=== PATIENT | female | born 1955 | race African-American/Black ===

== ENCOUNTER 2017-09-16 17:48 | Inpatient (IN) | payer MEDICARE ==
[2017-09-16 18:48] LABS: #Lymphocytes 1.8 thou/uL (1.20-3.40); #Neutrophils 12.9 thou/uL (1.40-6.50); %Basophils 0.1 % (0.0-1.0); %Eosinophils 0.1 % (0.0-10.0); %Lymphocytes 11.4 % (21.0-51.0); %Monocytes 6.3 % (0.0-10.0); Hematocrit 36.5 % (36.0-47.0); Mean Platelet Volume 6.5 fL (7.4-10.4); Red Blood Cell (RBC) Count 4.46 mill/uL (4.20-5.40); White Blood Cell (WBC) Count 15.7 thou/uL (4.8-10.8)
[2017-09-16] MEDS ORDERED: Morphine 2 mg/2ml in 0.9% NaCl PF SYRINGE ONE ×2 (18:55→21:25)
[2017-09-16] MEDS ORDERED: Ketorolac Tromethamine 30 MG/ML VIAL ONE (18:55)
[2017-09-16 19:04] LABS: Lactic Acid - Sepsis 2.3 mmol/L (0.5-2.2)
[2017-09-16 19:08] LABS: ALT (SGPT) 7 U/L (8-55); AST (SGOT) 11 U/L (5-34); Alkaline Phosphatase 80 U/L (40-150); Anion Gap 15 mmol/L (10-20); BUN (Urea Nitrogen) 35 mg/dL (9.8-20.1); Bilirubin, Total 0.4 mg/dL (0.2-1.2); Calc. Creatinine Clearance 0 mL/min (70-130); Carbon Dioxide 25 mmol/L (23-31); Chloride 98 mmol/L (98-107); Estimated GFR-MDRD 23; Globulin 5.2 g/dL (2.4-3.5); Protein, Total 8.4 g/dL (6.0-8.3)
[2017-09-16 20:05] LABS: Bilirubin Small (Negative); Blood, Urine Negative (Negative); Glucose, Urine (Dipstick) Negative (Negative); Ketone, Urine Negative (Negative); Nitrite Negative (Negative); Protein, Urine (Dipstick) 300 mg/dL (Neg-Trace); Urobilinogen 0.2 mg/dL (0.2-1.0)
[2017-09-16 20:08] LABS: Bacteria/HPF None Seen HPF (None Seen)
[2017-09-16 20:18] LABS: RBC/HPF 0-3 HPF (0-3); Transitional Epithelial 0-3 HPF (0-3)
--- NOTE | 2017-09-16 20:45 | RAD ---
AP CHEST: Indication: History of chest infection. IMPRESSION: No acute cardiopulmonary abnormality. Stable cardiomegaly when compared to prior 08-18-17 exam. POS: CAITIE
--- NOTE | 2017-09-16 20:56 | CT ---
CT OF ABDOMEN AND PELVIS WITHOUT IV CONTRAST: Indication: Lower abdominal pain with report of an infection. Patient has a history of diabetes. Comparison: CT of abdomen and pelvis without contrast, 02-14-09. FINDINGS: There is prominent circumferential wall thickening and pericolonic stranding involving the sigmoid co mary. There are scattered diverticula present. There is moderate dilatation of the colon which transit ions at the level of concentric wall thickening of the lower sigmoid colon. There is a band of soft t issue density extending from a loop of small bowel within the anterior lower mid abdomen on image 65 of series 2, extending anterior to the sigmoid colon and communicating with the superior aspect of th e bladder dome, best seen on image 87 or the coronal series. There is calcification within the bladde r dome as well as gas and surrounding perivesicular fat stranding suspicious for uterovesicular fistu la. No drainable fluid collection is evident. Small bowel is of normal caliber. There is a stable left renal cyst measuring 1.5 cm extending exophy tic along the midabdomen. There are some calcifications involving the cortex of the left kidney super ior pole. There is a fat containing right [place] hernia. Unopacified liver, spleen, pancreas and ad renal glands appear within normal limits. No acute osseous abnormality is evident. IMPRESSION: 1. Circumferential wall thickening and narrowing involving the sigmoid colon with perivesicular fat s tanding inducing moderate partial colonic obstruction may be related to an area of colonic diverticul itis; however, malignancy in this location cannot be excluded. Adjacent to this region is a band of soft tissue density and gas extending from a loop of ileum to th e superior aspect of the bladder dome most suspicious for an enterovesicular fistula. A small stone i s seen within the dome of the bladder with perivesicular fat standing and gas. This may also reflect an enterocolonicvesicular fistula. Surgical consultation is recommended. 2. Left renal cyst. 3. Other chronic findings as above. POS: SANTA
[2017-09-16] MEDS ORDERED: Meropenem 1 GM in Sodium Chloride 0.9% 100 ML IVPB SCH (21:15)
[2017-09-16] MEDS ORDERED: Potassium Chloride 40 MEQ in Sodium Chloride 0.9% 500 ML IVPB SCH (21:30)
[2017-09-16] MEDS ORDERED: Ondansetron ODT 4 MG TAB SL PRN (22:24)
[2017-09-16] MEDS ORDERED: Ondansetron HCl/PF 4 MG/2 ML Vial IVP PRN (22:24)
[2017-09-16] MEDS ORDERED: Sodium Chloride 0.9% 1,000 ML IV SCH (22:24)
[2017-09-16] MEDS: MORPHINE 10 MG/ML SYRINGE IV PRN (23:33)
[2017-09-17] MEDS: Fentanyl 100 MCG/2 ML VIAL SLOW IVP PRN ×4 (02:29→17:09)
[2017-09-17] MEDS: MORPHINE 10 MG/ML SYRINGE IV PRN (05:53)
[2017-09-17] MEDS ORDERED: Dextrose 5% in Water 1,000 ML IV PRN (07:58)
[2017-09-17] MEDS ORDERED: Dextrose 50% Abboject 50 ML SYRINGE IVP PRN (07:58)
[2017-09-17] MEDS ORDERED: Piperacillin/Tazobactam 2.25 GM, Admixture Fee 1 EACH in Sodium Chloride 0.9% 100 ML IVPB SCH (08:00)
[2017-09-17] MEDS ORDERED: Potassium Chloride 40 MEQ in Premix Bag 1 BAG IVPB SCH (08:00)
[2017-09-17] MEDS ORDERED: Ondansetron HCl/PF 4 MG/2 ML Vial IVP PRN (08:01)
--- NOTE | 2017-09-17 08:58 | HP ---
DATE OF ADMISSION: 09/16/2017 CHIEF COMPLAINT: Abdominal pain. HISTORY OF PRESENT ILLNESS: The patient is a 62-year-old female who has actually been having abdomin al pain for the last 2 weeks. She has been struggling with diet changes, trying to control and allev iate her pain. She has come to the emergency room on previous occasions, trying to have it evaluated . She went into Dr. Calhoun's office the week prior, at which time he felt by history and physical massimo t she had IBS and began her on Linzess. The pain, however, increased instead of improved. She began to run fever, chills, diarrhea, vomiting and because the pain intensified, she came to the emergency room for this admission. She rates it 8/10. There are no urinary tract symptoms. No polyuria, dys uria or frequency. She feels like she needs to urinate, she cannot and has a sensation that she rodriguez ot empty. There has been no blood in urine or stool. The patient had a CT in the emergency room, wh ich revealed complex situation with perisigmoid swelling and possible mass involving swelling and pre ssure on dome of the bladder with possible air track/fistula. The patient is being admitted for furt her evaluation and pain management. The patient when seen in the office was examined for H. pylori a nd the tests came back positive and she was undergoing treatment for that involving two antibiotics, proton pump inhibitor and Pepto-Bismol and other antibiotics including amoxicillin 500 mg two p.o. b. i.d., Tylenol #4 p.r.n. q.4 hours p.r.n. pain, Dexilant 60 mg day. PAST MEDICAL HISTORY: Significant for hypertension, dyslipidemia, gout, non-insulin dependent diabet es, anemia, GERD, recent diagnosis of H. pylori. PAST SURGICAL HISTORY: Includes tubal ligation. PAST PSYCHIATRIC HISTORY: She has had no psychiatric issues. 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 She does not smoke or drink alcoholic beverages. She is . ALLERGIES: She has no known drug allergies. MEDICATIONS ON ADMISISON: Include Glyburide 5 mg daily, Uloric 40 mg daily, amlodipine 5 mg daily, c arvedilol 6.25 mg b.i.d., clarithromycin 500 mg b.i.d. She has recently been diagnosed and treated f or H. pylori. REVIEW OF SYSTEMS: General: Significant for fever, malaise, exhaustion and hunger. HEENT: Denies blurred vision, headaches, sore throat, lesions in the nose, ears, and throat. Neck: Supple with normal range of motion. No sensation of mass or pain. Chest: Denies cough, shor tness of breath, dyspnea. Heart: Denies palpitations, chest pain. Abdomen: Diffusely tender, tahir cially across the lower quadrants with the sensation of fullness and gas and pain. Genitourinary: Denies urinary tract symptoms, no blood in urine or stool. Extremities: Has painful arthritis in the major joints, otherwise no swelling or edema. Skin: Without acute rashes or lesio ns. Neurologic: Denies headaches, blurred vision, or trouble with mentation. PHYSICAL EXAMINATION: VITAL SIGNS: At the time of admission, blood pressure 141/54 overnight, pulse 88, respirations 18, t emperature 100.6. Pain scale 8/10 with an O2 sat of 94% on room air. GENERAL: Obese female in moderate distress due to pain. HEENT: Normocephalic and atraumatic. Pupils equal, round, and reactive to light. Extraocular muscl es are intact. TMs, nares, pharynx are clear. NECK: Supple, trachea midline, no mass. CHEST: Clear to auscultation. Breast exam deferred. HEART: Regular rate and rhythm, tachycardic. ABDOMEN: Diffusely tender across the lower quadrants. There is mild guarding. Diminished bowel jd nds. Tenderness from left to mid suprapubic and left quadrant. EXTREMITIES: Without clubbing, cyanosis, or edema. Normal range of motion present. SKIN: Without acute rashes or lesions. NEUROLOGIC: Cranial nerves are intact. Mental status clear. Gait and cerebellar function untested at this time. LABORATORY DATA AND X-RAY FINDINGS: Lab work on admission showed WBC 15.7, hemoglobin 11.3, hematocr it 36.5 with platelets at 476. Sodium 135, potassium 2.6, chloride 98, CO2 25, BUN 35, creatinine 2. 55. Lactic acid elevated at 2.3, glucose 237, alkaline phosphatase low at 7, albumin low at 3.2. Ur inalysis shows 300 protein, small bilirubin, 4-6 WBCs. The chest x-ray shows no acute cardiopulmonar y issues. The CT of the abdomen, however, shows circumferential wall thickening and narrowing involv ing the sigmoid colon with perivascular fat stranding including moderate partial colonic obstruction, may be related to an area of colonic diverticulitis; however, malignancy cannot be excluded. She al so has soft tissue density and gas extending from a loop of ileum to the superior aspect of the dome of the bladder suspicious for intravascular fistula, small stones seen in dome of the bladder. ASSESSMENT: 1. Acute abdominal pain, etiology possibly acute colitis and/or fistula tract. 2. Hypokalemia. 3. Nkk-gzojzco-kplrdrara diabetes. 4. Renal insufficiency, acute. PLAN: N.p.o., IV fluids, continue IV antibiotics and surgical consultation, serial reevaluation and pain management.
[2017-09-17] MEDS ORDERED: Acetaminophen 1,000 MG in Premix Bag 1 BAG IVPB PRN (08:59)
[2017-09-17] MEDS ORDERED: Morphine 4 MG/ML Carpuject IVP PRN (08:59)
[2017-09-17] MEDS ORDERED: cloNIDine 0.1mg/24 Hour PATCH TD SCH (09:00)
[2017-09-17] MEDS ORDERED: FLU VACC QS2017-18 36 mo. & older 0.5 ML SYRINGE IM ONE (09:00)
[2017-09-17] MEDS ORDERED: MORPHINE 10 MG/ML SYRINGE IV PRN ×3 (09:11→10:29)
[2017-09-17] MEDS ORDERED: Morphine PF 1 MG/ML SYR IV PRN (09:12)
[2017-09-17] MEDS: Piperacillin/Tazobactam 2.25 GM, Admixture Fee 1 EACH in Sodium Chloride 0.9% 100 ML IVPB SCH ×3 (09:41→22:01)
[2017-09-17] MEDS: NS 0.9% w/ 20 MEQ KCL 1,000 ML IV SCH ×2 (09:41→16:32)
--- NOTE | 2017-09-17 09:42 | CON ---
DATE OF CONSULTATION: 09/17/2017 This consult is from Dr. Sabas Calhoun, [facility]. REASON FOR CONSULTATION: Abdominal pain. HISTORY OF PRESENT ILLNESS: This is a 62-year-old -German female, who presents with a histo ry of lower abdominal cramping and pain. She has had similar episodes in the past and she thinks she has been treated as an outpatient with diverticulitis in the past, now had been diagnosed with diver ticulitis, question of fistula to the bladder. The patient denies dysuria. She denies cloudy urine or foul smell, but she does occasionally pass air when she urinates. She denies chronic constipation or diarrhea. Last colonoscopy was 5 years ago in [place]. Pain is described as 8/10, dull ache, bi lateral lower abdomen, not associated with nausea or vomiting. No family history of GI malignancy. PAST MEDICAL HISTORY: Dyslipidemia, hypertension, diabetes mellitus, GERD. PAST SURGICAL HISTORY: Tubal ligation. MEDICINES TAKEN DAILY: See list. ALLERGIES: No known drug allergies. SOCIAL HISTORY: No smoking, alcohol, or other drugs. REVIEW OF SYSTEMS: Ten-system review of systems is otherwise negative unless described above. PHYSICAL EXAMINATION: VITAL SIGNS: Blood pressure is 150/88, pulse 89, respirations 20, temperature 99.5. HEENT: Sclerae are anicteric. Oropharynx clear. NECK: No lymphadenopathy. CHEST: Clear. HEART: Regular rate and rhythm. ABDOMEN: Soft, tender bilateral lower abdomen with guarding, but no rebound. No abdominal or inguin al hernias. EXTREMITIES: No ischemia or edema to extremities. LABORATORY AND X-RAY FINDINGS: White count was 15 last night, platelet count 476, hemoglobin 11, sod ium 135, potassium 2.6, creatinine was 2.[address] scan reveals inflammatory change to the s igmoid colon. There is a loop of small bowel that looks like it is in this area as well and involved , question fistula tract to the bladder. ASSESSMENT: 1. Likely diverticulitis, potentially complicated by a colovesical fistula. 2. Hypertension. 3. Diabetes mellitus, type 2. 4. Morbid obesity. PLAN: I recommend treating her like she has diverticulitis for now. She does not need meropenem and Zosyn. Zosyn was ordered and is renal dosed. If her kidney function is better tomorrow, we will in crease the dose to the standard. Recheck her chemistry today to be sure that her creatinine is not r ising, otherwise routine labs tomorrow morning. Keep her n.p.o. until her symptoms improve, we will allow ice chips. Ultimately may need resection plus or minus bladder repair. My plan would be IV an tibiotics, convert to oral antibiotics and home where she can undergo elective repeat colonoscopy as well as cystoscopy prior to any elective surgical procedure. She does need to undergo more of an urg ent procedure during this hospitalization. She would need a sigmoid colectomy and end colostomy.
[2017-09-17 10:21] LABS: Anion Gap 9 mmol/L (10-20); BUN (Urea Nitrogen) 41 mg/dL (9.8-20.1); Calc. Creatinine Clearance 45 mL/min (70-130); Calcium 8.3 mg/dL (7.8-10.44); Carbon Dioxide 27 mmol/L (23-31); Chloride 106 mmol/L (98-107); Estimated GFR-MDRD 25
[2017-09-17] MEDS ORDERED: Piperacillin/Tazobactam 2.25 GM in Sodium Chloride 0.9% 100 ML IVPB SCH (14:00)
[2017-09-17] MEDS ORDERED: Meropenem 1 GM, Admixture Fee 1 EACH in Sodium Chloride 0.9% 100 ML IVPB SCH (14:00)
--- NOTE | 2017-09-17 15:30 | PQF ---
CLINICAL DOCUMENTATION IMPROVEMENT CLARIFICATION FORM: ICD-10 Updated PLEASE DO AN ADDENDUM TO THE PROGRESS NOTE WITH ANY DOCUMENTATION UPDATES OR ADDITIONS AND CARRY THROUGH TO DC SUMMARY. THANK YOU. DATE: 09/25/17 ATTN: DR. MEEHAN / URIEL KERNS NP Please exercise your independent, professional judgment in responding to the clarification form. Clinical indicators are provided on the bottom of this form for your review Please check appropriate box(s): [ x ] Sepsis due to: (Pna, UTI, gangrenous gall bladder, etc.) ___colitis Due to: [ ] Device (please specify) [ ] Implant [ ] Graft [ ] Infusion [ ] SIRS due to non-infectious process (please specify etiology) [ ] with organ dysfunction [ ] without organ dysfunction [ ] Severe sepsis with acute organ dysfunction of: (Examples: respiratory failure, encephalopathy, acute kidney failure, other) [ ] Localized infection without sepsis [ ] Other diagnosis [ ] Unable to determine In addition, please specify: Present on Admission (POA): [ x ] Yes [ ] No [ ] Unable to determine For continuity of documentation, please document condition throughout progress notes and discharge summary. Thank You. 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 All Rights Reserved CASE [email or web address] Office: [phone] POLI
[2017-09-17] MEDS: Morphine PF 1 MG/ML SYR IV PRN ×2 (19:23→23:44)
[2017-09-18] MEDS: Morphine 10 MG/ML CARPUJECT IV PRN ×2 (03:16→17:14)
[2017-09-18] MEDS: Piperacillin/Tazobactam 2.25 GM, Admixture Fee 1 EACH in Sodium Chloride 0.9% 100 ML IVPB SCH ×4 (03:37→21:18)
[2017-09-18] MEDS: NS 0.9% w/ 20 MEQ KCL 1,000 ML IV SCH ×3 (03:37→14:50)
[2017-09-18 05:49] LABS: Band 34 % (5-11); Hematocrit 32.9 % (36.0-47.0); Mean Platelet Volume 6.9 fL (7.4-10.4); Neutrophil 54 % (42-75); Red Blood Cell (RBC) Count 4.04 mill/uL (4.20-5.40); White Blood Cell (WBC) Count 19.5 thou/uL (4.8-10.8)
[2017-09-18] MEDS: Fentanyl 100 MCG/2 ML VIAL SLOW IVP PRN ×5 (05:50→21:17)
[2017-09-18 06:08] LABS: Anion Gap 14 mmol/L (10-20); BUN (Urea Nitrogen) 53 mg/dL (9.8-20.1); Calc. Creatinine Clearance 39 mL/min (70-130); Calcium 8.8 mg/dL (7.8-10.44); Carbon Dioxide 22 mmol/L (23-31); Chloride 111 mmol/L (98-107); Estimated GFR-MDRD 22
[2017-09-18] MEDS ORDERED: Potassium Chloride 40 MEQ, Admixture Fee 1 EACH in Sodium Chloride 0.9% 250 ML 250 ML IVPB SCH (07:15)
[2017-09-18] MEDS ORDERED: Potassium Chloride 20 MEQ TAB PO SCH (08:15)
--- NOTE | 2017-09-18 08:20 | PRG ---
DATE OF SERVICE: 09/18/2017 SUBJECTIVE: The patient is in the shower. According to the nurse who just assessed her, she is vivekn g really well. Her abdomen is not hurting, it is soft. The patient does feel like she did have some liquids today. Upon evaluation, this is an exam I could not examine her as she is in the shower lori ing the shower, according to the nurse. PHYSICAL EXAMINATION: VITAL SIGNS: Blood pressure 128/95, pulse 90, respiration 16, she is afebrile. CARDIOVASCULAR: Regular rate and rhythm. CHEST: Symmetrical. Clear to auscultation and percussion. ABDOMEN: Soft, nontender. LABORATORY DATA: Showed a white blood cell to be 19.5, her H&H is 10.3 and 32.9, her platelet count is 426. Her potassium is 2.8. Her BUN is 53, creatinine is 2.71. ASSESSMENT: 1. Diverticulitis complicated by colovesical fistula. 2. Hypertension 3. Obesity. 4. Diabetes. 5. Hypokalemia. 6. Renal insufficiency. PLAN: 1. We will continue IV fluids. We will replace potassium. 2. We will check a lab in the morning. 3. We will start on clear liquid diet and follow up with lab in the morning. This is HOSSEIN Castanon dictating for Dr. Sabas Calhoun.
[2017-09-18] MEDS: Morphine PF 1 MG/ML SYR IV PRN (12:23)
[2017-09-18] MEDS: Insulin Regular 300 UNITS/3 ML VIAL SC PRN ×2 (12:28→17:16)
--- NOTE | 2017-09-18 17:05 | PRG ---
DATE OF SERVICE: 09/18/2017 SUBJECTIVE: Ms. Watters feels better today. She states that her pain is improved. She has not been am bulatory, on a clear liquid diet without significant nausea. PHYSICAL EXAMINATION: VITAL SIGNS: She is afebrile, pulse 77, blood pressure 140/86, multiple voids. ABDOMEN: Soft, pump and still operator in the left lower quadrant and the right lower quadrant, left greater th an right, with localized guarding, but no rebound tenderness. LABORATORY DATA: Her white blood cell count today is 19, hemoglobin 10, platelet count is 426. She does have 34 bands today. Sodium 144, potassium 2.8, creatinine is up to 2.71, glucose 145. ASSESSMENT: Improved diverticulitis, questionable colovesical fistula. Of note on her UA on admissi on, she did not have any bacteria and only 4-6 wbcs in her urine, increased leukocytosis with left sh ift. PLAN: Her initial CT scan was fairly limited by lack of contrast. I cannot give her IV contrast sec ondary to her acute on chronic renal insufficiency; however, we will have her drink oral contrast, re peat the scan.
[2017-09-18] MEDS ORDERED: Fentanyl 100 MCG/2 ML VIAL SLOW IVP PRN (17:25)
--- NOTE | 2017-09-18 20:43 | CT ---
CT ABDOMEN NONCONTRAST CT PELVIS NONCONTRAST: 09/18/17 HISTORY: 62-year-old female with diverticulitis, abdominal pain for three weeks, and colitis. Dr. Alston discussed the findings by telephone with Dr. Ceron at 4:38 p.m. on 09/18/17. TECHNIQUE: Oral contrast: 900 mL Readi-Cat. IV contrast: Not administered. COMPARISON: CT of 09/16/17. FINDINGS: Again demonstrated is the diffuse thickening of an approximately 6 cm length of sigmoid colon, obstru cting the lumen. In addition to numerous diverticula at this level, there is surrounding mild spicula tion and fat stranding. This is causing an obstruction, demonstrated by the fact that the distal sigm oid colon distal to this, is small in caliber. There is fluid in the lumen of the rectum. Proximal to this, the entire rest of the colon is distended with a large volume of fluid and gas. This colonic d istention is slightly greater than it was two days ago. There may be tiny foci of extraluminal gas al rosendo the superior edge of the thickened portion of the colon, new or greater than on the previous CT. Alternatively, these foci of gas may be intraluminal, within diverticula. Again demonstrated is the t hin short tubular density arising from a loop of ileum leading to what appears to be a diverticulum a t the anterior dome of the urinary bladder. The urinary bladder volume is small overall. This apparen t diverticulum measures approximately 3.5 x 3.5 x 3 cm, has thick sheppard, and contains gas. At its pos terior dependent portion, this apparent diverticulum appears to contains a 1 x 0.8 x 0.6 cm calculus that may be occluding it. The small bowel loops are collapsed. No small bowel dilation. There is a small amount of free fluid i n the right lower paracolic gutter, new since the previous CT. Again demonstrated is a small layer of hyperdense material in the dependent portion of the lumen of the cecum, and a small amount in the tr ansverse colon. This was present on the previous CT, and presumably represents ingested hyperdense ma terial such as Pepto Bismol, fragmented calcium tablet, or Milk of Magnesia. There is no evidence of pneumatosis or pneumoperitoneum. There is also a small amount of free fluid and fat stranding in the contralateral left paracolic gutter. No hydronephrosis. Ectasia and tortuosity of abdominal aorta wit hout aneurysm. No splenomegaly. No gross pathology of pancreas, adrenals, or liver identified, within the limitations of a noncontrast scan. The lung bases are grossly clear. IMPRESSION: 1. Colonic obstruction at the sigmoid colon. This may be due to a combination of acute diverticu litis and an obstructing colon cancer. The colon proximal to this obstruction has become more distend ed since 09/16/17. 2. A slightly greater degree of inflammatory changes involving what appears to be an anterior bl adder diverticulum, containing gas, containing a calculus that is questionably obstructing its neck. 3. What appears to be an enterovesical fistula leading from an adjacent loop of ileum to this ap parent bladder diverticulum. Unfortunately, the oral contrast material has not reached this level (mo st of the oral contrast material is still within the distended stomach). 4. A greater volume of small amount of free fluid in the right pericolic gutter since two days a go. POS: SANTA
[2017-09-18] MEDS ORDERED: Fleet Enema 133 ML BOT PR SCH (21:00)
[2017-09-19] MEDS: NS 0.9% w/ 20 MEQ KCL 1,000 ML IV SCH ×3 (02:47→17:44)
[2017-09-19] MEDS: Piperacillin/Tazobactam 2.25 GM, Admixture Fee 1 EACH in Sodium Chloride 0.9% 100 ML IVPB SCH ×4 (02:47→21:53)
[2017-09-19 06:30] LABS: Anion Gap 15 mmol/L (10-20); BUN (Urea Nitrogen) 65 mg/dL (9.8-20.1); Calc. Creatinine Clearance 30 mL/min (70-130); Calcium 9.3 mg/dL (7.8-10.44); Carbon Dioxide 19 mmol/L (23-31); Chloride 110 mmol/L (98-107); Estimated GFR-MDRD 16
[2017-09-19 06:45] LABS: Anisocytosis SLIGHT = 6-15 cells (100X) (0-5/hpf); Band 16 % (5-11); Hypochromia SLIGHT = 6-15 cells (100X) (0-5/hpf); Mean Platelet Volume 6.6 fL (7.4-10.4); Neutrophil 71 % (42-75); Polychromasia SLIGHT = 2-3 cells (100X) (0-2/hpf); Red Blood Cell (RBC) Count 4.01 mill/uL (4.20-5.40); White Blood Cell (WBC) Count 21.9 thou/uL (4.8-10.8)
--- NOTE | 2017-09-19 07:27 | CON ---
DATE OF CONSULTATION: 09/18/2017 REASON FOR CONSULTATION: Possible colon obstruction, diverticular versus malignant. HISTORY OF PRESENT ILLNESS: Ms. Watters is a 62-year-old female who has been having on and off pain for a few weeks and she was admitted to the hospital on the . In the distant past, she states she [place] s some sort of symptoms in her previous diverticulitis, but now over the past couple weeks, she ended up going to the emergency room and having imaging studies, placed on antibiotics. She had a CAT sca n, which showed outpatient with diverticulosis with possible fistula to the bladder. Patient, zaki frank, denies any dysuria or hematuria. She has had no cloudy urine or foul-smelling urine. wonde rs if she has gas from her vaginal area. She reports she did have a normal colonoscopy at [facility], 5 years ago in [place]. Here, the patient was started empirically on antibiotics. Repeat C AT scan with oral contrast, which showed dilated proximal colonic loops and possible narrowing in the sigmoid colon. Following that, the patient states she is passing gas. She noted scant small bowel movements, although she states when she tries to drink, she does not feel she can get much down. Ini tial CAT scan which showed circumferential wall thickening and narrowing involving the sigmoid colon with perivascular fat stranding. Also, the radiologist noted with possible enterovesicular fis jeff; this was without any IV or any oral contrast at that time. The patient denies any history of inflammatory bowel disease or Crohn's disease, she has had no abdom inal surgeries besides tubal ligation in the past. PAST MEDICAL HISTORY: Hypertension, dyslipidemia, gout, noninsulin-dependent diabetes, mild anemia, reflux, and recent diagnosis of H. pylori on serology test. 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 She does not smoke or drin k. She is with two grown sons. ALLERGIES: None known. HOME MEDICATIONS: Include glyburide, Uloric, amlodipine, carvedilol, clarithromycin. REVIEW OF SYSTEMS: Negative for dysphagia or odynophagia, notable for mild shortness of breath, no d yspnea on exertion or chest pain on exertion. She denies any recent hematochezia, melena, or hematem esis. She did not note hematuria. PRESENT MEDICATIONS: Clonidine, , fentanyl, Zosyn, normal saline 100. PHYSICAL EXAMINATION: VITAL SIGNS: The patient has been afebrile since admission, 97.6. She has got a pulse of 89, blood pressure 137/86. She is a little bit overweight. She is short. LUNGS: Clear. CARDIOVASCULAR: Regular rate and rhythm, without clicks or murmurs. ABDOMEN: Firm, especially in the left lower and mildly tender. LABORATORY AND X-RAY FINDINGS: White count is 19, hemoglobin is 10, platelet count is 426. Sodium i s 144, potassium 2.8, BUN 53, creatinine 2.71. CEA was 25. Urinalysis showed slight white cells. ASSESSMENT: This is a 62-year-old female with high-grade obstruction in the colon and sigmoid area. She states she is passing gas, but she has prominent dilatation proximal to this. Dr. Ceron today and did see those films and asked me if we can perform a flexible sigmoidoscopy and he is worr ied about malignancy. Her CEA has come back elevated at 25, this is not the diagnostic malignancy, b pr has raised that concern as well; however, she reports she had a normal colonoscopy 5 years ago at [facility] in [place]. She does not remember the exact date, however. RECOMMENDATIONS: Included broad-spectrum antibiotics. I do not think, she can tolerate full colonos copy or bowel prep. We will plan to keep her n.p.o. for now and proceed with flexible sigmoidoscopy after enemas. I have explained to family, this could increase risk of perforation with the distentio n and concern for possible perforation or fistula tract to the bladder can make that worse, but this would require surgery anyway, and in talking with Dr. Ceron, he states it will change his surgical approach if he knows there is a malignancy present. She could decompensate and become fully obstruct ed overnight and become emergent that she would have the surgery, but we will see if we can accommoda te this tomorrow, if she remains stable.
[2017-09-19] MEDS ORDERED: TAP WATER ENEMA PR SCH (09:00)
[2017-09-19] MEDS: Fentanyl 100 MCG/2 ML VIAL SLOW IVP PRN (09:56)
--- NOTE | 2017-09-19 13:48 | CON ---
DATE OF CONSULTATION: 09/19/2017 HISTORY OF PRESENT ILLNESS: Ms. Watters is a 62-year-old black female who has chronic renal failure secondary to a presumed diabetic nephropathy. Her last creatinine in the clinic back on 08/2017 was 1.73. She is now being admitted for abdominal pain. Working diagnosis of possible colitis is made. She is currently undergoing a flexible sigmoidoscopy. GI is following. Initial CT scan done on 09/18/2017 showed diffuse thickening of the sigmoid colon which was obstructing the lumen. In addition to numerous diverticula, there is finding of and fat stranding. There is any issue whether there may be a fistula involved here. We are now being consulted for her acute kidney injury. Please note the patient is currently undergoing said procedure not in her bedroom. REVIEW OF SYSTEMS: Based on the history, positive for abdominal pain. Positive for nausea, but no overt vomiting, no fever or chills, decreased appetite, decreased energy level. No headache, no diplopia, no syncopal episode , no productive cough. Denies any fever or chills. HOME MEDICATIONS: Included Lasix 40 mg tab p.r.n., KCl 10 mEq p.r.n., hydralazine 50 mg tab b.i.d., allopurinol 300 mg once a day, glyburide 5 mg once daily, amlodipine 5 mg once a day, carvedilol 6.25 mg b.i.d., tramadol 50 mg p.r.n., iron p.o. t.i.d., Flexeril 10 mg tab at bedtime. CURRENT MEDICATIONS: Includes Humulin R sliding scale, p.r.n. Vasotec, Zosyn 2.25 grams IV q.6 hours, normal saline with 20 mEq, potassium 125 mL per hour. PAST MEDICAL HISTORY: 1. Recent diagnosis of colitis. 2. Chronic renal failure from presumed diabetic nephropathy. 3. Gout. 4. Obstructive sleep apnea, status post CHF. 5. Chronic anemia. 6. Type 2 diabetes mellitus. PAST SURGICAL HISTORY: Status post upper and lower GI endoscopy. SOCIAL HISTORY: The patient is and lives in [place]. Four children, lives with her . 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 Education high school. No history of smoking. She does have history of chronic intake of NSAIDs. No IV drug abuse. Status post blood transfusion. FAMILY HISTORY: No family history of ESRD. ALLERGIES: None. TRAUMA: None. IMMUNIZATIONS: Up to date. HOSPITALIZATIONS: Please see past medical history. PHYSICAL EXAMINATION: This is based on the medical records by surgeon and customer service representative teller. VITAL SIGNS: Blood pressure 131/82, heart rate 89, respiratory rate 20, temperature 98. GENERAL: Noted to be awake, alert, comfortable, not in distress. SKIN: Adequate turgor. HEENT: She has pinkish conjunctivae, anicteric sclerae. NECK: No neck mass, no carotid bruits, no JVD. CHEST: No deformities. LUNGS: Decreased breath sounds. HEART: Normal sinus rhythm. No murmur, no gallops or rubs. ABDOMEN: Globular, soft. Positive for tenderness. EXTREMITIES: No edema, no deformities. LABORATORY DATA: Laboratories of 09/19/2017; white count 21.9, hemoglobin 10.1 , sodium 140, potassium 3.5, chloride 110, carbon dioxide 19, BUN 65, creatinine 3.5, glucose 141, calcium 9.3. On 09/18/2017, creatinine 2.71. On 09/17/2017, creatinine 2.37. On 09/16/2017, creatinine 2.55. Urinalysis shows pigmented granular casts. ASSESSMENT AND PLAN: 1. Acute kidney injury on top of her chronic renal failure - with progressive ischemia and findings of pigmented granular cast in the urine sediment, I suspect a superimposed acute tubular necrosis. Management is supportive. Continue to optimize hemodynamics. If the renal function will further worsen in the next several days, we need to consider the possibility of dialytic intervention with this patient. 2. Colitis - General Surgery is following. A possible colon resection remains with this patient as well as exploratory laparotomy. Continue current IV antibiotics. At the present time, there is no indication for any dialytic intervention. Overall, I agree with current management. The patient was physically examined on the following day - 09/20/17 S: No new complaints; s/p endoscopy; currently receiving IV hydration Vital signs - Reviewed Gen: Awake, alert, comfortable, not in distress Skin: Adequate turgor HEENT: Pinkish conjunctiva, anicteric sclerae, noJVD Lungs: Clear breath sounds, no wheezing, no crackles Heart: NSR,no murmur, no gallops, no rubs Abdomen: Globular, mildly tender Ext: Trace edema Neuro: Awake, alert, oriented. MTDD
[2017-09-19] MEDS ORDERED: Fentanyl 100 MCG/2 ML VIAL ONE ×2 (14:17→15:35)
[2017-09-19] MEDS ORDERED: Labetalol HCl 100 MG/20 ML VIAL ONE (14:28)
[2017-09-19] MEDS ORDERED: Midazolam HCl 2 mg/2 ml Vial ONE (15:38)
[2017-09-19] MEDS ORDERED: Promethazine HCl 25 MG/ML VIAL IM PRN (16:33)
[2017-09-19] MEDS ORDERED: Ondansetron HCl/PF 4 MG/2 ML Vial IVP PRN (16:33)
[2017-09-19] MEDS ORDERED: Promethazine HCl 25 MG/ML VIAL SLOW IVP PRN (16:33)
[2017-09-19] MEDS ORDERED: Vancomycin HCl 25 MG/ML Oral PO SCH (18:00)
[2017-09-19] MEDS: metroNIDAZOLE 500 MG in Premix Bag 1 BAG IVPB SCH (18:09)
--- NOTE | 2017-09-19 18:11 | EKG ---
Test Reason : PREOP Blood Pressure : / mmHG Vent. Rate : 095 BPM Atrial Rate : 095 BPM P-R Int : 194 ms QRS Dur : 108 ms QT Int : 368 ms P-R-T Axes : 001 -10 044 degrees QTc Int : 462 ms Normal sinus rhythm , borderline 1st degree AV block. Moderate voltage criteria for LVH, may be normal variant Cannot rule out Inferior infarct , age undetermined Abnormal ECG When compared with ECG of 16-AUG-2013 17:47, [place] interval has decreased Vent. rate has increased BY 34 BPM Minimal criteria for Inferior infarct are now Present T wave amplitude has decreased in Inferior leads Nonspecific T wave abnormality, worse in Lateral leads Confirmed by EHSAN NOLAN ([id number]) on 09/19/2017 6:10:52 PM Referred By: KANDI Confirmed By:EHSAN NOLAN
--- NOTE | 2017-09-19 21:43 | OP ---
PREOPERATIVE DIAGNOSES: 1. Suspected colonic obstruction at the rectosigmoid colon, diverticular versus malignancy. 2. Distended colon proximal to this concerning for high-grade partial obstruction. 3. Leukocytosis attributed diverticulitis. 4. Respiratory embarrassment secondary to distended abdomen. PROCEDURES: 1. Colonoscopy with decompression, about 3 liters of liquid were suctioned from the colon. A decomp ression tube was left in the rectum above the area of narrowing the sigmoid colon. 2. Severe colitis above the area of obstruction with pseudomembranes and exudates. Biopsies were ta niranjan from the left colon, descending colon, and sigmoid colon. This may be Clostridium diff colitis w ith an ileus. 3. Narrowing extrinsic compression at the sigmoid colon, this is likely from chronic diverticular di sease, no overt malignancy was seen. The prep, however, was very suboptimal. Distal to the narrowed area in the sigmoid colon, mucosa appeared fairly normal. ANESTHESIA: TIVA. PROCEDURE IN DETAIL: After the patient was informed of the risks, benefits, possible complications o f endoscopy including perforation, bleeding, reaction to medication, and aspiration, informed consent was obtained. The patient was brought to endoscopy suite where she was sedated in gradual fashion. Once she was comfortable, the endoscope was advanced through anal canal, through the colon. It was very difficult to supervise the area of narrowing as the colon was redundant, erythematous, inflamed and edematous with the area of stricture about 25-30 cm from the anorectal verge. This could be pass ed and above this, the colon was massively dilated with dark green liquid stool and mucosa with exuda te and some pseudomembranes. Multiple biopsies were taken from the transverse, ascending and descend ing colon and submitted to Pathology. The colon was desufflated with about 3 L of stool removed from the colon. A narrowed area was noted at about 25-30 cm from the anorectal verge, but no overt malig huseyin was seen mostly extrinsic compression, but again the prep was so poor it was hard to see, but n o obvious tumor or mass were seen in the colon. A wire was placed through the scope and above the ar ea of obstruction and then a decompression tube was placed. The esophagoscope was slowly removed fro m this. Colon was kept desufflated during this procedure. The patient's abdomen was much less tense . After the procedure, she felt better. Her heart rate was down. Her pulse was down. Her breathin g was nonlabored. Stool samples obtained and sent to lab for Clostridium difficile. RECOMMENDATIONS: 1. Decompression tube in the rectum. 2. IV fluids. 3. Add Flagyl intravenous and by mouth vancomycin. If stools for Clostridium difficile is positive, we would stop the Zosyn. We will continue to follow.
[2017-09-19] MEDS: Vancomycin HCl 25 MG/ML Oral PO SCH (21:52)
[2017-09-20] MEDS: metroNIDAZOLE 500 MG in Premix Bag 1 BAG IVPB SCH ×3 (00:55→17:33)
[2017-09-20] MEDS: NS 0.9% w/ 20 MEQ KCL 1,000 ML IV SCH ×3 (00:58→16:27)
[2017-09-20] MEDS: Piperacillin/Tazobactam 2.25 GM, Admixture Fee 1 EACH in Sodium Chloride 0.9% 100 ML IVPB SCH ×4 (02:49→21:49)
[2017-09-20 06:48] LABS: ALT (SGPT) 7 U/L (8-55); AST (SGOT) 10 U/L (5-34); Alkaline Phosphatase 77 U/L (40-150); Anion Gap 12 mmol/L (10-20); BUN (Urea Nitrogen) 65 mg/dL (9.8-20.1); Bilirubin, Total 0.3 mg/dL (0.2-1.2); Calc. Creatinine Clearance 32 mL/min (70-130); Calcium 8.4 mg/dL (7.8-10.44); Carbon Dioxide 20 mmol/L (23-31); Chloride 113 mmol/L (98-107); Estimated GFR-MDRD 17; Protein, Total 6.2 g/dL (6.0-8.3)
[2017-09-20 07:41] LABS: Band 6 % (5-11); Hematocrit 26.2 % (36.0-47.0); Mean Platelet Volume 6.9 fL (7.4-10.4); Metamyelocyte 1 % (0-0); Neutrophil 76 % (42-75); Polychromasia SLIGHT = 2-3 cells (100X) (0-2/hpf); Red Blood Cell (RBC) Count 3.19 mill/uL (4.20-5.40); White Blood Cell (WBC) Count 19.4 thou/uL (4.8-10.8)
--- NOTE | 2017-09-20 08:13 | PRG ---
DATE OF SERVICE: 09/20/2017 This is MUNDO Castanon-Katherin dictating a progress note for Sabas Calhoun M.D. SUBJECTIVE: The patient had a good night. Her abdomen has less pain. PHYSICAL EXAMINATION: VITAL SIGNS: Upon evaluation, her blood pressure is 140/80, pulse 80, respiration afebrile. NECK: Supple with no increased JVP or carotid bruit. Carotid had good upstroke with no thyromegaly. COR: Regular rate and rhythm. CHEST: Symmetrical. Clear to auscultation and percussion. ABDOMEN: Soft, slightly tender in all quadrants. She had normoactive bowel sounds. No bruit or org anomegaly. EXTREMITIES: No edema or cyanosis. She had palpable pedal pulses. SKIN: There is no evidence of ulcer lesion, or rash. NEUROLOGIC: She is awake, alert, and oriented to person, place, and time. LABORATORY DATA: Showed white blood cell 19.4, which is slightly better. Her hemoglobin and hematoc rit is 8.4 and 26.2. Her platelet count is 397. Her potassium is 3.3. Her creatinine is 3.34. ASSESSMENT: 1. Colonic obstruction. 2. Leukocytosis attributed to diverticulitis. 3. Renal insufficiency. 4. Hypertension. 5. Hypokalemia. 6. Anemia. 7. Multiple medical problems. PLAN: The patient will be continued with same treatment plan: We will go ahead and replace her pota ssium. We will follow up also with CBC and CMP in the morning. The patient verbalized understanding and all questions answered to her satisfaction.
[2017-09-20] MEDS ORDERED: Potassium Chloride 20 MEQ in Premix Bag 1 BAG IVPB SCH (08:45)
[2017-09-20] MEDS: Vancomycin HCl 25 MG/ML Oral PO SCH ×4 (08:50→21:50)
--- NOTE | 2017-09-20 08:52 | PRG ---
DATE OF SERVICE: 09/20/2017 SUBJECTIVE: Ms. Watters is a 62-year-old black female with chronic renal failure and was seen by the [facility] service for an acute kidney injury. The possibility of a superimposed acute tubular necrosis rem ains with this patient. Currently, hemodynamics is being optimized. She underwent a colonoscopy wit h decompression yesterday. As per report by GI, 3 liters of liquid were suctioned from the colon and decompression tube was left in the rectum above the area of narrowing of the sigmoid colon. Severe colitis was noted. There was narrowing and extrinsic compression of the sigmoid colon and this was f elt that this is likely from chronic diverticular disease - no overt carcinoma malignancy was noted. This morning, she is feeling a little better and she has some mild abdominal tenderness. She is cur rently receiving IV hydration. No complaints of chest pain or shortness of breath. PHYSICAL EXAMINATION: VITAL SIGNS: Blood pressure 146/81, heart rate 70, respiratory rate 20, temperature 98, pulse ox 93% . GENERAL: Noted to be awake, supine, comfortable, not in overt distress. SKIN: Adequate turgor. HEENT: Slightly pale conjunctivae, anicteric sclerae. NECK: No neck mass, no carotid bruits. No JVD. CHEST: No deformities. LUNGS: Clear breath sounds. No wheezing, no crackles. HEART: Normal sinus rhythm. No murmur, no gallops, no rubs. ABDOMEN: Globular, soft, nontender, no masses. Positive for bowel sounds, mildly tender. EXTREMITIES: Trace edema. NEUROLOGIC: Awake and oriented in 3 spheres. Moving all extremities. No tremors or asterixis. MEDICATIONS: Medications of 09/20/2017 was reviewed. LABORATORY DATA: Laboratories of 09/20/2017; white count 19.4, hemoglobin 8.4, sodium 142, potassium 4.4, chloride 103, carbon dioxide 20, BUN 65, creatinine 3.34. AST 10, ALT 7. On 09/19/2017, creat inine 3.5; 09/18/2017 creatinine 2.71. ASSESSMENT AND PLAN: 1. Acute kidney injury - possible superimposed acute tubular necrosis. I cannot rule out a prerenal component. For this reason, continue IV hydration. Please note the patient has had markedly decrea sed p.o. intake. Continue normal saline. No indication for any dialytic intervention. There is alr césar some stabilization with the renal dysfunction. 2. Colitis - on IV antibiotics. GI is following. Status post colonoscopy with decompression. Overall, agree with current management. Recheck base met and CBC in a.m.
--- NOTE | 2017-09-20 16:30 | SPC ---
ULTRASOUND FLUOROSCOPIC GUIDED LEFT UPPER EXTREMITY PICC LINE PLACEMENT. INDICATION: Need for long-term IV antibiotics for colitis and sepsis. TECHNIQUE: Informed consent was obtained. Preprocedure ultrasound demonstrated patent left basilic vein. The l eft upper extremity was prepped and draped in the usual sterile fashion. Buffered 1% Lidocaine was a dministered to the overlying subcutaneous tissues. Under ultrasound guidance, a micropuncture access kit was utilized to gain access to the left basilic vein. The guidewire was advanced to the level o f the IVC. A 5 Greek catheter sheath was then placed within the left basilic vein. A single lumen PICC line trimmed to 50 cm was guided over the line through the sheath. The sheath and wire were rem karis. Total fluoroscopic time was 0.6 minutes. Total exposure was 8655 mGy*^cm2. IMPRESSION: Successful ultrasound and fluoroscopic-guided left upper extremity PICC line placement. POS: SANTA
--- NOTE | 2017-09-20 18:04 | PRG ---
DATE OF SERVICE: 09/20/2017 SUBJECTIVE: Ms. Watters has had a PICC line placed this afternoon. She states that she feels better. Dr. Rojas was able to decompress her dilated proximal colon yesterday on her sigmoidoscopy. She sta rolando that her pain is improved. OBJECTIVE: VITAL SIGNS: She is afebrile. Vital signs are stable. She has had multiple stools today, multiple voids. ABDOMEN: Less distended. It is fourdrinier machine tender in the left lower quadrant. LABORATORY DATA: White blood cell count is 19 today, hemoglobin 8.4 and platelet count is 397. She has 6 bands. Sodium 142, potassium 3.3 and creatinine 3.34. ASSESSMENT: 1. Colitis severe, non-Clostridium difficile with obstruction, partial, improved after decompression . 2. Acute tubular necrosis superimposed on chronic renal failure. PLAN: I think her creatinine needs to peek and improve before she undergoes any sort of surgical pro cedure if possible. Obviously, if she needed something emergent done, it could be done, but it would likely lead to dialysis. I recommend keeping her on a clear liquid as tolerated. We will start TPN per dietitian recommendations and I recommend she stay through the weekend. If her creatinine were to approach normal early in the week, I could do something surgically.
[2017-09-20] MEDS ORDERED: [UNRECOGNIZED DRUG - OTHER] IV SCH ×22 (22:00)
[2017-09-20] MEDS ORDERED: SODIUM ACETATE IV SCH ×22 (22:00)
[2017-09-20] MEDS ORDERED: SODIUM CHLORIDE IV SCH ×22 (22:00)
[2017-09-20] MEDS ORDERED: POTASSIUM ACETATE IV SCH ×22 (22:00)
[2017-09-21] MEDS: NS 0.9% w/ 20 MEQ KCL 1,000 ML IV SCH ×2 (01:59→10:04)
[2017-09-21] MEDS: metroNIDAZOLE 500 MG in Premix Bag 1 BAG IVPB SCH ×3 (02:59→17:27)
[2017-09-21] MEDS: Piperacillin/Tazobactam 2.25 GM, Admixture Fee 1 EACH in Sodium Chloride 0.9% 100 ML IVPB SCH ×4 (05:05→21:25)
[2017-09-21 05:48] LABS: #Eosinphils 0.3 thou/uL (0.0-0.7); #Lymphocytes 1.8 thou/uL (1.20-3.40); #Monocytes 0.7 thou/uL (0.11-0.59); #Neutrophils 12.2 thou/uL (1.40-6.50); %Basophils 0.2 % (0.0-1.0); %Eosinophils 2.1 % (0.0-10.0); %Lymphocytes 11.7 % (21.0-51.0); %Monocytes 4.7 % (0.0-10.0); Hematocrit 29.2 % (36.0-47.0); Mean Platelet Volume 6.8 fL (7.4-10.4); Red Blood Cell (RBC) Count 3.54 mill/uL (4.20-5.40)
[2017-09-21 06:04] LABS: ALT (SGPT) 7 U/L (8-55); AST (SGOT) 11 U/L (5-34); Alkaline Phosphatase 97 U/L (40-150); Anion Gap 7 mmol/L (10-20); BUN (Urea Nitrogen) 42 mg/dL (9.8-20.1); Bilirubin, Total 0.2 mg/dL (0.2-1.2); Calc. Creatinine Clearance 48 mL/min (70-130); Calcium 8.6 mg/dL (7.8-10.44); Carbon Dioxide 25 mmol/L (23-31); Chloride 115 mmol/L (98-107); Estimated GFR-MDRD 27; Globulin 4.3 g/dL (2.4-3.5); Protein, Total 6.8 g/dL (6.0-8.3)
--- NOTE | 2017-09-21 06:16 | PRG ---
DATE OF SERVICE: 09/20/2017 SUBJECTIVE: Ms. Watters feels much better. She is breathing better. Her abdomen is less tense. Nurse notes she is having some stool after rectal tube and had a lot of stool around it. OBJECTIVE: VITAL SIGNS: Temperature is 98, pulse 66 and blood pressure 179/101. LUNGS: Clear. HEART: Regular rate and rhythm. ABDOMEN: Soft and nontender, slightly protuberant, much softer than it was yesterday. There are pos itive bowel sounds. LABORATORY STUDIES: White count 19,000, hemoglobin 8.4 and platelet count 397. Chemistry: Sodium 1 42, potassium 3.3, BUN and creatinine are 65 and 3.34 down from 3.5. Liver function tests normal. S tool negative for C. diff. Routine cultures had growth in normal [place]. ASSESSMENT: 1. Stricture in the sigmoid colon, likely diverticular. No malignancy was seen at the time of endos copy, although with high CEA, poor visualization cannot rule out completely. 2. Colitis in the colon proximal, Clostridium difficile toxin was negative, but there were some pseu domembranes and some purulent mucous. We will wait for the biopsies and continue the Flagyl and vanc omycin p.o. for now. If biopsies show other etiologies, we will go ahead and discontinue that. It m ay be that colitis is still from over distention of the colon. Inflammatory of her bowel disease is less likely and again antibiotic associated diarrhea other than Clostridium difficile will be possibl e too. 3. With her positive bowel sounds and passing stool, we will start her on a full liquid diet. This will help with nutrition. We will ask her to take some Ensure. 4. She asks, if she can get up and walk and definitely we would like her to do that. I told the anmol se to start having her mobilize and just try to watch the rectal tube as possible and she can wear a diaper when she walks. The rectal tube may eventually come out; the decompression tube does not have a balloon or a catheter to keep it in place. If that happens, we will just have to watch what her a bdomen does. 5. I agree with Dr. Ceron to see if we can stabilize her renal function improved before proceeding the surgery. Also, I think it would be a good idea to wait for the pathology to come back on the co mary biopsies as well. We will continue to follow.
--- NOTE | 2017-09-21 08:01 | PRG ---
DATE OF SERVICE: 09/21/2017 SUBJECTIVE: The patient had a good night. She is ready to start eating. She is having unfortunatel y a lot of "loose stools". PHYSICAL EXAMINATION: GENERAL: She is awake, alert, and oriented to person, place and time. VITAL SIGNS: Her blood pressure is high at 170/90, pulse 68, respiration rate 18. She is afebrile. NECK: Supple with no increased JVP or carotid bruit. Carotid had good upstroke with no thyromegaly. COR: Regular rate and rhythm. CHEST: Symmetrical. Clear to auscultation and percussion. ABDOMEN: Soft, tender. She had hyperactive bowel sounds. EXTREMITIES: No edema or cyanosis. She had palpable pedal pulses. SKIN: There is no evidence of ulcers lesion, or rash. NEUROLOGIC: She is awake, alert, and oriented to person, place, and time. LABORATORY DATA: Her white blood cells is better at 15,000. Her H&H is 9.0 and 29.2, her platelet c ount is 397. Her potassium is 3.2. Her BUN is 42, creatinine is 2.24. ASSESSMENT: 1. Stricture in the sigmoid colon. 2. Colitis. 3. Hypokalemia. 4. Renal insufficiency. 5. Multiple medical problems. PLAN: The plan is according to the notes to stabilize her kidney function before proceeding with martin butts. We will also replace her potassium and adjust her Catapres patch. We will follow up also with lab in the morning.
--- NOTE | 2017-09-21 08:08 | PRG ---
DATE OF SERVICE: 09/21/2017 SUBJECTIVE: Ms. Watters feels better today. She states she is having more loose stools, no nausea. Sh krystyna has started a liquid diet again. PHYSICAL EXAMINATION: VITAL SIGNS: Blood pressure 170/96, pulse 68, respirations 18. She is afebrile. ABDOMEN: Soft, minimally distended, still mildly tender in the lower abdomen, but improved. LABORATORY DATA: White blood cell count is 15, hemoglobin 9. Sodium 144, potassium 3.2, creatinine 2.24, glucoses are 155 and 161. ASSESSMENT: 1. Colitis of uncertain etiology. Pathology pending, but Clostridium difficile negative with eviden ce of stricture in the sigmoid colon at least partially obstructing. 2. Acute tubular necrosis on top of chronic renal insufficiency. 3. Hypertension seems to be worsening during hospitalization. PLAN: Labs are improving. She feels better, we will allow full liquids. Start her on TPN and I rec ommend she stay on antibiotics on TPN through the weekend. If makes considerable improvement clinica lly, Sunday or earlier in the week likely be discharged; however, if still presents with obstructive symptoms, would plan for some sort of surgical intervention early next week. I will reevaluate on Mo nd. We will leave hypertension controlled to the primary team.
[2017-09-21] MEDS: Saccharomyces boulardii 250 MG CAP PO SCH (08:39)
[2017-09-21] MEDS: Vancomycin HCl 25 MG/ML Oral PO SCH ×4 (08:39→21:25)
[2017-09-21] MEDS ORDERED: cloNIDine 0.2mg/24 Hour PATCH TD SCH (09:00)
--- NOTE | 2017-09-21 10:23 | PRG ---
DATE OF SERVICE: 09/21/2017 SUBJECTIVE: The patient was seen by the Renal Service for acute kidney injury. At that time, I felt she may have a superimposed acute tubular necrosis. However, in the last 24-48 hours, there is a sl ight improvement in the renal function. We are trying to optimize hemodynamics with this patient. S he also came with abdominal obstruction - most likely functional. She has undergone colonoscopy with Dr. Rojas. This was done on 09/19/2017. Decompression suctioning of about 3 liters of liquid was taken from the colon. Right colon tissue and left colon tissue has been sent for pathological examination. They are still pending. This morning, she voices no new complaints. Her abdominal fullness is better. She denies any chest pain, no shortness of breath. PHYSICAL EXAMINATION: VITAL SIGNS: Blood pressure 184/97, heart rate 61, respiratory rate 20, temperature 98.4, pulse ox 9 3%. GENERAL: Noted to be awake, alert, comfortable, not in distress. SKIN: Adequate turgor. HEENT: She has pinkish conjunctivae, anicteric sclerae. LUNGS: Clear breath sounds. No wheezing, no crackles. HEART: Normal sinus rhythm. No murmur, no gallops, no rubs. ABDOMEN: Globular, soft, nontender, no masses. EXTREMITIES: No edema, no deformities. MEDICATIONS: Medications of 09/21/2017 was reviewed. LABORATORY DATA: Laboratories of 09/21/2017; white count 15, hemoglobin 9. Sodium 144, potassium 3 .2, chloride 115, carbon dioxide 25, BUN 42, creatinine 2.24, glucose 155, calcium 8.6, and albumin 2 .5. ASSESSMENT AND PLAN: 1. Acute kidney injury - acute tubular necrosis - slowly improving renal function. Most recent crea tinine was 2.24 and yesterday this was 3.34. Please note that the patient's creatinine peaked at 3.5 . I do anticipate still some improvement with her renal function. Continue adequate hydration. Con tinue to hold off any nephrotoxic drugs. 2. Abdominal distention/colitis - on IV antibiotics. Surgery is following. The plan per recommenda tion by surgery is possible surgical intervention next week. Overall, agree with current management.
[2017-09-21] MEDS: NS 0.9% w/ 40 MEQ KCL 1,000 ML IV SCH ×2 (11:20→18:27)
[2017-09-21 14:01] VITALS: BMI 47.0
[2017-09-21] MEDS: Enalaprilat Dihydrate 1.25 MG/ML VIAL SLOW IVP PRN ×2 (15:26→21:44)
[2017-09-21] MEDS ORDERED: Heparin 1,000 UNITS/ML VIAL ONE (18:26)
--- NOTE | 2017-09-21 18:45 | PRG ---
DATE OF SERVICE: 09/21/2017 SUBJECTIVE: Ms. Watters feels better. She is tolerating full liquids. She is passing gas. Her rectal tube fell out. OBJECTIVE: VITAL SIGNS: Temperature is 98, pulse is 64 and blood pressure 187/102. LUNGS: Clear. ABDOMEN: Soft. Bowel sounds are positive. No tenderness, no rebound or guarding, protuberant. EXTREMITIES: Reveal no edema. LABORATORY DATA: Sodium 144, potassium 3.2, BUN and creatinine are 42 and 2.24, albumin is 2.5. Whi te count 15,000, hemoglobin 9 and platelet count 397, which is down as well. C. diff is negative. P athology is pending. ASSESSMENT: 1. High-grade obstruction of the colon resolved after decompression, likely this is related to high- grade structural obstruction and also there may have been some component of ischemia or megacolon res ulting in some mild ischemia from the increased tension from the distended colon, which is decompress ed. The stool was negative for Clostridium difficile. Biopsies are pending. She has been in rapid improvement since her colon was decompressed. 2. Her decompression tube; however, has fallen out. We will see if she is able to maintain decompre ssion status with that; if not, she is going to need surgery sooner or rather than later. 3. Acute renal failure, improving. 4. Leukocytosis and systemic inflammatory response syndrome, improving. PLAN: Ambulate full liquids, TPN and oral supplements. Surgery elective hopefully next week if she has reversed her previous state if increased distention and colonic obstruction, over the weekend, sh krystyna will need surgery more emergently.
[2017-09-21] MEDS ORDERED: Carvedilol 3.125 MG TAB PO SCH (21:00)
[2017-09-21] MEDS ORDERED: [UNRECOGNIZED DRUG - OTHER] IV SCH ×11 (22:00)
[2017-09-21] MEDS ORDERED: POTASSIUM ACETATE IV SCH ×11 (22:00)
[2017-09-21] MEDS ORDERED: SODIUM CHLORIDE IV SCH ×11 (22:00)
[2017-09-21] MEDS ORDERED: SODIUM ACETATE IV SCH ×11 (22:00)
[2017-09-22] MEDS: NS 0.9% w/ 40 MEQ KCL 1,000 ML IV SCH ×3 (01:39→17:25)
[2017-09-22] MEDS: Enalaprilat Dihydrate 1.25 MG/ML VIAL SLOW IVP PRN ×2 (02:01→09:00)
[2017-09-22] MEDS: metroNIDAZOLE 500 MG in Premix Bag 1 BAG IVPB SCH ×3 (02:05→17:26)
[2017-09-22] MEDS: Piperacillin/Tazobactam 2.25 GM, Admixture Fee 1 EACH in Sodium Chloride 0.9% 100 ML IVPB SCH ×4 (04:01→22:02)
[2017-09-22 05:54] LABS: #Eosinphils 0.3 thou/uL (0.0-0.7); #Monocytes 1.2 thou/uL (0.11-0.59); #Neutrophils 8.8 thou/uL (1.40-6.50); %Basophils 0.1 % (0.0-1.0); %Eosinophils 2.4 % (0.0-10.0); %Lymphocytes 16.3 % (21.0-51.0); %Monocytes 9.6 % (0.0-10.0); Hematocrit 26.8 % (36.0-47.0); Mean Platelet Volume 6.5 fL (7.4-10.4); Red Blood Cell (RBC) Count 3.27 mill/uL (4.20-5.40); White Blood Cell (WBC) Count 12.3 thou/uL (4.8-10.8)
[2017-09-22 06:50] LABS: ALT (SGPT) Less than 7 U/L (8-55); AST (SGOT) 9 U/L (5-34); Alkaline Phosphatase 71 U/L (40-150); Anion Gap 10 mmol/L (10-20); BUN (Urea Nitrogen) 25 mg/dL (9.8-20.1); Bilirubin, Total 0.2 mg/dL (0.2-1.2); Calc. Creatinine Clearance 65 mL/min (70-130); Calcium 8.4 mg/dL (7.8-10.44); Carbon Dioxide 25 mmol/L (23-31); Chloride 111 mmol/L (98-107); Estimated GFR-MDRD 38; Protein, Total 6.4 g/dL (6.0-8.3)
--- NOTE | 2017-09-22 07:44 | PRG ---
DATE OF SERVICE: 09/22/2017 This is HOSSEIN Castanon dictating a progress note for Sabas Calhoun M.D. SUBJECTIVE: The patient had a good night. She is able to tolerate liquids. She has no abdominal pa in. PHYSICAL EXAMINATION: GENERAL: Upon evaluation, she is awake. VITAL SIGNS: Her blood pressure is elevated at 174/90, pulse 60, respirations 20. She is afebrile. NECK: Supple with no increased JVP or carotid bruit. Carotid had good upstroke with no thyromegaly. COR: Regular rate and rhythm. CHEST: Symmetrical. Clear to auscultation and percussion. ABDOMEN: Soft, little bit of generalized tenderness. She had normoactive bowel sounds. EXTREMITIES: No edema or cyanosis. Palpable pedal pulses. SKIN: There is no evidence of ulcers, lesion, or rash. NEUROLOGIC: She is awake, alert, oriented to person, place, and time. LABORATORY DATA: Her white blood cell is slightly better today at 12.3. Her hemoglobin and hematocr it has dropped to 8.3 and 26.8. Her platelet count is 354. Her potassium is 3. Her BUN is 25, her creatinine is better at 1.64. ASSESSMENT: 1. Obstruction of the colon resolved after decompression. 2. Acute renal failure, improving. 3. Leukocytosis and systematic inflammatory response syndrome, improving. 4. Obesity. 5. Hypertension. 6. Multiple medical problems. PLAN: We will adjust the patient's blood pressure medication as already did yesterday. We will also follow up with lab in the morning. The patient verbalized understanding and all questions answered to satisfaction.
[2017-09-22] MEDS: Vancomycin HCl 25 MG/ML Oral PO SCH ×4 (08:02→22:02)
[2017-09-22] MEDS: Carvedilol 3.125 MG TAB PO SCH ×2 (08:03→22:03)
[2017-09-22] MEDS: Saccharomyces boulardii 250 MG CAP PO SCH (08:03)
[2017-09-22] MEDS ORDERED: Potassium Chloride 20 MEQ TAB PO SCH (08:30)
--- NOTE | 2017-09-22 09:59 | PRG ---
DATE OF SERVICE: 09/22/2017 SERVICE: Renal Medicine. SUBJECTIVE: Ms. Watters is a 62-year-old black female being seen for acute kidney injury on top of her chronic renal failure. She has a presumptive acute tubular necrosis. Doing better with the renal fu nction with conservative management. No new complaints today. Her abdominal distention is also impr oving. Please note, she has high grade obstruction and was subsequently decompressed by Dr. Rojas. Possible surgical exploration next week. No new complaints. Denies any chest pain or shortness of breath. Tolerating her full liquids. OBJECTIVE: VITAL SIGNS: Blood pressure is 185/106, heart rate 61, respiratory rate 18, temperature 98.2, pulse oximetry 93%. GENERAL: Awake, alert, sitting comfortable, not in distress. SKIN: Adequate turgor. HEENT: Slightly pale conjunctivae, anicteric sclerae. NECK: No neck mass, no carotid bruits. No JVD. CHEST: No deformities. LUNGS: Clear breath sounds. No wheezing, no crackles. HEART: Normal sinus rhythm. No murmur, no gallops or rubs. ABDOMEN: Globular, soft, nontender. Positive for bowel sounds. EXTREMITIES: Trace edema. MEDICATIONS: Of 09/22/2017 was reviewed. LABORATORY DATA: Of 09/22/2017, white count 12.3, hemoglobin 8.3, sodium 143, potassium 3, chloride 111, carbon dioxide 25, BUN 25, creatinine 1.64, albumin is 2.4. ASSESSMENT AND PLAN: 1. Acute kidney injury on top of her chronic renal failure, superimposed acute tubular necrosis, slo wly resolving renal dysfunction. Continue current supportive treatment. There is no indication for any dialytic intervention with this patient. 2. Anemia. Continue to observe, p.r.n. blood transfusion. 3. Abdominal distention/high grade obstruction - GI surgery following for a possible plan explorator y laparotomy next week. Overall, agree with current management. We will be rechecking a basic met a nd CBC. ADDENDUM: Hypertension. I will be adjusting. Patient is on p.r.n. Vasotec q.4 hours. She seems to be tolerating this from the renal point of view.
[2017-09-22] MEDS: Insulin Regular 300 UNITS/3 ML VIAL SC PRN ×2 (13:21→17:26)
[2017-09-22] MEDS ORDERED: Amlodipine 5 MG TAB PO SCH (13:30)
--- NOTE | 2017-09-22 13:37 | PRG ---
DATE OF SERVICE: 09/22/2017 HISTORY OF PRESENT ILLNESS: Ms. Alissa Watters is a 62-year-old female who is morbidly obese. The patient has been seen by Dr. Barry Rojas, because of what appears to a sigmoid re section. She underwent colonoscopy and was found to have sigmoid diverticular disease, colitis above the area of narrowing. Biopsies showed acute colitis. The patient is actually doing better. The p atient now is n.p.o. She is on TPN. She has no abdominal pain, no nausea, no vomiting. She is pass ing flatus and having multiple loose stools. The biopsies from the colon showed active colitis pseud omembranes. She is on empiric antibiotic therapy. She offers no complaints except she wants to eat. PHYSICAL EXAMINATION: GENERAL: Obese, appears comfortable. VITAL SIGNS: Afebrile, pulse is 61, blood pressure 185/106. CARDIOVASCULAR: Lungs within normal limits. ABDOMEN: Distended, but soft to palpate. Abdomen is nontender. RECOMMENDATIONS: 1. Continue TPN. 2. Continue n.p.o. 3. Follow up labs. Labs from today showed WBC 12,300, hemoglobin 8.3, hematocrit 26.8, platelet cou nt 354,000. Chemistries: Sodium is 143, potassium 3, chloride 111, bicarbonate 25, BUN is 25, creat inine 1.64, glucose 160.
[2017-09-22] MEDS: [UNRECOGNIZED DRUG - OTHER] IV SCH ×11 (22:23)
[2017-09-22] MEDS: SODIUM CHLORIDE IV SCH ×11 (22:23)
[2017-09-22] MEDS: POTASSIUM ACETATE IV SCH ×11 (22:23)
[2017-09-22] MEDS: SODIUM ACETATE IV SCH ×11 (22:23)
[2017-09-23] MEDS: Enalaprilat Dihydrate 1.25 MG/ML VIAL SLOW IVP PRN ×2 (00:41→15:22)
[2017-09-23] MEDS: NS 0.9% w/ 40 MEQ KCL 1,000 ML IV SCH ×3 (01:23→17:39)
[2017-09-23] MEDS: metroNIDAZOLE 500 MG in Premix Bag 1 BAG IVPB SCH ×3 (02:29→17:46)
[2017-09-23] MEDS: Piperacillin/Tazobactam 2.25 GM, Admixture Fee 1 EACH in Sodium Chloride 0.9% 100 ML IVPB SCH ×4 (04:02→22:21)
[2017-09-23 05:45] LABS: #Eosinphils 0.3 thou/uL (0.0-0.7); #Lymphocytes 2.1 thou/uL (1.20-3.40); #Monocytes 1.2 thou/uL (0.11-0.59); #Neutrophils 7.2 thou/uL (1.40-6.50); %Basophils 0.1 % (0.0-1.0); %Eosinophils 2.9 % (0.0-10.0); %Lymphocytes 19.4 % (21.0-51.0); Hematocrit 25.8 % (36.0-47.0); Mean Platelet Volume 7.6 fL (7.4-10.4); Red Blood Cell (RBC) Count 3.15 mill/uL (4.20-5.40); White Blood Cell (WBC) Count 10.8 thou/uL (4.8-10.8)
[2017-09-23 06:09] LABS: ALT (SGPT) 11 U/L (8-55); AST (SGOT) 16 U/L (5-34); Alkaline Phosphatase 66 U/L (40-150); Anion Gap 10 mmol/L (10-20); BUN (Urea Nitrogen) 19 mg/dL (9.8-20.1); Bilirubin, Total Less than 0.2 mg/dL (0.2-1.2); Calc. Creatinine Clearance 69 mL/min (70-130); Calcium 8.3 mg/dL (7.8-10.44); Carbon Dioxide 26 mmol/L (23-31); Chloride 108 mmol/L (98-107); Estimated GFR-MDRD 41; Globulin 3.8 g/dL (2.4-3.5); Protein, Total 6.1 g/dL (6.0-8.3)
[2017-09-23] MEDS: Insulin Regular 300 UNITS/3 ML VIAL SC PRN ×4 (06:19→22:24)
--- NOTE | 2017-09-23 08:18 | PRG ---
DATE OF SERVICE: 09/23/2017 This is HOSSEIN Castanon dictating a progress note for Sabas Calhoun M.D. SUBJECTIVE: The patient had a good night. She still only tolerating liquids. She has no abdominal pain this morning. PHYSICAL EXAMINATION: GENERAL: Upon evaluation, she is awake, alert, and oriented. VITAL SIGNS: Her blood pressure is still high at 174/90, pulse 50, respiration 16, she is afebrile. NECK: Supple with no increased JVP or carotid bruit. Carotid had good upstroke with no thyromegaly. COR: Regular rate and rhythm. CHEST: Symmetrical. Clear to auscultation and percussion. ABDOMEN: Soft and nontender with normoactive bowel sounds. No bruit or organomegaly. EXTREMITIES: No edema or cyanosis. She had palpable pedal pulses. SKIN: There is no evidence of ulcer, lesion, or rash. NEUROLOGIC: She is awake, alert, and oriented to person, place, and time. LABORATORY DATA: Her hemoglobin and hematocrit is 8.0 and 25.8, her platelet count is 352. Her pota ssium is 3.2. Her BUN is 19, creatinine 1.55. ASSESSMENT: 1. Status post compression of her abdomen. 2. Ischemic colitis. 3. Hypertension. 4. Obesity. 5. Hypokalemia. PLAN: We will adjust her potassium and adjust her blood pressure medications. Will follow up with Katherin HALL in the morning.
[2017-09-23] MEDS ORDERED: Potassium Chloride 20 MEQ TAB PO SCH (09:00)
[2017-09-23] MEDS ORDERED: Amlodipine 5 MG TAB PO SCH ×2 (09:00→10:30)
[2017-09-23] MEDS: Saccharomyces boulardii 250 MG CAP PO SCH (09:52)
[2017-09-23] MEDS: Carvedilol 25 MG TAB PO SCH ×2 (10:05→22:22)
--- NOTE | 2017-09-23 10:35 | PRG ---
DATE OF SERVICE: 09/23/2017 SUBJECTIVE: Ms. Watters is a 62-year-old black female who was seen for an acute kidney injury secondary to presumed ATN. Renal function has been slowly improving with supportive care. IV volume repletio n has also been done with this patient. Currently, the patient is in supportive TPN. She was diagnosed to have colitis and Surgery has been evaluating the patient. She has had negative colonoscopy with decompression. Possibility of explora tory laparotomy is being considered next week. No new complaints. No chest pain. No shortness of breath. OBJECTIVE: VITAL SIGNS: Blood pressure is 174/92, heart rate 56, respiratory rate 16, temperature 97.3, pulse o x 99%. GENERAL: Noted to be awake, alert, comfortable, not in overt distress. SKIN: Adequate turgor. HEENT: She has slightly pale conjunctivae, anicteric sclerae. NECK: No neck mass, no carotid bruits, no JVD. CHEST: No deformities. LUNGS: Decreased breath sounds. HEART: Normal sinus rhythm. No murmur, no gallops, no rubs. ABDOMEN: Globular, soft, nontender, no masses. EXTREMITIES: No edema, no deformities. MEDICATIONS: Medication of 09/23/2017 reviewed. LABORATORY DATA: Laboratories of 09/23/2017, white count 10.8, hemoglobin 8. Sodium 141, potassium 3.2, chloride 108, carbon dioxide 26, BUN 19, creatinine 1.55, glucose 206, albumin 2.3. ASSESSMENT AND PLAN: 1. Acute kidney injury -- secondary to presumed acute tubular necrosis, slowly improving with suppor tive care. Continue to optimize hemodynamics. No indication for any acute dialytic intervention. 2. Colitis -- on IV antibiotics. Surgery is following. This patient is much improved after colonic decompression. Surgery is considering possible exploratory laparotomy this coming week. Overall, I agree with the current management. Recheck basic metabolic panel and CBC in a.m.
[2017-09-23] MEDS: Vancomycin HCl 25 MG/ML Oral PO SCH ×4 (11:11→22:21)
--- NOTE | 2017-09-23 12:14 | PRG ---
DATE OF SERVICE: 09/23/2017 This is a cross coverage for Dr. Barry Rojas. SUBJECTIVE: This is a 62-year-old -[place] with abdominal pain, diverticulitis, and also a h igh grade colonic obstruction. A colonoscopy done by Dr. Rojas did showed pseudomembranes and also diverticular disease. The patient has been placed on vancomycin, because of the pseudomembranes on c olon biopsy. However, C. difficile toxin is negative. The patient has improved dramatically. She i s actually feeling a whole lot better. She has no abdominal pain, no nausea or vomiting. She is pas sing flatus and having liquid stools. She also complains of some mild nausea. PHYSICAL EXAMINATION: GENERAL: Afebrile. She is obese. VITAL SIGNS: Her pulse is 56, blood pressure 186/96. CARDIOVASCULAR: Lungs are within normal limits. ABDOMEN: Soft to palpate. Abdomen is nontender. No organomegaly or masses. CLINICAL IMPRESSION: 1. Diverticulitis, high grade obstruction. It seems resolved. Recommend continue present treatment . 2. General surgery will decide when to take her to surgery.
[2017-09-23] MEDS: Potassium Chloride 20 MEQ TAB PO SCH (17:46)
[2017-09-23] MEDS: SODIUM CHLORIDE IV SCH ×11 (22:25)
[2017-09-23] MEDS: SODIUM ACETATE IV SCH ×11 (22:25)
[2017-09-23] MEDS: POTASSIUM ACETATE IV SCH ×11 (22:25)
[2017-09-23] MEDS: [UNRECOGNIZED DRUG - OTHER] IV SCH ×11 (22:25)
[2017-09-24] MEDS: NS 0.9% w/ 40 MEQ KCL 1,000 ML IV SCH ×4 (02:00→23:48)
[2017-09-24] MEDS: Piperacillin/Tazobactam 2.25 GM, Admixture Fee 1 EACH in Sodium Chloride 0.9% 100 ML IVPB SCH ×4 (02:00→21:13)
[2017-09-24] MEDS: metroNIDAZOLE 500 MG in Premix Bag 1 BAG IVPB SCH ×3 (02:00→18:46)
[2017-09-24 06:03] LABS: ALT (SGPT) 14 U/L (8-55); AST (SGOT) 17 U/L (5-34); Alkaline Phosphatase 71 U/L (40-150); Anion Gap 9 mmol/L (10-20); BUN (Urea Nitrogen) 17 mg/dL (9.8-20.1); Bilirubin, Total Less than 0.2 mg/dL (0.2-1.2); Calc. Creatinine Clearance 71 mL/min (70-130); Calcium 8.3 mg/dL (7.8-10.44); Carbon Dioxide 28 mmol/L (23-31); Chloride 108 mmol/L (98-107); Estimated GFR-MDRD 42; Globulin 3.8 g/dL (2.4-3.5); Protein, Total 6.2 g/dL (6.0-8.3)
[2017-09-24 06:37] LABS: #Eosinphils 0.4 thou/uL (0.0-0.7); #Lymphocytes 1.6 thou/uL (1.20-3.40); #Monocytes 0.8 thou/uL (0.11-0.59); #Neutrophils 7.9 thou/uL (1.40-6.50); %Basophils 0.2 % (0.0-1.0); %Eosinophils 3.5 % (0.0-10.0); %Lymphocytes 15.1 % (21.0-51.0); Hematocrit 26.7 % (36.0-47.0); Mean Platelet Volume 6.9 fL (7.4-10.4); Red Blood Cell (RBC) Count 3.25 mill/uL (4.20-5.40); White Blood Cell (WBC) Count 10.6 thou/uL (4.8-10.8)
[2017-09-24] MEDS: Insulin Regular 300 UNITS/3 ML VIAL SC PRN ×3 (06:40→21:47)
[2017-09-24] MEDS ORDERED: cloNIDine 0.3mg/24 Hour PATCH TD SCH (09:00)
[2017-09-24] MEDS: Saccharomyces boulardii 250 MG CAP PO SCH (09:14)
[2017-09-24] MEDS: Potassium Chloride 20 MEQ TAB PO SCH ×2 (09:14→17:35)
[2017-09-24] MEDS: Amlodipine 10 MG TAB PO SCH (09:14)
[2017-09-24] MEDS: Vancomycin HCl 25 MG/ML Oral PO SCH ×4 (09:17→21:10)
[2017-09-24] MEDS: Carvedilol 25 MG TAB PO SCH ×2 (09:18→21:08)
--- NOTE | 2017-09-24 09:23 | PRG ---
DATE OF SERVICE: 09/24/2017 SERVICE: Renal Medicine. SUBJECTIVE: Ms. Watters is a 62-year-old black female who was seen by the renal service for acute kidne y injury secondary to presumed acute tubular necrosis. Renal function has slowly been improving with optimization of her hemodynamics. She came in with a distended abdomen secondary to high grade obst ruction with diverticulitis. She underwent a decompression by a colonoscopy. Surgery is following t his patient. There is a possibility of an exploratory laparotomy with this patient. This morning, s he is feeling better, no complaints of chest pain or shortness of breath. PHYSICAL EXAMINATION: VITAL SIGNS: Blood pressure is 168/94, heart rate 55, respiratory rate 16, temperature 98.4, pulse o x 96%. GENERAL: Awake, supine, comfortable, not in distress. SKIN: Adequate turgor. HEENT: Slightly pale conjunctivae, anicteric sclerae. NECK: No neck mass, no carotid bruits. No JVD. LUNGS: Clear breath sounds, no wheezing, no crackles. HEART: Normal sinus rhythm. No murmur, no gallops or rubs. ABDOMEN: Globular, soft, nontender. Positive for bowel sounds. EXTREMITIES: No edema, no deformities. MEDICATIONS: Of 09/24/2017 was reviewed. LABORATORY DATA: Of 09/24/2017, white count 10.6, hemoglobin 8.4, sodium 142, potassium 3.2, chlorid e 108, carbon dioxide 28, BUN 17, creatinine 1.52, glucose 238. ASSESSMENT AND PLAN: 1. Acute kidney injury secondary to presumed acute tubular necrosis. Much improved renal function. Creatinine has stabilized at 1.5. Continue current management. No indication for any dialytic inte rvention. 2. Diverticulitis - on IV antibiotics. 3. High grade obstruction - status post colonic decompression. Surgery is following. Possible expl oratory laparotomy. 4. Anemia, continue to observe. Recheck basic met and CBC in a.m.
--- NOTE | 2017-09-24 09:53 | ULT ---
RENAL ULTRASOUND WITH DOPPLER STUDY: HISTORY: Hypertension. FINDINGS: The right kidney measures approximately 12 cm in length. There is increased cortical echogenicity. No hydronephrosis. The right renal artery/aortic ratio is recorded at 0.32. The right renal arcuate artery resistive index is recorded at 0.72. The left kidney measures 11.5 cm in length. There is increased cortical echogenicity in the left kid dianne. No hydronephrosis. The left renal artery-aortic ratio was recorded at 0.53. The left renal arcuate artery resistive index is recommended at 0.79. IMPRESSION: Increased cortical echogenicity noted in both kidneys. Resistive indices are as noted above. POS: H
[2017-09-24] MEDS ORDERED: Pioglitazone HCl 15 MG TAB PO SCH (11:45)
[2017-09-24] MEDS: Enalaprilat Dihydrate 1.25 MG/ML VIAL SLOW IVP PRN (21:13)
[2017-09-25] MEDS: metroNIDAZOLE 500 MG in Premix Bag 1 BAG IVPB SCH ×3 (02:30→18:56)
[2017-09-25] MEDS: Piperacillin/Tazobactam 2.25 GM, Admixture Fee 1 EACH in Sodium Chloride 0.9% 100 ML IVPB SCH ×4 (02:30→20:30)
[2017-09-25] MEDS: Enalaprilat Dihydrate 1.25 MG/ML VIAL SLOW IVP PRN ×3 (02:33→11:35)
[2017-09-25 06:14] LABS: Anion Gap 9 mmol/L (10-20); BUN (Urea Nitrogen) 13 mg/dL (9.8-20.1); Calc. Creatinine Clearance 73 mL/min (70-130); Calcium 8.1 mg/dL (7.8-10.44); Carbon Dioxide 25 mmol/L (23-31); Chloride 111 mmol/L (98-107); Estimated GFR-MDRD 44
[2017-09-25] MEDS: NS 0.9% w/ 40 MEQ KCL 1,000 ML IV SCH ×3 (06:21→20:32)
[2017-09-25 06:28] LABS: #Eosinphils 0.3 thou/uL (0.0-0.7); #Lymphocytes 2.1 thou/uL (1.20-3.40); #Monocytes 0.8 thou/uL (0.11-0.59); #Neutrophils 8.3 thou/uL (1.40-6.50); %Basophils 0.2 % (0.0-1.0); %Eosinophils 2.4 % (0.0-10.0); %Lymphocytes 18.4 % (21.0-51.0); %Monocytes 6.7 % (0.0-10.0); Hematocrit 25.6 % (36.0-47.0); Mean Platelet Volume 6.7 fL (7.4-10.4); Red Blood Cell (RBC) Count 3.09 mill/uL (4.20-5.40); White Blood Cell (WBC) Count 11.5 thou/uL (4.8-10.8)
--- NOTE | 2017-09-25 08:31 | PRG ---
DATE OF SERVICE: 09/25/2017 The patient had a good night. She has decreased pain in her abdomen. The patient has been getting o ut of bed, sitting in the chair and going to the bathroom. PHYSICAL EXAMINATION: VITAL SIGNS: Her blood pressure is a little bit better at 158/88, pulse 50, respirations 20. She is afebrile. NECK: Supple with no increased JVP or carotid bruit. Carotid had good upstroke with no thyromegaly. COR: Regular rate and rhythm. CHEST: Symmetrical. Clear to auscultation and percussion. ABDOMEN: Soft, nontender with normoactive bowel sounds. There is no bruit or organomegaly. EXTREMITIES: No edema or cyanosis. Palpable pedal pulses. SKIN: There is no evidence of ulcer lesion, or rash. NEUROLOGIC: She is awake, alert, and oriented to person, place, and time. LABORATORY DATA: White blood cells 11.5, H&H is 7.9 and 25.6. Her platelet count is 284. Her potas sium is 3.3. Her BUN is normal, creatinine is 1.47. ASSESSMENT: 1. Colitis with obstruction, status post decompression. 2. Non-insulin dependent diabetes mellitus. 3. Hypertension. 4. Obesity. 5. Anemia. 6. Hypokalemia. PLAN: 1. We will change her potassium to 20 mEq t.i.d. 2. Actos just initiated, if her blood sugars remained high, we will look at going up tomorrow.
[2017-09-25] MEDS ORDERED: TRADJENTA PO SCH (09:00)
--- NOTE | 2017-09-25 09:23 | PRG ---
DATE OF SERVICE: 09/25/2017 RENAL MEDICINE SUBJECTIVE: Ms. Watters is a 62-year-old black female with known history of chronic renal failure, was seen at the Renal Service due to a superimposed acute kidney injury. The feeling is that she may hav e had an acute tubular necrosis. However, the renal function with supportive care has been improving and is currently stable at creatinine 1.47 today. She was also seen by Surgery and GI due to abdomi nal distension with high-grade obstruction. Colonic decompression has been done. Surgery is still f ollowing the patient for a possible surgical intervention. Please note she underwent a renal ultraso und yesterday, which showed increased cortical echogenicity in both kidneys. The patient voices no n ew complaints. She denies any chest pain or shortness of breath. OBJECTIVE: VITAL SIGNS: Blood pressure 168/88, heart rate 61, respiratory rate 20, temperature 98.2, pulse oxim etry 93%. GENERAL: Noted to be awake, alert, supine, comfortable, not in distress. SKIN: Adequate turgor. HEENT: Slightly pale conjunctivae, anicteric sclerae. NECK: No neck mass, no carotid bruits, no JVD. CHEST: No deformities. LUNGS: Clear breath sounds. HEART: Normal sinus rhythm. No murmur, no gallops, no rubs. ABDOMEN: Globular, soft, nontender. Positive for decreased bowel sounds. EXTREMITIES: No edema, no deformities. LABORATORY DATA: Of 09/25/2017, white count 11.5, hemoglobin 7.9, hematocrit 25.6. Sodium 142, pota ssium 3.3, chloride 111, carbon dioxide 25, BUN 13, creatinine 1.47, glucose 112, calcium 8.1. ASSESSMENT AND PLAN: 1. Acute kidney injury on top of her chronic renal failure - much improved renal function. She is a lmost at baseline with regards to the chronic renal failure. Continue supportive care. There is no indication for any dialytic intervention. 2. Acute abdominal distention/high grade obstruction - status post colonic decompression by Dr. Manisha danielle. Surgery is evaluating the patient for possible exploratory laparotomy. Continue supportive care . 3. Anemia. Continue to observe. We will check another CBC in a.m. - P.r.n. blood transfusion. Overall, agree with current management.
[2017-09-25] MEDS: Amlodipine 10 MG TAB PO SCH (09:58)
[2017-09-25] MEDS: Carvedilol 25 MG TAB PO SCH ×2 (09:58→20:30)
[2017-09-25] MEDS: Saccharomyces boulardii 250 MG CAP PO SCH (09:59)
[2017-09-25] MEDS: Pioglitazone HCl 15 MG TAB PO SCH (09:59)
--- NOTE | 2017-09-25 11:08 | PRG ---
DATE OF SERVICE: 09/25/2017 SUBJECTIVE: Ms. Watters is doing well, tolerating the full liquids without difficulty. Her abdominal d istention and pain is resolved. Her creatinine is resolved. PHYSICAL EXAMINATION: VITAL SIGNS: She is afebrile. Vital signs are stable. ABDOMEN: Soft, nontender, nondistended. Her pathology reveals pseudomembranes. ASSESSMENT: Pseudomembranous colitis. C. diff was negative. However, Dr. Rojas recommend she goes home on oral vancomycin. PLAN: If tolerates the GI soft diet, she could probably go home Sunday on oral vancomycin for 14 da ys. She can follow up with me in my office as well as Dr. Rojas.
[2017-09-25] MEDS: Vancomycin HCl 25 MG/ML Oral PO SCH ×4 (11:22→20:31)
[2017-09-25] MEDS: Potassium Chloride 20 MEQ TAB PO SCH ×3 (12:28→17:56)
--- NOTE | 2017-09-25 20:22 | PRG ---
DATE OF SERVICE: 09/25/2017 SUBJECTIVE: Ms. Watters is doing much better. She has had a rectal tube out over the weekend, tolerati ng diet, on a low residue diet. Stool was negative for C. difficile. Biopsy showed pseudomembranes on her colon biopsies. OBJECTIVE: VITAL SIGNS: Temperature is 98, pulse 62, blood pressure 155/78. ABDOMEN: Soft, nontender. LABORATORY DATA: White count is down to 11.5, hemoglobin 7.9, platelet count 284. ASSESSMENT: 1. Sigmoid stricture, likely diverticular. Concern for possible fistula to the bladder. Dr. Jonny okeefe will be taking for surgery in the next week or two. 2. Colitis. She had some pseudomembrane on biopsy, negative for Clostridium difficile. It is uncle ar if this is related to obstipation, ileus, or possibly a non Clostridium difficile antibiotic assoc iated colitis. She has improved markedly since starting Flagyl IV and p.o. vancomycin and having her colon decompressed. RECOMMENDATIONS: From a standpoint of her colitis, I would let her go home with vancomycin for 14 da ys total. If surgery is preferred, she will be on antibiotics for the diverticulitis and if that is fine as well, then they can go ahead and arrange that as well. I agreed that if her electrolytes are fine, she will be able to go home in the next day or so.
[2017-09-25] MEDS: Insulin Regular 300 UNITS/3 ML VIAL SC PRN (20:32)
[2017-09-26] MEDS: Enalaprilat Dihydrate 1.25 MG/ML VIAL SLOW IVP PRN (01:28)
[2017-09-26] MEDS: Piperacillin/Tazobactam 2.25 GM, Admixture Fee 1 EACH in Sodium Chloride 0.9% 100 ML IVPB SCH ×2 (02:00→08:38)
[2017-09-26] MEDS: metroNIDAZOLE 500 MG in Premix Bag 1 BAG IVPB SCH ×2 (03:15→10:17)
[2017-09-26 04:36] LABS: #Eosinphils 0.3 thou/uL (0.0-0.7); #Lymphocytes 1.9 thou/uL (1.20-3.40); #Monocytes 0.7 thou/uL (0.11-0.59); #Neutrophils 8.4 thou/uL (1.40-6.50); %Basophils 0.3 % (0.0-1.0); %Lymphocytes 16.9 % (21.0-51.0); %Monocytes 5.8 % (0.0-10.0); Hematocrit 25.3 % (36.0-47.0); Mean Platelet Volume 6.8 fL (7.4-10.4); Red Blood Cell (RBC) Count 3.06 mill/uL (4.20-5.40); White Blood Cell (WBC) Count 11.3 thou/uL (4.8-10.8)
[2017-09-26 04:55] LABS: ALT (SGPT) 11 U/L (8-55); AST (SGOT) 15 U/L (5-34); Alkaline Phosphatase 70 U/L (40-150); Anion Gap 9 mmol/L (10-20); BUN (Urea Nitrogen) 11 mg/dL (9.8-20.1); Bilirubin, Total 0.2 mg/dL (0.2-1.2); Calc. Creatinine Clearance 74 mL/min (70-130); Calcium 7.9 mg/dL (7.8-10.44); Carbon Dioxide 26 mmol/L (23-31); Chloride 111 mmol/L (98-107); Estimated GFR-MDRD 44; Protein, Total 6.4 g/dL (6.0-8.3)
[2017-09-26] MEDS: NS 0.9% w/ 40 MEQ KCL 1,000 ML IV SCH (05:14)
[2017-09-26] MEDS: Carvedilol 25 MG TAB PO SCH (05:54)
[2017-09-26] MEDS: Amlodipine 10 MG TAB PO SCH (05:54)
[2017-09-26] MEDS: Saccharomyces boulardii 250 MG CAP PO SCH (08:36)
[2017-09-26] MEDS: Potassium Chloride 20 MEQ TAB PO SCH ×2 (08:37→11:57)
[2017-09-26] MEDS: Pioglitazone HCl 15 MG TAB PO SCH (08:39)
--- NOTE | 2017-09-26 09:17 | PRG ---
DATE OF SERVICE: 09/26/2017 SUBJECTIVE: Ms. Watters is a 62-year-old black female who was seen for an acute kidney injury on top of her chronic renal failure. She had a superimposed acute tubular necrosis which has resolved. Renal function is now at baseline. She was also admitted due to abdominal distension secondary to a high grade obstruction. She had colonic decompression by Dr. Rojas. She also has underlying colitis and currently receiving antibiotics. The plan is for her to be discharged today and surgery will reeval uate her for further procedure. No new complaints today, no chest pain or shortness of breath. PHYSICAL EXAMINATION: VITAL SIGNS: Blood pressure is 158/78, heart rate 63, respiratory rate 20, temperature 98.3, pulse o x 95%. GENERAL: Noted to be awake, supine, comfortable, not in distress. SKIN: Adequate turgor. HEENT: She has pinkish conjunctivae, anicteric sclerae. NECK: No neck mass, no carotid bruits, no JVD. CHEST: No deformities. LUNGS: Clear breath sounds. No wheezing, no crackles. HEART: Normal sinus rhythm. No murmur, no gallops, no rubs. ABDOMEN: Globular, soft, nontender, no masses. Positive for bowel sounds. EXTREMITIES: No edema. MEDICATIONS: 09/26/2017 - Reviewed. LABORATORY: 09/26/2017 - White count 11.3, hemoglobin 7.8. Sodium 143, potassium 3.3, chloride 111, carbon dioxide 26, BUN 11, creatinine 1.45, glucose 125, AST 15, ALT 11. ASSESSMENT AND PLAN: 1. Acute kidney injury - secondary to ischemic acute tubular necrosis, much improved. Renal functio n is now at baseline. No indication for dialytic intervention. 2. Chronic renal failure. The creatinine is noted at 1.45, which is near baseline. Continue suppor tive care. 3. Colonic obstruction - status post decompression. Surgery will be following. I agree with current management.
[2017-09-26] MEDS: Vancomycin HCl 25 MG/ML Oral PO SCH (10:16)
[2017-09-26 11:24] VITALS: BP 169/81; TEMP 97.9
== END 2017-09-26 12:25 | disposition home health service (06) | DRG 871 ==
LOC: ERS 17:48 → 3SE 21:15 → T4-B 09-19 09:44
PROVIDERS: ADMIT Specialist; ATTEND Specialist
PROC: 0DBM8ZX Excision of Descending Colon, Via Natural or Artificial Opening Endoscopic, Diagnostic (ICD-10-PCS; principal; 2017-09-19)
PROC: 0DBN8ZX Excision of Sigmoid Colon, Via Natural or Artificial Opening Endoscopic, Diagnostic (ICD-10-PCS; 2017-09-19)
PROC: 0DBG8ZX Excision of Left Large Intestine, Via Natural or Artificial Opening Endoscopic, Diagnostic (ICD-10-PCS; 2017-09-19)
PROC: 0D7N8ZZ Dilation of Sigmoid Colon, Via Natural or Artificial Opening Endoscopic (ICD-10-PCS; 2017-09-19)
PROC: 06H033Z Insertion of Infusion Device into Inferior Vena Cava, Percutaneous Approach (ICD-10-PCS; 2017-09-20)
PROC: 3E0436Z Introduction of Nutritional Substance into Central Vein, Percutaneous Approach (ICD-10-PCS; 2017-09-20)
DX: A41.9 Sepsis, unspecified organism (principal); N17.0 Acute kidney failure with tubular necrosis; K56.609 Unspecified intestinal obstruction, unspecified as to partial versus complete obstruction; A04.72 Enterocolitis due to Clostridium difficile, not specified as recurrent; Z68.42 Body mass index [BMI] 45.0-49.9, adult; K57.32 Diverticulitis of large intestine without perforation or abscess without bleeding; E66.01 Morbid (severe) obesity due to excess calories; E11.21 Type 2 diabetes mellitus with diabetic nephropathy; I10 Essential (primary) hypertension; E11.9 Type 2 diabetes mellitus without complications; D64.9 Anemia, unspecified; E87.6 Hypokalemia; E78.5 Hyperlipidemia, unspecified; M10.9 Gout, unspecified; K21.9 Gastro-esophageal reflux disease without esophagitis; G47.33 Obstructive sleep apnea (adult) (pediatric); I12.9 Hypertensive chronic kidney disease with stage 1 through stage 4 chronic kidney disease, or unspecified chronic kidney disease; N18.9 Chronic kidney disease, unspecified
CPT/HCPCS: 36415; 36416; 36569; 51701; 71010; 74176; 76700; 76770; 80048; 80053; 81003; 81015; 82378; 83605; 85025; 87015; 87040; 87045; 87046; 87086; 87324; 87449; 87899; 88305; 93005; 93010; 94760; 96361; 96365; 96368; 96375; 96376; A4216; A4217; C1751; G8978-GP-CJ; G8979-GP-CJ; G8980-GP-CJ; J0131; J1644; J1815; J1885; J2185; J2250; J2270; J2274; J2543; J3010; J3475; J3480; J7050

== ENCOUNTER 2017-12-05 08:17 | Inpatient (IN) | payer MEDICARE ==
[2017-12-05 10:49] LABS: Hemoglobin 9.9 g/dL (12.0-16.0); Mean Corpuscular HGB CONC 31.2 g/dL (32.0-36.0); Mean Corpuscular Hemoglobin 25.6 pg (27.0-31.0); Mean Corpuscular Volume 82.1 fl (81.0-99.0); Platelet Count 385 thou/uL (130-400); RBC Distribution Width 15.5 % (11.5-14.5); Red Blood Cell (RBC) Count 3.85 mill/uL (4.20-5.40)
[2017-12-05 11:05] LABS: Band 24 % (5-11); Lymphocytes 5 % (21-51); MDiff Complete? YES; Monocytes 7 % (0-10); Neutrophil 64 % (42-75)
[2017-12-05 11:07] LABS: Anion Gap 16 mmol/L (10-20); BUN (Urea Nitrogen) 33 mg/dL (9.8-20.1); Calc. Creatinine Clearance 44 mL/min (70-130); Calcium 9.4 mg/dL (7.8-10.44); Carbon Dioxide 30 mmol/L (23-31); Chloride 102 mmol/L (98-107); Estimated GFR-MDRD 26; Glucose 156 mg/dL (80-115); Sodium 145 mmol/L (136-145)
[2017-12-05 11:13] LABS: Potassium 2.6 mmol/L (3.5-5.1)
[2017-12-05] MEDS ORDERED: Dextrose 5% in Water 1,000 ML IV PRN (12:25)
[2017-12-05] MEDS ORDERED: Insulin Regular 300 UNITS/3 ML VIAL SC PRN (12:25)
[2017-12-05] MEDS ORDERED: Dextrose 50% Abboject 50 ML SYRINGE IVP PRN (12:25)
[2017-12-05] MEDS ORDERED: Ondansetron HCl/PF 4 MG/2 ML Vial IVP PRN (13:00)
[2017-12-05] MEDS ORDERED: Promethazine HCl 25 MG/ML VIAL IM PRN (13:00)
[2017-12-05] MEDS ORDERED: Promethazine HCl 25 MG/ML VIAL SLOW IVP PRN (13:00)
[2017-12-05] MEDS ORDERED: Pantoprazole 40 MG VIAL IVP SCH (14:00)
[2017-12-05] MEDS ORDERED: metroNIDAZOLE 500 MG TAB PO SCH (14:00)
[2017-12-05] MEDS: D5 0.9% NS w/ 20 mEq KCl 1,000 ML IV SCH ×2 (14:49→23:50)
[2017-12-05] MEDS ORDERED: Neomycin 500 mg Tablet PO SCH (15:00)
[2017-12-05] MEDS ORDERED: Acetaminophen 1,000 MG in Premix Bag 1 BAG IVPB PRN (15:01)
[2017-12-05] MEDS ORDERED: Morphine 4 MG/ML Carpuject IVP PRN (15:01)
[2017-12-05] MEDS ORDERED: Propofol 200 MG/20 ML VIAL ONE (16:08)
[2017-12-05] MEDS ORDERED: Lidocaine 1% PF 5 ML VIAL ONE (16:08)
[2017-12-05] MEDS ORDERED: ePHEDrine/0.9% NaCl/PF SYRINGE 50 mg/10 ml ONE (16:08)
[2017-12-05] MEDS ORDERED: GoLYTELY 4,000 ml Bottle PO SCH (17:00)
--- NOTE | 2017-12-05 17:03 | OP ---
PREPROCEDURE DIAGNOSES: 1. Colorectal cancer screening. 2. History of diverticular disease, complicated by abscess and colovesicular fistula. 3. Requested preoperative colonoscopy before surgery for screening purposes to rule out other lesion s. Patient is going to have colectomy and repair of her fistula tomorrow. POSTPROCEDURE DIAGNOSES: 1. Extremely poor prep, limiting this to being able to rule out mass lesions of the colon. Small po lyps could not have been assessed for. 2. Stricture from 20-30 cm consistent with complicated diverticular disease, no fistula or abscess s een. There is a lot of submucosal edema and firm stricturing. No signs of Crohn's or inflammatory b owel disease. 3. Cecum was not able to be evaluated secondary to poor prep and could not be reached as we had to u se a very flexible upper adult endoscope to traverse the stricture area in the sigmoid colon. RECOMMENDATIONS: 1. Admit to the hospital. 2. Restart antibiotics as patient has leukocytosis and bandemia. 3. This is diverticular disease refractory to medical therapy and she will need surgery and this is already scheduled for tomorrow. 4. Potassium replacement. ANESTHESIA: TIVA. PROCEDURE IN DETAIL: After the patient was informed of the risks, benefits, possible complications o f endoscopy including perforation, bleeding, reactions to medication and aspiration, informed consent was obtained. The patient was brought to endoscopy suite where she was sedated. A rectal exam was performed. The endoscope was advanced through anal canal. The scope could not be advanced through t he sigmoid strictured area secondary to severe tortuosity and brawny fibrosis. The scope was then ch anged for an adult upper endoscope; we were then able to traverse this area, about 10 cm in length. There were no signs of malignancy or inflammatory bowel disease. There is a quite a bit of submucosa l edema and hemorrhage and brawny edema and fibrosis. Above this, the prep was very poor. The scope was advanced to the right colon, which was identified by the ileocecal valve. The cecum could not b e intubated secondary to excessive looping and extremely poor prep. A decision was made to stop the procedure. We irrigated with probably a liter to a liter and a half of sterile water, but still the prep was inadequate to rule out small polyps, smaller than a cm in many locations. The scope was rem karis. The patient tolerated the procedure well without complications.s
[2017-12-05] MEDS: metroNIDAZOLE 500 MG TAB PO SCH ×2 (17:12→18:37)
[2017-12-05] MEDS: Neomycin 500 mg Tablet PO SCH ×2 (17:13→20:39)
--- NOTE | 2017-12-05 17:38 | SPC ---
ULTRASOUND FLUOROSCOPIC GUIDED LEFT UPPER EXTREMITY PICC LINE PLACEMENT. 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 TECHNIQUE: Informed consent was obtained. Preprocedural ultrasound demonstrates patent left basilic vein. Site o verlying the left basilic vein was prepped and draped in the usual sterile fashion. Buffered 1% lidoc antoine was administered overlying the subcutaneous tissues. Under ultrasound guidance, a micropuncture access kit was utilized to gain access to the basilic vein. Guide wire was advanced to the level of t he IVC. 5 [place] catheter sheath was then placed. A dual lumen PICC line trimmed to 53 cm was passed over the wire and into the sheath. Catheter flushed and aspirated appropriately. TOTAL FLUOROSCOPIC TIME: 2 minutes. TOTAL EXPOSURE: 18,251 mGy*cm2. IMPRESSION: Successful ultrasound and fluoroscopic guided left upper extremity PICC line placement. POS: [facility]
[2017-12-05] MEDS ORDERED: Potassium Chloride 40 MEQ in Premix Bag 1 BAG IVPB SCH (18:15)
[2017-12-05] MEDS ORDERED: Potassium Chloride 40 MEQ in Sodium Chloride 0.9% 250 ML 250 ML IVPB SCH (18:30)
[2017-12-05] MEDS: Carvedilol 25 MG TAB PO SCH (20:38)
[2017-12-05] MEDS ORDERED: Carvedilol 25 MG TAB PO SCH (21:00)
[2017-12-05] MEDS ORDERED: cloNIDine 0.3 MG TAB PO SCH ×2 (21:00)
[2017-12-06 05:36] LABS: Anion Gap 15 mmol/L (10-20); BUN (Urea Nitrogen) 42 mg/dL (9.8-20.1); Calc. Creatinine Clearance 34 mL/min (70-130); Calcium 8.8 mg/dL (7.8-10.44); Carbon Dioxide 29 mmol/L (23-31); Chloride 102 mmol/L (98-107); Estimated GFR-MDRD 19; Glucose 194 mg/dL (80-115); Sodium 143 mmol/L (136-145)
[2017-12-06 05:41] LABS: Potassium 2.7 mmol/L (3.5-5.1)
[2017-12-06 06:20] LABS: Band 24 % (5-11); Hemoglobin 9.6 g/dL (12.0-16.0); Hypochromia SLIGHT = 6-15 cells (100X) (0-5/hpf); Lymphocytes 10 % (21-51); MDiff Complete? YES; Mean Corpuscular HGB CONC 31.5 g/dL (32.0-36.0); Mean Corpuscular Hemoglobin 25.8 pg (27.0-31.0); Mean Platelet Volume 7.1 fL (7.4-10.4); Metamyelocyte 5 % (0-0); Monocytes 6 % (0-10); Neutrophil 55 % (42-75); Ovalocytes SLIGHT = 2-5 cells (100X) (0-1/hpf); PLT Morphology Comment Appears Adequate; Platelet Count 319 thou/uL (130-400); RBC Distribution Width 15.4 % (11.5-14.5); Red Blood Cell (RBC) Count 3.72 mill/uL (4.20-5.40); White Blood Cell (WBC) Count 25.2 thou/uL (4.8-10.8)
[2017-12-06] MEDS ORDERED: Potassium Chloride 40 MEQ in Sodium Chloride 0.9% 250 ML 250 ML IVPB SCH (06:30)
[2017-12-06] MEDS ORDERED: Bupivacaine 0.25% HCL 30 ML VIAL ONE (06:40)
[2017-12-06] MEDS ORDERED: Bacitracin Zinc Ointment 30 gm TUBE ONE (06:40)
[2017-12-06] MEDS ORDERED: diphenhydrAMINE 50 MG/ML VIAL ONE (06:40)
[2017-12-06] MEDS ORDERED: Lidocaine 1% w/Epinephrine 1:200K 30 ML VIAL ONE (06:40)
[2017-12-06] MEDS ORDERED: SUGAMMADEX SODIUM 200 MG/2 ML VIAL ONE (06:40)
[2017-12-06] MEDS ORDERED: Fentanyl 100 MCG/2 ML VIAL ONE ×3 (07:05→13:24)
[2017-12-06] MEDS ORDERED: Phenylephrine HCL 10 MG/ML VIAL ONE (07:25)
[2017-12-06] MEDS ORDERED: PHENYLEPHRINE-NS 100 MCG/ML 10 ML SYRINGE ONE ×2 (07:25→16:57)
[2017-12-06] MEDS ORDERED: cefOXitin 2 GM, Syringe 1 ML in Sterile Water 10 ML SLOW IVP SCH (07:30)
[2017-12-06] MEDS ORDERED: hydrALAZINE 25 MG TAB PO SCH (09:00)
[2017-12-06] MEDS ORDERED: Amlodipine 5 MG TAB PO SCH ×2 (09:00)
[2017-12-06] MEDS ORDERED: Albumin 5% 500 ML ONE (09:12)
[2017-12-06] MEDS ORDERED: SUGAMMADEX SODIUM 500 MG/5 ML VIAL ONE (10:28)
[2017-12-06] MEDS: D5 0.9% NS w/ 20 mEq KCl 1,000 ML IV SCH (10:33)
[2017-12-06] MEDS: Carvedilol 25 MG TAB PO SCH (10:33)
[2017-12-06] MEDS ORDERED: Meperidine HCl/PF 25 MG/ML VIAL SLOW IVP PRN (10:40)
[2017-12-06] MEDS ORDERED: Promethazine HCl 25 MG/ML VIAL SLOW IVP PRN (10:40)
[2017-12-06] MEDS ORDERED: Ondansetron HCl/PF 4 MG/2 ML Vial IVP PRN ×2 (10:40→11:02)
[2017-12-06] MEDS ORDERED: Promethazine HCl 25 MG/ML VIAL IM PRN ×2 (10:40→11:02)
[2017-12-06] MEDS ORDERED: HYDROmorphone 2 MG/ML VIAL SLOW IVP PRN (10:40)
[2017-12-06] MEDS ORDERED: Morphine Sulfate 2 MG/ML SYRINGE SLOW IVP PRN (10:40)
[2017-12-06] MEDS ORDERED: Post-Op Insulin Drip Protocol IVPB ONE (11:02)
[2017-12-06] MEDS ORDERED: hydrALAZINE 20 MG/ML VIAL SLOW IVP PRN (11:02)
[2017-12-06 11:26] LABS: Actual Bicarbonate (HCO3a) 24.9 mEq/L (22-26); Base Excess (BEa) -1.6 mEq/L (0 (+/-) 2.5); CO2 Tension 50.2 mmHg (35.0-45.0); Hematocrit-ABG 32.4 % (36.0-47.0); Hemoglobin (Hb) 10.1 g/dL (12.0-16.0); O2 Tension (PaO2) 242.7 mmHg (80.0-100.0); pH, Arterial 7.31 (7.35-7.45)
[2017-12-06 11:27] LABS: Calcium, Ionized 1.1 mmol/L (1.12-1.30); Puncture Site ALINE
[2017-12-06] MEDS ORDERED: Dextrose 50% Abboject 50 ML SYRINGE SLOW IVP PRN (11:49)
[2017-12-06] MEDS ORDERED: Dextrose 5% in Water 1,000 ML IV PRN ×2 (11:49→21:28)
[2017-12-06 12:30] LABS: Actual Bicarbonate (HCO3a) 25.2 mEq/L (22-26); CO2 Tension 47.6 mmHg (35.0-45.0); O2 Tension (PaO2) 67.4 mmHg (80.0-100.0); pH, Arterial 7.34 (7.35-7.45)
[2017-12-06 12:31] LABS: Analyzer IN Cardio OR; Base Excess (BEa) -0.8 mEq/L (0 (+/-) 2.5); Calcium, Ionized 1.1 mmol/L (1.12-1.30); Hematocrit-ABG 32.2 % (36.0-47.0); Hemoglobin (Hb) 10.3 g/dL (12.0-16.0); Puncture Site ALINE
[2017-12-06] MEDS ORDERED: Propofol 1,000 MG/100 ML VIAL IV ONE (12:34)
--- NOTE | 2017-12-06 12:37 | RAD ---
PORTABLE CHEST: Date: 12/06/17 HISTORY: Ventilator follow-up. Dyspnea. COMPARISON: Chest film of 09/16/17. FINDINGS: ET tube is in place with tip well above denny. A central line has tip overlying the SVC. There is po or inspiration. The heart is mildly enlarged. I cannot exclude left basilar consolidation or infiltra te. The right lung appears clear. IMPRESSION: Question left basilar consolidation or atelectasis. POS: [facility]
--- NOTE | 2017-12-06 13:36 | OP ---
DATE OF PROCEDURE: 12/06/2017 PREOPERATIVE DIAGNOSIS: Acute on chronic diverticulitis. POSTOPERATIVE DIAGNOSIS: Acute on chronic diverticulitis. PROCEDURES: 1. Exploratory laparotomy, left colectomy, end colostomy with stapled off rectum (Penny's procedu re). 2. Mobilization of splenic flexure. 3. Repair of bladder. SURGEON: Kem Ceron M.D. ANESTHESIA: General. ESTIMATED BLOOD LOSS: 200 mL. COMPLICATIONS: None. 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 A few sutures were placed in the serosa of the bladder to oversee the area where the colon was, this was then tested and found to be without obviou s leak. The catheter was left in place at the end of the procedure. TECHNIQUE: The patient was taken to the operating room and placed supine on the table. After genera l anesthetic was obtained, a central line was placed by Anesthesia, she was placed in lithotomy posit ion. Katz was placed. The abdomen is prepped and draped in a sterile fashion. Left subcostal 5-mm Optiview trocar was placed in the usual fashion and high-flow pneumoperitoneum was obtained. The tr ansverse colon was significantly dilated and appeared ischemic. Decision was made to open. Midline incision was made from above the umbilicus down to the pubis. Cautery was used to dissect down into the abdominal cavity. Bookwalter retractor was placed. Left colon was mobilized along the white kimberly e of Toldt. The left ureter was found and excluded from the dissection. Dissection was taken down i nto the pelvis where the sigmoid colon was fused to the posterior wall of the bladder. This was meti culously dissected off down to the upper rectum, distal sigmoid. A contour stapler was fired across the sigmoid colon. The mesentery was taken in the sigmoid colon using the impact LigaSure. The sple emperatriz flexure was mobilized in usual fashion. There was a lot of purulence in the abdomen. There was an area, there was a small bowel loop that was very stuck to the sigmoid colon as well. This was met iculously dissected off; however, in doing this, there was a small hole made in the small intestine. The small hole was oversewn using Vicryl suture followed by silk pop off sutures. Ellipse of skin t aken out in the left upper abdomen in the proximal colon brought up through this which will be the lo cation for the end colostomy. The abdomen was irrigated copiously using sterile solution until retur ns are clear. The area where the bladder was fused to the sigmoid was oversewn using Vicryl suture. The bladder was then filled with 350 mL of methylene blue dyed saline without obvious leakage. The bladder was decompressed. All instrument counts, needle counts, lap counts were correct. The midlin e fascia was closed using #1 PDS from the top and the bottom and tied in the middle. Subcutaneous ti ssues were irrigated. Wound VAC was used on the midline wound. The other small laparoscopic incisio ns were closed using Vicryl suture. Colostomy was then matured in the usual fashion by cutting acros s the colon in the distal splenic flexure area. The colon specimen was sent to path for final diagno sis. Colostomy mucosa was matured in the usual fashion using Vicryl suture and ostomy device was emperatriz daryn. The patient was en route to recovery in stable condition. All instrument counts, needle counts , and lap counts were correct.
[2017-12-06] MEDS ORDERED: cefOXitin 2 GM in Sodium Chloride 0.9% 100 ML IVPB SCH (14:00)
[2017-12-06] MEDS: Acetaminophen 1,000 MG in Premix Bag 1 BAG IVPB SCH ×3 (14:10→23:10)
[2017-12-06] MEDS: Sodium Chloride 0.9% 1,000 ML IV SCH ×5 (14:10→23:09)
[2017-12-06] MEDS ORDERED: Morphine 4 MG/ML Carpuject SLOW IVP PRN (16:02)
[2017-12-06] MEDS ORDERED: DISCONTINUE PREVIOUS NARCOTIC PAIN MEDICATIONS AND BENZODIAZEPINES FS SCH (16:02)
[2017-12-06] MEDS ORDERED: Fentanyl 20 MCG/ML 250 ML IVPB SCH (16:02)
[2017-12-06] MEDS ORDERED: Lorazepam 2 MG/ML VIAL SLOW IVP PRN (16:02)
[2017-12-06] MEDS ORDERED: Propofol 1,000 MG/100 ML VIAL IV PRN (16:02)
[2017-12-06] MEDS ORDERED: fentaNYL Citrate/PF 2,000 MCG in Sodium Chloride 0.9% 60 ML IV SCH (16:15)
[2017-12-06] MEDS ORDERED: Glycopyrrolate 0.2 MG/ML 5 ML SYRINGE ONE (16:57)
[2017-12-06] MEDS ORDERED: Propofol 200 MG/20 ML VIAL ONE (16:57)
[2017-12-06] MEDS ORDERED: Dexamethasone 20 MG/5 ML VIAL ONE (16:57)
[2017-12-06] MEDS ORDERED: Ondansetron HCl/PF 4 MG/2 ML Vial ONE (16:57)
[2017-12-06] MEDS ORDERED: Lidocaine 1% PF 5 ML VIAL ONE (16:57)
[2017-12-06] MEDS ORDERED: Sodium Chloride 0.9% 1,000 ML IV SCH (17:00)
[2017-12-06] MEDS ORDERED: Sodium Chloride 0.9% (PF) 10 ML VIAL FS SCH (17:00)
[2017-12-06] MEDS: cefOXitin 2 GM, Syringe 1 ML in Sterile Water 10 ML SLOW IVP SCH ×2 (17:14→23:15)
--- NOTE | 2017-12-06 20:07 | CON ---
DATE OF CONSULTATION: 12/06/2017 HISTORY OF PRESENT ILLNESS: Ms. Watters is a 62-year-old female. She has a history of diverticulosis a nd diverticulitis. She had a laparotomy, resection of colon. Today, had a colostomy because of her body habitus in long operative case, she was left intubated. I discussed the case with Dr. Ceron. She was still sedated from operative procedure when I examine d her. PAST MEDICAL HISTORY: 1. Remarkable for colitis. 2. Chronic kidney disease presumably secondary to diabetes. 3. History of gout. 4. History of sleep apnea. 5. History of congestive heart failure. FAMILY HISTORY: Negative for lung disease at an early age. SOCIAL HISTORY: She is nonsmoker, nondrinker. ALLERGIES: She has no reported drug allergies. She is not a drug user. REVIEW OF SYSTEMS: Not obtainable because she is intubated. PHYSICAL EXAMINATION: VITAL SIGNS: Blood pressure 117/66, heart rate 66, respiratory rate 17. HEENT: She blinks corneal stimuli. She has a gag. She will move her extremities to stimulation. LUNGS: Clear. HEART: Regular rhythm. S1 and S2 are normal. ABDOMEN: Abdomen is soft and distended and bandaged. She has a wound VAC in place. EXTREMITIES: Without clubbing, cyanosis, or edema. LABORATORY DATA: White count 25.2, hemoglobin 9.6, platelets 319,000. Sodium 143, potassium 3.7, ch loride 102, bicarb 29, BUN 42, creatinine 2.96, glucose 194. pH 7.34, CO2 of 47, pO2 of 67. Coags a re normal. IMPRESSION: Status post laparotomy with colostomy, resection of left colon. Hopefully, we can start weaning her in the morning. She may need to get BiPAP afterwards, but if she does not have any interval complications overnight. Hopefully, we can wean and extubate her in the morning. Critical care time was 30 minutes.
[2017-12-06] MEDS: Famotidine 20 MG TAB PO SCH (20:33)
[2017-12-06] MEDS ORDERED: Famotidine/PF 20 mg/2ml Vial SLOW IVP SCH ×2 (21:00)
[2017-12-06] MEDS ORDERED: Enoxaparin Sodium 40 MG/0.4 ML SYRINGE SC SCH (21:00)
--- NOTE | 2017-12-06 21:19 | PRG ---
DATE OF SERVICE: 12/06/2017 SUBJECTIVE: Ms. Watters underwent a left colectomy yesterday for complicated diverticular disease. She remains intubated and is not communicating. PHYSICAL EXAMINATION: VITAL SIGNS: Temperature is 98. She has been afebrile overnight, pulse 67, blood pressure 132/70. GENERAL: She is intubated. ABDOMEN: Bowel sounds are quiescent since dressing on anterior abdominal wall. LABORATORY STUDIES: White count 25, 000, hemoglobin 9.6, platelet count 113, 24% bands, pH 7.34 this morning. Chemistry: Sodium 142, potassium 2.7. BUN and creatinine 42 and 2.9. ASSESSMENT: 1. Complicated diverticular disease status post surgical resection. 2. Colonoscopy today prior to surgery to rule out any large lesions or just severe diverticular dise ase noted with stricturing at that time. The prep was really suboptimal, so this was not a good scre ening exam. RECOMMENDATIONS: Post-surgical management per surgical service. If I can be of any further assistan ce of care, please do not hesitate to contact me. With regards to her future colorectal cancer lin allen, I told her family and and will place her in our logs to consider repeat examination in 1-2 years.
[2017-12-06] MEDS ORDERED: Dextrose 50% Abboject 50 ML SYRINGE IVP PRN (21:28)
[2017-12-07] MEDS: Sodium Chloride 0.9% 1,000 ML IV SCH ×3 (03:57→19:37)
[2017-12-07 04:31] LABS: Band 26 % (5-11); Hemoglobin 8.5 g/dL (12.0-16.0); Lymphocytes 13 % (21-51); MDiff Complete? YES; Mean Corpuscular HGB CONC 31.5 g/dL (32.0-36.0); Mean Corpuscular Hemoglobin 26.5 pg (27.0-31.0); Mean Corpuscular Volume 84.1 fl (81.0-99.0); Mean Platelet Volume 7.4 fL (7.4-10.4); Monocytes 5 % (0-10); Neutrophil 56 % (42-75); PLT Morphology Comment Appears Adequate; Platelet Count 259 thou/uL (130-400); RBC Distribution Width 15.4 % (11.5-14.5); White Blood Cell (WBC) Count 13.7 thou/uL (4.8-10.8)
[2017-12-07 04:54] LABS: Anion Gap 15 mmol/L (10-20); BUN (Urea Nitrogen) 47 mg/dL (9.8-20.1); Calc. Creatinine Clearance 25 mL/min (70-130); Calcium 7.6 mg/dL (7.8-10.44); Carbon Dioxide 24 mmol/L (23-31); Chloride 110 mmol/L (98-107); Estimated GFR-MDRD 13; Glucose 131 mg/dL (80-115); Sodium 146 mmol/L (136-145)
[2017-12-07] MEDS: Acetaminophen 1,000 MG in Premix Bag 1 BAG IVPB SCH (06:09)
[2017-12-07 07:47] LABS: pH, Arterial 7.34 (7.35-7.45)
[2017-12-07 07:48] LABS: Base Excess (BEa) -3.5 mEq/L (0 (+/-) 2.5); CO2 Tension 41.8 mmHg (35.0-45.0); Hematocrit-ABG 24.6 % (36.0-47.0); Hemoglobin (Hb) 7.8 g/dL (12.0-16.0); O2 Tension (PaO2) 99.9 mmHg (80.0-100.0)
[2017-12-07 07:49] LABS: Analyzer IN Cardio OR; Puncture Site ALINE
[2017-12-07] MEDS ORDERED: Potassium Chloride 40 MEQ in Premix Bag 1 BAG IVPB SCH (11:45)
[2017-12-07] MEDS ORDERED: Sodium Chloride 0.9% 500 ML IV SCH (13:00)
--- NOTE | 2017-12-07 13:56 | PRG ---
DATE OF ADMISSION: 12/07/2017 SUBJECTIVE: Ms. Watters is awake and alert this morning. She is in no distress. PHYSICAL EXAMINATION: VITAL SIGNS: Heart rate is 71, respiratory rate 24, oximetry is 95 on 4 liter cannula, blood pressure 151/76. Intake and output was positive 5075 mL. LUNGS: Clear. HEART: Regular rhythm. ABDOMEN: Soft. LABORATORY DATA: White count 13.7, hemoglobin 8.5, platelets 259. Sodium 146, potassium 3, chloride 110, bicarb 24, BUN 47. Creatinine 4.28, creatinine was 2.28 on admission. Her urine output was limited overnight with recorded 114 mL. IMPRESSION: 1. Status post overnight mechanical ventilation after a long operative procedure for resection of her descending colon for stricture associated with diverticulitis. 2. Acute on chronic kidney disease. She may need Nephrology input. She may be third spacing, some volume in her abdomen, IV fluids may need to be adjusted. Discussed with Dr. Ceron. ADDENDUM: Blood gas showed pH 7.34, CO2 41, pO2 99. She met criteria for weaning after spontaneous breathing trial. She subsequently has been extubated and is doing well. Critical care time 30 min. MTDD
--- NOTE | 2017-12-07 14:15 | PDOC.GSPN ---
Surgery Progress Note: Subj - Subjective Narrative: Extubated, wants liquids Surgery Progress Note: Obj - Vital signs Vital signs: Vital Signs - Most Recent Temp Pulse Resp BP Pulse Ox 98.5 F 71 24 H 104/60 95 12/07/17 08:00 12/07/17 10:25 12/07/17 10:25 12/07/17 06:45 12/07/17 10:25 - Physical Exam General: no distress Cardiovascular: regular rate and rhythm Respiratory: coarse breath sounds Abdomen: soft, non tender, distended Wound: wound vac Surgery Progress Note: Results - Labs Result Diagrams: 12/07/17 04:06 12/07/17 04:06 Lab results: Laboratory Results - last 24 hr 12/07/17 12/07/17 12/07/17 04:06 04:06 06:17 WBC 13.7 H RBC 3.20 L Hgb 8.5 L Hct 26.9 L MCV 84.1 MCH 26.5 L MCHC 31.5 L RDW 15.4 H Plt Count 259 MPV 7.4 Neutrophils % (Manual) 56 Band Neuts % (Manual) 26 H Lymphocytes % (Manual) 13 L Monocytes % (Manual) 5 Plt Morphology Comment Appears Adequate Specimen Type Puncture Site Bicarbonate Actual ABG pH ABG pCO2 ABG pO2 ABG O2 Sat Calc/Sonny ABG O2 Content ABG Base Excess ABG Hematocrit ABG Hemoglobin ABG Carboxyhemoglobin ABG Methemoglobin Deny Test A-a O2 Gradient Ionized Calcium Mode of Support Mechanical Rate Inspired O2 Tidal Volume Pressure Support PEEP or CPAP Sodium 146 H Potassium 3.0 L Chloride 110 H Carbon Dioxide 24 Anion Gap 15 BUN 47 H Creatinine 4.28 H Estimated GFR (MDRD) 13 Glucose 131 H POC Glucose 128 H Calcium 7.6 L 12/07/17 06:50 WBC RBC Hgb Hct MCV MCH MCHC RDW Plt Count MPV Neutrophils % (Manual) Band Neuts % (Manual) Lymphocytes % (Manual) Monocytes % (Manual) Plt Morphology Comment Specimen Type ARTERIAL Puncture Site DRU Bicarbonate Actual 22.0 ABG pH 7.34 L ABG pCO2 41.8 ABG pO2 99.9 ABG O2 Sat Calc/Sonny 97.6 ABG O2 Content 10.7 L ABG Base Excess -3.5 L ABG Hematocrit 24.6 L ABG Hemoglobin 7.8 L ABG Carboxyhemoglobin 1.2 ABG Methemoglobin 0.6 Dney Test NOT DONE A-a O2 Gradient 240.000 H Ionized Calcium 1.0 L Mode of Support SIMV/PSV Mechanical Rate 12 Inspired O2 55 Tidal Volume 500 Pressure Support 10 PEEP or CPAP 5.0 Sodium 145 Potassium 2.9 L Chloride 108 H Carbon Dioxide Anion Gap BUN Creatinine Estimated GFR (MDRD) Glucose POC Glucose Calcium Surgery Progress Note: A/P - Problem (1) Diverticulitis Current Visit: Yes Code(s): K57.92 - DVTRCLI OF INTEST, PART UNSP, W/O PERF OR ABSCESS W/O BLEED Status: Acute Assessment and Plan: POD 1 left colectomy, colostomy Try clears, hopefully to floor tomorrow (2) Pseudomembranous colitis Current Visit: Yes Code(s): A04.72 - ENTEROCOLITIS D/T CLOSTRIDIUM DIFFICILE, NOT SPCF RECUR Status: Acute Assessment and Plan: Seen on pathology, will add IV flagyl for now. No stool to test
[2017-12-07 14:35] VITALS: BMI 47.3
[2017-12-07] MEDS ORDERED: metroNIDAZOLE 500 MG TAB PO SCH (15:00)
--- NOTE | 2017-12-07 16:59 | CON ---
DATE OF CONSULTATION: 12/07/2017 HISTORY OF PRESENT ILLNESS: Ms. Watters is a 62-year-old black female with known history of chronic juve al failure from diabetic nephropathy and recently admitted due to colonic problem. She was found to have colonic stricture and underwent an exploratory laparotomy with subsequent left colectomy and end colostomy. Also, mobilization of the splenic flexure was done during the said operation. We are be ing consulted for her acute kidney injury on top of her chronic renal failure. I did see the patient last September, creatinine was about 1.5-1.7. Most recent creatinine is now more than 4 mg percent. Her urine output has also decreased. The concern was whether this patient may now be third spacing. REVIEW OF SYSTEMS: No chest pain, no shortness of breath, no nausea, no vomiting. Decreased appetit e, decreased energy level. Positive for postop pain, no diarrhea, no constipation, no dysuria, occas ional joint pains, no fever or chills. No sore throat. No syncopal episode. MEDICATIONS: DuoNeb q.4 hours p.r.n., Norvasc 5 mg daily, Coreg 25 mg p.o. b.i.d., Lovenox 30 mg sub cu day, Pepcid 20 mg IV every day, normal saline at 125 mL per hour, human regular insulin sliding sc justin, and morphine sulfate p.r.n. PAST MEDICAL HISTORY: The patient has history of diverticulosis, status post diverticulitis, chronic renal failure from diabetic nephropathy, type 2 diabetes mellitus, gout, obstructive sleep apnea, st atus post CHF. PAST SURGICAL HISTORY: Status post upper and lower GI endoscopy - recently status post left colectom y and colostomy placement. SOCIAL HISTORY: The patient lives in [place]. , 4 children, lives with her . 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 IV drug abuse. Status post blood transfusion. No history of smoking, no alco hol intake, did have history of chronic NSAID intake. ALLERGIES: None. TRAUMA: None. IMMUNIZATIONS: Up to date. HOSPITALIZATIONS: Please see past medical history. FAMILY HISTORY: No family history of ESRD. PHYSICAL EXAMINATION: VITAL SIGNS: Blood pressure is 144/80, heart rate 70, respiratory rate 12, pulse ox 96%. GENERAL: Awake, supine, comfortable, not in distress. SKIN: Adequate turgor. HEENT: Slightly pale conjunctivae, anicteric sclerae. NECK: No neck mass, no carotid bruits, no JVD. CHEST: No deformities. LUNGS: Decreased breath sounds. No wheezing. HEART: Normal sinus rhythm. No murmur, no gallops or rubs. ABDOMEN: Globular, soft, nontender, no masses. Positive for left colostomy. EXTREMITIES: Positive for edema. NEUROLOGIC: Moving all extremities. No tremors, no asterixis. Oriented to 3 spheres. LABORATORY DATA: Of 12/07/2017, white count 13.7, hemoglobin 8.5, hematocrit 26.9. Sodium 146, pota ssium 3, chloride 110, carbon dioxide 24. BUN 47, creatinine 4.28, glucose 131, calcium is 7.6. On 12/06/2017, BUN 42, creatinine 2.96. On 12/05/2017, BUN 33, creatinine 2.28. On 09/26/2017, creatin ine 1.45. ASSESSMENT AND PLAN: 1. Acute kidney injury on top of her chronic renal failure - this is most likely hemodynamically med iated renal dysfunction. We will review the urinalysis to see if there is already an overt acute tub ular necrosis. My bias is simply to aggressively volume replete her. I agree with current normal sa line at 125 mL per hour. In addition, I have added salt poor albumin 25 grams IV q.6 h. Hopefully, this conservative management will help stabilize the renal dysfunction. There is no indication for a ny dialytic intervention at the present time. 2. Chronic diverticulitis/diverticulosis - recently status post colon resection with colostomy place ment. Overall, I agree with current management. Continue supportive care, recheck base met and CBC in a.m. , urinalysis and urine chemistries will be done today.
[2017-12-07] MEDS ORDERED: Vancomycin HCl 25 MG/ML Oral PO SCH (17:30)
[2017-12-07] MEDS: Albumin 25% 25 GM/100 ML BOT IVPB SCH (18:32)
[2017-12-07 18:37] LABS: Bilirubin Negative (Negative); Blood, Urine Moderate (Negative); Clarity CLOUDY (Clear); Glucose, Urine (Dipstick) Negative (Negative); Leukocyte Negative (Negative); Nitrite Negative (Negative); Protein, Urine (Dipstick) 100 mg/dL (Neg-Trace); Specific Gravity, Urine 1.023 (1.002-1.036); Urobilinogen 0.2 mg/dL (0.2-1.0); pH, Urine 5.5 (5.0-9.0)
[2017-12-07] MEDS: Vancomycin HCl 25 MG/ML Oral PO SCH (18:39)
[2017-12-07 18:44] LABS: Bacteria/HPF None Seen HPF (None Seen); RBC/HPF 0-3 HPF (0-3)
[2017-12-07 18:45] LABS: Pathc Cast-AUWi Flag 13.27 (0-2.49); Yeast-AUWi Flag 102.4 (0-25.0)
[2017-12-07 18:56] LABS: Creatinine, Urine 94.09 mg/dL (47-110)
[2017-12-07 18:58] LABS: Crystals/HPF 1+ AMORPH URATES HPF (Negative); Hyaline Casts/LPF 7-10 HYALINE CAST LPF (0-3 Hyaline)
[2017-12-07 19:00] LABS: Yeast-All Forms None Seen HPF (None Seen)
[2017-12-07 19:01] LABS: Renal Epithelial None Seen HPF (0-3); Transitional Epithelial NONE SEEN HPF (0-3)
--- NOTE | 2017-12-07 20:20 | PRG ---
DATE OF SERVICE: 12/07/2017 SUBJECTIVE: Ms. Watters is doing well. She is extubated. She is tolerating liquids. OBJECTIVE: VITAL SIGNS: She has been afebrile. T-max is 99, temperature current 98.1, pulse 73, blood pressure 169/75. Urine output today is 349 in and 5189. GENERAL: She is awake and oriented, no bowel sounds on exam. ABDOMEN: Distended. Wound dressing in place. Ostomy looks pink. LUNGS: Clear. HEART: Regular rate and rhythm. LABORATORY STUDIES: White count 13.7, hemoglobin 8.5, platelet count 259. Sodium 146, potassium 3, BUN and creatinine are 47 and 4.28. Pathology from her colon resection shows no malignancy. Ovary i n the left is atrophic. There were some pseudomembranous changes in resected colon. There is focal acute diverticulitis with abscess, previously pseudomembranes had been seen in the past when she had biopsies on 09/20 at that time, C. diff was negative. She was treated empirically, however. ASSESSMENT: 1. Diverticular abscess, complications of colovesicular fistula, status post operative treatment. 2. Pseudomembranes noted in the colon. C. diff in the past has been negative. We will go ahead and request this again and place her on some oral vancomycin. She has been on multiple antibiotics. We will also place her on probiotics. 3. Renal insufficiency with acute renal decompensation on chronic. She is on albumin reasonable..
[2017-12-07] MEDS: Famotidine 20 MG TAB PO SCH (20:36)
[2017-12-07] MEDS: Carvedilol 25 MG TAB PO SCH (20:36)
[2017-12-07] MEDS: Enoxaparin Sodium 30 MG/0.3 ML SYRINGE SC SCH (20:37)
[2017-12-08] MEDS: Albumin 25% 25 GM/100 ML BOT IVPB SCH ×4 (04:00→21:48)
[2017-12-08 04:57] LABS: Anion Gap 12 mmol/L (10-20); BUN (Urea Nitrogen) 48 mg/dL (9.8-20.1); Calc. Creatinine Clearance 33 mL/min (70-130); Calcium 8.6 mg/dL (7.8-10.44); Carbon Dioxide 22 mmol/L (23-31); Chloride 112 mmol/L (98-107); Estimated GFR-MDRD 17; Glucose 131 mg/dL (80-115); Sodium 143 mmol/L (136-145)
[2017-12-08 05:00] LABS: Potassium 2.9 mmol/L (3.5-5.1)
[2017-12-08 06:01] LABS: Band 5 % (5-11); Hemoglobin 8.4 g/dL (12.0-16.0); Hypochromia SLIGHT = 6-15 cells (100X) (0-5/hpf); Lymphocytes 11 % (21-51); MDiff Complete? YES; Mean Corpuscular HGB CONC 31.1 g/dL (32.0-36.0); Mean Corpuscular Hemoglobin 26.2 pg (27.0-31.0); Mean Corpuscular Volume 84.4 fl (81.0-99.0); Mean Platelet Volume 7.6 fL (7.4-10.4); Metamyelocyte 1 % (0-0); Monocytes 5 % (0-10); Neutrophil 77 % (42-75); PLT Morphology Comment Appears Adequate; Platelet Count 251 thou/uL (130-400); RBC Distribution Width 15.6 % (11.5-14.5); Reactive Lymphocytes 1 % (0-10); White Blood Cell (WBC) Count 19.1 thou/uL (4.8-10.8)
[2017-12-08] MEDS: Sodium Chloride 0.9% 1,000 ML IV SCH (06:05)
[2017-12-08] MEDS: Carvedilol 25 MG TAB PO SCH ×2 (08:00→20:13)
[2017-12-08] MEDS: Saccharomyces boulardii 250 MG CAP PO SCH (08:00)
[2017-12-08] MEDS: Amlodipine 5 MG TAB PO SCH (08:00)
[2017-12-08] MEDS: Vancomycin HCl 25 MG/ML Oral PO SCH ×4 (08:03→21:48)
--- NOTE | 2017-12-08 09:54 | PRG ---
DATE OF SERVICE: 12/08/2017 SUBJECTIVE: Ms. Watters is doing well, had no specific complaints this morning. OBJECTIVE: VITAL SIGNS: Temperature 98.8, pulse 74, blood pressure 182/114, O2 sat 93%. A 24-hour intake 2670, output 1865. HEENT: Unremarkable. NECK: No JVD. CHEST: Clear without wheezing. CARDIAC: S1 and S2 regular. ABDOMEN: Multiple surgical wounds noted, seemed to be healing well. EXTREMITIES: Trace edema throughout. LABORATORY DATA: White blood cell count 19, hematocrit 27, platelet count 251. Sodium 143, potassiu m 2.9, chloride 112, CO2 22, BUN 48, creatinine 3.2, glucose 131. ASSESSMENT: 1. Status post respiratory failure postoperatively from laparotomy. 2. Acute on chronic kidney disease. 3. Hypokalemia. PLAN: We will go ahead and replace her potassium. She will likely be transferred to the floor today .
[2017-12-08] MEDS ORDERED: Potassium Chloride 40 MEQ in Premix Bag 1 BAG IVPB SCH (10:00)
--- NOTE | 2017-12-08 11:41 | PRG ---
DATE OF SERVICE: 12/08/2017 RENAL MEDICINE SUBJECTIVE: Ms. Watters is a 62-year-old black female who had diverticulitis/diverticulosis and underwe nt a left colectomy with colostomy placement. We are being consulted for acute kidney injury. She w as initially seen by the Renal Service yesterday. The possibility of a hemodynamically-mediated dysf unction was considered. She was given volume repletion. At the same time, was started on salt-poor albumin. However, her urinalysis did show some pigmented granular casts suggesting that she may have a patchy acute tubular necrosis. This morning, she is feeling better. Denies any chest pain or abd ominal pain. No nausea, no vomiting. PHYSICAL EXAMINATION: VITAL SIGNS: Blood pressure is 161/103, heart rate 74, respiratory rate 16, pulse ox 95%. GENERAL: Awake, supine, obese, comfortable, not in distress. SKIN: Adequate turgor. HEENT: She has slightly pale conjunctivae, anicteric sclerae. NECK: No neck mass, no carotid bruits, no JVD. CHEST: No deformities. LUNGS: Clear breath sounds. No wheezing, no crackles. HEART: Normal sinus rhythm. No murmur, no gallops, no rubs. ABDOMEN: Globular, soft, nontender. No masses. Decreased bowel sounds, positive for left colostomy . EXTREMITIES: Positive for edema, no deformities. MEDICATIONS: Of 12/08/2017, reviewed. LABORATORY DATA: Of 12/08/2017, white count 19.1, hemoglobin 8.4, hematocrit 27, sodium 143, potassi um 2.9, chloride 112, carbon dioxide 22, BUN 48, creatinine 3.25, glucose 131, calcium 8.6. Urinalys is of 12/07/2017, positive for pigmented granular casts. Urine sodium 58, urine creatinine 94.09. ASSESSMENT AND PLAN: 1. Acute kidney injury on top of her chronic renal failure. She may have a patchy acute tubular nec rosis. However, we will continue current volume repletion. Continue salt-poor albumin with this pat ient. Renal function is stabilizing. There is no indication for any dialytic intervention with this patient at the present time. 2. Diverticulitis/diverticulosis - status post colectomy with colostomy placement, stable. Surgery is following. 3. Anemia. Continue to observe. P.r.n. blood transfusion. We will recheck base met and CBC in a.m .
[2017-12-08] MEDS ORDERED: cloNIDine 0.2mg/24 Hour PATCH TD SCH (13:00)
[2017-12-08] MEDS: hydrALAZINE 20 MG/ML VIAL SLOW IVP PRN ×2 (13:44→20:14)
[2017-12-08] MEDS ORDERED: traMADol HCl 50 MG TAB PO PRN (16:55)
[2017-12-08] MEDS ORDERED: Acetaminophen 500 MG TAB PO PRN (16:55)
[2017-12-08] MEDS ORDERED: Potassium Chloride 20 MEQ TAB PO SCH (17:00)
--- NOTE | 2017-12-08 17:24 | PRG ---
DATE OF PROGRESS: 12/08/2017 SUBJECTIVE: Ms. Watters is doing well. She is in ICU. She is hoping to [facility]. OBJECTIVE: VITAL SIGNS: Temperature 98.1 degrees, blood pressure 160/94, respiratory rate 18. LUNGS: Clear to auscultation. CARDIAC: Regular rate and rhythm without murmur, rub, or gallop. ABDOMEN: Soft and bowel sounds present. Liquid stool in her ostomy. Katz catheter in place. EXTREMITIES: Unremarkable. LABORATORY DATA: White count 19, hemoglobin 8.4. Accu-Chek 138 and potassium 2.9 today. ASSESSMENT AND PLAN: The patient is doing well. We will increase her diet and give her oral potassi um and increase activity. She has not been out of bed and ambulating yet. We will advance her diet and move her to the surgery floor.
[2017-12-08] MEDS: Famotidine 20 MG TAB PO SCH (20:13)
[2017-12-08] MEDS: Enoxaparin Sodium 30 MG/0.3 ML SYRINGE SC SCH (20:13)
[2017-12-09] MEDS: hydrALAZINE 20 MG/ML VIAL SLOW IVP PRN ×5 (04:09→20:35)
[2017-12-09] MEDS: Albumin 25% 25 GM/100 ML BOT IVPB SCH ×4 (04:09→22:39)
[2017-12-09 05:32] LABS: Anion Gap 13 mmol/L (10-20); BUN (Urea Nitrogen) 47 mg/dL (9.8-20.1); Calc. Creatinine Clearance 41 mL/min (70-130); Calcium 9.5 mg/dL (7.8-10.44); Carbon Dioxide 21 mmol/L (23-31); Chloride 112 mmol/L (98-107); Estimated GFR-MDRD 22; Glucose 159 mg/dL (80-115); Potassium 3.4 mmol/L (3.5-5.1); Sodium 143 mmol/L (136-145)
[2017-12-09 06:02] LABS: Band 9 % (5-11); Hemoglobin 9.1 g/dL (12.0-16.0); Hypochromia SLIGHT = 6-15 cells (100X) (0-5/hpf); Lymphocytes 8 % (21-51); MDiff Complete? YES; Mean Corpuscular HGB CONC 31.2 g/dL (32.0-36.0); Mean Corpuscular Hemoglobin 26.1 pg (27.0-31.0); Mean Corpuscular Volume 83.6 fl (81.0-99.0); Mean Platelet Volume 7.8 fL (7.4-10.4); Monocytes 13 % (0-10); Neutrophil 70 % (42-75); PLT Morphology Comment Appears Adequate; Platelet Count 291 thou/uL (130-400); White Blood Cell (WBC) Count 18.8 thou/uL (4.8-10.8)
[2017-12-09] MEDS: traMADol HCl 50 MG TAB PO PRN ×2 (07:33→15:53)
[2017-12-09] MEDS: Polyethylene Glycol 3350 17 GM Packet PO SCH (07:35)
[2017-12-09] MEDS: Amlodipine 5 MG TAB PO SCH (07:38)
[2017-12-09] MEDS: Multivit, Therapeutic 1 TAB PO SCH (07:38)
[2017-12-09] MEDS: Saccharomyces boulardii 250 MG CAP PO SCH (07:38)
[2017-12-09] MEDS: Ascorbic Acid 500 mg Chewable Tablet PO SCH (07:39)
[2017-12-09] MEDS: Carvedilol 25 MG TAB PO SCH ×2 (07:39→20:37)
[2017-12-09] MEDS: Zinc Sulfate 220 MG CAP PO SCH (07:39)
[2017-12-09] MEDS: Vancomycin HCl 25 MG/ML Oral PO SCH ×4 (09:18→22:39)
[2017-12-09] MEDS: Insulin Regular 300 UNITS/3 ML VIAL SC PRN ×3 (11:36→23:09)
--- NOTE | 2017-12-09 11:53 | PRG ---
DATE OF SERVICE: 12/09/2017 SUBJECTIVE: Ms. Watters is a 62-year-old black female who was seen for acute kidney injury. Her data s uggest she may have an acute tubular necrosis. Urinalysis showed pigmented granular casts. She has been given some gentle volume repletion. She has to receive salt-poor albumin. Renal function slowl y improving over time. Please note that the patient had an acute diverticulitis and underwent a colectomy with colostomy emperatriz cement. Doing well overall. No complaints of chest pain or shortness of breath. OBJECTIVE: VITAL SIGNS: Blood pressure is 166/95, heart rate 84, respiratory rate 18, temperature 98.4, pulse o x 98%. GENERAL: Noted to be awake, alert, lethargic, but comfortable, not in distress. SKIN: Adequate turgor. HEENT: She has slightly pale conjunctivae, anicteric sclerae. NECK: No neck mass, no carotid bruits, no JVD. CHEST: No deformities. LUNGS: Clear breath sounds. No wheezing, no crackles. HEART: Normal sinus rhythm. No murmur, no gallops, no rubs. ABDOMEN: Globular, soft, nontender, no masses. Positive for colostomy. EXTREMITIES: Positive for trace edema, no deformities. MEDICATIONS: Of 12/09/2017 was reviewed. LABORATORY: Of 12/09/2017, white count 18.8, hemoglobin 9.1, sodium 143, potassium 3.4, chloride 112 , carbon dioxide 21, BUN 47, creatinine 2.64, glucose 159, calcium 9.5. ASSESSMENT AND PLAN: 1. Acute kidney injury - consider superimposed acute tubular necrosis. Renal function is slowly im proving. Continue supportive care. Continue salt-poor albumin. I will extend albumin for 3 more da ys. There is no indication for any dialytic intervention. 2. Acute diverticulitis/diverticulosis - the patient status post colectomy with colostomy placement. Doing well. Surgery is following. Recheck basic met and CBC in a.m.
[2017-12-09] MEDS ORDERED: Potassium Chloride 20 MEQ TAB PO SCH (15:00)
--- NOTE | 2017-12-09 15:48 | PRG ---
DATE OF SERVICE: 12/09/2017 SUBJECTIVE: Ms. Watters was moved from the ICU yesterday to the surgical floor. She is doing well. She has not been out of bed this admission. Physical therapy has been ordered by the nurses. Rehab screen has been submitted. Case med worker consult made. I opened the patient's blinds personally with the aid of her family and nurses assisted her into a chair. She was able to stand on her own, but need assistance in walking. The patient overall did fairly well despite her morbid obesity 502, 258 pounds, BMI greater than 40. OBJECTIVE: VITAL SIGNS: 98.3 degrees, 82 heart rate, 190/113. LUNGS: Clear to auscultation. CARDIAC: Regular rate and rhythm without murmur or gallop. ABDOMEN: Soft, obese, bowel sounds present. Wound VAC in place. Colostomy present. EXTREMITIES: Unremarkable. LABORATORY DATA: This morning, white count is 18,000 down from 19,000 yesterday, hemoglobin 9.1 whic h is relatively stable. Sodium 143, potassium 3.4, chloride 112, carbon dioxide 21, BUN and creatini ne are improved 47 and 2.64. Accu-Cheks 176-180. Overall, the patient is doing well. She is decond itioning. She will need rehabilitation screen. manager chinese involvement for discharge planning late r this week. She is tolerating diet. She can be transferred to rehab mid week. Overall, she is doi ng well.
[2017-12-09] MEDS ORDERED: HYDROcodone/Acetaminophen 5/325 mg Tablet PO SCH (16:30)
--- NOTE | 2017-12-09 16:40 | PRG ---
DATE OF SERVICE: 12/09/2017 SUBJECTIVE: The patient is doing reasonably well, had no complaints. OBJECTIVE: VITAL SIGNS: Temperature 98.2, pulse 74, respirations 20, O2 saturation 97% on 2 liters, blood press ure 169/96. HEENT: Unremarkable. NECK: No JVD. CHEST: Clear. CARDIAC: S1 and S2 regular. ABDOMEN: Wound VAC noted. EXTREMITIES: No edema. LABORATORY DATA: White blood cell count 18, hematocrit 29.3, platelet count 291. Sodium 143, potass ium 3.4, BUN 47, creatinine 2.6, glucose 159. ASSESSMENT: 1. Post-respiratory failure after laparotomy 2. Acute on chronic kidney disease. 3. Abdominal wound. PLAN: Continue antibiotics and wound care. No further recommendations at this time.
[2017-12-09] MEDS ORDERED: Amlodipine 5 MG TAB PO SCH (16:45)
[2017-12-09] MEDS: Enoxaparin Sodium 30 MG/0.3 ML SYRINGE SC SCH (20:36)
[2017-12-09] MEDS: Famotidine 20 MG TAB PO SCH (20:37)
[2017-12-10] MEDS: hydrALAZINE 20 MG/ML VIAL SLOW IVP PRN ×2 (01:54→04:39)
[2017-12-10] MEDS: Albumin 25% 25 GM/100 ML BOT IVPB SCH ×4 (05:12→23:38)
[2017-12-10] MEDS: cloNIDine 0.1 MG TAB PO PRN ×2 (05:16→23:56)
[2017-12-10 06:46] LABS: Hemoglobin A1c 5.7 % (4.0-6.0)
[2017-12-10 06:47] LABS: Anion Gap 13 mmol/L (10-20); BUN (Urea Nitrogen) 45 mg/dL (9.8-20.1); Calc. Creatinine Clearance 54 mL/min (70-130); Calcium 9.5 mg/dL (7.8-10.44); Carbon Dioxide 22 mmol/L (23-31); Chloride 114 mmol/L (98-107); Estimated GFR-MDRD 30; Glucose 142 mg/dL (80-115); Potassium 3.3 mmol/L (3.5-5.1); Sodium 146 mmol/L (136-145)
[2017-12-10 07:53] LABS: Hemoglobin 8.7 g/dL (12.0-16.0); Mean Corpuscular HGB CONC 31.9 g/dL (32.0-36.0); Mean Corpuscular Hemoglobin 26.3 pg (27.0-31.0); Mean Corpuscular Volume 82.6 fl (81.0-99.0); Mean Platelet Volume 7.6 fL (7.4-10.4); Platelet Count 236 thou/uL (130-400); RBC Distribution Width 15.9 % (11.5-14.5); Red Blood Cell (RBC) Count 3.29 mill/uL (4.20-5.40); White Blood Cell (WBC) Count 15.7 thou/uL (4.8-10.8)
[2017-12-10 08:24] LABS: Band 13 % (5-11); Eosinophils 1 % (0-10); Lymphocytes 18 % (21-51); MDiff Complete? YES; Metamyelocyte 7 % (0-0); Monocytes 12 % (0-10); Myelocyte 3 % (0-0); Neutrophil 46 % (42-75); Polychromasia SLIGHT = 2-3 cells (100X) (0-2/hpf); Toxic Granulation SLIGHT
[2017-12-10] MEDS ORDERED: HYDROcodone/Acetaminophen 10/325 mg Tablet PO SCH (09:00)
[2017-12-10] MEDS: Ascorbic Acid 500 mg Chewable Tablet PO SCH (09:02)
[2017-12-10] MEDS: Amlodipine 10 MG TAB PO SCH (09:02)
[2017-12-10] MEDS: Vancomycin HCl 25 MG/ML Oral PO SCH ×4 (09:03→21:16)
[2017-12-10] MEDS: Carvedilol 25 MG TAB PO SCH ×2 (09:03→21:16)
[2017-12-10] MEDS: Zinc Sulfate 220 MG CAP PO SCH (09:03)
[2017-12-10] MEDS: Multivit, Therapeutic 1 TAB PO SCH (09:03)
[2017-12-10] MEDS: Saccharomyces boulardii 250 MG CAP PO SCH (09:03)
[2017-12-10] MEDS: Polyethylene Glycol 3350 17 GM Packet PO SCH (09:03)
--- NOTE | 2017-12-10 09:52 | PQF ---
CLINICAL DOCUMENTATION IMPROVEMENT CLARIFICATION FORM: ICD-10 Updated PLEASE DO AN ADDENDUM TO THE PROGRESS NOTE WITH ANY DOCUMENTATION UPDATES OR ADDITIONS AND CARRY THROUGH TO DC SUMMARY. THANK YOU. DATE: 12/10 ATTN: DR. JESI MOORE Please exercise your independent, professional judgment in responding to the clarification form. Clinical indicators are provided on the bottom of this form for your review. Please check appropriate box(s): [ ] Post-op Acute pulmonary insufficiency [ ] Post-op Acute respiratory failure [ ] Respiratory failure not related to surgical procedure [ ] Acute [ ] Chronic [ ] Acute on chronic [ ] Other diagnosis [ ] Unable to determine For continuity of documentation, please document condition throughout progress notes and discharge summary. Thank You. CLINICAL INDICATORS - SIGNS / SYMPTOMS / LABS PULMONOLOGY CONSULT DOCUMENTATION 12/06: HX OF PRESENT ILLNESS: SHE HAD A LAPAROTOMY, RESECTION OF COLON. TODAY, HAD A COLOSTOMY, BECAUSE OF HER BODY HABITUS IN LONG OPERATIVE CASE, SHE WAS LEFT INTUBATED. PULMONOLOGY PN 12/08: ASSESSMENT: 1. S/P RESPIRATORY FAILURE POST-OPERATIVELY FROM LAPAROTOMY PULMONOLOGY PN 12/09: ASSESSMENT: 1. POST-RESPIRATORY FAILURE AFTER LAPAROTOMY RISKS FACTORS: LAPAROTOMY W/L COLECTOMY, END COLOSTOMY; BLADDER REPAIR (12/06) MORBID OBESITY W/BEBA TREATMENT: REMAINED INTUBATED POST SURGERY FOR <24 HRS (EXTUBATED 12/07, 1025) SUPPLEMENTAL OXYGEN TO MAINTAIN SATS THANK YOU! Loraine (This form is maintained as a part of the permanent medical record) 2014 [employer]. All Rights Reserved Loraine Valero RN, BSN [email or web address] Office: [phone] [facility] CENTERMartina
[2017-12-10] MEDS ORDERED: Minoxidil 2.5 MG TAB PO SCH (10:00)
--- NOTE | 2017-12-10 10:22 | PRG ---
DATE OF SERVICE: 12/10/2017 SERVICE: Renal Medicine. SUBJECTIVE: Ms. Watters is a 62-year-old black female, who underwent an exploratory laparotomy and proc eeded with colectomy with colostomy. We are seeing her for her acute kidney injury secondary to acut e tubular necrosis on top of her chronic renal failure. In the last several days, she has been havin g labile hypertension. We have adjusted her BP meds. However, blood pressure is still noted to be e levated. OBJECTIVE: VITAL SIGNS: Blood pressure is 195/116, heart rate 72, respiratory rate 22, temperature 98.1, pulse ox 96%. GENERAL EXAM: Awake, comfortable, not in distress. SKIN: Adequate turgor. HEENT: Slightly pale conjunctivae, anicteric sclerae. NECK: No neck mass, no carotid bruits, no JVD. CHEST: No deformities. LUNGS: Clear breath sounds. No wheezing, no crackles. HEART: Normal sinus rhythm. No murmur, no gallops, no rubs. ABDOMEN: Globular, soft, nontender. Positive for colostomy. EXTREMITIES: Trace edema. Medications of 12/10/2017 were reviewed. LABORATORY DATA: Laboratories of 12/10/2017, white count 15.7, hemoglobin 8.7, sodium 146, potassium 3.3, chloride 114, carbon dioxide 22, BUN 45, creatinine 2.02, calcium 9.5. ASSESSMENT AND PLAN: 1. Acute kidney injury on top of her chronic renal failure - patient most likely has acute tubular n ecrosis. It is slowly improving. Continue empiric volume repletion, currently on salt poor albumin at 25 grams IV q.6 hours. This had been extended for another 3 days. 2. Labile hypertension. I have decided to add minoxidil 5 mg tablet q.a.m. Adjust blood pressure m edications as needed. 3. Anemia p.r.n. blood transfusion. We will be rechecking a basic metabolic panel and CBC in a.m.
[2017-12-10] MEDS: traMADol HCl 50 MG TAB PO PRN ×2 (11:29→18:29)
[2017-12-10] MEDS: Insulin Regular 300 UNITS/3 ML VIAL SC PRN ×3 (12:36→21:27)
--- NOTE | 2017-12-10 12:51 | PDOC.GSPN ---
Surgery Progress Note: Subj - Subjective Patient reports: no new complaints Narrative: Not out of bed yet Surgery Progress Note: Obj - Vital signs Vital signs: Vital Signs - Most Recent Temp Pulse Resp BP Pulse Ox 97.4 F L 76 18 176/99 H 99 12/10/17 12:00 12/10/17 12:00 12/10/17 12:00 12/10/17 12:00 12/10/17 12:00 - Physical Exam General: no distress Cardiovascular: regular rate and rhythm Respiratory: clear to auscultation Abdomen: soft, nondistended, other (colostomy with stool/air) Wound: wound vac Surgery Progress Note: Results - Labs Result Diagrams: 12/10/17 06:29 12/10/17 06:29 Lab results: Laboratory Results - last 24 hr 12/10/17 12/10/17 12/10/17 05:47 06:29 06:29 WBC 15.7 H RBC 3.29 L Hgb 8.7 L Hct 27.1 L MCV 82.6 MCH 26.3 L MCHC 31.9 L RDW 15.9 H Plt Count 236 MPV 7.6 Neutrophils % (Manual) 46 Band Neuts % (Manual) 13 H Lymphocytes % (Manual) 18 L Monocytes % (Manual) 12 H Eosinophils % (Manual) 1 Metamyelocytes % (Man) 7 H Myelocytes % 3 H Neutrophils # Not Reportable Lymphocytes # Not Reportable Toxic Granulation SLIGHT Polychromasia SLIGHT = 2-3 cells Sodium 146 H Potassium 3.3 L Chloride 114 H Carbon Dioxide 22 L Anion Gap 13 BUN 45 H Creatinine 2.02 H Estimated GFR (MDRD) 30 Glucose 142 H POC Glucose 125 H Hemoglobin A1c Calcium 9.5 12/10/17 12/10/17 06:29 11:56 WBC RBC Hgb Hct MCV MCH MCHC RDW Plt Count MPV Neutrophils % (Manual) Band Neuts % (Manual) Lymphocytes % (Manual) Monocytes % (Manual) Eosinophils % (Manual) Metamyelocytes % (Man) Myelocytes % Neutrophils # Lymphocytes # Toxic Granulation Polychromasia Sodium Potassium Chloride Carbon Dioxide Anion Gap BUN Creatinine Estimated GFR (MDRD) Glucose POC Glucose 204 H Hemoglobin A1c 5.7 Calcium Surgery Progress Note: A/P - Problem (1) Diverticulitis Current Visit: Yes Code(s): K57.92 - DVTRCLI OF INTEST, PART UNSP, W/O PERF OR ABSCESS W/O BLEED Status: Acute Assessment and Plan: advance diet, she needs to be up out of bed. I suspect she will need SNU or rehab (2) Pseudomembranous colitis Current Visit: Yes Code(s): A04.72 - ENTEROCOLITIS D/T CLOSTRIDIUM DIFFICILE, NOT SPCF RECUR Status: Acute
--- NOTE | 2017-12-10 15:25 | PDOC.EVN ---
Event Note - Event Note Event Note: Discussed with Dr. Matthews. Ultrasound shows thrombus in Left IJ, subclavian, and cephalic vein. Plan lovenox, DC central line. Keep PICC line in place for IV needs
--- NOTE | 2017-12-10 15:49 | PRG ---
DATE OF SERVICE: 12/10/2017 SUBJECTIVE: Appears to be stable. OBJECTIVE: VITAL SIGNS: She is afebrile, blood pressure has been elevated today up to 195/116, last blood press ure is 176/99; heart rate is 76; respiratory rate is 18; oximetry is 99. LUNGS: Clear. HEART: Regular rhythm. ABDOMEN: Soft. LABORATORY DATA: White count is 15.8, hemoglobin 8.7, platelets 236. Sodium 146; potassium 3.3; chloride 114; bicarb 22; BUN 45; creatinine 2.02, down from a peak of 4.28 on the . IMPRESSION: 1. Status post colostomy. 2. Her acute renal dysfunction appears to be improving. 3. Weakness and deconditioning will be a big issue with her. Her Norvasc was increased to 10 mg tod ay. Hopefully, this will lead to better control of her blood pressure.
[2017-12-10] MEDS: metroNIDAZOLE 500 MG in Premix Bag 1 BAG IVPB SCH ×2 (16:41→21:17)
--- NOTE | 2017-12-10 16:43 | ULT ---
LEFT UPPER EXTREMITY VENOUS DOPPLER WITH SPECTRAL ANALYSIS AND COLOR FLOW EVALUATION: DATE: 12/10/17. HISTORY: Patient with left upper extremity PICC line in place. FINDINGS: Mackey scale, color flow, Doppler evaluation, and spectral analysis of the left upper extremity venous structures is performed with 2D imaging. There is echogenic material and decreased lumen compressibility involving the left internal jugular v ein. There is absence of flow consistent with occlusive thrombus in the left internal jugular vein. There is a linear echogenic structure seen within the left subclavian and axillary veins consistent with patient's known left upper extremity PICC line. However, there is increased echogenicity and de creased lumen compressibility within the left axillary vein with decreased flow present in the left s ubclavian vein consistent with almost occlusive thrombus as there is only a trace amount of flow pres ent within the left subclavian and axillary veins. The left basilic vein is not visualized which may be related to occlusive thrombus within the left basilic vein. This patient has reported left basil ic vein PICC line placement. There is normal lumen compressibility and flow in the left brachial vein. There is a small amount of echogenic material within the left upper extremity cephalic vein at the level of the antecubital fos sa consistent with a small amount of nonocclusive thrombus. The remainder of the left upper extremit y cephalic vein demonstrates normal lumen compressibility and flow. Normal flow is seen in the left upper extremity radial and ulnar veins. Subcutaneous edema is seen within the left upper extremity. IMPRESSION: 1. Occlusive thrombus left internal jugular vein. 2. Almost completely occlusive thrombus in the left subclavian and axillary veins. 3. Nonvisualization of the basilic vein which may be related to occlusive thrombus surrounding the l eft upper extremity PICC line. The left upper extremity PICC line is visualized within the left axil hannah and subclavian veins. 4. Small amount of nonocclusive thrombus in the left upper extremity cephalic vein at the level of t he antecubital fossa. 5. Subcutaneous edema left upper extremity. 6. The above findings were discussed with Dr. Ceron on 12/10/17 at 1524 hours. CODE CR POS: [facility]
[2017-12-10] MEDS ORDERED: Enoxaparin Sodium 80 MG/0.8 ML SYRINGE SC SCH (21:00)
[2017-12-10] MEDS ORDERED: Enoxaparin Sodium 60 MG/0.6 ML SYRINGE SC SCH (21:00)
[2017-12-10] MEDS: Famotidine 20 MG TAB PO SCH (21:17)
[2017-12-11] MEDS: hydrALAZINE 20 MG/ML VIAL SLOW IVP PRN ×2 (01:55→05:48)
[2017-12-11] MEDS: metroNIDAZOLE 500 MG in Premix Bag 1 BAG IVPB SCH ×3 (05:41→21:43)
[2017-12-11] MEDS: traMADol HCl 50 MG TAB PO PRN (05:51)
[2017-12-11] MEDS: Albumin 25% 25 GM/100 ML BOT IVPB SCH ×4 (06:43→18:13)
[2017-12-11] MEDS: Insulin Regular 300 UNITS/3 ML VIAL SC PRN ×3 (06:51→21:44)
[2017-12-11 07:13] LABS: Hemoglobin 8.3 g/dL (12.0-16.0); Mean Corpuscular HGB CONC 30.8 g/dL (32.0-36.0); Mean Corpuscular Hemoglobin 25.2 pg (27.0-31.0); Mean Platelet Volume 7.4 fL (7.4-10.4); Platelet Count 237 thou/uL (130-400); White Blood Cell (WBC) Count 19.3 thou/uL (4.8-10.8)
[2017-12-11 07:37] LABS: Anion Gap 11 mmol/L (10-20); BUN (Urea Nitrogen) 40 mg/dL (9.8-20.1); Calc. Creatinine Clearance 62 mL/min (70-130); Calcium 9.3 mg/dL (7.8-10.44); Carbon Dioxide 23 mmol/L (23-31); Chloride 113 mmol/L (98-107); Estimated GFR-MDRD 36; Glucose 155 mg/dL (80-115); Sodium 144 mmol/L (136-145)
[2017-12-11 07:41] LABS: Potassium 2.9 mmol/L (3.5-5.1)
[2017-12-11 07:44] LABS: Band 10 % (5-11); Eosinophils 3 % (0-10); Hypochromia SLIGHT = 6-15 cells (100X) (0-5/hpf); Lymphocytes 16 % (21-51); MDiff Complete? YES; Metamyelocyte 6 % (0-0); Monocytes 6 % (0-10); Myelocyte 5 % (0-0); Neutrophil 53 % (42-75); PLT Morphology Comment Appears Adequate; Polychromasia SLIGHT = 2-3 cells (100X) (0-2/hpf); Reactive Lymphocytes 1 % (0-10); Toxic Granulation SLIGHT
[2017-12-11] MEDS ORDERED: HYDROcodone/Acetaminophen 10/325 mg Tablet PO PRN (08:08)
--- NOTE | 2017-12-11 08:29 | PDOC.GSPN ---
Surgery Progress Note: Subj - Subjective Narrative: No complaints. Not able to walk in [place] yet. Ultrasound shows extensive left arm DVT. Surgery Progress Note: Obj - Vital signs Vital signs: Vital Signs - Most Recent Temp Pulse Resp BP Pulse Ox 98.5 F 83 18 183/93 H 96 12/11/17 04:00 12/11/17 05:48 12/11/17 04:00 12/11/17 05:48 12/11/17 04:00 - Physical Exam General: no distress Cardiovascular: regular rate and rhythm Respiratory: clear to auscultation Abdomen: soft, non tender Wound: wound vac Surgery Progress Note: Results - Labs Result Diagrams: 12/11/17 06:45 12/11/17 06:45 Lab results: Laboratory Results - last 24 hr 12/10/17 12/11/17 12/11/17 20:09 06:22 06:45 WBC RBC Hgb Hct MCV MCH MCHC RDW Plt Count MPV Neutrophils % (Manual) Band Neuts % (Manual) Lymphocytes % (Manual) Reactive Lymphs % Monocytes % (Manual) Eosinophils % (Manual) Metamyelocytes % (Man) Myelocytes % Neutrophils # Lymphocytes # Hypochromia Toxic Granulation Plt Morphology Comment Polychromasia Sodium 144 Potassium 2.9 L* Chloride 113 H Carbon Dioxide 23 Anion Gap 11 BUN 40 H Creatinine 1.74 H Estimated GFR (MDRD) 36 Glucose 155 H POC Glucose 199 H 170 H Calcium 9.3 12/11/17 06:45 WBC 19.3 H RBC 3.30 L Hgb 8.3 L Hct 27.1 L MCV 82.0 MCH 25.2 L MCHC 30.8 L RDW 16.0 H Plt Count 237 MPV 7.4 Neutrophils % (Manual) 53 Band Neuts % (Manual) 10 Lymphocytes % (Manual) 16 L Reactive Lymphs % 1 Monocytes % (Manual) 6 Eosinophils % (Manual) 3 Metamyelocytes % (Man) 6 H Myelocytes % 5 H Neutrophils # Not Reportable Lymphocytes # Not Reportable Hypochromia SLIGHT = 6-15 cells Toxic Granulation SLIGHT Plt Morphology Comment Appears Adequate Polychromasia SLIGHT = 2-3 cells Sodium Potassium Chloride Carbon Dioxide Anion Gap BUN Creatinine Estimated GFR (MDRD) Glucose POC Glucose Calcium Surgery Progress Note: A/P - Problem (1) Diverticulitis Current Visit: Yes Code(s): K57.92 - DVTRCLI OF INTEST, PART UNSP, W/O PERF OR ABSCESS W/O BLEED Status: Acute (2) Pseudomembranous colitis Current Visit: Yes Code(s): A04.72 - ENTEROCOLITIS D/T CLOSTRIDIUM DIFFICILE, NOT SPCF RECUR Status: Acute (3) DVT of upper extremity (deep vein thrombosis) Current Visit: Yes Code(s): I82.629 - ACUTE EMBOLISM AND THROMBOSIS OF DEEP VN UNSP UP EXTREM Status: Acute Assessment and Plan: Increase lovenox dose. Her creatinine is improved. Central line removed - Plan Plan: She is going to need jail or rehab
[2017-12-11] MEDS ORDERED: Potassium Chloride 40 MEQ in Sodium Chloride 0.9% 250 ML 250 ML IVPB SCH (08:30)
[2017-12-11] MEDS: Vancomycin HCl 25 MG/ML Oral PO SCH ×4 (09:08→21:46)
[2017-12-11] MEDS: Carvedilol 25 MG TAB PO SCH ×2 (09:09→21:44)
[2017-12-11] MEDS: Ascorbic Acid 500 mg Chewable Tablet PO SCH (09:09)
[2017-12-11] MEDS: Amlodipine 10 MG TAB PO SCH (09:09)
[2017-12-11] MEDS: Saccharomyces boulardii 250 MG CAP PO SCH (09:09)
[2017-12-11] MEDS: Minoxidil 2.5 MG TAB PO SCH (09:10)
[2017-12-11] MEDS: Zinc Sulfate 220 MG CAP PO SCH (09:10)
[2017-12-11] MEDS: Multivit, Therapeutic 1 TAB PO SCH (09:10)
[2017-12-11] MEDS: HYDROcodone/Acetaminophen 10/325 mg Tablet PO PRN (10:28)
--- NOTE | 2017-12-11 11:50 | PRG ---
DATE OF SERVICE: 12/11/2017 SUBJECTIVE: Ms. Watters is a 62-year-old black female seen by the Renal Service for her acute kidney in [facility] that was secondary to presumed acute tubular necrosis. She has been receiving volume repletion and over time renal function is slowly improving. She has also been having labile hypertension and a djustments with her BP meds have been made. She was also found to have extensive left arm DVT and for that reason, her Lovenox has been increased . Please note central line has been removed. No new complaints today. PHYSICAL EXAMINATION: VITAL SIGNS: Blood pressure is 183/93, heart rate 83, temperature 98.5, respiratory rate 18, pulse o ximetry 96%. GENERAL: Awake, alert, comfortable. SKIN: Adequate turgor. HEENT: She has slightly pale conjunctivae, anicteric sclerae. NECK: No neck mass, no carotid bruits, no JVD. CHEST: No deformities. LUNGS: Clear breath sounds. No wheezing, no crackles. HEART: Normal sinus rhythm. No murmur, no gallops, no rubs. ABDOMEN: Globular, soft, nontender. EXTREMITIES: Trace edema. MEDICATIONS: Medications of 12/11/2017 was reviewed. LABORATORY DATA: Laboratories of 12/11/2017; white count 19.3, hemoglobin 8.3, sodium 144, potassium 2.9, chloride 113, carbon dioxide 23, BUN 40, creatinine 1.74, glucose 155, calcium 9.3. ASSESSMENT AND PLAN: 1. Hypokalemia, p.r.n. correction, currently on IV KCl 40 mEq. Recheck basic metabolic panel again tomorrow. 2. Acute kidney injury on top of her chronic renal failure - superimposed acute tubular necrosis. C linically improving with gentle volume repletion. Please note her albumin infusion has been extended for another 2 days. No indication for any dialytic intervention. 3. Anemia, continuing to monitor. P.r.n. blood transfusion. Will be rechecking a basic met and CBC in a.m.
[2017-12-11] MEDS ORDERED: ISOVUE-370 76%-LOCM 1 ML ONE (12:54)
--- NOTE | 2017-12-11 16:01 | RAD ---
EXAM: CYSTOGRAM 12/11/17 HISTORY: 62-year-old with history of bladder repair post colectomy. The patient had a previous Katz catheter. Through the Katz catheter, approximately 150 mL of cystog rafin was introduced using a low pressure gravity drip. The bladder distended. No evidence of leakage seen outside of the bladder lumen. The catheter was then used to drain the bladder using gravity. Po st drainage, no significant residual contrast remained within the bladder. RADIATION DOSIMETRY: 1.5 minutes of fluoroscopy and DAP of 60.5 Gy*cm2. IMPRESSION: No significant evidence of extravasation of contrast seen outside of the bladder lumen. POS: [facility]
[2017-12-11] MEDS: Enoxaparin Sodium 100 MG/ML SYRINGE SC SCH (21:44)
[2017-12-11] MEDS: Famotidine 20 MG TAB PO SCH (21:44)
--- NOTE | 2017-12-11 22:11 | PRG ---
DATE OF SERVICE: 12/11/2017 SUBJECTIVE: Ms. Alissa Watters has no new complaints. OBJECTIVE: VITAL SIGNS: She is afebrile, heart rates in the 60s, blood pressure 183/93, respiratory rate is 18, oximetry is 99%-100% on 2 liters, blood pressure this afternoon is 165/82. Intake and output is neg ative 2710. LUNGS: Clear. HEART: Regular rhythm. ABDOMEN: Soft. EXTREMITIES: Her left upper extremity is still little bit swollen. Without edema. IMPRESSION: 1. Status post colon resection with colostomy for chronic diverticulitis and a colonic stricture. 2. Subclavian vein thrombus. She is on adjusted dose of Lovenox for now. Her renal function has be en improving on a daily basis from a high of 4.28, creatinine to 1.74 today. Once a day Lovenox shou ld be adequate for this subclavian thrombus. We will continue to follow. Physical therapy is the only significant clinical issue at hand combined with placement.
[2017-12-12] MEDS: Albumin 25% 25 GM/100 ML BOT IVPB SCH ×4 (00:39→17:38)
[2017-12-12] MEDS: Insulin Regular 300 UNITS/3 ML VIAL SC PRN ×3 (06:14→20:36)
[2017-12-12] MEDS: metroNIDAZOLE 500 MG in Premix Bag 1 BAG IVPB SCH ×3 (06:14→20:39)
[2017-12-12 08:05] LABS: Hemoglobin 7.7 g/dL (12.0-16.0); Mean Corpuscular HGB CONC 30.8 g/dL (32.0-36.0); Mean Corpuscular Hemoglobin 25.7 pg (27.0-31.0); Mean Corpuscular Volume 83.6 fl (81.0-99.0); Mean Platelet Volume 7.6 fL (7.4-10.4); Platelet Count 261 thou/uL (130-400); RBC Distribution Width 16.5 % (11.5-14.5); Red Blood Cell (RBC) Count 2.97 mill/uL (4.20-5.40); White Blood Cell (WBC) Count 17.3 thou/uL (4.8-10.8)
--- NOTE | 2017-12-12 08:18 | PDOC.GSPN ---
Surgery Progress Note: Subj - Subjective Patient reports: no new complaints Surgery Progress Note: Obj - Vital signs Vital signs: Vital Signs - Most Recent Temp Pulse Resp BP Pulse Ox 98.0 F 65 20 160/75 H 100 12/12/17 03:40 12/12/17 03:40 12/12/17 03:40 12/12/17 03:40 12/12/17 03:40 - Physical Exam General: no distress Cardiovascular: regular rate and rhythm Respiratory: clear to auscultation Abdomen: soft, nondistended, other (stool and air in colostomy bag) Surgery Progress Note: Results - Labs Result Diagrams: 12/12/17 07:28 12/11/17 06:45 Lab results: Laboratory Results - last 24 hr 12/12/17 12/12/17 06:11 07:28 WBC 17.3 H RBC 2.97 L Hgb 7.7 L Hct 24.8 L MCV 83.6 MCH 25.7 L MCHC 30.8 L RDW 16.5 H Plt Count 261 MPV 7.6 POC Glucose 217 H Surgery Progress Note: A/P - Problem (1) Diverticulitis Current Visit: Yes Code(s): K57.92 - DVTRCLI OF INTEST, PART UNSP, W/O PERF OR ABSCESS W/O BLEED Status: Acute Assessment and Plan: On regular diet, limited in mobility needs SNU (2) Pseudomembranous colitis Current Visit: Yes Code(s): A04.72 - ENTEROCOLITIS D/T CLOSTRIDIUM DIFFICILE, NOT SPCF RECUR Status: Acute Assessment and Plan: On vanc (3) DVT of upper extremity (deep vein thrombosis) Current Visit: Yes Code(s): I82.629 - ACUTE EMBOLISM AND THROMBOSIS OF DEEP VN UNSP UP EXTREM Status: Acute Assessment and Plan: Up'd lovenox to 100mg/day renal dosed per pharmacy
[2017-12-12 08:26] LABS: Anion Gap 11 mmol/L (10-20); BUN (Urea Nitrogen) 41 mg/dL (9.8-20.1); Calc. Creatinine Clearance 61 mL/min (70-130); Carbon Dioxide 21 mmol/L (23-31); Chloride 112 mmol/L (98-107); Estimated GFR-MDRD 35; Glucose 175 mg/dL (80-115); Potassium 3.6 mmol/L (3.5-5.1); Sodium 140 mmol/L (136-145)
[2017-12-12 08:37] LABS: Band 10 % (5-11); Eosinophils 1 % (0-10); Hypochromia MODERATE=16-30 cells (100X) (0-5/hpf); Lymphocytes 13 % (21-51); MDiff Complete? YES; Metamyelocyte 3 % (0-0); Monocytes 6 % (0-10); Myelocyte 1 % (0-0); Neutrophil 66 % (42-75); Nucleated RBC 1 % (0); Ovalocytes SLIGHT = 2-5 cells (100X) (0-1/hpf); PLT Morphology Comment Appears Adequate; Polychromasia MODERATE = 3-4 cells (100X) (0-2/hpf)
[2017-12-12] MEDS: Minoxidil 2.5 MG TAB PO SCH (08:39)
[2017-12-12] MEDS: Carvedilol 25 MG TAB PO SCH ×2 (08:40→20:39)
[2017-12-12] MEDS: Ascorbic Acid 500 mg Chewable Tablet PO SCH (08:40)
[2017-12-12] MEDS: Amlodipine 10 MG TAB PO SCH (08:40)
[2017-12-12] MEDS: Saccharomyces boulardii 250 MG CAP PO SCH (08:40)
[2017-12-12] MEDS: Multivit, Therapeutic 1 TAB PO SCH (08:40)
[2017-12-12] MEDS: Vancomycin HCl 25 MG/ML Oral PO SCH ×4 (08:40→20:39)
[2017-12-12] MEDS: Zinc Sulfate 220 MG CAP PO SCH (08:40)
--- NOTE | 2017-12-12 09:35 | PRG ---
DATE OF SERVICE: 12/12/2017 RENAL MEDICINE SUBJECTIVE: Ms. Watters is a 62-year-old black female who underwent a colectomy with colostomy placemen t. We are following this patient for her acute kidney injury as well as labile hypertension. Blood pressure is much improved with addition of the minoxidil. She is now tolerating p.o. She denies any new complaints. No chest pain or shortness of breath. PHYSICAL EXAMINATION: VITAL SIGNS: Blood pressure is 168/92, heart rate 70, respiratory rate 18, temperature 97.9, pulse o x 96%. GENERAL: Awake, alert, comfortable, not in distress, obese. SKIN: Adequate turgor. HEENT: Slightly pale conjunctivae, anicteric sclerae. NECK: No neck mass, no carotid bruits, no JVD. CHEST: No deformities. LUNGS: Clear breath sounds. No wheezing, no crackles. HEART: Normal sinus rhythm. No murmurs, no gallops, no rubs. ABDOMEN: Globular, soft, nontender, no masses. EXTREMITIES: Trace edema. Please note she has a functioning colostomy. MEDICATIONS: Medications of 12/12/2017 reviewed. LABORATORY DATA: Laboratories of 12/12/2017; white count 17.2, hemoglobin 7.7. Sodium 140, potassiu m 3.6, chloride 112, carbon dioxide 21, BUN 41, creatinine 1.77, glucose 175, and calcium 9.0. ASSESSMENT AND PLAN: 1. Acute kidney injury - secondary to underlying acute tubular necrosis. Stabilizing renal function . No indication for any dialytic intervention. 2. Labile hypertension, much improved with addition of minoxidil. 3. Acute diverticulitis/diverticulosis - status post colon resection with colostomy placement. Surg katya is following. Doing well.
[2017-12-12] MEDS: HYDROcodone/Acetaminophen 10/325 mg Tablet PO PRN (11:45)
--- NOTE | 2017-12-12 15:24 | PRG ---
DATE OF SERVICE: 12/12/2017 SUBJECTIVE: Alissa Watters has no complaints. She says her arm feels back to normal. OBJECTIVE: VITAL SIGNS: She is afebrile, heart rate 75, blood pressure 160/90, respiratory rate is 18, and oxim etry is 99% on 2-1/2 liters. LUNGS: Clear. CARDIOVASCULAR: Regular rhythm. ABDOMEN: Soft. IMPRESSION: 1. Status post intubation for laparotomy with prolonged case. She was left intubated overnight dawit use of her size and delayed clearance of anesthesia. She was easily extubated the next day. 2. Subclavian clot, now anticoagulated with symptomatic improvement. 3. Extreme deconditioning. She probably is getting close to being able to be weaned off her oxygen. She appears to be medically stable at this point in time.
--- NOTE | 2017-12-12 16:53 | PRG ---
DATE OF SERVICE: 12/12/2017 SUBJECTIVE: Ms. Watters states her stomach is not hurting more. She is no longer having any diarrhea. PHYSICAL EXAMINATION: VITAL SIGNS: Temperature is 98, pulse 75, blood pressure 176/98. ABDOMEN: Soft, nontender. There is a wound VAC in the midline wound incision. Her ostomy looks fin e. LABORATORY STUDIES: White count 17,000, hemoglobin 7.7, platelet count 262. Sodium 140, potassium 3 .6, BUN and creatinine are 41 and 1.77. ASSESSMENT: 1. Status post resection for diverticular abscess, diverticulitis. 2. Clostridium difficile colitis on IV Flagyl and p.o. vancomycin. RECOMMENDATIONS: 1. Continue present medications. 2. Continue probiotic. 3. If leukocytosis persists, consider CAT scan of abdomen and pelvis to rule out abscess.
[2017-12-12] MEDS: Enoxaparin Sodium 100 MG/ML SYRINGE SC SCH (20:38)
[2017-12-12] MEDS: Famotidine 20 MG TAB PO SCH (20:38)
[2017-12-13] MEDS: Albumin 25% 25 GM/100 ML BOT IVPB SCH (00:36)
[2017-12-13] MEDS: HYDROcodone/Acetaminophen 10/325 mg Tablet PO PRN ×2 (04:03→11:30)
[2017-12-13 06:16] LABS: Anion Gap 11 mmol/L (10-20); BUN (Urea Nitrogen) 38 mg/dL (9.8-20.1); Calc. Creatinine Clearance 65 mL/min (70-130); Calcium 9.3 mg/dL (7.8-10.44); Carbon Dioxide 22 mmol/L (23-31); Chloride 113 mmol/L (98-107); Estimated GFR-MDRD 38; Glucose 144 mg/dL (80-115); Potassium 3.5 mmol/L (3.5-5.1); Sodium 142 mmol/L (136-145)
[2017-12-13] MEDS: metroNIDAZOLE 500 MG in Premix Bag 1 BAG IVPB SCH ×3 (06:18→21:41)
[2017-12-13] MEDS: Insulin Regular 300 UNITS/3 ML VIAL SC PRN ×3 (07:04→21:42)
--- NOTE | 2017-12-13 08:51 | PDOC.GSPN ---
Surgery Progress Note: Subj - Subjective Patient reports: no new complaints, tolerating a regular diet Narrative: complaining of lack of help in getting out of bed Surgery Progress Note: Obj - Vital signs Vital signs: Vital Signs - Most Recent Temp Pulse Resp BP Pulse Ox 98.3 F 69 15 170/75 H 97 12/13/17 07:52 12/13/17 07:52 12/13/17 07:52 12/13/17 07:52 12/13/17 07:52 - Physical Exam General: no distress Respiratory: clear to auscultation Abdomen: soft, non tender, nondistended Wound: wound vac Surgery Progress Note: Results - Labs Result Diagrams: 12/12/17 07:28 12/13/17 04:28 Lab results: Laboratory Results - last 24 hr 12/13/17 12/13/17 04:28 05:55 Sodium 142 Potassium 3.5 Chloride 113 H Carbon Dioxide 22 L Anion Gap 11 BUN 38 H Creatinine 1.66 H Estimated GFR (MDRD) 38 Glucose 144 H POC Glucose 195 H Calcium 9.3 Surgery Progress Note: A/P - Problem (1) Diverticulitis Current Visit: Yes Code(s): K57.92 - DVTRCLI OF INTEST, PART UNSP, W/O PERF OR ABSCESS W/O BLEED Status: Acute (2) Pseudomembranous colitis Current Visit: Yes Code(s): A04.72 - ENTEROCOLITIS D/T CLOSTRIDIUM DIFFICILE, NOT SPCF RECUR Status: Acute (3) DVT of upper extremity (deep vein thrombosis) Current Visit: Yes Code(s): I82.629 - ACUTE EMBOLISM AND THROMBOSIS OF DEEP VN UNSP UP EXTREM Status: Acute - Plan Plan: Will need correction. Will be ready for DC tomorrow. Continue oral vancomycin PT
[2017-12-13] MEDS: Carvedilol 25 MG TAB PO SCH ×2 (09:33→21:39)
[2017-12-13] MEDS: Multivit, Therapeutic 1 TAB PO SCH (09:33)
[2017-12-13] MEDS: Ascorbic Acid 500 mg Chewable Tablet PO SCH (09:33)
[2017-12-13] MEDS: Amlodipine 10 MG TAB PO SCH (09:34)
[2017-12-13] MEDS: Minoxidil 2.5 MG TAB PO SCH (09:34)
[2017-12-13] MEDS: Zinc Sulfate 220 MG CAP PO SCH (09:35)
[2017-12-13] MEDS: Saccharomyces boulardii 250 MG CAP PO SCH (09:35)
[2017-12-13] MEDS: Vancomycin HCl 25 MG/ML Oral PO SCH ×4 (09:35→21:40)
--- NOTE | 2017-12-13 10:56 | PRG ---
DATE OF SERVICE: 12/13/2017 Ms. Watters is in no distress. PHYSICAL EXAMINATION: VITAL SIGNS: She is afebrile, heart rate 69, blood pressure 155/89, respiratory rate 15. She is 97% on room air. LUNGS: Her lungs are clear. HEART: Regular rhythm. ABDOMEN: Abdomen is soft. Hemoglobin was 7.7 yesterday. There is no lab today. Creatinine is 1.66. IMPRESSION: 1. She is status post laparotomy with colostomy. 2. Subclavian vein thrombus on Lovenox. 3. Chronic kidney disease. 4. Blood loss anemia. 5. Diabetes. 6. Deconditioning. She tells me she has not been out of bed yet. PLAN: Physical therapy. Probably need to consider discontinuing the Lovenox within the next few day s, probably consider discontinuing this at discharge.
--- NOTE | 2017-12-13 12:15 | PRG ---
DATE OF SERVICE: 12/13/2017 Ms. Watters is getting up with physical therapy now. In talking with her nurse she has had scant blood tinge to some of her bowel movements in her ostomy bag. It seems to be more solid than it was. She denies any overt pain. She is eating. PHYSICAL EXAMINATION: VITAL SIGNS: Temperature is 98.2, pulse 72, blood pressure 155/89. GENERAL: She is morbidly obese. LUNGS: Clear, decreased breath sounds at the bases. ABDOMEN: She has got a wound VAC on. LABORATORY DATA: Glucose is 140 today. No other labs done today. ASSESSMENT: 1. Status post resection of colon for a complicated diverticulitis with abscess and colovesicular fi stula. 2. Clostridium difficile colitis with positive toxin and antigen. RECOMMENDATIONS: Fourteen days of p.o. vancomycin with 3 months of probiotic, Florastor would be jeanne greenwood. The patient is getting ready to go to either a skilled or a rehab facility which is reasonable. If her diarrhea returns after completing the vancomycin, we will retest for Clostridium difficile. Ly greenwood will follow from a distance. If I can be of any further assist in her care at this time please do not hesitate to contact me.
[2017-12-13] MEDS: Famotidine 20 MG TAB PO SCH (21:39)
[2017-12-13] MEDS: Enoxaparin Sodium 100 MG/ML SYRINGE SC SCH (21:40)
[2017-12-14 05:56] LABS: Hemoglobin 7.3 g/dL (12.0-16.0); Platelet Count 307 thou/uL (130-400)
[2017-12-14] MEDS: metroNIDAZOLE 500 MG in Premix Bag 1 BAG IVPB SCH ×2 (06:10→14:52)
[2017-12-14] MEDS: Vancomycin HCl 25 MG/ML Oral PO SCH ×2 (09:27→12:32)
[2017-12-14] MEDS: Saccharomyces boulardii 250 MG CAP PO SCH (09:28)
[2017-12-14] MEDS: Amlodipine 10 MG TAB PO SCH (09:28)
[2017-12-14] MEDS: Zinc Sulfate 220 MG CAP PO SCH (09:29)
[2017-12-14] MEDS: Minoxidil 2.5 MG TAB PO SCH (09:29)
[2017-12-14] MEDS: Multivit, Therapeutic 1 TAB PO SCH (09:29)
[2017-12-14] MEDS: Ascorbic Acid 500 mg Chewable Tablet PO SCH (09:29)
[2017-12-14] MEDS: Carvedilol 25 MG TAB PO SCH (09:30)
[2017-12-14 12:23] VITALS: BP 151/91; TEMP 98.1
[2017-12-14] MEDS: HYDROcodone/Acetaminophen 10/325 mg Tablet PO PRN (12:32)
[2017-12-14] MEDS ORDERED: Apixaban 5 MG TAB PO SCH (21:00)
== END 2017-12-14 15:30 | DRG 329 ==
LOC: SDC 08:17 → SURG A 12:22 → CCU 12-06 13:24 → SURG A 12-09 06:51
PROVIDERS: ADMIT Internal Medicine Gastroenterology; ATTEND Internal Medicine Gastroenterology
PROC: 02HV33Z Insertion of Infusion Device into Superior Vena Cava, Percutaneous Approach (ICD-10-PCS; 2017-12-05)
PROC: B548ZZA Ultrasonography of Superior Vena Cava, Guidance (ICD-10-PCS; 2017-12-05)
PROC: 0DJD8ZZ Inspection of Lower Intestinal Tract, Via Natural or Artificial Opening Endoscopic (ICD-10-PCS; 2017-12-05)
PROC: 0DTG0ZZ Resection of Left Large Intestine, Open Approach (ICD-10-PCS; principal; 2017-12-06)
PROC: 0D1L0Z4 Bypass Transverse Colon to Cutaneous, Open Approach (ICD-10-PCS; 2017-12-06)
PROC: 0DJD4ZZ Inspection of Lower Intestinal Tract, Percutaneous Endoscopic Approach (ICD-10-PCS; 2017-12-06)
PROC: 0TQB0ZZ Repair Bladder, Open Approach (ICD-10-PCS; 2017-12-06)
PROC: 30233N1 Transfusion of Nonautologous Red Blood Cells into Peripheral Vein, Percutaneous Approach (ICD-10-PCS; 2017-12-06)
PROC: BT1 Imaging, Urinary System, Fluoroscopy (ICD-10-PCS; 2017-12-11)
DX: K57.20 Diverticulitis of large intestine with perforation and abscess without bleeding (principal); N17.0 Acute kidney failure with tubular necrosis; A04.72 Enterocolitis due to Clostridium difficile, not specified as recurrent; I82.B12 Acute embolism and thrombosis of left subclavian vein; I82.C12 Acute embolism and thrombosis of left internal jugular vein; N32.1 Vesicointestinal fistula; T82.868A Thrombosis due to vascular prosthetic devices, implants and grafts, initial encounter; I82.612 Acute embolism and thrombosis of superficial veins of left upper extremity; Z68.42 Body mass index [BMI] 45.0-49.9, adult; E11.22 Type 2 diabetes mellitus with diabetic chronic kidney disease; E66.01 Morbid (severe) obesity due to excess calories; I11.0 Hypertensive heart disease with heart failure; Z12.11 Encounter for screening for malignant neoplasm of colon; N18.9 Chronic kidney disease, unspecified; E87.6 Hypokalemia; N83.312 Acquired atrophy of left ovary; G47.30 Sleep apnea, unspecified; D50.0 Iron deficiency anemia secondary to blood loss (chronic)
CPT/HCPCS: 36415; 36416; 36430; 36569; 51600; 71045; 74430; 80048; 81001; 82565; 82570; 82805; 83036; 84300; 85014; 85018; 85025; 85049; 86850; 86900; 86901; 87324; 87449; 87493; 88305; 88307; 94002; 94003; A4216; C1751; C9113; G8978-GP-CM; G8979-GP-CK; G8987-GO-CK; G8988-GO-CI; J0131; J0360; J0694; J1100; J1200; J1642; J1644; J1650; J1815; J1956; J2001; J2270; J2370; J2405; J2704; J3010; J3480; J7050; P9016; P9045; P9047; Q9968; S0020; S0028

== ENCOUNTER 2017-12-30 13:31 | Emergency (ER) | payer MEDICARE | END 2017-12-30 16:57 | disposition home or self-care (01) | LOC: ERS 13:31 | DX: Z48.815 Encounter for surgical aftercare following surgery on the digestive system (principal); E11.9 Type 2 diabetes mellitus without complications; I10 Essential (primary) hypertension | CPT/HCPCS: 99282 ==

== ENCOUNTER 2018-03-27 13:18 | Outpatient (CLI) | payer MEDICARE | END 2018-03-27 13:19 | disposition home or self-care (01) | LOC: WCC 13:18 | PROVIDERS: ATTEND Family Medicine | DX: K94.00 Colostomy complication, unspecified (principal) | CPT/HCPCS: 99211; G0463 ==

== ENCOUNTER 2019-02-11 12:22 | Inpatient (IN) | payer MEDICARE ==
[2019-02-11 12:56] LABS: #Eosinphils 0.2 thou/uL (0.0-0.7); #Lymphocytes 1.5 thou/uL (1.20-3.40); #Monocytes 0.6 thou/uL (0.11-0.59); #Neutrophils 5.1 thou/uL (1.40-6.50); %Basophils 0.1 % (0.0-1.0); %Lymphocytes 20.4 % (21.0-51.0); %Monocytes 7.6 % (0.0-10.0); %Neutrophils 68.8 % (42.0-75.0); Hemoglobin 8.2 g/dL (12.0-16.0); Mean Corpuscular HGB CONC 31.6 g/dL (32.0-36.0); Mean Corpuscular Hemoglobin 26.3 pg (27.0-31.0); Mean Corpuscular Volume 83.3 fL (78.0-98.0); Mean Platelet Volume 6.5 fL (7.4-10.4); Platelet Count 229 thou/uL (130-400); RBC Distribution Width 15.4 % (11.5-14.5); White Blood Cell (WBC) Count 7.4 thou/uL (4.8-10.8)
[2019-02-11 13:20] LABS: MDiff Complete? YES; Platelet Morphology Comment Appears Adequate; Polychromasia SLIGHT = 2-3 cells (100X) (0-2/hpf)
[2019-02-11 13:24] LABS: ALT (SGPT) 16 U/L (8-55); AST (SGOT) 17 U/L (5-34); Albumin 3.3 g/dL (3.4-4.8); Alkaline Phosphatase 134 U/L (40-150); Anion Gap 12 mmol/L (10-20); BUN (Urea Nitrogen) 35 mg/dL (9.8-20.1); Bilirubin, Total 0.2 mg/dL (0.2-1.2); CK (CPK) 129 U/L (29-168); Calc. Creatinine Clearance 0 mL/min (70-130); Calcium 8.3 mg/dL (7.8-10.44); Carbon Dioxide 26 mmol/L (23-31); Chloride 109 mmol/L (98-107); Estimated GFR-MDRD 14; Globulin 4.1 g/dL (2.4-3.5); Glucose 131 mg/dL (80-115); Lipase 30 U/L (8-78); Potassium 3.1 mmol/L (3.5-5.1); Protein, Total 7.4 g/dL (6.0-8.3); Sodium 144 mmol/L (136-145)
[2019-02-11 13:36] LABS: CKMB 1.5 ng/mL (0-6.6)
--- NOTE | 2019-02-11 13:53 | RAD ---
XR Chest 1 View Portable History: [Chest pain] Comparison: Radiograph December 06, 2017 Findings: The thoracic aorta is ectatic and possibly aneurysmal. Heart size is enlarged. No pneumotho rax. No effusion. Impression: 1. Ectatic and possibly aneurysmal thoracic aorta, relatively similar to comparison examinations. Ext ent 2. Moderate cardiomegaly.
[2019-02-11 17:16] LABS: CKMB 1.5 ng/mL (0-6.6)
[2019-02-11] MEDS ORDERED: Nitroglycerin 2% Ointment 1 INCH/1 GM Packet ONE (19:29)
[2019-02-11] MEDS ORDERED: Nitroglycerin 0.4 MG TAB 1 EACH SL PRN (22:32)
[2019-02-11] MEDS ORDERED: Acetaminophen 325 MG TAB PO PRN (22:35)
[2019-02-11] MEDS ORDERED: Potassium Chloride 20 MEQ TAB PO SCH (22:45)
[2019-02-11] MEDS ORDERED: Atorvastatin Calcium 40 MG TAB PO SCH (23:00)
[2019-02-11] MEDS ORDERED: Carvedilol 6.25 MG TAB PO SCH (23:00)
[2019-02-11] MEDS ORDERED: hydrALAZINE 25 MG TAB PO SCH (23:00)
[2019-02-11 23:24] VITALS: BMI 48.2
[2019-02-12] MEDS: Temazepam 15 MG CAP PO PRN ×2 (01:32→21:57)
--- NOTE | 2019-02-12 02:18 | HP ---
CHIEF COMPLAINT ON ADMISSION: Evaluation of chest pain. HISTORY OF PRESENT ILLNESS: The patient is a 63-year-old female who has not felt herself for quite several days. On the day of admission, she had tightness developed in the bottom of her throat and pressure in her chest that began around noon. She threw up 3 times while getting transported to the emergency department. She has multiple risk factors for cardiac issues including very hard to control blood pressure, diabetes, high cholesterol, dyslipidemia, and morbid obesity. She does not smoke. The patient responded well to topical nitroglycerin with relief of pressure in her throat as well as lowering of her blood pressure. She has been hospital for further evaluation. PAST MEDICAL HISTORY: Significant for diabetes, diverticulitis, hypertension, dyslipidemia, hyperuricemia, congestive heart failure, obstructive sleep apnea with poor compliance, anemia, Helicobacter pylori, pseudomembranous colitis, as well as well as deep venous thrombosis of the upper extremities. She has also had acute cholecystitis. End-stage renal disease secondary to hypertensive nephropathy. PAST SURGICAL HISTORY: Includes upper and lower endoscopies, left colectomy and colostomy placement, tubal ligation, and PICC line placement SOCIAL HISTORY: She is . Does not smoke or drink alcoholic beverages. ALLERGIES: SHE HAS NO KNOWN DRUG ALLERGIES. CURRENT MEDICATIONS: On admission include: 1. Glyburide 5 mg 1-1/2 tabs daily. 2. Amlodipine 5 mg daily. 3. Carvedilol 6.25 mg b.i.d. 4. Hydralazine 50 mg t.i.d. 5. Feosol one capsule daily. 6. Aspirin 81 mg daily. 7. Atorvastatin 40 mg at bedtime. 8. Clonidine 0.3 mg daily. 9. Lasix 40 mg daily. 10. Uloric 40 mg daily. REVIEW OF SYSTEMS: On admission, CONSTITUTIONALLY: Denies fever, chills, or fatigue. HEENT: Denies discharge from eyes, ears, nose, or throat or open sores. CHEST: Denies cough, but has some mild shortness of breath. CARDIOVASCULAR: Denies formal chest pain and palpitations. GI: She has had nausea and vomiting x3. No diarrhea. : Denies dysuria or blood in urine or stool. 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 SKIN: Without rashes or lesions. NEUROLOGIC: Denies headaches, blurred vision, or trouble with mentation. PHYSICAL EXAMINATION: VITAL SIGNS: At the time of admission, blood pressure 175/99, pulse 64, respirations 16, temperature 97.9, pain scale is zero with O2 saturation 99% on room air. GENERALLY: This is a morbidly obese, female, alert, oriented, and cooperative. HEENT: Normocephalic, atraumatic. Pupils are equal, round, and reactive to light. Extraocular muscles are intact. TMs, nares, and pharynx are clear. NECK: Supple. Trachea midline. No mass, no bruit. CHEST: Clear to auscultation. BREASTS: Deferred. HEART: Regular rate and rhythm without murmur. ABDOMEN: Soft, obese, unable to appreciate organomegaly. Generally nontender with colostomy site on the left side. : Deferred. EXTREMITIES: Without clubbing or cyanosis. There is 2+ lower extremity edema. SKIN: Without acute rashes or lesions. NEUROLOGIC: Cranial nerves are intact. Mental status clear. Unable to test gait and cerebellar function at this time. Sensory exam is grossly intact. LABORATORY DATA: Lab work thus far shows WBCs 7.4, hemoglobin 8.2, hematocrit 25.8 with platelets at 229. Sodium is 144, potassium 3.1, chloride 109, CO2 of 26, BUN 35, creatinine 3.94 with a glucose of 131. CT of the head unremarkable. Chest x-ray shows ectatic aneurysmal thoracic aorta relatively similar to previous examinations and moderate cardiomegaly. ASSESSMENT: 1. Jaw pain, possibly anginal equivalent with the patient having multiple risk factors. 2. Hypokalemia. 3. Anemia. 4. Diabetes. PLAN: Will be echocardiogram, Cardiolite stress test, and serial re-evaluation. We will trend the troponins. Dr. Loco has been consulted to see the patient, and we would replace her potassium and hemoccult her stools. Job ID: [id number]
[2019-02-12 07:05] LABS: #Eosinphils 0.2 thou/uL (0.0-0.7); #Lymphocytes 1.6 thou/uL (1.20-3.40); #Monocytes 0.5 thou/uL (0.11-0.59); #Neutrophils 6.3 thou/uL (1.40-6.50); %Eosinophils 2.2 % (0.0-10.0); %Lymphocytes 18.2 % (21.0-51.0); %Monocytes 6.2 % (0.0-10.0); %Neutrophils 73.4 % (42.0-75.0); Hemoglobin 7.3 g/dL (12.0-16.0); Mean Corpuscular HGB CONC 31.7 g/dL (32.0-36.0); Mean Corpuscular Hemoglobin 26.7 pg (27.0-31.0); Mean Corpuscular Volume 84.1 fL (78.0-98.0); Mean Platelet Volume 6.7 fL (7.4-10.4); Platelet Count 218 thou/uL (130-400); RBC Distribution Width 15.4 % (11.5-14.5); Red Blood Cell (RBC) Count 2.73 mill/uL (4.20-5.40); White Blood Cell (WBC) Count 8.6 thou/uL (4.8-10.8)
[2019-02-12 07:13] LABS: Hemoglobin A1c 5.4 % (4.0-6.0)
[2019-02-12 07:29] LABS: Anion Gap 12 mmol/L (10-20); BUN (Urea Nitrogen) 35 mg/dL (9.8-20.1); Calc. Creatinine Clearance 28 mL/min (70-130); Calcium 8.6 mg/dL (7.8-10.44); Carbon Dioxide 25 mmol/L (23-31); Cardiac Risk 2.8 (Less than 4.5); Chloride 110 mmol/L (98-107); Cholesterol 118 mg/dl (< 200 Desired); Estimated GFR-MDRD 14; Glucose 74 mg/dL (80-115); HDL Cholesterol 42 mg/dL (>60 Neg Risk); LDL Cholesterol, Calculated 59 mg/dL; Potassium 3.1 mmol/L (3.5-5.1); Sodium 144 mmol/L (136-145); Triglycerides 85 mg/dL (Less than 150)
--- NOTE | 2019-02-12 07:33 | ULT ---
BILATERAL RENAL ULTRASOUND: Date: 02/12/19 COMPARISON: 09/24/17. INDICATION: End-stage renal disease. FINDINGS: Slight asymmetry in demonstrated renal sizes with the left kidney at 9.7 cm in length and right kidne y 11.2 cm in length. Mild, nonspecific increased echogenicity of the renal parenchymal demonstrated b ilaterally. Hypoechoic focus of the left kidney is demonstrated, approximately 2.0 cm in diameter, wi th a slight degree of internal mixed echogenicity, some of which may be related to artifact. Utilizin g Doppler, there is flow overlying this region, although a component of this may be artifactual. Shi dax, the possibility of a hypoechoic mass cannot be excluded as a result. There is no overt hydroneph rosis of either kidney. Urinary bladder is incompletely distended, limiting assessment. IMPRESSION: Hypoechoic focus of the left kidney, which may relate to a cyst, although the possibility of a hypoec hoic mass given Doppler flow overlying this region cannot be entirely excluded. Follow-up imaging wou ld prove useful in this regard. POS: MELISSA
--- NOTE | 2019-02-12 07:55 | CT ---
Exam: Chest CT scan without IV contrast: HISTORY: Follow up chest pain, concern for aneurysm COMPARISON: Chest x-ray, 02/11/2019 FINDINGS: Cardiomegaly. Some dilatation of the ascending aorta up to 4.3 cm. Descending thoracic aorta proximal ly 3.8 cm. No mediastinal mass or overt adenopathy. No pleural effusion or pericardial effusion. Minimal pleural thickening and pleural-based parenchymal changes in the posterior lung zones. Old gra nulomatous disease. IMPRESSION: No significant acute process. Cardiomegaly. Diffuse atherosclerotic ectasia of the aorta including th e ascending and descending aorta without focal aneurysm.
[2019-02-12] MEDS: Carvedilol 6.25 MG TAB PO SCH ×2 (09:20→21:53)
[2019-02-12] MEDS: glyBURIDE 5 MG TAB PO SCH (09:20)
[2019-02-12] MEDS: Febuxostat 40 MG TAB PO SCH (09:21)
[2019-02-12] MEDS: hydrALAZINE 25 MG TAB PO SCH ×3 (09:21→21:52)
--- NOTE | 2019-02-12 10:53 | CON ---
DATE OF CONSULTATION: HISTORY OF PRESENT ILLNESS: Ms. Watters is a 63-year-old black female, who was admitted for chest pain. We are now being consulted for her acute kidney injury over her chronic renal failure. The renal function has been worsening over the last several months. Please note, she is on diuretics at home. I feel that she may simply have a superimposed prerenal azotemia. The patient tells me also that there is a plan for her to have her colostomy taken down. We are being consulted for further management of this acute kidney injury on top of her chronic renal failure. REVIEW OF SYSTEMS: Positive for generalized malaise. Positive for chest pain. Currently asymptomatic. No shortness of breath. No nausea. No vomiting. No headache. No diplopia. No sore throat. No hematochezia. No melena. No hematemesis. Appetite and energy level are decreased. No dysuria. HOME MEDICATIONS: Included the following, 1. Glyburide 5 mg 1-1/2 tablet daily. 2. Amlodipine 5 mg daily. 3. Carvedilol 6.25 mg p.o. b.i.d. 4. Hydralazine 50 mg p.o. t.i.d. 5. Ferrous sulfate 1 capsule daily. 6. Aspirin 81 mg tablet once a day. 7. Atorvastatin 40 mg at bedtime. 8. Clonidine 0.3 mg daily. 9. Lasix 40 mg tablet once a day. 10. Uloric 40 mg tablet once a day. PAST MEDICAL HISTORY: Chronic renal failure from a presumed hypertensive nephropathy, longstanding hypertension, chronic anemia, hyperlipidemia, gout, type 2 diabetes mellitus, status post diverticulitis and complicated with abscess and colovesicular fistula, status post C. diff colitis. PAST SURGICAL HISTORY: Status post colonoscopy, status post colon resection with colostomy placement, status post upper and lower GI endoscopy. SOCIAL HISTORY: The patient lives in [place]. She is and lives with her . She has 4 children. 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 No IV drug abuse. Status post blood transfusion. Did have a history of NSAID intake. No alcohol. No smoking. ALLERGIES: NONE. TRAUMA: None. IMMUNIZATION: Up-to-date. HOSPITALIZATION: Please see past medical history. FAMILY HISTORY: No family history of ESRD. PHYSICAL EXAMINATION: VITAL SIGNS: Blood pressure 161/89, heart rate 59, respiratory rate 18, temperature 98.3, and pulse ox 97%. GENERAL: The patient is awake, alert, comfortable, not in overt distress. SKIN: Adequate turgor. She is morbidly obese. HEENT: Slightly pale conjunctivae. Anicteric sclerae. NECK: No neck mass. No carotid bruits. No JVD. LUNGS: Clear breath sounds. No wheezing. No crackles. HEART: Normal sinus rhythm. No murmur. No gallops. No rubs. ABDOMEN: Globular, soft, nontender. No masses. Positive for colostomy. EXTREMITIES: No edema. No deformities. NEUROLOGICAL: Awake, oriented to 3 spheres. Moving all extremities. No tremors. No asterixis. No ataxia. LABORATORY DATA: Laboratories of February 12, 2019; white count 8.6, hemoglobin . Sodium 144, potassium 3.1, chloride 110, carbon dioxide 25, BUN 35, creatinine 3.85, GFR 14 mL/minute, glucose 74, calcium 8.6. Further review of her serum creatinine shows the following, February 11, 2019, creatinine 3.94. May 27, 2018, creatinine 2.43. IMAGING STUDIES: Chest x-ray, February 11, 2019, shows ectatic ? of aneurysmal thoracic aorta. Moderate cardiomegaly. No CHF. CT scan of the chest, February 12, 2019, no significant acute process, cardiomegaly, diffuse atherosclerotic ectasia of the aorta without focal aneurysm. No evidence of CHF or pleural effusion. Renal ultrasound, February 12, 2019, no evidence of obstruction, ? of hypoechoic mass. RECOMMENDATION: Follow up in the next several months. ASSESSMENT AND PLAN: 1. Acute kidney injury on top of her chronic renal failure. A possibility of a hemodynamically-mediated renal dysfunction. Agree to hold off the Lasix. We will start normal saline at 100 mL/h. Hold surgical consult for dialysis catheter placement. I do anticipate that if this is hemodynamically-mediated renal dysfunction, she should improve with IV hydration. There is no indication for any emergent hemodialysis with this patient. 2. Anemia. Continue to observe. Recheck again CBC tomorrow. P.r.n. blood transfusion. My bias due to the dropping H and H and acute kidney injury, to transfuse 1 unit of packed RBC with this patient. Recheck basic metabolic profile and CBC in a.m. Job ID: [id number]
[2019-02-12] MEDS: Aspirin Chewable 81 MG TAB PO SCH (13:54)
[2019-02-12] MEDS: Amlodipine 5 MG TAB PO SCH (13:54)
[2019-02-12] MEDS: Potassium Chloride 20 MEQ TAB PO SCH ×2 (13:55→21:53)
[2019-02-12] MEDS: Sodium Chloride 0.9% 1,000 ML IV SCH (18:16)
[2019-02-12] MEDS: Atorvastatin Calcium 40 MG TAB PO SCH (21:53)
--- NOTE | 2019-02-13 02:23 | CON ---
DATE OF CONSULTATION: HISTORY OF PRESENT ILLNESS: Alissa Watters is a 63-year-old black female, who has been followed by Dr. Camargo. Prior to colectomy performed for diverticulitis, she underwent Lexiscan Cardiolite test in the office in November of 2017, It is felt that her scan was abnormal, probably due to diaphragmatic attenuation. She underwent exploratory laparotomy, left colectomy and colostomy. She was recently seen in the office on February 03 for preoperative evaluation prior to takedown of her colostomy and it was felt that she was an acceptable risk. She now is admitted with throat tightness that lasted approximately 5 to 10 minutes and was relieved when she vomited several times. She denies any recurrence of her chest discomfort. Troponin I was borderline. She has undergone first part of adenosine Cardiolite testing with the stress portion today and rest portion tomorrow. PAST MEDICAL HISTORY: 1. Diabetes. 2. Diverticulitis. 3. Hyperlipidemia. 4. Hypertension. 5. Chronic kidney disease. 6. Obstructive sleep apnea. 7. Anemia. OPERATIONS: 1. Left colectomy with colostomy in place. 2. Tubal ligation. SOCIAL HISTORY: She does not smoke or drink. MEDICATIONS: 1. Amlodipine 5 mg daily. 2. Aspirin 81 daily. 3. Lipitor 5 mg at bedtime. 4. Carvedilol 25 b.i.d. 5. Catapres 0.3 daily. 6. Uloric 40 daily. 7. Ferrous sulfate 325 b.i.d. 8. Furosemide 40 daily. 9. Glyburide 5 mg daily. 10. Hydralazine 50 mg t.i.d. ALLERGIES: NONE. REVIEW OF SYSTEMS: A 10-point review of systems is otherwise unremarkable. PHYSICAL EXAMINATION: VITAL SIGNS: Blood pressure 152/75, pulse of 68. HEENT: MICHELLE. NECK: Supple. CHEST: Clear. CARDIAC: S1 and S2 normal without any S3, S4, or murmurs. ABDOMEN: Obese. Normal bowel sounds. EXTREMITIES: Reveal trace pretibial edema. NEUROLOGIC: Grossly intact. SKIN: Warm and dry. LABORATORY DATA: EKG reveals normal sinus rhythm with first-degree AV block, PACs, nonspecific ST and T-wave changes. Hemoglobin 7.3, hematocrit 22.9, white count 8600, platelets 216,000. Sodium 144, potassium 3.1, chloride 110, carbon dioxide 25, BUN 35, creatinine 3.85. Troponin I 0.051. Cholesterol 18, triglycerides 85, HDL 42, LDL 59. IMPRESSION: 1. Atypical throat tightness. 2. Borderline troponin I probably secondary to her renal insufficiency. 3. Chronic renal disease. 4. Hypertension. 5. Hyperlipidemia. 6. Diabetes. 7. Obesity. 8. Takedown of colostomy in the near future. PLAN: The patient has undergone the stress portion of adenosine Cardiolite test and resting portion will be performed tomorrow. In November of 2017, a scan in the office was felt to be abnormal due to diaphragmatic attenuation. Job ID: [id number] [facility]
[2019-02-13 05:07] LABS: #Eosinphils 0.4 thou/uL (0.0-0.7); #Lymphocytes 1.9 thou/uL (1.20-3.40); #Monocytes 0.6 thou/uL (0.11-0.59); #Neutrophils 6.6 thou/uL (1.40-6.50); %Basophils 0.3 % (0.0-1.0); %Eosinophils 4.2 % (0.0-10.0); %Lymphocytes 20.1 % (21.0-51.0); %Monocytes 5.8 % (0.0-10.0); %Neutrophils 69.7 % (42.0-75.0); Hemoglobin 9.6 g/dL (12.0-16.0); Mean Corpuscular HGB CONC 30.5 g/dL (32.0-36.0); Mean Corpuscular Volume 85.2 fL (78.0-98.0); Mean Platelet Volume 6.9 fL (7.4-10.4); Platelet Count 267 thou/uL (130-400); RBC Distribution Width 15.4 % (11.5-14.5); White Blood Cell (WBC) Count 9.5 thou/uL (4.8-10.8)
[2019-02-13 05:21] LABS: Anion Gap 14 mmol/L (10-20); BUN (Urea Nitrogen) 35 mg/dL (9.8-20.1); Calc. Creatinine Clearance 28 mL/min (70-130); Calcium 8.9 mg/dL (7.8-10.44); Carbon Dioxide 20 mmol/L (23-31); Chloride 110 mmol/L (98-107); Estimated GFR-MDRD 14; Glucose 100 mg/dL (80-115); Potassium 3.4 mmol/L (3.5-5.1); Sodium 141 mmol/L (136-145)
[2019-02-13] MEDS: Sodium Chloride 0.9% 1,000 ML IV SCH ×3 (06:32→21:51)
[2019-02-13] MEDS: Febuxostat 40 MG TAB PO SCH (10:11)
[2019-02-13] MEDS: hydrALAZINE 25 MG TAB PO SCH ×3 (10:11→21:49)
[2019-02-13] MEDS: Potassium Chloride 20 MEQ TAB PO SCH ×2 (10:11→21:50)
[2019-02-13] MEDS: Carvedilol 6.25 MG TAB PO SCH ×2 (10:12→21:50)
[2019-02-13] MEDS: Amlodipine 5 MG TAB PO SCH (10:12)
[2019-02-13] MEDS: glyBURIDE 5 MG TAB PO SCH (10:12)
[2019-02-13] MEDS: Aspirin Chewable 81 MG TAB PO SCH (10:12)
--- NOTE | 2019-02-13 10:36 | NM ---
EXAM: CARDIAC SPECT HISTORY: Chest pain, CHF, end-stage renal disease, hypertension, diabetes, dyslipidemia TECHNIQUE: A myocardial perfusion scan was performed using the single isotope 2 day protocol with kashif hnetium 99m sestamibi. [31 mCi] was injected intravenously for the rest exam followed by 32 mCifor the stress study. Pharmacologic stress with adenosine was monitored and interpreted by Dr. Enamorado FINDINGS: Homogeneous tracer distribution is seen in the myocardial segments on stress and rest image s without fixed or reversible defects. Gated SPECT LVEF: 57% Wall motion exam: Normal IMPRESSION: Normal myocardial perfusion scan
--- NOTE | 2019-02-13 11:12 | PDOC.CTH ---
Cardiology Progress Note - Subjective Pt. seen and eval. no events overnight. No chest pain. - Objective Vital Signs Temp Pulse Resp BP BP Pulse Ox 02/13/19 10:12 63 02/13/19 10:11 63 02/13/19 07:25 98.3 F 63 18 154/85 H 96 02/13/19 01:45 65 18 170/81 H 95 Admit Weight 263 lb 12.8 oz Weight 263 lb 12.8 oz 02/12/19 02/13/19 02/14/19 06:59 06:59 06:59 Intake Total 480 2000 Output Total 425 Balance 55 1999 - Physical Examination General/Neuro: alert & oriented x3 Neck: no JVD present Lungs: CTA Heart: RRR Abdomen: NT/ND, soft - Telemetry Telemetry Rhythm: NSR - Labs Result Diagrams: 02/13/19 04:32 02/13/19 04:32 Troponin/CKMB CK-MB (CK-2) 1.5 ng/mL (0-6.6) 02/11/19 16:15 Troponin I 0.050 ng/mL (< 0.028) H 02/11/19 19:57 - Assessment/Plan 1. Atypical throat pain. Stress test: no ischemia. Cardiac status is stable. I will sign off. 2. Acute on chronic renal failure. dr. Loco seeing. 3. Anemia: likely due to chronic issues and renal dz. 4. Diverticulosis. S/P partial colon resection with colostomy. Pt. wanting to have the colostomy reversed. From a cardiac standpoint she is cleared for surgery.
--- NOTE | 2019-02-13 18:26 | PRG ---
DATE OF SERVICE: 02/13/2019 SUBJECTIVE: Ms. Watters is a 63-year-old black female with chronic renal failure and was admitted for chest pain. She underwent a cardiac stress test with no evidence of active ischemia. We are following her up for her acute kidney injury on top of her chronic renal failure. She is getting volume repletion. Creatinine in the last 24 hours remains unchanged. I will continue normal saline at 100 mL per hour. No complaints of chest pain or shortness of breath. Of interest, the cardiac stress test showed an EF that is within normal. OBJECTIVE: VITAL SIGNS: Blood pressure 166/92, heart rate 65, respiratory rate 18, temperature 98.3, and pulse ox 94%. GENERAL: The patient is awake, alert, comfortable, not in distress. SKIN: Adequate turgor. HEENT: She has slightly pale conjunctivae. Anicteric sclerae. No neck mass. No carotid bruits. No JVD. CHEST: No deformities. LUNGS: Clear breath sounds. HEART: Normal sinus rhythm. No murmur. No gallops. No rubs. ABDOMEN: Globular, soft, nontender. No masses. EXTREMITIES: No edema. No deformities. MEDICATIONS: Medications of February 13, 2019, were reviewed. LABORATORY DATA: Laboratories of February 13, 2019; white count 9.5, hemoglobin 9.6. Sodium 141, potassium 3.4, chloride 110, carbon dioxide 20, BUN 35, creatinine 3.85, GFR 14 mL/minute, calcium 8.9. ASSESSMENT AND PLAN: 1. Acute kidney injury on top of her chronic renal failure, superimposed prerenal azotemia. Continue current IV hydration. She is tolerating the IV fluid. No changes to be made. There is no indication for any emergent dialytic intervention with this patient. 2. Status post colon resection with colostomy placement - the patient is scheduled for a colostomy takedown next week. We will attempt to optimize renal function. Should the renal function further worsen, we will consider initiating dialysis. We will recheck basic metabolic panel and CBC in a.m. Job ID: [id number]
[2019-02-13] MEDS: Temazepam 15 MG CAP PO PRN (21:49)
[2019-02-13] MEDS: Atorvastatin Calcium 40 MG TAB PO SCH (21:50)
[2019-02-14 05:09] LABS: #Eosinphils 0.5 thou/uL (0.0-0.7); #Lymphocytes 1.9 thou/uL (1.20-3.40); #Monocytes 0.6 thou/uL (0.11-0.59); #Neutrophils 6.2 thou/uL (1.40-6.50); %Basophils 0.1 % (0.0-1.0); %Lymphocytes 20.6 % (21.0-51.0); %Monocytes 6.3 % (0.0-10.0); Hemoglobin 9.6 g/dL (12.0-16.0); Mean Corpuscular HGB CONC 31.8 g/dL (32.0-36.0); Mean Corpuscular Hemoglobin 27.1 pg (27.0-31.0); Mean Corpuscular Volume 85.3 fL (78.0-98.0); Mean Platelet Volume 7.1 fL (7.4-10.4); Platelet Count 235 thou/uL (130-400); RBC Distribution Width 15.6 % (11.5-14.5); Red Blood Cell (RBC) Count 3.56 mill/uL (4.20-5.40); White Blood Cell (WBC) Count 9.2 thou/uL (4.8-10.8)
[2019-02-14 05:26] LABS: Anion Gap 13 mmol/L (10-20); BUN (Urea Nitrogen) 31 mg/dL (9.8-20.1); Calc. Creatinine Clearance 29 mL/min (70-130); Calcium 8.8 mg/dL (7.8-10.44); Carbon Dioxide 21 mmol/L (23-31); Chloride 112 mmol/L (98-107); Estimated GFR-MDRD 15; Glucose 68 mg/dL (80-115); Potassium 3.5 mmol/L (3.5-5.1); Sodium 142 mmol/L (136-145)
[2019-02-14] MEDS: Sodium Chloride 0.9% 1,000 ML IV SCH ×2 (08:09→17:35)
[2019-02-14] MEDS: cloNIDine 0.3 MG TAB PO SCH ×2 (09:10→21:24)
[2019-02-14] MEDS: glyBURIDE 5 MG TAB PO SCH (09:10)
[2019-02-14] MEDS: hydrALAZINE 25 MG TAB PO SCH ×3 (09:11→21:25)
[2019-02-14] MEDS: Carvedilol 25 MG TAB PO SCH ×2 (09:11→21:25)
[2019-02-14] MEDS: Aspirin Chewable 81 MG TAB PO SCH (09:11)
[2019-02-14] MEDS: Amlodipine 10 MG TAB PO SCH ×2 (09:12→21:26)
[2019-02-14] MEDS: Potassium Chloride 20 MEQ TAB PO SCH ×2 (09:12→21:24)
[2019-02-14] MEDS: Febuxostat 40 MG TAB PO SCH (09:17)
--- NOTE | 2019-02-14 12:49 | PQF ---
CLINICAL DOCUMENTATION IMPROVEMENT CLARIFICATION FORM: ICD-10 Updated PLEASE DO AN ADDENDUM TO THE PROGRESS NOTE WITH ANY DOCUMENTATION UPDATES OR ADDITIONS AND CARRY THROUGH TO DC SUMMARY. THANK YOU. DATE: 02/14/19 ATTN: DR. MEEHAN Please exercise your independent, professional judgment in responding to the clarification form. Clinical indicators are provided on the bottom of this form for your review Please check appropriate box(s): [ ] Acute blood loss anemia [ ] Post-op anemia related to acute blood loss [ ] Anemia: [ ] Aplastic [ ] Nutritional [ ] Drug induced (specify) ___ [ ] Hemolytic [ ] Hereditary [ ] Acquired [ ] Autoimmune [ ] Non-autoimmune [ ] Enzyme disorder [ x ] Chronic Anemia: [ ] Blood loss [ ] Hemolytic [ ] Simple [ ] Due to Vitamin B12 Deficiency [ ] Other [ x ] Anemia of Chronic Disease (please specify) ___CKD [ ] Anemia due to (please choose): [ ] Due to Chemotherapy [ ] Due to Radiotherapy [ ] Due to Immunotherapy [ ] Other diagnosis [ ] Unable to determine In addition, please specify: Present on Admission (POA): [ x ] Yes [ ] No [ ] Unable to determine For continuity of documentation, please document condition throughout progress notes and discharge summary. Thank You. CLINICAL INDICATORS - SIGNS / SYMPTOMS / LABS H&P: "ANEMIA" HGN 02/11: 8.2 HGN 02/12: 7.3 RISKS: H/O DIVERTICULITIS RENAL DISEASE TREATMENT: SERIAL LABS BLOOD TRANSFUSION FOBT [employer] Winform Viewer (This form is maintained as a part of the permanent medical record) 2014 [employer]. All Rights Reserved CASE [email or web address] Office: [phone] POLI
--- NOTE | 2019-02-14 13:12 | PDOC.GSPN ---
Surgery Progress Note: Subj - Subjective Narrative: Events noted Surgery Progress Note: Obj - Vital signs Vital signs: Vital Signs - Most Recent Temp Pulse Resp BP Pulse Ox 98.3 F 60 18 145/81 H 94 L 02/14/19 11:19 02/14/19 11:19 02/14/19 11:19 02/14/19 11:19 02/14/19 11:19 - Physical Exam General: no distress Abdomen: soft, non tender Surgery Progress Note: Results - Labs Result Diagrams: 02/14/19 04:30 02/14/19 04:30 Lab results: Laboratory Results - last 24 hr 02/14/19 02/14/19 04:30 04:30 WBC 9.2 RBC 3.56 L Hgb 9.6 L Hct 30.3 L MCV 85.3 MCH 27.1 MCHC 31.8 L RDW 15.6 H Plt Count 235 MPV 7.1 L Neutrophils % 68.0 Lymphocytes % 20.6 L Monocytes % 6.3 Eosinophils % 5.0 Basophils % 0.1 Neutrophils # 6.2 Lymphocytes # 1.9 Monocytes # 0.6 H Eosinophils # 0.5 Basophils # 0.0 Sodium 142 Potassium 3.5 Chloride 112 H Carbon Dioxide 21 L Anion Gap 13 BUN 31 H Creatinine 3.70 H Estimated GFR (MDRD) 15 Glucose 68 L Calcium 8.8 Surgery Progress Note: A/P - Problem (1) Chronic renal failure Current Visit: Yes Status: Acute - Plan Plan: was schedule for colostomy takedown next week. Will cancel surgery given recent events.
--- NOTE | 2019-02-14 16:49 | PRG ---
DATE OF SERVICE: 02/14/2019 SUBJECTIVE: Ms. Watters is a 63-year-old black female with chronic renal failure, was initially admitted for chest pain. Cardiac stress test was negative. She was cleared by Cardiology. She was also evaluated by Dr. Ceron. The plan was for her to undergo surgery next week, but this will be placed on hold due to her current medical condition. She has an acute kidney injury on top of her chronic renal failure. I have hydrated this patient to see if I could improve the renal function. It remains to be relatively unimproved with a creatinine of 3.7 today. Currently, on IV hydration. Blood transfusion was also given to optimize her hemodynamics. I did offer dialysis with this patient, she declined. No complaints of chest pain or shortness of breath. OBJECTIVE: VITAL SIGNS: Blood pressure 161/94, heart rate 68, respiratory rate 20, temperature 98.3, and pulse ox 97%. GENERAL: Noted to be awake, alert, comfortable, not in distress. SKIN: Adequate turgor. HEENT: She has pinkish conjunctivae. Anicteric sclerae. No neck mass. No carotid bruits. No JVD. CHEST: No deformities. LUNGS: Clear breath sounds. No wheezing. No crackles. HEART: Normal sinus rhythm. No murmur. No gallops or rubs. ABDOMEN: Globular, soft, nontender. No masses. EXTREMITIES: No edema, no deformities. MEDICATIONS: Medications of February 14, 2019 were reviewed. LABORATORY DATA: Laboratories of February 14, 2019; white count 9.2, hemoglobin 9.6 sodium 142, potassium 3.5, chloride 112, carbon dioxide 21, BUN 31, creatinine 3.7, GFR 15 mL/minute, calcium 8.8. ASSESSMENT AND PLAN: 1. Acute kidney injury on top of chronic renal failure, unimproved renal function. Consider initiating dialysis. I had a long discussion with this patient, but she declined dialysis. Continue IV hydration. If renal function is relatively unchanged, consider discharging in a.m. and we will follow up this patient at the outpatient clinic. 2. Status post colostomy-Dr. Ceron has evaluated the patient and has postponed her surgery in the next 2 to 3 months. He feels that the surgery is a high risk procedure and would like the patient better optimized with her medical problems. 3. Recheck basic metabolic panel and CBC in a.m. Job ID: [id number]
[2019-02-14] MEDS: Atorvastatin Calcium 40 MG TAB PO SCH (21:25)
[2019-02-15] MEDS: Sodium Chloride 0.9% 1,000 ML IV SCH ×2 (04:35→14:22)
[2019-02-15 05:07] LABS: #Eosinphils 0.5 thou/uL (0.0-0.7); #Lymphocytes 1.7 thou/uL (1.20-3.40); #Monocytes 0.5 thou/uL (0.11-0.59); #Neutrophils 5.8 thou/uL (1.40-6.50); %Basophils 0.2 % (0.0-1.0); %Eosinophils 5.5 % (0.0-10.0); %Lymphocytes 19.5 % (21.0-51.0); %Monocytes 6.2 % (0.0-10.0); %Neutrophils 68.5 % (42.0-75.0); Hemoglobin 7.8 g/dL (12.0-16.0); Mean Corpuscular HGB CONC 31.7 g/dL (32.0-36.0); Mean Corpuscular Hemoglobin 27.2 pg (27.0-31.0); Mean Corpuscular Volume 85.6 fL (78.0-98.0); Platelet Count 224 thou/uL (130-400); RBC Distribution Width 15.8 % (11.5-14.5); Red Blood Cell (RBC) Count 2.88 mill/uL (4.20-5.40); White Blood Cell (WBC) Count 8.4 thou/uL (4.8-10.8)
[2019-02-15 05:30] LABS: Anion Gap 14 mmol/L (10-20); BUN (Urea Nitrogen) 34 mg/dL (9.8-20.1); Calc. Creatinine Clearance 29 mL/min (70-130); Calcium 8.4 mg/dL (7.8-10.44); Carbon Dioxide 20 mmol/L (23-31); Chloride 113 mmol/L (98-107); Estimated GFR-MDRD 14; Glucose 77 mg/dL (80-115); Potassium 3.8 mmol/L (3.5-5.1); Sodium 143 mmol/L (136-145)
[2019-02-15] MEDS: Febuxostat 40 MG TAB PO SCH (08:56)
[2019-02-15] MEDS: glyBURIDE 5 MG TAB PO SCH (08:56)
[2019-02-15] MEDS: cloNIDine 0.3 MG TAB PO SCH (08:56)
[2019-02-15] MEDS: Potassium Chloride 20 MEQ TAB PO SCH (08:57)
[2019-02-15] MEDS: hydrALAZINE 25 MG TAB PO SCH ×2 (08:57→15:21)
[2019-02-15] MEDS: Amlodipine 10 MG TAB PO SCH (08:57)
[2019-02-15] MEDS: Aspirin Chewable 81 MG TAB PO SCH (08:57)
[2019-02-15] MEDS: Carvedilol 25 MG TAB PO SCH (09:04)
[2019-02-15] MEDS ORDERED: Epoetin (ESRD) 20,000 UNITS/ML SC SCH (11:00)
--- NOTE | 2019-02-15 11:21 | PRG ---
DATE OF SERVICE: 02/15/2019 SERVICE: Renal Medicine. SUBJECTIVE: Ms. Watters is a 63-year-old black female, who was admitted for chest pain. Cardiac stress test was negative. She was also followed up by the Renal Service due to her chronic renal failure, which was worsening. We had a long discussion about dialysis. The patient is declining at the present time. She would like to think about it. Renal function remains unimproved in spite of volume repletion. She is also noted to be anemic. For that reason, we started her on iron and Epogen. No other complaints today. No chest pain or shortness of breath. OBJECTIVE: VITAL SIGNS: Blood pressure 173/92, heart rate 56, respiratory rate 20, temperature 98.3, and pulse ox 96% on room air. GENERAL: Awake, alert, comfortable, not in distress. SKIN: Adequate turgor. HEENT: Slightly pale conjunctivae. Anicteric sclerae. No neck mass. No carotid bruits. No JVD. CHEST: No deformities. LUNGS: Clear breath sounds. No wheezing. No crackles. HEART: Normal sinus rhythm. No murmur. No gallops. No rubs. ABDOMEN: Globular, soft, nontender. No masses. EXTREMITIES: Trace edema. Please note, she has a colostomy. MEDICATIONS: Medications of February 15, 2019, reviewed. LABORATORY DATA: Laboratories of February 15, 2019; sodium 143, potassium 3.8, chloride 113, carbon dioxide 20, BUN 34, creatinine 3.8, GFR 14 mL/minute, calcium 8.4. ASSESSMENT AND PLAN: 1. Chronic renal failure, relatively unimproved in spite of volume repletion. She may need dialytic intervention soon. I have discussed preparing her for dialysis and she is not ready for it. She would like to think about it. From a renal point of view, the patient can be discharged any time. 2. Anemia. Epogen was given. Maintain ferrous sulfate 325 mg tablet b.i.d. 3. Chest pain, resolved. 4. Colostomy - Dr. Ceron has evaluated this patient. He plans to do a colostomy takedown in the next few months. He wants the patient further optimized from a medical point of view. Job ID: [id number]
[2019-02-15] MEDS ORDERED: EPOETIN ALFA-EPBX (ESRD) 10,000 UNIT/ML VIAL SC SCH (12:00)
[2019-02-15 12:17] VITALS: BP 160/86; TEMP 97.5
[2019-02-15] MEDS ORDERED: EPOETIN ALFA-EPBX (ESRD) 4,000 UNIT/ML VIAL SC SCH (14:45)
[2019-02-15] MEDS ORDERED: Ferrous Sulfate 325 MG TAB PO SCH (17:00)
== END 2019-02-15 15:43 | disposition home or self-care (01) | DRG 684 ==
LOC: ERS 12:22 → ERHOLD 17:51 → 2SW 19:44 → OBSVTOIN 02-13 15:40
PROVIDERS: ADMIT Specialist; ATTEND Specialist
DX: N17.9 Acute kidney failure, unspecified (principal); E11.22 Type 2 diabetes mellitus with diabetic chronic kidney disease; E78.5 Hyperlipidemia, unspecified; G47.33 Obstructive sleep apnea (adult) (pediatric); E87.6 Hypokalemia; R07.0 Pain in throat; D63.1 Anemia in chronic kidney disease; I12.9 Hypertensive chronic kidney disease with stage 1 through stage 4 chronic kidney disease, or unspecified chronic kidney disease; N18.9 Chronic kidney disease, unspecified; Z86.718 Personal history of other venous thrombosis and embolism; Z98.51 Tubal ligation status; Z90.49 Acquired absence of other specified parts of digestive tract; Z79.82 Long term (current) use of aspirin
CPT/HCPCS: 36415; 36430; 71045; 71250; 76770; 78452; 80048; 80053; 80061; 82274; 82550; 82553; 83036; 83690; 83880; 84484; 85025; 86850; 86900; 86901; 93005; 93017; 93306; A9500; J0153; P9016; Q5105

== ENCOUNTER 2019-06-08 19:21 | Inpatient (IN) | payer MEDICARE ==
[2019-06-08] MEDS ORDERED: Diltiazem 125 MG/25 ML ONE (19:47)
[2019-06-08 19:54] LABS: #Eosinphils 0.2 thou/uL (0.0-0.7); #Lymphocytes 1.6 thou/uL (1.20-3.40); #Monocytes 0.6 thou/uL (0.11-0.59); #Neutrophils 9.5 thou/uL (1.40-6.50); %Basophils 0.3 % (0.0-1.0); %Eosinophils 1.3 % (0.0-10.0); %Lymphocytes 13.4 % (21.0-51.0); %Monocytes 5.2 % (0.0-10.0); %Neutrophils 79.9 % (42.0-75.0); Hemoglobin 7.7 g/dL (12.0-16.0); Mean Corpuscular HGB CONC 32.6 g/dL (32.0-36.0); Mean Corpuscular Hemoglobin 27.5 pg (27.0-31.0); Mean Corpuscular Volume 84.2 fL (78.0-98.0); Mean Platelet Volume 7.7 fL (7.4-10.4); Platelet Count 252 thou/uL (130-400); RBC Distribution Width 14.7 % (11.5-14.5); Red Blood Cell (RBC) Count 2.81 mill/uL (4.20-5.40); White Blood Cell (WBC) Count 11.9 thou/uL (4.8-10.8)
[2019-06-08 20:08] LABS: ALT (SGPT) 19 U/L (8-55); AST (SGOT) 19 U/L (5-34); Albumin 3.5 g/dL (3.4-4.8); Alkaline Phosphatase 141 U/L (40-150); Anion Gap 18 mmol/L (10-20); BUN (Urea Nitrogen) 52 mg/dL (9.8-20.1); Bilirubin, Total 0.3 mg/dL (0.2-1.2); Calc. Creatinine Clearance 0 mL/min (70-130); Calcium 8.5 mg/dL (7.8-10.44); Carbon Dioxide 18 mmol/L (23-31); Chloride 110 mmol/L (98-107); Estimated GFR-MDRD 8; Globulin 4.4 g/dL (2.4-3.5); Glucose 134 mg/dL (80-115); Magnesium 1.8 mg/dL (1.6-2.6); Potassium 3.1 mmol/L (3.5-5.1); Protein, Total 7.9 g/dL (6.0-8.3); Sodium 143 mmol/L (136-145)
--- NOTE | 2019-06-08 20:15 | RAD ---
EXAM: CHEST ONE VIEW HISTORY: Shortness of breath for one week. Dyspnea. COMPARISON: 02/11/2019. FINDINGS: Cardiac silhouette is magnified by projection but does appear to be markedly enlarged. There is promi nence of the right paramediastinal soft tissues, but this is a stable finding. This finding was also seen on the CT thorax on 02/12/2019 and was shown to represent vascular structures including ectat ic thoracic aorta. Pulmonary vasculature is within normal limits. The lungs are clear. Chest is stable when compared to the prior exam. IMPRESSION: 1. Stable cardiomegaly. 2. Ectasia of the thoracic aorta. 3. No acute cardiopulmonary process.
[2019-06-08] MEDS ORDERED: Aspirin Chewable 81 MG TAB ONE ×2 (20:22→21:51)
[2019-06-08] MEDS ORDERED: Nitroglycerin 2% Ointment 1 INCH/1 GM Packet ONE (20:22)
[2019-06-08 20:31] LABS: CKMB 1.8 ng/mL (0-6.6)
[2019-06-08] MEDS ORDERED: Potassium Chloride 20 MEQ TAB ONE (20:55)
[2019-06-08] MEDS ORDERED: Furosemide 20 MG/2 ML VIAL ONE (20:55)
[2019-06-08] MEDS ORDERED: Furosemide 40 MG/4 ML VIAL ONE (20:55)
[2019-06-08] MEDS ORDERED: Ondansetron PF 4 MG/2 ML Vial ONE (21:07)
[2019-06-08] MEDS ORDERED: hydrALAZINE 20 MG/ML VIAL ONE (21:08)
[2019-06-08 21:35] LABS: Bilirubin Negative (Negative); Blood, Urine 1+ (Negative); Clarity Clear (Clear); Glucose, Urine (Dipstick) 50 mg/dL (Negative); Leukocyte Negative Leu/uL (Negative); Nitrite Negative (Negative); Protein, Urine (Dipstick) 300 mg/dL (Neg-Trace); Squamous Epithelial 0-3 HPF (0-3); Urobilinogen Normal mg/dL (Less than 2)
[2019-06-08 21:41] LABS: Bacteria/HPF Rare-Few HPF (None Seen)
[2019-06-08] MEDS ORDERED: niCARdipine 20MG In NaCl 20 MG/200 ML BAG ONE (21:44)
[2019-06-08] MEDS ORDERED: Acetaminophen 325 MG TAB PO PRN (22:55)
[2019-06-08] MEDS ORDERED: Diltiazem 125 MG in Sodium Chloride 0.9% 100 ML IVPB SCH (23:00)
[2019-06-08 23:13] LABS: Troponin I 0.162 ng/mL (< 0.028)
[2019-06-08] MEDS ORDERED: niCARdipine 25 MG in Sodium Chloride 0.9% 250 ML 240 ML IVPB PRN (23:36)
[2019-06-08 23:48] VITALS: BMI 46.0
[2019-06-09] MEDS ORDERED: cloNIDine 0.3 MG TAB PO SCH (00:30)
[2019-06-09] MEDS ORDERED: Carvedilol 25 MG TAB PO SCH (00:30)
--- NOTE | 2019-06-09 01:07 | HP ---
CHIEF COMPLAINT: Congestive heart failure, end-stage renal disease, dyspnea. HISTORY OF PRESENT ILLNESS: The patient is a 63-year-old female, who for the last week has had increasing dyspnea on exertion and finally got to the point where she could not walk across the room to the bathroom without becoming extremely exhausted and short of breath. Her birthday is coming up, so she wanted to get this taken care of, so she finally came in [facility], where it was noted that her BNP was over 2200, her BUN was 52 and her creatinine 6.24 with a GFR of 8. Initially, she had a heart rate in the 140s. This has been brought down gradually with one dose of Cardizem. However, her blood pressure then began to spike to the 240 range with diastolic in the 130s. This has required a Cardizem drip to come under control. She failed dosing with hydralazine IV and at least her pulse rate has come down and at the time of admission, her systolic is 178/133. She is going into the ICU because of the need for Cardizem drip. She has also had some chest pain during this time. It has not made her nauseated, diaphoretic, or radiates into her neck. It was substernal in nature and felt like a pressure. PAST MEDICAL HISTORY: Significant for general medical noncompliance as well as hypertension, borderline diabetes, diverticulitis. She has a history of CHF with cardiomegaly. Last echocardiogram was on 02/14/2019. She has dyslipidemia, hyperuricemia, obstructive sleep apnea with very poor compliance, anemia-chronic , H pylori, pseudomembranous colitis, deep venous thrombosis of the upper extremities and now end-stage renal disease secondary to hypertensive nephropathy. She has also had colon cancer. PAST SURGICAL HISTORY: Includes upper and lower endoscopies, left colectomy and colostomy, tubal ligation, and PICC line placement. SOCIAL HISTORY: She is . Does not smoke or drink alcoholic beverages. 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 ALLERGIES: SHE HAS NO KNOWN DRUG ALLERGIES. MEDICATIONS: On admission include; 1. Amlodipine 5 mg daily. 2. Carvedilol 12.5 mg b.i.d. 3. Hydralazine 50 mg t.i.d. 4. Feosol daily. 5. Aspirin 81 mg daily. 6. Atorvastatin 40 mg at bedtime. 7. Clonidine 0.3 mg daily. 8. Uloric 40 mg daily. She has just recently seen Dr. Loco who may have adjusted her medicine. REVIEW OF SYSTEMS: At this time; CONSTITUTIONAL: Denies fever or chills, but has had general malaise and weakness. HEENT: Denies drainage or pain from ears, nose, or throat. CHEST: Has chest pressure and palpitations noted. Denies cough, but has had dyspnea with minimal exertion. CARDIOVASCULAR: She has had palpitations and chest pressure. GI: She denies nausea, vomiting, or diarrhea. : Denies dysuria or blood in urine or stool . EXTREMITIES: Has general arthritis in the major joints. Lymphedema. She has had much increased swelling in the lower extremities also associated with her dyspnea. SKIN: No new rashes or lesions. PHYSICAL EXAMINATION: At the time of admission; VITAL SIGNS: Blood pressure 178/133, pulse 92, respirations 16, temperature 98.4. Pain scale is zero. GENERAL: This is a morbidly obese female, alert, oriented, cooperative. HEENT: Normocephalic, atraumatic. Pupils are equal, round, and reactive to light. Extraocular muscles are intact. TMs, nares, and pharynx are clear. NECK: Supple. Trachea, midline. CHEST: Clear to auscultation. HEART: Regular rate and rhythm with distant heart sounds. BREASTS: Deferred. ABDOMEN: Obese. Unable to appreciate organomegaly. Nontender. : Deferred. EXTREMITIES: Without clubbing, cyanosis, but there is 3+ edema bilaterally. NEUROLOGIC: Cranial nerves are intact. Mental status is clear. Gait and cerebellar function untested. Sensory exam is grossly intact. Babinski is down. SKIN: Has no new rashes or lesions. LABORATORY DATA: Lab work on admission shows WBCs at 11.9, hemoglobin 7.7, hematocrit 23.6 with platelets at 252. Sodium 143, potassium 3.1, chloride 110 , BUN 52, creatinine 6.24 with a GFR of 8, glucose at 134, calcium 8.5, magnesium 1.8. Liver functions normal. Troponin is elevated at 1.51, probably due to the stretching of heart muscle. BNP elevated at 2637.9. Urinalysis shows 300 protein, 1+ blood. Chest x-ray shows cardiomegaly, no acute findings. ASSESSMENT: 1. Hypertensive urgency. 2. Congestive heart failure. 3. Hypokalemia. 4. End-stage renal disease. 5. Obstructive sleep apnea with general noncompliance. 6. Diet-controlled diabetes. PLAN: The patient will go into ICU to control her blood pressure using a Cardene drip. Dr. Loco and Dr. Woodson both be consulted concerning her heart and kidneys. She will be serially re-evaluated. We will get a renal ultrasound of the arteries to make sure she did not have any renal artery stenosis. Job ID: [id number] [facility]
[2019-06-09 05:50] LABS: Hemoglobin A1c 5.2 % (4.0-6.0)
[2019-06-09 06:02] LABS: Anion Gap 13 mmol/L (10-20); BUN (Urea Nitrogen) 50 mg/dL (9.8-20.1); Calc. Creatinine Clearance 17 mL/min (70-130); Calcium 8.5 mg/dL (7.8-10.44); Carbon Dioxide 23 mmol/L (23-31); Chloride 111 mmol/L (98-107); Estimated GFR-MDRD 8; Glucose 113 mg/dL (80-115); Sodium 144 mmol/L (136-145)
[2019-06-09] MEDS: hydrALAZINE 25 MG TAB PO SCH ×3 (08:14→20:21)
[2019-06-09] MEDS: Potassium Chloride 10 MEQ TAB PO SCH ×2 (08:15→16:01)
[2019-06-09] MEDS: cloNIDine 0.3 MG TAB PO SCH ×2 (08:15→20:21)
[2019-06-09] MEDS: Aspirin 81 mg Enteric Coated Tablet PO SCH (08:15)
[2019-06-09] MEDS: Carvedilol 25 MG TAB PO SCH ×2 (09:02→21:04)
--- NOTE | 2019-06-09 09:56 | ULT ---
BILATERAL RENAL ULTRASOUND WITH DOPPLER: HISTORY: Acute renal insufficiency. FINDINGS: He right kidney measures 11.9 cm in length and the left kidney measures 11.2 cm in length. The kidne ys are hyperechoic consistent with medical renal disease. There is a 2.2 cm cyst in the left kidney. The urinary bladder is well distended and unremarkable with a volume of 194 cc. The peak systolic velocity in the right renal artery measures 92 cm/s and in the left renal artery me asures 24 cm/s with renal artery to aortic ratio of 1.60 on the right and 0.41 on the left. The resi stive indices measure 0.86 on the right and 0.65 on the left. IMPRESSION: 1. Medical renal disease. No evidence of high-grade obstruction. 2. Left renal cyst. 3. Elevated resistive index on the right. The possibility of right side renal artery stenosis canno t be excluded. Further evaluation with MRA or CTA would be helpful. POS: TPC
[2019-06-09] MEDS ORDERED: Isosorbide Dinitrate 5 MG TAB PO SCH ×2 (16:15→21:00)
[2019-06-09] MEDS ORDERED: cloNIDine 0.1 MG TAB PO PRN (16:47)
[2019-06-09] MEDS ORDERED: Potassium Chloride 20 MEQ TAB PO SCH (17:45)
[2019-06-09] MEDS ORDERED: NIFEdipine XL 60 MG TAB PO SCH (17:45)
[2019-06-09] MEDS ORDERED: Furosemide 100 MG/10 ML VIAL SLOW IVP SCH (18:00)
--- NOTE | 2019-06-09 19:02 | CON ---
DATE OF CONSULTATION: 06/09/2019 REASON FOR CONSULTATION: Acute on chronic renal failure. REQUESTING PHYSICIAN: Sabas Calhoun MD HISTORY OF PRESENT ILLNESS: A 64-year-old female with known history of CKD stage 3/4 with recent progression to stage 4/5, hypertension, diabetes, obstructive sleep apnea as well as coronary artery disease, amongst others, who was admitted due to acute respiratory distress and accelerated hypertension. The patient reported worsening shortness of breath and leg swelling since about 1 week. The patient acutely got worse yesterday while in anabaptism when she walked for some time. She admitted to orthopnea and exertional dyspnea as well as increasing bilateral leg swelling. She continued to make some urine, but denied hematuria. She also denied palpitation, chest pain, headache, nausea, vomiting, abdominal pain, or focal weakness. On presentation to the emergency room on June 08, 2019, blood pressure was noted to be markedly elevated at 224/161 with pulse of 139 and respiratory rate of 26. Temperature was noted at 98.4. She was treated with Lasix, Cardene infusion as well as Cardizem with improvement. Of note, the patient had eGFR of 38 in December 2017, which decreased to 24 in May 2018. The patient had an eGFR of 14 in January 2019 when she was hospitalized for chest pain and renal function plateaued around 14 or 15. It however continued to decrease and was 12 on March 21, 2019. Currently, eGFR is 8. 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 She, however, admitted to not being very compliant with fluid and salt intake. Of note, again, the patient was seen for chest pain and had stress test which was unremarkable in February 2019. She reports feeling better currently. PAST MEDICAL HISTORY: 1. Diabetes mellitus. 2. Hyperlipidemia. 3. Hypertension. 4. CKD stage 4/5. 5. Obstructive sleep apnea. 6. Morbid obesity. 7. Chronic anemia. 8. Ulcerative colitis. 9. Diverticulosis. 10. Chronic congestive heart failure of diastolic type. 11. Prior DVT of upper extremities. 12. Colon cancer. PAST SURGICAL HISTORY: 1. Upper and lower endoscopies. 2. Left colectomy with colostomy. 3. Tubal ligation. 4. PICC line placement. FAMILY HISTORY: Reviewed, but noncontributory. SOCIAL HISTORY: The patient is and lives with spouse. Does not smoke or drink alcohol or use recreational drugs. ALLERGIES: NO KNOWN DRUG ALLERGIES REPORTED. HOME MEDICATIONS: 1. Amlodipine 7.5 mg p.o. daily. 2. Aspirin 81 mg p.o. daily. 3. Lipitor 5 mg p.o. daily at bedtime. 4. Calcitriol 0.25 mcg p.o. daily. 5. Clonidine 0.3 mg p.o. b.i.d. 6. Uloric 40 mg p.o. daily. 7. Ferrous sulfate 325 mg p.o. b.i.d. 8. Hydralazine 100 mg p.o. t.i.d. 9. Carvedilol 25 mg p.o. b.i.d. CURRENT HOSPITAL MEDICATIONS: 1. Aspirin 81 mg p.o. daily. 2. Lipitor 40 mg p.o. daily at bedtime. 3. Carvedilol 25 mg p.o. b.i.d. 4. Clonidine 0.3 mg p.o. b.i.d. 5. Hydralazine 100 mg p.o. t.i.d. 6. Isosorbide dinitrate 10 mg p.o. b.i.d. 7. Potassium chloride 10 mEq p.o. b.i.d. 8. Acetaminophen 650 mg q.4 p.r.n. 9. Clonidine 0.1 mg p.o. q.2 p.r.n. 10. Nicardipine infusion titration to get blood pressure control. REVIEW OF SYSTEMS: 12-point review of systems performed was negative other than pertinent positives and negatives included in the history of present illness. PHYSICAL EXAMINATION: VITAL SIGNS: Initial vitals on presentation to the ER showed blood pressure 224/161, pulse 139, respiratory rate 26, temperature 98.4. Current vitals during my visitation shows at 1600 hours on June 09, 2019, showed temperature 97.7, pulse 65, respiratory rate 14, and blood pressure 171/107. GENERAL: Obese female, in no obvious distress. Afebrile. Anicteric. HEENT: Normocephalic, atraumatic. Oral mucosa is moist. NECK: Supple. Nontender with good range of motion. No obvious masses or lymphadenopathy appreciated. CARDIOVASCULAR: Regular rhythm and rate with normal heart sounds 1 and 2. Systolic murmur noted. RESPIRATORY: Fair air entry bilaterally with few bibasilar crackles posteriorly. GI: Obese and nontender. Scars of prior abdominal surgery as well as left lower quadrant colostomy noted. Bowel sound is normoactive. EXTREMITIES: [id number] bilateral leg edema noted. 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 Cranial nerves 2 through 12 are grossly intact. The patient moves all extremities. DIAGNOSTIC DATA: CBC on presentation June 08, 2019, showed WBC count of 11.9, hemoglobin of 7.7, MCV of 84.2, and platelets of 252. BMP today June 09, 2019, showed sodium 144, potassium 3.0, chloride 111, CO2 of 23, BUN 50, creatinine 6.14, glucose 113, and calcium 8.5. Cardiac markers showed elevated troponin, ranging from 0.140 to 0.162. BNP on presentation was 2637. Hemoglobin A1c is 5.2. Urinalysis on June 08 showed clear urine with pH of 7.5, specific gravity of 1.01, urine protein of 300 mg/dL. Negative ketone, nitrite, bilirubin, and leukocyte esterase. Microscopy showed 4 to 6 rbc's and 4 to 6 wbc's. Chest x-ray performed on presentation showed stable cardiomegaly with ectasia of the thoracic aorta. No acute cardiopulmonary process was noted however. Renal ultrasound performed, showed right kidney measuring 11.9 while left was 11.2. Both kidneys are hyperechoic, consistent with medical renal disease with a 2.2 cm cyst in the left kidney. Resistive index on the right is increased, rasing concern for the possibility of right-sided renal artery stenosis. Echocardiogram performed earlier today showed preserved ejection fraction of 55% to 60% with diastolic dysfunction as well as mild LVH. Mild mitral regurgitation is noted as well as mild tricuspid and pulmonic regurgitation. IMPRESSION: 1. Acute respiratory failure: Due to acute cardiac decompensation. 2. Acute on chronic diastolic heart failure. 3. Presumed flash pulmonary edema. 4. Uncontrolled hypertension. Contribution from clonidine due to possible noncompliance is a concern. 5. Chronic kidney disease 4/5 with acute reversible component. The patient is fast approaching end-stage renal disease. She is not yet on dialysis. 6. Fluid overload. 7. Hypokalemia: The association of hypokalemia and flash pulmonary edema with concerning for hyper-aldosterone state, which could be seen in renal artery stenosis and presence of hypertension may also add to this. Renal ultrasound with Doppler showed increased resistive index on the right. PLAN: 1. We will diurese the patient with Lasix 80 mg p.o. b.i.d. 2. We will monitor I's and O's as well as renal function. 3. We will start the patient on nifedipine 60 mg daily and titrate higher and wean off Cardene infusion. 4. Evaluation by Cardiology is needed given this episode of flash pulmonary edema and elevated troponin. 5. The patient had made a remarkable recovery at this time and she is diuresing well with diuretics. There is no immediate indication for dialysis at this time, however, she is fast approaching end-stage renal disease and may not get away from it. If cardiac catheterization is indicated, this should be pursued; however, this might push the patient over to end-stage renal disease and need for dialysis. We will monitor renal function and follow along with you during this hospitalization. Job ID: [id number]
[2019-06-09] MEDS: Atorvastatin Calcium 40 MG TAB PO SCH (21:04)
[2019-06-09] MEDS: Isosorbide Dinitrate 5 MG TAB PO SCH (21:04)
[2019-06-09] MEDS: Potassium Chloride 20 MEQ TAB PO SCH (21:04)
--- NOTE | 2019-06-09 22:07 | CON ---
DATE OF CONSULTATION: PRIMARY CARE PHYSICIAN: Sabas Calhoun MD PRIMARY REGISTERED NURSES: Sharron Camargo MD CAMPUS DIRECTOR: Dr. Loco. GI DOCTOR: Barry Rojas MD REASON FOR CARDIOLOGY CONSULT: History of SVT. HISTORY OF PRESENT ILLNESS: Ms. Watters is a 64-year-old female with a significant history of borderline diabetes, hypertension, hyperlipidemia, chronic kidney disease, obstructive sleep apnea, and history of CVA. The patient was noted to be doing well until 1 month ago, she started having shortness of breath; however, she has not seen her primary care doctor for the symptom, and she started having worsening of fatigue for 1 week. Yesterday at the hinduism, she was feeling very weak and worsening of shortness of breath. She decided to present to the emergency department for further evaluation and treatment. Her BNP was found to be more than 2600 and her blood pressure was in hypertensive urgency and also the patient's EKG shows SVT. She was converted back to the sinus rhythm with occasional PAC now. Her blood pressure is stable at this moment with Cardene drip. At home, she could not lie in the supine position due to worsening of shortness of breath, but she denied chest pain, heaviness, tightness in her chest, palpitation, fluttering, dizziness, lightheadedness or any other cardiac complaints. She had a stress test done in February 2019, which showed no reversible ischemia with EF of 57%. She had echocardiogram, which was done today, with EF of 55% to 60%, grade 1 diastolic dysfunction, mild LVH, mild mitral valve regurgitation, mildly dilated left atrium, mild aortic regurgitation, mild tricuspid regurgitation, and mild pulmonary regurgitation. Her renal ultrasound showed elevated resistive index on the right, possible right-sided renal artery stenosis cannot be excluded. PAST MEDICAL HISTORY: 1. Borderline diabetes. 2. Hypertension. 3. Hyperlipidemia. 4. Diverticulitis. 5. Chronic kidney disease. 6. Obstructive sleep apnea. She uses CPAP at night. 7. Anemia. 8. She has a history of CVA. PAST SURGICAL HISTORY: She had colostomy placement in 2017 due to worsening of diverticulitis and tubal ligation. FAMILY HISTORY: There is no significant cardiovascular disease in her family. Her sister has a history of diabetes. SOCIAL HISTORY: She is . She is living with her and her son. The patient denies ETOH, tobacco or illicit drug abuse. She drinks 2 cups of coffee a day. She does not exercise. HOME MEDICATIONS: 1. Aspirin 81 mg once a day. 2. Hydralazine 100 mg 3 times a day. 3. Uloric 40 mg once a day. 4. Carvedilol 25 mg twice a day. 5. Iron supplement 325 mg twice a day. 6. Atorvastatin 5 mg once a day. 7. Clonidine 0.3 mg twice a day. 8. Amlodipine 7.5 mg once a day. 9. Calcitriol 0.25 mcg once a day. ALLERGIES: SHE HAS NO KNOWN DRUG ALLERGIES. REVIEW OF SYSTEMS: 12-point review of systems is negative unless otherwise mentioned in the HPI. Prior to she started having shortness of breath, she was doing well. PHYSICAL EXAMINATION: VITAL SIGNS: Blood pressure is 146/81, pulse is in 70s with sinus rhythm with occasional PAC, O2 sat is 95%, and temperature is 97.6. GENERAL: The patient is alert and oriented x4, not in acute distress. HEENT: Head, normocephalic and atraumatic. Eyes, extraocular muscle movement intact. ENT and mouth, oral and nasal mucosa moist without lesion. NECK: Supple. Normal range of motion. Mild JVD is noted. RESPIRATORY: Clear to auscultate bilaterally, but diminished at the bases. No wheezing, rales or rhonchi noted. CARDIOVASCULAR: Regular rate and rhythm. Normal S1 and S2. No significant murmur, hives or thrill noted. 2+ pulses in the bilateral upper and lower extremities. No edema in the lower extremities. ABDOMEN: Soft and nontender. No mass to palpitate. Bowel sounds are present. SKIN: Warm and dry. No lesion, rash or erythema noticed. MUSCULOSKELETAL: The patient is able to move all extremities by herself. The patient denied claudication. PSYCHIATRIC: The patient's mood is appropriate. NEUROLOGIC: The patient is alert and oriented x4. Nonfocal. DIAGNOSTIC DATA: 12-lead EKG at the ER showed SVT, but at this moment on the telemetry, record at CCU, is showing a sinus rhythm with PAC. LABORATORY DATA: WBC 11.9, hemoglobin 7.7, hematocrit 23.6, and platelet 252. Sodium 144, potassium 3.0, BUN 50, and creatinine 6.14. Troponin is 0.151, 0.162, and 0.14. BNP 2637.9. Lactic acid 1.1 and calcium 8.5. Hemoglobin A1c is 5.2. Magnesium 1.8. ASSESSMENT/PLAN: 1. Acute on chronic diastolic heart failure. The patient's condition is stable at this moment with Lasix of 60 mg IV push at the ER. She is not on diuretic at this moment due to worsening history of chronic kidney disease. She had a Nephrology consult order. 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 She is on carvedilol 25 mg twice a day at this moment. She is not on CASE inhibitor or ARB due to worsening of the chronic kidney disease. 2. Hypertension urgency. The patient is still on the Cardene drip IV at this moment. She has been on carvedilol 25 mg twice a day, hydralazine 100 mg 3 times a day, and clonidine 0.3 mg twice a day. Isosorbide dinitrate 10 mg twice a day was going to be started from today. Hopefully, we can wean off the Cardene drip today. 3. Diabetes. The patient's hemoglobin A1c is 5.2, which is stable. 4. Hyperlipidemia. She is on atorvastatin 40 mg once a day at night. 5. Anemia. Her hemoglobin is 7.7, which is managed by primary care doctor. 6. Status post colostomy placement in 2017 due to worsening diverticulitis, which is managed by primary care doctor. Thank you very much for Cardiology Service to participate in the care of this patient. We will follow along the patient's care team and make further recommendations as appropriate. Job ID: [id number]
--- NOTE | 2019-06-09 23:47 | CON ---
DATE OF CONSULTATION: 06/09/2019 INDICATION FOR CONSULTATION: A 64-year-old female, who presented with a new onset supraventricular tachycardia, has a history of hypertension. We were asked to see her for her new onset arrhythmias. HISTORY OF PRESENT ILLNESS: This is a very pleasant 64-year-old female, who has been somewhat noncompliant with medical management, who for the last several days has been complaining of increasing shortness of breath and dyspnea. She presented to the emergency room where she said she could not breathe and was found to have a new onset supraventricular tachycardia and also had significant elevation of blood pressure. She continues to have blood pressures in the 140 to 170 range with diastolics over 100. She was placed on Cardene, the blood pressure improved, but now off that medication, she has increased again. She has also been placed on various other medications to try to control the blood pressure, including nitrates and clonidine and also hydralazine. At this time, she is comfortable. She has had some diuresis and is feeling better. Her Is and Os shows that still she is positive, but she says she has put out quite a bit of urine. Apparently, she has been going out in a diaper also as well as using the banana suction device for the urine output. Her other problems include hypertension, anemia, chronic kidney disease, borderline diabetes. She has dyslipidemia, also was noted she had elevation of the cardiac enzymes, which may be due to the tachycardia as well as high blood pressure and chronic kidney disease. It appears that her renal function has deteriorated since she was here back in February about 3 months ago, at which time, the creatinine was not elevated. Now, the creatinine has worsened and creatinine is now 6.14. She has been followed by Nephrology Service in the past, Dr. Loco and then Nephrology has been consulted to see her again, but they have not yet seen this patient, but will be most likely later today when they see her. At this time, she is more comfortable. She had an echocardiogram performed, which showed ejection fraction of 55% to 60% with diastolic dysfunction, mild left ventricular hypertrophy as well as mild aortic mitral tricuspid and pulmonary valve regurgitation, mild left atrial dilatation. This was an echocardiogram performed today. She also had a renal ultrasound, which showed a questionable of some right renal artery stenosis. This is unclear and further evaluation was suggested. Chest x-ray shows no acute pulmonary findings. She had a recent stress test back in February of this year, which showed no evidence of underlying ischemia. PAST MEDICAL HISTORY: Please refer the notes dictated by my nurse practitioner, Mick Vaughn. SOCIAL HISTORY: Please refer the notes dictated by my nurse practitioner, Mick Vaughn. FAMILY HISTORY: Please refer the notes dictated by my nurse practitioner, Mick Vaughn. REVIEW OF SYSTEMS: Please refer the notes dictated by my nurse practitioner, Mick Vaughn. MEDICATIONS: Please refer the notes dictated by my nurse practitioner, Mick Vaughn. ALLERGIES: PLEASE REFER THE NOTES DICTATED BY MY NURSE PRACTITIONER, MICK VAUGHN. PHYSICAL EXAMINATION: GENERAL: Reveals a middle-aged female, who is in no acute distress at this time. VITAL SIGNS: Blood pressure is at this time 171/107, heart rate is 56 and regular, O2 saturations are 98%, respiratory rate is 13. HEENT: Shows head to be normocephalic and atraumatic. Carotid pulses are present without any bruits at this time. CHEST: Clear to auscultation. CARDIOVASCULAR: Reveals a regular rate and rhythm. She has an S1 and S2. I cannot hear an S3 nor an S4. There were no gross murmurs noted. ABDOMEN: Shows obesity. I cannot palpate any masses. I could also not hear any bruits. Femoral pulses are present. EXTREMITIES: Show no clubbing or cyanosis. She has minimal ankle edema. Pedal pulses are present. NEUROLOGIC: She appears to be intact. LABORATORY DATA: BNP was 2636. Troponin I was 0.15, increased up to 0.16, has now decreased back down to 0.14, creatinine is 6.14. BUN of 50, potassium of 3.0, WBC of 11.9 with a hemoglobin of 7.7, hematocrit 23.6. IMPRESSION: 1. Middle-aged female with significant poorly-controlled hypertension. We will need input from a Zipper Machine Operator since she has chronic kidney disease. At this time, the goal will be to control the blood pressure with nitrate, clonidine, hydralazine as well as Cardene as needed. This seemed to control the blood pressure very well earlier. 2. History of chronic kidney disease. Again, this will be dealt with by the primary care service, it appears to have worsened since her last hospital admission, at which time, her creatinine back in February was 3.7 to 3.8. In March, it was 4.4, it is now up to 6.14. If the patient not able to control the blood pressure and the renal function does not improve, then most likely she will be headed toward dialysis sooner than later. 3. Supraventricular tachycardia. This is a short-lived supraventricular tachycardia, which is converted back to sinus rhythm after being placed on I believe some Cardizem. This medicine has since been discontinued and she is on Coreg, for which she is tolerating quite well. She will continue on this medication. Should she have any further episodes of supraventricular tachycardia when she is stable, she may need to undergo electrophysiological evaluation for probably ablation of the supraventricular tachycardia. It is unclear whether or not she has been taking her medications at home as directed, hopefully she will take her beta blockers at home and the supraventricular tachycardia may not be an ongoing process. We will continue to watch her in the hospital. She may need to monitor when she leaves the hospital to determine whether or not she is having further episodes of the supraventricular tachycardia, and if so, I would advise her to have an ablation of the supraventricular tachycardia by the lean manufacturing leader. 4. Borderline diabetes. Her blood sugar is 113 and does not appear to be a significant problem at this time. She is not on any specific medications for diabetes and suggest that she will continue as she is. 5. Obstructive sleep apnea. She may need to have a CPAP mask at night. This will also maybe decrease some of her cardiac problems. 6. Dyslipidemia. She was taking atorvastatin at home, Lipitor. If she was still taking this medication, we would resume this medication in the next couple of days when she becomes more stable. It is not imperative that she has this medication at this time. 7. Elevated cardiac enzymes. Again, this most likely is due to her tachycardia as well as end-stage renal disease and hypertension. We will continue to monitor this, but does not appear to be myocardial infarction. It is just elevation of the cardiac enzymes due to the stress involved with the heart. 8. Elevated BNP of over 2000 with acute congestive heart failure symptoms associated with her poorly controlled hypertension and acute exacerbation. We would be more than happy to continue to follow the patient with you. At this time, the overall cardiac status shows ejection fraction to be normal with some diastolic dysfunction most likely due to her longstanding hypertension and further care will need to be directed mainly by the Zipper Machine Operator when they review the patient at this time. Job ID: [id number]
--- NOTE | 2019-06-10 00:09 | CON ---
DATE OF CONSULTATION: HISTORY OF PRESENT ILLNESS: Ms. Watters is a pleasant 64-year-old female. She was admitted last night with complaints of shortness of breath. She says she feels 100% better today. She was on a Cardene drip, but this was weaned off this morning. PAST MEDICAL HISTORY: Remarkable for; 1. Hypertension. 2. Diabetes. 3. Diverticulitis. 4. History of cardiomyopathy. 5. History of lipid disorder. 6. History of sleep apnea, apparently not wearing CPAP. 7. History of chronic anemia. 8. History of C. diff colitis. 9. History of DVT involving upper extremities. 10. History of hypertension with nephropathy leading to end-stage renal disease. 11. History of colon cancer with a left colectomy and colostomy. 12. History of PICC line placement in the past. 13. History of tubal ligation. SOCIAL HISTORY: Nonsmoker, nondrinker, nondrug user. ALLERGIES: SHE REPORTS NO DRUG ALLERGIES. MEDICATIONS: Prior to admission, she was on; 1. Amlodipine. 2. Coreg. 3. Hydralazine. 4. Iron. 5. Aspirin. 6. Atorvastatin. 7. Catapres. 8. Uloric. 9. She says she takes a diuretic, which she held before going to [place] on Sunday. REVIEW OF SYSTEMS: 10-point review of systems otherwise negative. PHYSICAL EXAMINATION: GENERAL: She is in no distress. VITAL SIGNS: Blood pressure 171/107, heart rate is 55, respiratory rate is 14, oximetry is 97%. HEENT: Pupils are equal. Sclerae are anicteric. LUNGS: Clear. HEART: Regular rhythm. S1 and S2 are normal. There is grade 2/6 systolic murmur. ABDOMEN: Soft and nontender. EXTREMITIES: Without clubbing, cyanosis, or edema. NEUROLOGIC: Grossly nonfocal. IMPRESSION: 1. Poorly controlled hypertension. 2. History of medical noncompliance according to records. 3. Dyspnea, likely related to her hypertension and diastolic dysfunction. I will be happy to follow with the other physicians caring for. This is a 70-minute consult, 50% of the time was spent on the unit coordinating care. Job ID: [id number]
[2019-06-10 04:50] LABS: Anion Gap 13 mmol/L (10-20); BUN (Urea Nitrogen) 56 mg/dL (9.8-20.1); Calc. Creatinine Clearance 16 mL/min (70-130); Calcium 8.3 mg/dL (7.8-10.44); Carbon Dioxide 23 mmol/L (23-31); Chloride 111 mmol/L (98-107); Estimated GFR-MDRD 8; Glucose 116 mg/dL (80-115); Potassium 4.1 mmol/L (3.5-5.1); Sodium 143 mmol/L (136-145)
[2019-06-10] MEDS: Isosorbide Dinitrate 5 MG TAB PO SCH ×3 (08:03→20:34)
[2019-06-10] MEDS: Aspirin 81 mg Enteric Coated Tablet PO SCH (08:04)
[2019-06-10] MEDS: cloNIDine 0.3 MG TAB PO SCH ×2 (08:04→20:33)
[2019-06-10] MEDS: hydrALAZINE 25 MG TAB PO SCH ×3 (08:04→20:33)
[2019-06-10] MEDS: NIFEdipine XL 60 MG TAB PO SCH (08:05)
[2019-06-10] MEDS: Potassium Chloride 20 MEQ TAB PO SCH ×2 (08:05→20:31)
--- NOTE | 2019-06-10 09:00 | PDOC.CTH ---
Cardiology Progress Note - Subjective The pt seen and examined. No overnight events. No cardiac complaints. - Objective Vital Signs Temp 06/10/19 07:00 97.6 F 06/10/19 04:00 98.1 F 06/10/19 00:00 97.7 F Weight 257 lb 11.526 oz 06/09/19 06/10/19 06/11/19 06:59 06:59 06:59 Intake Total 450 1382 Output Total 50 650 Balance 400 732 - Physical Examination General/Neuro: alert & oriented x3 Neck: no JVD present Lungs: other: (diminished at bases) Heart: RRR Abdomen: soft Extremities: other: (No edema) - Telemetry Telemetry Rhythm: SR - Labs Result Diagrams: 06/08/19 19:40 06/10/19 04:20 Troponin/CKMB CK-MB (CK-2) 1.8 ng/mL (0-6.6) 06/08/19 19:40 Troponin I 0.140 ng/mL (< 0.028) H 06/09/19 01:29 - Assessment/Plan 1. Acute on Chronic Diastolic HF - stable with Lasix IV (which managed by Field Artillery Targeting Technician), Coreg 25mg BID; not on CASE/ARB due to hx of CKD 2. HTN urgency - well controlled with Coreg 25mg BID, Nifidipine 60mg qd, Isosobide dinitrate 10mg TID, Hydralazine 100mg TID, and Clonidine 0.3mg BID; 3. CKD stage 4/5 - managed by polysomnograph tech 4. DM type 2 - managed by PCP 5. HLD - on Lipitor 6. Chronic Anemia - unchanged 7. Diverticulitis/Ulcerative colitis with colostmy - 8. BEBA with Cpap at HS - 9. Hx of CVA - CVA prevention education (ex. HTN management, medication adherence, regualr exercise and weight management) given to the pt. 10. Obese - weight management education with diet and regular exercise given to the pt. MAR reviewed * Echo on 06/09/2019 with EF 55-60%, mild LVH, grade I dd, mild MR, AR, TR, and UT Pt. seen and eval. by me. I agree with the A/P by the CERTIFIED NEURODIAGNOSTIC TECHNOLOGIST. No further SVT noted. Continue Coreg. If the HR < 50 the decrease to 12.5 mg bid. The BP is much better. Nephrology has discussed peritoneal dialysis. She is stable to transfer to [facility]. Chest clear. RRR. No edema. [email or web address] Review of Systems - Review of Systems Constitutional: reports: no symptoms reported EENTM: reports: no symptoms reported Respiratory: reports: no symptoms reported Cardiac (ROS): reports: no symptoms reported ABD/GI: reports: no symptoms reported : reports: no symptoms reported Musculoskeletal: reports: no symptoms reported
--- NOTE | 2019-06-10 09:39 | PRG ---
DATE OF SERVICE: 06/10/2019 SUBJECTIVE: Ms. Watters is a 64-year-old black female with known history of chronic renal failure from a presumed hypertensive nephropathy and was admitted due to shortness of breath and new onset arrhythmia. I have been following her up closely [facility]. I have adjusted her diuretics downwards. However, her renal function in the last several minutes has been progressively worsening. The patient feels comfortable today. We are following her up for her worsening renal dysfunction. I had long discussion with the patient about initiating dialysis and she is amenable to start dialysis. I will do an options visit to decide whether she wants to do hemo or peritoneal dialysis. The patient voices no new complaints today. OBJECTIVE: VITAL SIGNS: Blood pressure is 144/86, heart rate 50, respiratory rate 12, and pulse ox 99%. GENERAL: Noted to be awake, alert, comfortable, not in overt distress. SKIN: Adequate turgor. HEENT: Slightly pale conjunctivae. Anicteric sclerae. NECK: No neck mass. No carotid bruits. No JVD. CHEST: No deformities. LUNGS: Clear breath sounds. HEART: Normal sinus rhythm. No murmur. No gallops. No rubs. ABDOMEN: Globular, soft, and nontender. No masses. EXTREMITIES: She had trace edema. MEDICATIONS: Medications of June 10, 2019, was reviewed. LABORATORY DATA: Laboratories of June 10, 2019; sodium 143, potassium 4.1, chloride 111, carbon dioxide 23, BUN 56, creatinine 6.43, glucose 116, and calcium 8.3. Hemoglobin 7.7. ASSESSMENT AND PLAN: 1. Shortness of breath - clinically much improved. Currently, on a diuretic regimen. 2. Chronic renal failure - worsening renal function. I had a long discussion of initiating dialysis. The patient has agreed with it. An options visit will be done, so she decide whether to pursue hemodialysis or peritoneal dialysis. Her sister will be calling me for further discussion. 3. Anemia. Start Epogen and iron supplementation. 4. Cardiac arrhythmia. Cardiology is following - the patient was said to have developed supraventricular tachycardia. Overall agree with current management. Job ID: [id number]
--- NOTE | 2019-06-10 09:59 | PRG ---
DATE OF SERVICE: 06/10/2019 SUBJECTIVE: Ms. Watters has no complaints. She is eating her breakfast. She is afebrile. OBJECTIVE: VITAL SIGNS: Blood pressure 144/86, heart rate 50, respiratory rates in the teens. HEAD AND NECK: Unremarkable. LUNGS: Clear. HEART: Regular rhythm. ABDOMEN: Soft and nontender. EXTREMITIES: Without asymmetry. LABORATORY DATA: Sodium 143, potassium 4.1, chloride 111, bicarb 27, BUN 56, and creatinine 6.43. Hemoglobin was 7.7 yesterday. No CBC was done today, this will be ordered. IMPRESSION: 1. Hypertension, pulmonary edema, clinically stable. She is a candidate to move out of the Critical Care Unit in my opinion. 2. Anemia. Check a CBC today. Job ID: [id number]
[2019-06-10 10:06] LABS: Hemoglobin 6.6 g/dL (12.0-16.0); Mean Corpuscular HGB CONC 31.9 g/dL (32.0-36.0); Mean Corpuscular Hemoglobin 27.4 pg (27.0-31.0); Mean Corpuscular Volume 85.8 fL (78.0-98.0); Mean Platelet Volume 7.8 fL (7.4-10.4); Platelet Count 212 thou/uL (130-400); RBC Distribution Width 14.6 % (11.5-14.5); Red Blood Cell (RBC) Count 2.41 mill/uL (4.20-5.40); White Blood Cell (WBC) Count 8.5 thou/uL (4.8-10.8)
[2019-06-10] MEDS: Carvedilol 25 MG TAB PO SCH ×2 (10:13→20:33)
[2019-06-10 11:44] LABS: Band 14 % (5-11); Eosinophils 2 % (0-10); Hypochromia SLIGHT = 6-15 cells (100X) (0-5/hpf); Lymphocytes 11 % (21-51); MDiff Complete? YES; Monocytes 6 % (0-10); Neutrophil 67 % (42-75); Platelet Morphology Comment Appears Adequate; Polychromasia SLIGHT = 2-3 cells (100X) (0-2/hpf)
[2019-06-10] MEDS ORDERED: Ferrous Sulfate 325 MG TAB PO SCH (11:45)
[2019-06-10] MEDS: EPOETIN ALFA-EPBX (ESRD) 4,000 UNIT/ML VIAL SC SCH (13:32)
--- NOTE | 2019-06-10 15:14 | ULT ---
BILATERAL UPPER EXTREMITY VENOUS DOPPLER ULTRASOUND FOR DIALYSIS ACCESS: 06/10/19 HISTORY: Chronic renal failure. FINDINGS: RIGHT UPPER EXTREMITY BRACHIAL ARTERY: 6.3 mm RADIAL ARTERY: 4.2 mm ULNAR ARTERY: 2.6 mm CEPHALIC VEIN Proximal Arm: 1.5 mm Mid Arm: 1.6 mm Distal Arm: 1.5 mm Antecubital Fossa: 1.6 mm Proximal Forearm: 2.2 mm Mid Forearm: 2.3 mm Distal Forearm: 1.5 mm BASILIC VEIN Proximal Arm: 2.5 mm Mid Arm: 3.1 mm Distal Arm: 2.5 mm Antecubital Fossa: 3.5 mm Proximal Forearm: 1.5 mm Mid Forearm: 1.1 mm Distal Forearm: 1.1 mm LEFT UPPER EXTREMITY BRACHIAL ARTERY: 6.2 mm RADIAL ARTERY: 3.9 mm ULNAR ARTERY: 2.3 mm CEPHALIC VEIN Not evaluated due to presence of partially occlusive thrombus in the antecubital fossa. BASILIC VEIN Proximal Arm: 2.3 mm Mid Arm: 2.2 mm Distal Arm: 2.4 mm Antecubital Fossa: 2.9 mm Proximal Forearm: 1.8 mm Mid Forearm: 2.2 mm Distal Forearm: 1.9 mm POS: OFF
--- NOTE | 2019-06-10 16:32 | CON ---
DATE OF CONSULTATION: HISTORY OF PRESENT ILLNESS: Alissa Watters is a 64-year-old morbidly obese female, 5 feet 2 inches, 257 pounds, 44 BMI, presents to the hospital, admitted by Dr. Sabas Calhoun, seen by Dr. De León and seen by Dr. Diaz, Nephrology. The patient is admitted with end-stage renal disease, dyspnea, congestive heart failure. She is admitted to the ICU. Her blood pressure was out of control, and she is placed on the Cardizem drip. She has a left antecubital IV. I have been asked to see her regarding dialysis access. Dr. Loco has asked me to see her regarding peritoneal dialysis. The patient has left lower quadrant colostomy placed for diverticulitis. She has a large parastomal hernia. Upon communication with the nurse, her left antecubital IV was removed. Her cephalic vein right 1.5, 1.6, 1.5, 1.6 mm antecubital fossa; 2.2, 2.3, 1.5 mm forearm; basilic vein 2.5, 3.1, 2.5, 3.5 mm antecubital fossa; 1.5, 1.1, 1.1 mm forearm. On the left, she had a partially occlusive thrombus in the antecubital fossa. Basilic vein was 2.3, 2.2, 2.4, 2.9 mm. Antecubital fossa 1.8, 2.2, and 1.9 mm distally. She is right-handed. She has palpable radial and ulnar pulses. Renal ultrasound shows medical renal disease. No obstructive uropathy. SOCIAL HISTORY: Tobacco, none. Alcohol, none. MEDICATIONS: At home, 1. Aspirin. 2. Calcitriol. 3. Amlodipine. 4. Clonidine. 5. Ferrous sulfate. 6. Uloric. 7. Atorvastatin. 8. Hydralazine. 9. Carvedilol. In the hospital, she has been started on, 1. Epogen. 2. Isosorbide t.i.d. 3. Nicardipine 25 mg drip. 4. Nifedipine 60 daily. PAST SURGICAL HISTORY: Upper and lower endoscopies, left colectomy, colostomy, tubal ligation, PICC line in the past. PAST MEDICAL HISTORY: Hypertension, borderline diabetes, diverticulitis. Echocardiogram, 02/14/2019. Note, Dr. Ceron performed, November 2017, colostomy, left colectomy, Penny's procedure with repair of bladder from colovesical fistula. Echocardiogram, 06/09/2019, 55% to 60% EF, diastolic dysfunction suggestive of mild aortic, tricuspid, and pulmonic regurgitation. PHYSICAL EXAMINATION: VITAL SIGNS: Heart rate 54, blood pressure 133/77. HEAD, EYES, EARS, NOSE, AND THROAT: Unremarkable. Morbidly obese. LUNGS: Clear to auscultation. CARDIAC: Regular rate and rhythm. No murmur or gallop. ABDOMEN: Soft, obese, but large parastomal hernia, lower midline incisions. Large pannus. EXTREMITIES: Palpable radial and ulnar pulses bilaterally. Antecubital IV removed. Hand IV established. LABORATORY DATA: Hemoglobin 6.6, white count 8. ASSESSMENT/PLAN: 1. End-stage renal disease, in need of dialysis access. We will place a hemodialysis catheter. We will plan placement of the left arm fistula. If possible, if her veins are not suitable, we will not place a graft at this time, but we will stat do that later. 2. Nonocclusive thrombus due to iatrogenic access in a chronic kidney disease patient. 3. Nuclear cardiac stress test, 02/12/2019. Normal wall motion. Normal perfusion scan. No ischemia. 12/05/2017, PICC line placed in a patient with chronic kidney disease. 4. Morbid obesity. 5. Metabolic syndrome. 6. Hypertension. 7. Borderline diabetes. Hemoglobin A1c 5.2. Glucose is 80 to 130. No significant diabetes. Job ID: [id number]
[2019-06-10] MEDS: Atorvastatin Calcium 40 MG TAB PO SCH (20:31)
[2019-06-10] MEDS: Ferrous Sulfate 325 MG TAB PO SCH (20:32)
[2019-06-11 06:02] LABS: #Eosinphils 0.2 thou/uL (0.0-0.7); #Monocytes 0.5 thou/uL (0.11-0.59); #Neutrophils 6.7 thou/uL (1.40-6.50); %Basophils 0.2 % (0.0-1.0); %Eosinophils 2.9 % (0.0-10.0); %Lymphocytes 11.6 % (21.0-51.0); %Monocytes 5.6 % (0.0-10.0); %Neutrophils 79.8 % (42.0-75.0); Hemoglobin 6.8 g/dL (12.0-16.0); Mean Corpuscular HGB CONC 32.2 g/dL (32.0-36.0); Mean Corpuscular Hemoglobin 27.4 pg (27.0-31.0); Mean Corpuscular Volume 85.2 fL (78.0-98.0); Mean Platelet Volume 7.7 fL (7.4-10.4); Platelet Count 229 thou/uL (130-400); RBC Distribution Width 14.9 % (11.5-14.5); Red Blood Cell (RBC) Count 2.48 mill/uL (4.20-5.40); White Blood Cell (WBC) Count 8.4 thou/uL (4.8-10.8)
[2019-06-11 06:22] LABS: Anion Gap 14 mmol/L (10-20); BUN (Urea Nitrogen) 61 mg/dL (9.8-20.1); Calc. Creatinine Clearance 16 mL/min (70-130); Calcium 8.4 mg/dL (7.8-10.44); Carbon Dioxide 21 mmol/L (23-31); Chloride 109 mmol/L (98-107); Estimated GFR-MDRD 8; Glucose 121 mg/dL (80-115); Phosphorus 5.5 mg/dL (2.3-4.7); Potassium 4.1 mmol/L (3.5-5.1); Sodium 140 mmol/L (136-145)
[2019-06-11] MEDS ORDERED: Fentanyl 100 MCG/2 ML VIAL SLOW IVP PRN (07:22)
--- NOTE | 2019-06-11 09:08 | PDOC.CPN ---
- Subjective Date: 06/11/19 Time: 09:09 Interval history: The pt seen and examined. No overnight events. No cardiac complaints. - Review of Systems Musculoskeletal: reports: arthritis/arthralgias - Objective Allergies/Adverse Reactions: Allergies Allergy/AdvReac Type Severity Reaction Status Date / Time No Known Allergies Allergy Verified 12/04/17 11:53 Visit Medications: Current Medications Acetaminophen/Codeine Phosphate (Tylenol #3) 1 tab PO Q4H PRN PRN Reason: Pain Aspirin (Ecotrin) 81 mg PO DAILY [facility] Last Admin: 06/10/19 08:04 Dose: 81 mg Atorvastatin Calcium (Lipitor) 40 mg PO HS [facility] Last Admin: 06/10/19 20:31 Dose: 40 mg Carvedilol (Coreg) 25 mg PO BID [facility] Last Admin: 06/10/19 20:33 Dose: 25 mg Clonidine (Catapres) 0.3 mg PO BID [facility] Last Admin: 06/10/19 20:33 Dose: 0.3 mg Clonidine (Catapres) 0.1 mg PO Q2H PRN PRN Reason: .SBP > 170 Epoetin Joe-epbx (Retacrit) 7,500 unit SC Q7D [facility] Last Admin: 06/10/19 13:32 Dose: 7,500 unit Fentanyl (Sublimaze) 50 mcg SLOW IVP Q4H PRN PRN Reason: PAIN IF NPO Ferrous Sulfate (Feosol) 325 mg PO BID [facility] Last Admin: 06/10/19 20:32 Dose: 325 mg Hydralazine HCl (Apresoline) 100 mg PO TID [facility] Last Admin: 06/10/19 20:33 Dose: 100 mg Nicardipine HCl 25 mg/ Sodium (Chloride) 250 mls @ 0 mls/hr IVPB INF PRN; Protocol PRN Reason: TO KEEP SBP < 180 Last Admin: 06/09/19 01:21 Dose: 250 mls Isosorbide Dinitrate (Isordil) 10 mg PO TID [facility] Last Admin: 06/10/19 20:34 Dose: 10 mg Nifedipine (Procardia Xl) 60 mg PO DAILY [facility] Last Admin: 06/10/19 08:05 Dose: 60 mg Potassium Chloride (K-Dur) 20 meq PO BID [facility] Last Admin: 06/10/19 20:31 Dose: 20 meq Sodium Chloride (Flush - Normal Saline) 10 ml IVF PRN PRN PRN Reason: Saline Flush Vital Signs & Weight: Vital Signs Temp Pulse Ox 06/11/19 08:00 97.7 F 06/11/19 04:00 97.8 F 06/11/19 00:00 97.7 F 06/10/19 23:54 100 Weight 252 lb 10.396 oz - Physical Exam General: alert & oriented x3 Cardiac: regular rate and rhythm, S1/S2 Lungs: clear to auscultation (diminished at bases) Musculoskeletal: pain in joint - Labs Result Diagrams: 06/11/19 05:41 06/11/19 05:41 Troponin/CKMB CK-MB (CK-2) 1.8 ng/mL (0-6.6) 06/08/19 19:40 Troponin I 0.140 ng/mL (< 0.028) H 06/09/19 01:29 - EKG Interpretation EKG Method: Telemetry EKG: sinus rhythm - Assessment/Plan Assessment/Plan: 1. Acute on Chronic Diastolic HF - stable without any diuretic; On Coreg 25mg BID; not on CASE/ARB due to hx of CKD 2. HTN urgency - well controlled with Coreg 25mg BID, Nifidipine 60mg qd, Isosobide dinitrate 10mg TID, Hydralazine 100mg TID, and Clonidine 0.3mg BID; 3. CKD stage 4/5 - Plan for HD access today; managed by cloth measurer 4. DM type 2 - managed by PCP 5. HLD - on Lipitor 6. Chronic Anemia - unchanged 7. Diverticulitis/Ulcerative colitis with colostmy - 8. BEBA with Cpap at HS - 9. Hx of CVA - CVA prevention education (ex. HTN management, medication adherence, regualr exercise and weight management) given to the pt. 10. Obese - weight management education with diet and regular exercise given to the pt. LUIS reviewed * Echo on 06/09/2019 with EF 55-60%, mild LVH, grade I dd, mild MR, AR, TR, and TN
[2019-06-11] MEDS: hydrALAZINE 25 MG TAB PO SCH ×3 (09:25→22:09)
[2019-06-11] MEDS: cloNIDine 0.3 MG TAB PO SCH ×2 (09:25→22:08)
[2019-06-11] MEDS: Ferrous Sulfate 325 MG TAB PO SCH ×2 (09:26→22:09)
[2019-06-11] MEDS: NIFEdipine XL 60 MG TAB PO SCH (09:26)
[2019-06-11] MEDS: Carvedilol 25 MG TAB PO SCH ×2 (09:26→22:09)
[2019-06-11] MEDS: Isosorbide Dinitrate 5 MG TAB PO SCH ×3 (09:33→22:08)
--- NOTE | 2019-06-11 09:51 | PRG ---
DATE OF SERVICE: 06/11/2019 SERVICE: Renal Service. SUBJECTIVE: Ms. Watters is a 64-year-old white black female with known history of chronic renal failure, which was progressive in nature. She was admitted for shortness of breath and has been diuresed. Due to the unimproved renal function and progressive azotemia, the patient will be initiated on dialysis. A long discussion was made with the patient. She is willing to consider peritoneal dialysis. We have consulted Dr. Benavides for placement of a cuffed hemodialysis catheter as well as left peritoneal dialysis. Dr. Benavides has evaluated the patient. The concern was that the patient has a left lower quadrant colostomy, which was placed for diverticulitis and has a large parastomal area. She probably will end up having hemodialysis. The patient voices no new complaints. No chest pain or shortness of breath. OBJECTIVE: VITAL SIGNS: Blood pressure is 132/78, heart rate 65, respiratory rate 21, and pulse ox 96%. GENERAL: The patient is awake, alert, supine, comfortable, not in distress. SKIN: Adequate turgor. HEENT: She has slightly pale conjunctivae. Anicteric sclerae. NECK: No neck mass. No carotid bruits. No JVD. CHEST: No deformities. LUNGS: Clear breath sounds. HEART: Normal sinus rhythm. No murmurs. No gallops. No rubs. ABDOMEN: Globular, soft, and nontender. No masses. EXTREMITIES: No edema. No deformities. MEDICATIONS: Medications of June 11, 2019, reviewed. LABORATORY DATA: Laboratories of June 11, 2019; white count 8.4, hemoglobin 6.8, and hematocrit is 21.1. Sodium 140, potassium 4.1, chloride 109, carbon dioxide 21, BUN 61, creatinine 6.47, glucose 121, and phosphorus 5.5. PTH is 490. ASSESSMENT AND PLAN: 1. Chronic renal failure - we will initiate hemodialysis. Surgical consult has been done. A cuffed hemodialysis catheter will be placed as well as plans for an arteriovenous fistula placement. We will initiate hemodialysis once the dialysis access is placed. 2. Anemia - continue Epogen. P.r.n. blood transfusion. We will transfuse 1 unit of packed RBC today with this patient. 3. Congestive heart failure, clinically improved. The patient has been placed previously on a diuretic regimen. Overall, agree with current management. Recheck basic metabolic panel and CBC in a.m. Job ID: [id number]
[2019-06-11 10:19] LABS: HBSAg Index 0.19 S/CO (0-0.99); Hep B Surf Ag Non-Reactive S/CO (NonReactive); Hep C IgG Ab Non-Reactive (NonReactive)
[2019-06-11 11:11] LABS: Hep B Core Total Ab Reactive (NonReactive); Hep B Surf AB Reactive (NonReactive)
[2019-06-11 11:12] LABS: HBSAB Concentration 705.66 mIU/mL
[2019-06-11] MEDS: Aspirin 81 mg Enteric Coated Tablet PO SCH (11:46)
[2019-06-11] MEDS: Potassium Chloride 20 MEQ TAB PO SCH ×2 (11:46→22:09)
[2019-06-11] MEDS ORDERED: Heparin 10,000 UNITS/1 ML VIAL ONE ×2 (15:00→15:19)
[2019-06-11] MEDS ORDERED: Heparin 5,000 UNITS/ML VIAL ONE (15:19)
[2019-06-11] MEDS ORDERED: Ioversol 68 % 50 ML VIAL ONE (15:19)
[2019-06-11] MEDS ORDERED: Lidocaine 2% PF 5 ML VIAL ONE (15:19)
[2019-06-11] MEDS ORDERED: Bupivacaine HCl 0.5%/Epinephrine 1:200,000/PF 30 ml Vial ONE (15:19)
[2019-06-11] MEDS ORDERED: Protamine Sulfate 50 MG/5 ML VIAL ONE (15:19)
[2019-06-11] MEDS ORDERED: Sodium Chloride 0.9% 0 ML ONE (15:19)
[2019-06-11] MEDS ORDERED: Ketamine 50 MG/ML (10ML VIAL) ONE (15:27)
[2019-06-11] MEDS ORDERED: Fentanyl 100 MCG/2 ML VIAL ONE (15:27)
[2019-06-11] MEDS ORDERED: Midazolam HCl 2 mg/2 ml Vial ONE (15:27)
[2019-06-11] MEDS ORDERED: Propofol 500 MG/50 ML VIAL ONE (15:27)
[2019-06-11] MEDS ORDERED: Rocuronium Bromide 10 MG/ML (10ML VIAL) ONE (16:13)
[2019-06-11] MEDS ORDERED: PROPOFOL 200 MG/20 ML VIAL ONE (16:13)
[2019-06-11] MEDS ORDERED: Glycopyrrolate 0.2 MG/ML 5 ML SYRINGE ONE (16:13)
[2019-06-11] MEDS ORDERED: Ondansetron PF 4 MG/2 ML Vial ONE (16:13)
[2019-06-11] MEDS ORDERED: PHENYLEPHRINE-NS 100 MCG/ML 10 ML SYRINGE ONE (16:13)
[2019-06-11] MEDS ORDERED: Heparin 10,000 UNITS/ 10 ML VIAL ONE (16:13)
[2019-06-11] MEDS ORDERED: ePHEDrine 50 MG/ML VIAL ONE (16:13)
[2019-06-11] MEDS ORDERED: Lidocaine 1% PF 5 ML VIAL ONE (16:13)
[2019-06-11] MEDS ORDERED: Acetaminophen 500 MG TAB PO PRN (16:48)
[2019-06-11] MEDS ORDERED: HYDROmorphone 2 MG/ML VIAL SLOW IVP PRN (17:51)
[2019-06-11] MEDS ORDERED: Promethazine HCl 25 MG/ML VIAL SLOW IVP PRN (17:51)
[2019-06-11] MEDS ORDERED: Promethazine HCl 25 MG/ML VIAL IM PRN (17:51)
[2019-06-11] MEDS ORDERED: Ondansetron HCl/PF 4 MG/2 ML Vial IVP PRN (17:51)
[2019-06-11] MEDS ORDERED: PACU-Morphine 4MG/ML VIAL SLOW IVP PRN (17:51)
--- NOTE | 2019-06-11 18:04 | RAD ---
RADIOGRAPH CHEST 1 VIEW: DATE: 06/11/2019 Time: 5:40 PM HISTORY: 64-year-old female status post central line placement. COMPARISON: 06/08/2019 FINDINGS: There is cardiomegaly. The thoracic aorta is tortuous and ectatic. There is no evidence of airspace d ensity, pulmonary edema, or pneumothorax. The lateral costophrenic angles are not effaced. Mild pulmonary venous prominence. There has been interval placement of a double-lumen dialysis catheter de scending from the right medial neck, presumably in the internal jugular vein, with distal tip overlying the vicinity of the right brachiocephalic vein. There is also a new contralateral left-side d small caliber catheter descending from the medial neck with distal tip also overlying the region of the right brachiocephalic vein. IMPRESSION: 1) No acute pulmonary findings. 2) cardiomegaly. 3) ectasia of thoracic aorta. 4) double central lines placed, including dialysis catheter, without evidence of pneumothorax.
[2019-06-11] MEDS: Atorvastatin Calcium 40 MG TAB PO SCH (22:09)
--- NOTE | 2019-06-11 22:21 | PRG ---
DATE OF SERVICE: 06/11/2019 Alissa Watters remains stable. She has been seen by General Surgery for access evaluation. She is not complaining of shortness of breath. Vital signs remained stable. There has been no change overall in her clinical condition. Her sats are 99% on room air. She is stable to move out of the Critical Care Unit. We will follow from a distance most likely in the near future. At some point in time, she probably would benefit from a sleep study given significant obesity, but no obstructive sleep apnea. has been noticed while she has been in the Critical Care Unit. Job ID: [id number] MTDD
[2019-06-11] MEDS: traMADol HCl 50 MG TAB PO PRN (23:07)
--- NOTE | 2019-06-11 23:54 | OP ---
DATE OF PROCEDURE: 06/11/2019 PREOPERATIVE DIAGNOSES: Morbid obesity, end-stage renal disease, colostomy status. PROCEDURES PERFORMED: Right IJ cuffed tunneled hemodialysis catheter, left IJ central line, ultrasound and fluoroscopy used, left arm primary fistula, perforating branch antecubital vein to the proximal radial artery, outflow, basilic and cephalic veins. Uncertain outflow status. We will have to see how this mature. She may need a transposition fistula. She may need a fistulogram. ANESTHESIA: General, local 0.5% Marcaine with epinephrine 30 mL. DESCRIPTION OF PROCEDURE: The patient was taken to the operating room where under general anesthesia, neck and chest were prepared with ChloraPrep and draped in routine fashion. Local anesthetic was infiltrated into the skin and subcutaneous tissue about the operative site. Ultrasound guidance was used to cannulate the right and left internal jugular veins. J-wire threaded, trocar catheter removed. Skin site was enlarged sharply. Stab incision was made over the right chest. Seldinger technique was used to place a left internal jugular vein triple-lumen catheter, securing it with 3-0 nylon suture and sterile dressing and Biopatch applied. Each port was aspirated blood and flushed with saline solution. On the right side, tunneling device was used to tunnel the pre-curved [employer] cuffed-tunneled hemodialysis catheter between 2 incisions, placed the fabric cuff beneath the skin exit site and catheter was secured with 2 interrupted sutures of 3-0 nylon and sterile dressings were applied. The small and medium sized dilators were placed over the J-wire into the internal jugular vein and removed and dilator and Peel-Away sheath were placed over the J-wire into the internal jugular vein. J-wire and dilator were removed. Catheter was placed with Peel-Away sheath. Peel-Away sheath was removed. Platysma was approximated with 4-0 Monocryl, skin with subdermal 4-0 Monocryl. Fluoroscopic images revealed good central line and hemodialysis catheter placement. Sterile dressings were applied. The left arm was prepared with ChloraPrep and draped in routine fashion. Proximal volar forearm incision was made below the antecubital fossa longitudinally, carried down to the skin and subcutaneous tissue. The patient is morbidly obese. Her vein, however, was close to the surface. It was dissected free and adequate size. It was dissected free down the proximal radial artery which was clamped proximally and distally and a longitudinal arteriotomy was made sharply, elongated with Rios scissors for 2 cm anastomosis between the spatulated perforating branch, which had been dissected free and divided between clips and interrogated with coronary dilators, which was difficult due to anatomic configuration. End perforating branch to side proximal artery anastomosis was completed with continuous suture of 6-0 Prolene. There was a good Doppler signal in the cephalic vein, upper arm. There was good Doppler signal in basilic vein outflow. She may need a fistulogram or transposition, or even a graft in the future depending on outcome of this. Good hemostasis was noted. The patient was given 25 mg of protamine intravenously as she had been given 6000 units of heparin prior to the anastomosis. Subcutaneous tissue was approximated with 3-0 Monocryl, skin with subdermal 4-0 Monocryl and Mallory glue applied. Job ID: [id number]
[2019-06-12] MEDS: Acetaminophen/Codeine 30-300mg Tablet PO PRN (03:02)
[2019-06-12 05:24] LABS: #Eosinphils 0.1 thou/uL (0.0-0.7); #Lymphocytes 0.8 thou/uL (1.20-3.40); #Monocytes 0.4 thou/uL (0.11-0.59); #Neutrophils 6.3 thou/uL (1.40-6.50); %Eosinophils 0.7 % (0.0-10.0); %Lymphocytes 10.3 % (21.0-51.0); %Monocytes 5.5 % (0.0-10.0); %Neutrophils 83.4 % (42.0-75.0); Hemoglobin 6.1 g/dL (12.0-16.0); Mean Corpuscular HGB CONC 31.3 g/dL (32.0-36.0); Mean Corpuscular Volume 86.4 fL (78.0-98.0); Mean Platelet Volume 7.4 fL (7.4-10.4); Platelet Count 216 thou/uL (130-400); RBC Distribution Width 14.7 % (11.5-14.5); Red Blood Cell (RBC) Count 2.27 mill/uL (4.20-5.40); White Blood Cell (WBC) Count 7.6 thou/uL (4.8-10.8)
[2019-06-12 05:35] LABS: Anion Gap 16 mmol/L (10-20); BUN (Urea Nitrogen) 55 mg/dL (9.8-20.1); Calc. Creatinine Clearance 17 mL/min (70-130); Calcium 8.1 mg/dL (7.8-10.44); Carbon Dioxide 21 mmol/L (23-31); Chloride 109 mmol/L (98-107); Estimated GFR-MDRD 8; Glucose 122 mg/dL (80-115); Potassium 4.8 mmol/L (3.5-5.1); Sodium 141 mmol/L (136-145)
[2019-06-12] MEDS: traMADol HCl 50 MG TAB PO PRN ×3 (05:59→19:48)
[2019-06-12] MEDS ORDERED: Colchicine 0.6 MG TAB PO SCH (08:30)
[2019-06-12] MEDS ORDERED: Tuberculin PPD 0.1 ML VIAL I-DERMAL SCH (09:15)
[2019-06-12] MEDS: cloNIDine 0.3 MG TAB PO SCH ×2 (09:17→19:48)
[2019-06-12] MEDS: Carvedilol 25 MG TAB PO SCH ×2 (09:17→19:48)
[2019-06-12] MEDS: Aspirin 81 mg Enteric Coated Tablet PO SCH (09:17)
[2019-06-12] MEDS: hydrALAZINE 25 MG TAB PO SCH ×3 (09:18→19:47)
[2019-06-12] MEDS: Isosorbide Dinitrate 5 MG TAB PO SCH ×3 (09:18→19:48)
[2019-06-12] MEDS: Potassium Chloride 20 MEQ TAB PO SCH (09:18)
[2019-06-12] MEDS: NIFEdipine XL 60 MG TAB PO SCH (09:18)
[2019-06-12] MEDS: Ferrous Sulfate 325 MG TAB PO SCH ×2 (09:18→19:47)
--- NOTE | 2019-06-12 10:20 | PRG ---
DATE OF SERVICE: 06/12/2019 SUBJECTIVE: Ms. Watters is a 64-year-old black female, who was admitted for progressive azotemia and shortness of breath. She has been initiated on hemodialysis due to the worsening renal dysfunction. A cuffed dialysis catheter was placed by Dr. Benavides. She underwent 1-hour hemodialysis and tolerated said treatment. This morning she is feeling better. Denies any chest pain or shortness of breath. OBJECTIVE: VITAL SIGNS: Blood pressure is 136/85, heart rate 65, respiratory rate 18, temperature 98.7, and pulse ox 93%. GENERAL: Awake, alert, comfortable, not in distress. SKIN: Adequate turgor. HEENT: She has pale conjunctivae. Anicteric sclerae. NECK: No neck mass. No carotid bruits. No JVD. CHEST: No deformities. LUNGS: Clear breath sounds. HEART: Normal sinus rhythm. No murmurs, gallops, or rubs. ABDOMEN: Globular, soft, nontender. No masses. EXTREMITIES: No edema. No deformities. MEDICATIONS: Medications of June 12, 2019, was reviewed. LABORATORY DATA: Laboratories of June 12, 2019, showed a white count 7.6, hemoglobin 6.1. Sodium 141, potassium 4.8, chloride 109, carbon dioxide 21, BUN 55, creatinine 6.04, glucose 122, calcium 8.1. PTH is 490, phosphorus 5.5. ASSESSMENT AND PLAN: 1. Anemia. We will transfuse 2 units packed RBC with dialysis. 2. Chronic renal failure/end-stage renal disease hemodialysis - for 2 hours today, then we will resume at 3 hours tomorrow morning. We are awaiting outpatient hemodialysis placement. 3. Congestive heart failure, clinically much improved. 4. Hyperphosphatemia/elevated PTH - introduce calcitriol and Renvela. 5. Recheck CBC and basic metabolic in a.m. Job ID: [id number]
--- NOTE | 2019-06-12 13:58 | PDOC.CPN ---
- Subjective Date: 06/12/19 Time: 13:57 Interval history: The pt was seen and examined. No overnight events. No cardiac complaints. - Objective Allergies/Adverse Reactions: Allergies Allergy/AdvReac Type Severity Reaction Status Date / Time No Known Allergies Allergy Verified 12/04/17 11:53 Visit Medications: Current Medications Acetaminophen (Tylenol) 1,000 mg PO Q6H PRN PRN Reason: Moderate to Severe Pain (6-10) Acetaminophen/Codeine Phosphate (Tylenol #3) 1 tab PO Q4H PRN PRN Reason: Pain Last Admin: 06/12/19 03:02 Dose: 1 tab Aspirin (Ecotrin) 81 mg PO DAILY [facility] Last Admin: 06/12/19 09:17 Dose: Not Given Atorvastatin Calcium (Lipitor) 40 mg PO HS [facility] Last Admin: 06/11/19 22:09 Dose: 40 mg Carvedilol (Coreg) 25 mg PO BID [facility] Last Admin: 06/12/19 09:17 Dose: Not Given Clonidine (Catapres) 0.3 mg PO BID [facility] Last Admin: 06/12/19 09:17 Dose: Not Given Clonidine (Catapres) 0.1 mg PO Q2H PRN PRN Reason: .SBP > 170 Colchicine (Colchicine) 0.6 mg PO DAILY [facility] Epoetin Joe-epbx (Retacrit) 7,500 unit SC Q7D [facility] Last Admin: 06/10/19 13:32 Dose: 7,500 unit Fentanyl (Sublimaze) 50 mcg SLOW IVP Q4H PRN PRN Reason: PAIN IF NPO Last Admin: 06/11/19 09:28 Dose: 50 mcg Ferrous Sulfate (Feosol) 325 mg PO BID [facility] Last Admin: 06/12/19 09:18 Dose: Not Given Hydralazine HCl (Apresoline) 100 mg PO TID [facility] Last Admin: 06/12/19 09:18 Dose: Not Given Nicardipine HCl 25 mg/ Sodium (Chloride) 250 mls @ 0 mls/hr IVPB INF PRN; Protocol PRN Reason: TO KEEP SBP < 180 Last Admin: 06/09/19 01:21 Dose: 250 mls Isosorbide Dinitrate (Isordil) 10 mg PO TID [facility] Last Admin: 06/12/19 09:18 Dose: Not Given Nifedipine (Procardia Xl) 60 mg PO DAILY [facility] Last Admin: 06/12/19 09:18 Dose: Not Given Sodium Chloride (Flush - Normal Saline) 10 ml IVF PRN PRN PRN Reason: Saline Flush Tramadol HCl (Ultram) 50 mg PO Q4H PRN PRN Reason: Pain 1-5 Last Admin: 06/12/19 11:26 Dose: 50 mg Tuberculin PPD (Tuberculin Ppd) 0.1 ml I-DERMAL ONE [facility] Stop: 06/15/19 09:16 Last Admin: 06/12/19 13:29 Dose: 0.1 ml Vital Signs & Weight: Vital Signs Temp Pulse Resp BP BP BP Pulse Ox 06/12/19 13:13 98.5 F 65 16 139/86 96 06/12/19 09:18 65 06/12/19 09:17 178/98 H 06/12/19 08:00 98.7 F 65 18 136/85 93 L 06/12/19 03:38 97.7 F 62 16 119/72 99 Weight 252 lb 10.396 oz - Physical Exam General: alert & oriented x3 Cardiac: regular rate and rhythm, S1/S2 Lungs: decreased breath sounds - Labs Result Diagrams: 06/12/19 04:26 06/12/19 04:26 Troponin/CKMB CK-MB (CK-2) 1.8 ng/mL (0-6.6) 06/08/19 19:40 Troponin I 0.140 ng/mL (< 0.028) H 06/09/19 01:29 - Telemetry Sinus rhythms and dysrhythmias: sinus rhythm - Assessment/Plan Assessment/Plan: 1. Acute on Chronic Diastolic HF - Started HD from yesterday; she will have HD today and tomorrow prior to discharge; On Coreg 25mg BID; not on CASE/ARB due to hx of CKD 2. HTN urgency - well controlled with Coreg 25mg BID, Nifidipine 60mg qd, Isosobide dinitrate 10mg TID, Hydralazine 100mg TID, and Clonidine 0.3mg BID; 3. CKD stage 4/5 s/p HD access on 06/11/2019; managed by cotton weigher 4. DM type 2 - managed by PCP 5. HLD - on Lipitor 6. Chronic Anemia - unchanged 7. Diverticulitis/Ulcerative colitis with colostomy - 8. BEBA with Cpap at HS - 9. Hx of CVA - CVA prevention education (ex. HTN management, medication adherence, regualr exercise and weight management) given to the pt. 10. Obese - weight management education with diet and regular exercise given to the pt. LUIS reviewed * Echo on 06/09/2019 with EF 55-60%, mild LVH, grade I dd, mild MR, AR, TR, and NM Pt. seen and eval. by me. I agree with the A/P by the LYE TREATER. She is feeling better after starting dialysis. She denies cardiac complaints and the BP is much better. Chest clear. RR. No edema. [email or web address]
[2019-06-12] MEDS: Atorvastatin Calcium 40 MG TAB PO SCH (19:47)
[2019-06-13] MEDS: traMADol HCl 50 MG TAB PO PRN ×2 (00:11→20:35)
[2019-06-13 05:14] LABS: #Eosinphils 0.2 thou/uL (0.0-0.7); #Lymphocytes 1.5 thou/uL (1.20-3.40); #Monocytes 0.5 thou/uL (0.11-0.59); #Neutrophils 5.7 thou/uL (1.40-6.50); %Basophils 0.2 % (0.0-1.0); %Eosinophils 2.4 % (0.0-10.0); %Lymphocytes 18.7 % (21.0-51.0); %Monocytes 6.3 % (0.0-10.0); %Neutrophils 72.4 % (42.0-75.0); Hemoglobin 7.4 g/dL (12.0-16.0); Mean Corpuscular Hemoglobin 28.5 pg (27.0-31.0); Mean Corpuscular Volume 86.2 fL (78.0-98.0); Mean Platelet Volume 7.2 fL (7.4-10.4); Platelet Count 213 thou/uL (130-400); RBC Distribution Width 14.5 % (11.5-14.5); White Blood Cell (WBC) Count 7.9 thou/uL (4.8-10.8)
[2019-06-13 05:35] LABS: Anion Gap 14 mmol/L (10-20); BUN (Urea Nitrogen) 40 mg/dL (9.8-20.1); Calc. Creatinine Clearance 22 mL/min (70-130); Calcium 8.4 mg/dL (7.8-10.44); Carbon Dioxide 26 mmol/L (23-31); Chloride 104 mmol/L (98-107); Estimated GFR-MDRD 11; Glucose 123 mg/dL (80-115); Potassium 4.3 mmol/L (3.5-5.1); Sodium 140 mmol/L (136-145)
--- NOTE | 2019-06-13 08:37 | PRG ---
DATE OF SERVICE: 06/13/2019 SERVICE: Renal Medicine. SUBJECTIVE: Ms. Watters is a 64-year-old black female with chronic renal failure and admitted for shortness of breath. She was found to be in CHF. Due to the progressive azotemia and CHF, the patient was initially on dialysis. Since dialysis, with fluid removal, she is feeling better. No new complaints today. No chest pain or shortness of breath. The patient is scheduled for her 3-hour hemodialysis today with fluid removal as tolerated. OBJECTIVE: VITAL SIGNS: Blood pressure 157/98, heart rate 58, respiratory rate 16, and O2 saturation is 96%. GENERAL: The patient is awake, alert, comfortable, not in overt distress. SKIN: Adequate turgor. HEENT: She has slightly pale conjunctivae. Anicteric sclerae. NECK: No neck mass. No carotid bruits. No JVD. CHEST: No deformities. LUNGS: Decreased breath sounds. No wheezing. No crackles. HEART: Normal sinus rhythm. No murmur. No gallops. No rubs. ABDOMEN: Globular, soft, and nontender. No masses. EXTREMITIES: Positive for edema. No deformities. MEDICATIONS: Medications of June 13, 2019, was reviewed. LABORATORY DATA: Laboratories of June 13, 2019; white count 7.9, hemoglobin 7.4. Sodium 140, potassium 4.3, chloride 104, carbon dioxide 26, BUN 40, creatinine 4.81, glucose 123, and calcium 8.3. PTH is noted at 490. ASSESSMENT AND PLAN: 1. Chronic renal failure/end-stage renal disease - continue current hemodialysis regimen. The plan is to do a 3-hour hemodialysis. In a.m., we will schedule her for a 4-hour hemodialysis. 2. Anemia, status post blood transfusion. Continue Epogen 7500 units subcu weekly. 3. Congestive heart failure, clinically much improved. 4. Hypertension, currently on nifedipine 60 mg XL tablet once a day. Overall, agree with current management. Recheck CBC and basic metabolic panel in a.m. Job ID: [id number]
--- NOTE | 2019-06-13 11:06 | PDOC.CPN ---
- Subjective Date: 06/13/19 Time: 11:06 Interval history: The pt seen and examined. No overnight events. No cardiac complaints. - Objective Allergies/Adverse Reactions: Allergies Allergy/AdvReac Type Severity Reaction Status Date / Time No Known Allergies Allergy Verified 12/04/17 11:53 Visit Medications: Current Medications Acetaminophen (Tylenol) 1,000 mg PO Q6H PRN PRN Reason: Moderate to Severe Pain (6-10) Acetaminophen/Codeine Phosphate (Tylenol #3) 1 tab PO Q4H PRN PRN Reason: Pain Last Admin: 06/12/19 03:02 Dose: 1 tab Aspirin (Ecotrin) 81 mg PO DAILY [facility] Last Admin: 06/12/19 09:17 Dose: Not Given Atorvastatin Calcium (Lipitor) 40 mg PO HS [facility] Last Admin: 06/12/19 19:47 Dose: 40 mg Calcitriol (Rocaltrol) 0.25 mcg PO DAILY [facility] Carvedilol (Coreg) 25 mg PO BID [facility] Last Admin: 06/12/19 19:48 Dose: 25 mg Clonidine (Catapres) 0.3 mg PO BID [facility] Last Admin: 06/12/19 19:48 Dose: 0.3 mg Clonidine (Catapres) 0.1 mg PO Q2H PRN PRN Reason: .SBP > 170 Colchicine (Colchicine) 0.6 mg PO DAILY [facility] Epoetin Joe-epbx (Retacrit) 7,500 unit SC Q7D [facility] Last Admin: 06/10/19 13:32 Dose: 7,500 unit Fentanyl (Sublimaze) 50 mcg SLOW IVP Q4H PRN PRN Reason: PAIN IF NPO Last Admin: 06/11/19 09:28 Dose: 50 mcg Ferrous Sulfate (Feosol) 325 mg PO BID [facility] Last Admin: 06/12/19 19:47 Dose: 325 mg Hydralazine HCl (Apresoline) 100 mg PO TID [facility] Last Admin: 06/12/19 19:47 Dose: 100 mg Nicardipine HCl 25 mg/ Sodium (Chloride) 250 mls @ 0 mls/hr IVPB INF PRN; Protocol PRN Reason: TO KEEP SBP < 180 Last Admin: 06/09/19 01:21 Dose: 250 mls Isosorbide Dinitrate (Isordil) 10 mg PO TID [facility] Last Admin: 06/12/19 19:48 Dose: 10 mg Nifedipine (Procardia Xl) 60 mg PO DAILY [facility] Last Admin: 06/12/19 09:18 Dose: Not Given Sevelamer Carbonate (Renvela) 800 [facility] PO TID[facility] Sodium Chloride (Flush - Normal Saline) 10 ml IVF PRN PRN PRN Reason: Saline Flush Tramadol HCl (Ultram) 50 mg PO Q4H PRN PRN Reason: Pain 1-5 Last Admin: 06/13/19 00:11 Dose: 50 mg Tuberculin PPD (Tuberculin Ppd) 0.1 ml I-DERMAL ONE [facility] Stop: 06/15/19 09:16 Last Admin: 06/12/19 13:29 Dose: 0.1 ml Vital Signs & Weight: Vital Signs Temp Pulse Resp BP Pulse Ox 06/13/19 08:00 96.9 F L 58 L 18 173/95 H 95 06/13/19 04:00 58 L 16 157/98 H 96 06/13/19 00:00 62 18 125/61 Weight 256 lb 12.8 oz - Physical Exam Neck: supple neck Cardiac: regular rate and rhythm Lungs: clear to auscultation, decreased breath sounds Neuro: cranial nerve 2-12 intact Musculoskeletal: decreased range of motion - Labs Result Diagrams: 06/13/19 04:37 06/13/19 04:37 Troponin/CKMB CK-MB (CK-2) 1.8 ng/mL (0-6.6) 06/08/19 19:40 Troponin I 0.140 ng/mL (< 0.028) H 06/09/19 01:29 - Assessment/Plan Assessment/Plan: 1. Acute on Chronic Diastolic HF - Started HD from yesterday; she is having HD this AM; On Coreg 25mg BID; not on CASE/ARB due to hx of CKD 2. HTN urgency - well controlled with Coreg 25mg BID, Nifidipine 60mg qd, Isosobide dinitrate 10mg TID, Hydralazine 100mg TID, and Clonidine 0.3mg BID; 3. CKD stage 4/5 s/p HD access on 06/11/2019; managed by Dr Loco 4. DM type 2 - managed by PCP 5. HLD - on Lipitor 6. Chronic Anemia - unchanged 7. Diverticulitis/Ulcerative colitis with colostomy - 8. BEBA with Cpap at HS - 9. Hx of CVA - CVA prevention education (ex. HTN management, medication adherence, regular exercise and weight management) given to the pt. 10. Obese - weight management education with diet and regular exercise given to the pt. MAR reviewed * Echo on 06/09/2019 with EF 55-60%, mild LVH, grade I dd, mild MR, AR, TR, and NE * From Cardiac standpoint, the pt is overall stable except for the SVT.. When d /c'd the pt will f/u with Dr Camargo' office within 2-4 wks. Pt. seen and eval. by me. I agree with the A.P by the UNSTACKER but she has had several episodes of what appears to be SVT. She is asymptomatic.. The longest was 14 min. and the rate was up to 130's. She is already taking Coreg 25 mg bid. I will ask for an opinion from EP. It will be best if the HR is under good control prior to d/c. Chest clear. RRR at this time. Left lower leg and ankle pain, possible gout. nghia
[2019-06-13] MEDS: Acetaminophen/Codeine 30-300mg Tablet PO PRN ×2 (12:36→17:10)
[2019-06-13] MEDS: hydrALAZINE 25 MG TAB PO SCH ×3 (12:38→20:34)
[2019-06-13] MEDS: NIFEdipine XL 60 MG TAB PO SCH (12:39)
[2019-06-13] MEDS: Calcitriol 0.25 MCG CAP PO SCH (12:39)
[2019-06-13] MEDS: cloNIDine 0.3 MG TAB PO SCH ×2 (12:39→20:33)
[2019-06-13] MEDS: Isosorbide Dinitrate 5 MG TAB PO SCH ×3 (12:39→20:34)
[2019-06-13] MEDS: Ferrous Sulfate 325 MG TAB PO SCH ×2 (12:39→20:33)
[2019-06-13] MEDS: Aspirin 81 mg Enteric Coated Tablet PO SCH (12:39)
[2019-06-13] MEDS: Sevelamer Carbonate 800 MG TAB PO SCH ×3 (12:40→16:59)
[2019-06-13] MEDS: Carvedilol 25 MG TAB PO SCH ×2 (12:40→20:33)
[2019-06-13] MEDS: Colchicine 0.6 MG TAB PO SCH (12:40)
[2019-06-13] MEDS ORDERED: Heparin 10,000 UNITS/1 ML VIAL ONE (15:00)
--- NOTE | 2019-06-13 19:58 | PRG ---
DATE OF SERVICE: 06/13/2019 SUBJECTIVE: Alissa Watters is doing well today. Her left arm is edematous. She has good left hand function. She has good thrill and bruit in her left upper arm fistula. Her antecubital wound is well healed. ASSESSMENT AND PLAN: Left arm edema, status post arteriovenous fistula. We would advise her to keep her arm elevated above her heart. We will exercise her arm. I would recommend to follow up in my office in 3 weeks. At this point, I will see her as needed in this hospitalization. Please call if necessary. The edema should improve with time. In the future, she may need a fistulogram depending on clinical course. Job ID: [id number]
[2019-06-13] MEDS: Atorvastatin Calcium 40 MG TAB PO SCH (20:33)
[2019-06-14 06:55] LABS: #Eosinphils 0.2 thou/uL (0.0-0.7); #Lymphocytes 1.2 thou/uL (1.20-3.40); #Monocytes 0.7 thou/uL (0.11-0.59); #Neutrophils 6.2 thou/uL (1.40-6.50); %Basophils 0.1 % (0.0-1.0); %Eosinophils 2.7 % (0.0-10.0); %Lymphocytes 14.2 % (21.0-51.0); %Monocytes 7.8 % (0.0-10.0); %Neutrophils 75.2 % (42.0-75.0); Hemoglobin 7.4 g/dL (12.0-16.0); Mean Corpuscular HGB CONC 32.2 g/dL (32.0-36.0); Mean Corpuscular Hemoglobin 28.1 pg (27.0-31.0); Mean Corpuscular Volume 87.2 fL (78.0-98.0); Mean Platelet Volume 6.6 fL (7.4-10.4); Platelet Count 197 thou/uL (130-400); RBC Distribution Width 14.6 % (11.5-14.5); Red Blood Cell (RBC) Count 2.64 mill/uL (4.20-5.40); White Blood Cell (WBC) Count 8.3 thou/uL (4.8-10.8)
[2019-06-14 07:09] LABS: Anion Gap 13 mmol/L (10-20); BUN (Urea Nitrogen) 32 mg/dL (9.8-20.1); Calc. Creatinine Clearance 26 mL/min (70-130); Calcium 8.5 mg/dL (7.8-10.44); Carbon Dioxide 28 mmol/L (23-31); Chloride 101 mmol/L (98-107); Estimated GFR-MDRD 13; Glucose 129 mg/dL (80-115); Potassium 4.3 mmol/L (3.5-5.1); Sodium 138 mmol/L (136-145)
--- NOTE | 2019-06-14 09:43 | PRG ---
DATE OF SERVICE: 06/14/2019 SERVICE: Renal Medicine. SUBJECTIVE: Ms. Watters is a 64-year-old black female with known history of chronic renal failure, was admitted for shortness of breath. Due to the progressive azotemia and CHF, hemodialysis has been initiated. She is receiving daily dialysis. She is currently undergoing hemodialysis. Attempting 2.5 L fluid removal as tolerated by the patient. No other complaints. OBJECTIVE: VITAL SIGNS: Blood pressure 102/60, heart rate 52, respiratory rate 16, temperature 98.6, and pulse ox 92%. GENERAL: Noted to be awake, comfortable, not in overt distress. SKIN: Adequate turgor. HEENT: Slightly pale conjunctivae. Anicteric sclerae. NECK: No neck mass. No carotid bruits. No JVD. CHEST: No deformities. LUNGS: Decreased breath sounds. HEART: Normal sinus rhythm. No murmur. No gallops. No rubs. ABDOMEN: Globular, soft, nontender. No masses. EXTREMITIES: Positive for edema. No deformities. MEDICATIONS: Medications of June 14, 2019, reviewed. LABORATORY DATA: Laboratories of June 14, 2019; white count 8.2, hemoglobin 7.4. Sodium 133, potassium 4.3, chloride 101, carbon dioxide 28, BUN 32, creatinine 4.07, glucose 129, calcium 8.5. ASSESSMENT AND PLAN: 1. Chronic renal failure/end-stage renal disease, currently undergoing hemodialysis. Maxing out fluid removal. She has undergone a 4-hour hemodialysis. We will now place this patient on a Sunday, , and Sunday hemodialysis schedule. Again, fluid removal only as tolerated. 2. Anemia. P.r.n. blood transfusion. Continue weekly Epogen and iron supplementation. 3. Congestive heart failure, clinically much improved. Agree with current management. Job ID: [id number]
[2019-06-14] MEDS: Ferrous Sulfate 325 MG TAB PO SCH ×2 (12:14→20:22)
[2019-06-14] MEDS: Calcitriol 0.25 MCG CAP PO SCH (12:14)
[2019-06-14] MEDS: hydrALAZINE 25 MG TAB PO SCH ×3 (12:14→20:24)
[2019-06-14] MEDS: cloNIDine 0.3 MG TAB PO SCH ×2 (12:14→20:21)
[2019-06-14] MEDS: Aspirin 81 mg Enteric Coated Tablet PO SCH (12:14)
[2019-06-14] MEDS: Sevelamer Carbonate 800 MG TAB PO SCH ×3 (12:14→17:54)
[2019-06-14] MEDS: Carvedilol 25 MG TAB PO SCH ×2 (12:14→20:23)
[2019-06-14] MEDS: Isosorbide Dinitrate 5 MG TAB PO SCH ×3 (12:15→20:32)
[2019-06-14] MEDS: NIFEdipine XL 60 MG TAB PO SCH (12:36)
[2019-06-14] MEDS: Colchicine 0.6 MG TAB PO SCH (12:36)
[2019-06-14] MEDS: traMADol HCl 50 MG TAB PO PRN ×3 (13:51→23:58)
[2019-06-14] MEDS: Atorvastatin Calcium 40 MG TAB PO SCH (20:21)
[2019-06-15] MEDS: Colchicine 0.6 MG TAB PO SCH (09:06)
--- NOTE | 2019-06-15 09:27 | PRG ---
DATE OF SERVICE: 06/15/2019 SUBJECTIVE: Ms. Watters is a 64-year-old black female with known history of chronic renal failure from diabetic nephropathy and was admitted due to shortness of breath. She had progressive azotemia with CHF. For that reason, we have initiated hemodialysis with this patient. She has a cuffed hemodialysis catheter placed. In addition, she received dialysis yesterday without any difficulty. We were able to remove her fluid. She also has an AV fistula placed by her surgeon. No other complaints today. No chest pain or shortness of breath. OBJECTIVE: VITAL SIGNS: Blood pressure 142/76, heart rate 63, respiratory rate 18, temperature 97.9, and pulse ox 97%. GENERAL: Noted to be awake, alert, comfortable, not in distress. SKIN: Adequate turgor. HEENT: She has a slightly pale conjunctivae. Anicteric sclerae. NECK: No neck mass. No carotid bruits. No JVD. CHEST: No deformities. LUNGS: Clear breath sounds. HEART: Normal sinus rhythm. No murmur. No gallops. No rubs. ABDOMEN: Globular, soft, and nontender. No masses. EXTREMITIES: No edema. No deformities except for mild left upper extremity edema. MEDICATIONS: Medications of June 15, 2019, reviewed. LABORATORY DATA: Laboratories of June 14, 2019, white count 8.3 and hemoglobin 7.4. Sodium 138, potassium 4.3, chloride 101, carbon dioxide 28, BUN 32, creatinine 4.07, glucose 129, and calcium 8.5. ASSESSMENT AND PLAN: 1. Chronic renal failure/end-stage renal disease. We will schedule this patient now for three times a week hemodialysis. Fluid removal as tolerated. Currently awaiting outpatient dialysis placement. 2. Anemia. Continue weekly Epogen. Continue iron supplementation. 3. Congestive heart failure, clinically improved. 4. Hyperphosphatemia/secondary hyperparathyroidism - currently on calcitriol and Renvela. We will recheck CBC and basic metabolic in a.m. Job ID: [id number]
[2019-06-15] MEDS: Aspirin 81 mg Enteric Coated Tablet PO SCH (10:08)
[2019-06-15] MEDS: Sevelamer Carbonate 800 MG TAB PO SCH ×3 (10:08→16:34)
[2019-06-15] MEDS: Calcitriol 0.25 MCG CAP PO SCH (10:08)
[2019-06-15] MEDS: cloNIDine 0.3 MG TAB PO SCH ×2 (10:09→20:57)
[2019-06-15] MEDS: Carvedilol 25 MG TAB PO SCH ×2 (10:09→20:56)
[2019-06-15] MEDS: Ferrous Sulfate 325 MG TAB PO SCH ×2 (10:10→20:56)
[2019-06-15] MEDS: hydrALAZINE 25 MG TAB PO SCH ×3 (10:11→20:56)
[2019-06-15] MEDS: Isosorbide Dinitrate 5 MG TAB PO SCH ×3 (10:12→20:55)
[2019-06-15] MEDS: NIFEdipine XL 60 MG TAB PO SCH (10:13)
[2019-06-15] MEDS: Acetaminophen/Codeine 30-300mg Tablet PO PRN (10:31)
[2019-06-15] MEDS ORDERED: Milk Of Magnesia 30 ML UDCUP PO SCH (17:00)
[2019-06-15] MEDS: Docusate 100 MG CAP PO SCH (20:55)
[2019-06-15] MEDS: Atorvastatin Calcium 40 MG TAB PO SCH (20:56)
[2019-06-15] MEDS: traMADol HCl 50 MG TAB PO PRN (20:56)
[2019-06-16 04:22] LABS: #Eosinphils 0.1 thou/uL (0.0-0.7); #Lymphocytes 0.7 thou/uL (1.20-3.40); #Monocytes 0.9 thou/uL (0.11-0.59); #Neutrophils 12.6 thou/uL (1.40-6.50); %Basophils 0.1 % (0.0-1.0); %Eosinophils 0.6 % (0.0-10.0); %Lymphocytes 5.2 % (21.0-51.0); %Monocytes 6.2 % (0.0-10.0); %Neutrophils 87.9 % (42.0-75.0); Mean Corpuscular HGB CONC 32.5 g/dL (32.0-36.0); Mean Corpuscular Hemoglobin 28.4 pg (27.0-31.0); Mean Corpuscular Volume 87.2 fL (78.0-98.0); Mean Platelet Volume 6.7 fL (7.4-10.4); Platelet Count 266 thou/uL (130-400); RBC Distribution Width 14.6 % (11.5-14.5); Red Blood Cell (RBC) Count 3.16 mill/uL (4.20-5.40); White Blood Cell (WBC) Count 14.3 thou/uL (4.8-10.8)
[2019-06-16 04:42] LABS: Anion Gap 14 mmol/L (10-20); BUN (Urea Nitrogen) 41 mg/dL (9.8-20.1); Calc. Creatinine Clearance 18 mL/min (70-130); Calcium 9.2 mg/dL (7.8-10.44); Carbon Dioxide 30 mmol/L (23-31); Chloride 96 mmol/L (98-107); Estimated GFR-MDRD 10; Glucose 129 mg/dL (80-115); Potassium 3.8 mmol/L (3.5-5.1); Sodium 136 mmol/L (136-145)
[2019-06-16] MEDS: hydrALAZINE 25 MG TAB PO SCH ×3 (09:51→21:03)
[2019-06-16] MEDS: Isosorbide Dinitrate 5 MG TAB PO SCH ×3 (09:52→21:53)
[2019-06-16] MEDS: Docusate 100 MG CAP PO SCH ×2 (09:52→21:05)
[2019-06-16] MEDS: NIFEdipine XL 60 MG TAB PO SCH (09:52)
[2019-06-16] MEDS: Sevelamer Carbonate 800 MG TAB PO SCH ×3 (09:53→18:17)
[2019-06-16] MEDS: Carvedilol 25 MG TAB PO SCH (09:53)
[2019-06-16] MEDS: cloNIDine 0.3 MG TAB PO SCH ×2 (09:53→21:04)
[2019-06-16] MEDS: Ferrous Sulfate 325 MG TAB PO SCH ×2 (09:53→21:04)
[2019-06-16] MEDS: Aspirin 81 mg Enteric Coated Tablet PO SCH (09:53)
[2019-06-16] MEDS: Calcitriol 0.25 MCG CAP PO SCH (09:53)
--- NOTE | 2019-06-16 10:26 | PRG ---
DATE OF SERVICE: 06/16/2019 SERVICE: Renal Medicine. SUBJECTIVE: Ms. Watters is a 64-year-old black female with chronic renal failure, who was initially on dialysis due to progressive azotemia and volume overload. Since dialysis, she is feeling better. This morning, she voices no new complaints. She denies any chest pain or shortness of breath. OBJECTIVE: VITAL SIGNS: Blood pressure is noted at 117/77, heart rate 58, respiratory rate 16, temperature 98.2, pulse ox 96%. GENERAL: Awake, alert, and comfortable, not in distress. SKIN: Adequate turgor. HEENT: Pinkish, slightly pale conjunctivae. Anicteric sclerae. NECK: No neck mass. No carotid bruits. No JVD. CHEST: No deformities. LUNGS: Clear breath sounds. HEART: Normal sinus rhythm. No murmur. No gallops. No rubs. ABDOMEN: Globular, soft, nontender. No masses. EXTREMITIES: No edema. No deformities. MEDICATIONS: Medications of June 16, 2019, reviewed. LABORATORY DATA: Laboratories of June 16, 2019; white count 14.3, hemoglobin 9. Sodium 136, potassium 4.8, chloride 96, carbon dioxide 30, BUN 41, creatinine 5.42, glucose 129, calcium 9.2. BNP 182.1. ASSESSMENT AND PLAN: 1. Anemia. Continuing weekly Epogen. Stable. 2. End-stage renal disease/chronic renal failure, continuing 3 times a week hemodialysis. No indication for any emergent hemodialysis today. 3. Congestive heart failure, clinically much improved with dialysis. We are awaiting outpatient dialysis placement. Job ID: [id number]
--- NOTE | 2019-06-16 14:30 | CON ---
DATE OF CONSULTATION: 06/13/2019 HISTORY OF PRESENT ILLNESS: I am seeing Ms. Watters at our [facility] telemetry floor as an Electrophysiology universal branch consultant. Her problems are: 1. Paroxysmal supraventricular tachycardia, possible atrial tachycardia. a. Paroxysms of unprovoked atrial tachycardia at rates of 130 beats per minute seen with 1:1 AV conduction noted. 2. History of acute on chronic diastolic heart failure, fluid overload. a. 2D echo from 06/09/2019 shows LVEF 55% to 60%, mild MR, TR, and PI. 3. End-stage renal disease, recently starting hemodialysis. a. Triple-lumen catheter in place, left IJ hemodialysis catheter and right IJ is seen. 4. History of hypertension and borderline diabetes. 5. Obesity. 6. Diverticulitis. 7. Dyslipidemia. 8. Obstructive sleep apnea with poor compliance with CPAP. 9. History of DVT in upper extremities. 10. History of H. pylori and pseudomembranous colitis in the past. ALLERGIES: NONE NOTED. MEDICATIONS: At home include: 1. Amlodipine. 2. Carvedilol. 3. Hydralazine. 4. Feosol. 5. Aspirin. 6. Lipitor. 7. Clonidine. 8. Uloric acid. SUBJECTIVE: Ms. Watters is here due to progressive heart failure, hypertensive urgency, requiring IV Cardene. Dr. Loco initiated hemodialysis on her with this admission and she actually underwent a left upper extremity AV fistula placement. Clinically, she has improved, but she is noted to have atrial tachyarrhythmia runs, which usually self-terminated. The episodes though were not very symptomatic for her and they are unprovoked. No relieving or agreeing factors are clearly observed except, possibly IV diltiazem. Currently, she is feeling well. Denies PND, orthopnea, or lower extremity edema. She does have significant lower extremity pain due to gout, hyperuricemia, left lower extremity swelling at the AV fistula insertion site. PAST MEDICAL HISTORY: As above. SOCIAL HISTORY: The patient denies smoking, EtOH, or drug abuse. FAMILY HISTORY: Not contributory. OBJECTIVE DATA: VITAL SIGNS: Blood pressure is 176/93, heart rate 63, respirations 20, and temperature 97.8 degrees Fahrenheit. GENERAL: Alert and oriented woman, in no apparent distress. NECK: Supple. Jugular veins difficult to visualize. Catheter is in place from both IJs. NECK: Supple. CHEST: Coarse without crackles. HEART: Sounds are regular to rate and rhythm. No murmur or gallop. ABDOMEN: Benign. Bowel sounds positive. EXTREMITIES: Lower extremity without clubbing. 1+ edema. Left upper extremity also with 2+ edema at surgical AV fistula site. NEUROLOGIC: The patient is nonfocal. MUSCULOSKELETAL: Without joint swelling or deformity. SKIN: Without rash. PAST SURGICAL HISTORY: Significant for upper and lower endoscopies, left colectomy, colostomy, tubal ligation, PICC line placed in the past as well as the AV fistula placement. DIAGNOSTIC DATA: EKG is reviewed revealing sinus rhythm with episodic narrow complex tachycardia, which initiated significant KS prolongation converted to baseline. Short episodes of variable AV block are seen also with continued PV waves, suggestive of atrial tachycardia as a mechanism. LABORATORY DATA: White cell count 7.9, hemoglobin 7.4, platelet count is 213. Sodium 140, potassium 4.3, BUN is 40, and creatinine 4.81. Chest x-ray reviewed revealing adequately placed triple-lumen catheter as well as dialysis catheter in the superior vena cava. Mild cardiomegaly is seen. ASSESSMENT AND PLAN: 1. Ms. Watters is a 64-year-old woman with history of end-stage renal disease, hypertension, diastolic heart failure, preserved LV systolic function, though who has been noted to have SVT runs on monitor despite continued Coreg therapy. She developed these episodes unprovoked and not very symptomatic. Heart rates are, although, fast with an extreme at 130 beats per minute. a. The exact etiology is not clear, but my differential diagnosis would include primary atrial tachycardia, less likely AV sherita reentrant tachycardia with some variable VA conduction. b. The treatment options could be medical management with AV sherita blocking agents and she had some success with diltiazem that could be reasonable to add to her current regimen, monitor for bradycardia on calcium channel and beta -moises therapy. 2. Alternative to that would be Multaq, if that fails also could lower her heart rate, which needs to be monitored. 3. Ablation therapy options were also discussed. For now, she prefers medical management, but if the above fails, it could be clearly considered especially if symptoms worsen. 4. Diastolic heart failure, likely could be exacerbated with bouts of tachycardia. 5. End-stage renal disease, post left upper extremity AV fistula placement and right IJ dialysis catheter in place and monitor. 6. Morbid obesity. We will discuss with Dr. Camargo, initiate diltiazem therapy and consider Multaq if that fails. Job ID: [id number] MTDD
[2019-06-16] MEDS: traMADol HCl 50 MG TAB PO PRN (21:02)
[2019-06-16] MEDS: Atorvastatin Calcium 40 MG TAB PO SCH (21:04)
[2019-06-17 04:42] LABS: #Eosinphils 0.1 thou/uL (0.0-0.7); #Lymphocytes 1.2 thou/uL (1.20-3.40); #Monocytes 0.8 thou/uL (0.11-0.59); #Neutrophils 9.3 thou/uL (1.40-6.50); %Basophils 0.2 % (0.0-1.0); %Eosinophils 1.3 % (0.0-10.0); %Lymphocytes 10.6 % (21.0-51.0); Hemoglobin 7.9 g/dL (12.0-16.0); Mean Corpuscular HGB CONC 32.4 g/dL (32.0-36.0); Mean Corpuscular Hemoglobin 28.2 pg (27.0-31.0); Mean Platelet Volume 6.6 fL (7.4-10.4); Platelet Count 269 thou/uL (130-400); RBC Distribution Width 14.5 % (11.5-14.5); Red Blood Cell (RBC) Count 2.81 mill/uL (4.20-5.40); White Blood Cell (WBC) Count 11.4 thou/uL (4.8-10.8)
[2019-06-17 04:54] LABS: Anion Gap 14 mmol/L (10-20); BUN (Urea Nitrogen) 57 mg/dL (9.8-20.1); Calc. Creatinine Clearance 14 mL/min (70-130); Calcium 8.6 mg/dL (7.8-10.44); Carbon Dioxide 29 mmol/L (23-31); Chloride 96 mmol/L (98-107); Estimated GFR-MDRD 7; Glucose 126 mg/dL (80-115); Potassium 3.6 mmol/L (3.5-5.1); Sodium 135 mmol/L (136-145)
[2019-06-17] MEDS ORDERED: cloNIDine 0.3 MG TAB PO SCH (08:22)
--- NOTE | 2019-06-17 08:51 | PRG ---
DATE OF SERVICE: 06/17/2019 SUBJECTIVE: Ms. Watters is a 64-year-old black female with chronic renal failure, currently on maintenance hemodialysis. She had a bradycardic episode last night with a heart rate of 40. Her diltiazem and Coreg have been discontinued. Furthermore, I will decrease her clonidine from 0.3 b.i.d. to 0.1 mg b.i.d. I could not immediately stop clonidine since she might develop rebound hypertension. No new complaints today. No chest pain or shortness of breath. Heart rate is now within normal. She is currently undergoing hemodialysis. Fluid removal only as tolerated. OBJECTIVE: VITAL SIGNS: Blood pressure 131/65, heart rate 63, respiratory rate 18, temperature 97.7, pulse ox 95%. GENERAL: Awake, alert, comfortable, not in distress. SKIN: Adequate turgor. HEENT: Slightly pale conjunctivae. Anicteric sclerae. NECK: No neck mass. No carotid bruits. No JVD. CHEST: No deformities. LUNGS: Clear breath sounds. HEART: Normal sinus rhythm. No murmur. No gallops. No rubs. ABDOMEN: Globular, soft, nontender. No masses. EXTREMITIES: No edema. No deformities. MEDICATIONS: Medications of June 17, 2019, reviewed. LABORATORY DATA: Laboratories of June 17, 2019; white count 11.4, hemoglobin 7.9. Sodium 135, potassium 3.6, chloride 96, carbon dioxide 29, BUN 57, creatinine 7.11, glucose 126, and calcium 8.6. ASSESSMENT AND PLAN: 1. Bradycardia-Cardizem and carvedilol have been discontinued. We will further decrease clonidine from 0.3 twice a day to 0.1 twice a day. I feel that bradycardia maybe drug-induced. 2. Chronic renal failure/end-stage renal disease. Continuing 3 times a week hemodialysis. Fluid removal only as tolerated. 3. Anemia, stable. P.r.n. blood transfusion. We will increase Epogen from 7500 units subcu once a week to 10,000 units subcu once a week. Recheck CBC in a.m. Job ID: [id number]
[2019-06-17] MEDS: Sevelamer Carbonate 800 MG TAB PO SCH ×3 (09:27→16:42)
[2019-06-17] MEDS: Calcitriol 0.25 MCG CAP PO SCH (09:27)
[2019-06-17] MEDS: Aspirin 81 mg Enteric Coated Tablet PO SCH (09:27)
[2019-06-17] MEDS: cloNIDine 0.1 MG TAB PO SCH ×2 (09:28→21:03)
[2019-06-17] MEDS: NIFEdipine XL 60 MG TAB PO SCH (09:28)
[2019-06-17] MEDS: Isosorbide Dinitrate 5 MG TAB PO SCH ×3 (09:28→21:05)
[2019-06-17] MEDS: hydrALAZINE 25 MG TAB PO SCH ×3 (09:28→21:04)
[2019-06-17] MEDS: Docusate 100 MG CAP PO SCH ×2 (09:29→21:04)
[2019-06-17] MEDS: Ferrous Sulfate 325 MG TAB PO SCH ×2 (09:29→21:04)
--- NOTE | 2019-06-17 10:15 | PDOC.CPN ---
- Subjective Date: 06/17/19 Time: 10:15 Interval history: The pt seen and examined. No cardiac complaints. S/p bradycardia, HR 30s, for short period of time around 0130 on 06/17/2019. The pt was asymptomatic. - Objective Allergies/Adverse Reactions: Allergies Allergy/AdvReac Type Severity Reaction Status Date / Time No Known Allergies Allergy Verified 12/04/17 11:53 Visit Medications: Current Medications Acetaminophen (Tylenol) 1,000 mg PO Q6H PRN PRN Reason: Moderate to Severe Pain (6-10) Acetaminophen/Codeine Phosphate (Tylenol #3) 1 tab PO Q4H PRN PRN Reason: Pain Last Admin: 06/15/19 10:31 Dose: 1 tab Aspirin (Ecotrin) 81 mg PO DAILY [facility] Last Admin: 06/17/19 09:27 Dose: Not Given Atorvastatin Calcium (Lipitor) 40 mg PO HS [facility] Last Admin: 06/16/19 21:04 Dose: 40 mg Calcitriol (Rocaltrol) 0.25 mcg PO DAILY [facility] Last Admin: 06/17/19 09:27 Dose: Not Given Clonidine (Catapres) 0.1 mg PO Q2H PRN PRN Reason: .SBP > 170 Clonidine (Catapres) 0.1 mg PO BID [facility] Last Admin: 06/17/19 09:28 Dose: Not Given Docusate Sodium (Colace) 100 mg PO BID [facility] Last Admin: 06/17/19 09:29 Dose: Not Given Epoetin Joe-epbx (Retacrit) 7,500 unit SC Q7D [facility] Last Admin: 06/10/19 13:32 Dose: 7,500 unit Fentanyl (Sublimaze) 50 mcg SLOW IVP Q4H PRN PRN Reason: PAIN IF NPO Last Admin: 06/11/19 09:28 Dose: 50 mcg Ferrous Sulfate (Feosol) 325 mg PO BID [facility] Last Admin: 06/17/19 09:29 Dose: Not Given Hydralazine HCl (Apresoline) 100 mg PO TID [facility] Last Admin: 06/17/19 09:28 Dose: Not Given Nicardipine HCl 25 mg/ Sodium (Chloride) 250 mls @ 0 mls/hr IVPB INF PRN; Protocol PRN Reason: TO KEEP SBP < 180 Last Admin: 06/09/19 01:21 Dose: 250 mls Isosorbide Dinitrate (Isordil) 10 mg PO TID [facility] Last Admin: 06/17/19 09:28 Dose: Not Given Nifedipine (Procardia Xl) 60 mg PO DAILY [facility] Last Admin: 06/17/19 09:28 Dose: Not Given Pantoprazole Sodium (Protonix) 40 mg PO 1700 [facility] Stop: 06/20/19 17:01 Last Admin: 06/16/19 18:19 Dose: 40 mg Sevelamer Carbonate (Renvela) 800 mg PO TID-WM [facility] Last Admin: 06/17/19 09:27 Dose: Not Given Sodium Chloride (Flush - Normal Saline) 10 ml IVF PRN PRN PRN Reason: Saline Flush Last Admin: 06/15/19 10:15 Dose: 10 ml Tramadol HCl (Ultram) 50 mg PO Q4H PRN PRN Reason: Pain 1-5 Last Admin: 06/16/19 21:02 Dose: 50 mg Vital Signs & Weight: Vital Signs Temp Pulse Resp BP BP Pulse Ox 06/17/19 09:28 63 131/73 06/17/19 07:48 97.7 F 63 18 131/65 95 06/17/19 04:00 98.5 F 65 20 101/57 L 92 L 06/17/19 00:00 98.8 F 56 L 16 129/69 94 L Weight 250 lb 8 oz - Physical Exam Cardiac: regular rate and rhythm, S1/S2 Lungs: clear to auscultation, decreased breath sounds Musculoskeletal: normal range of motion - Labs Result Diagrams: 06/18/19 10:20 06/17/19 04:12 Troponin/CKMB CK-MB (CK-2) 1.8 ng/mL (0-6.6) 06/08/19 19:40 Troponin I 0.140 ng/mL (< 0.028) H 06/09/19 01:29 - Telemetry Sinus rhythms and dysrhythmias: sinus rhythm - Assessment/Plan Assessment/Plan: 1. Acute on Chronic Diastolic HF - Stable with HD; On Coreg 25mg BID; not on CASE /ARB due to hx of CKD 2. HTN urgency - well controlled with Coreg 25mg BID, Nifidipine 60mg qd, Isosobide dinitrate 10mg TID, Hydralazine 100mg TID, and Clonidine, which will be decreased from 0.3mg to 0.1mg BID for hx of hypotension and bradycardia; 3. CKD stage 4/5 s/p HD access on 06/11/2019; managed by Dr Loco 4. DM type 2 - managed by PCP 5. HLD - on Lipitor 6. Chronic Anemia - unchanged 7. Diverticulitis/Ulcerative colitis with colostomy - 8. BEBA with Cpap at HS - 9. Hx of CVA - CVA prevention education (ex. HTN management, medication adherence, regular exercise and weight management) given to the pt. 10. Obese - weight management education with diet and regular exercise given to the pt. 11. Hx of SVT - stable with Diltiazem 180mg qd; decrease Coreg from 25mg ot 12.5mg BID for hx of bradycardia at 0130 on 06/17/2019. MAR reviewed * Echo on 06/09/2019 with EF 55-60%, mild LVH, grade I dd, mild MR, AR, TR, and MA * From Cardiac standpoint, the pt is overall stable except for the SVT.. When d /c'd the pt will f/u with Dr Camargo' office within 2-4 wks. Pt. seen and eval. by me. I agree with the A/P by the OUTBOARD MOTORBOAT OPERATOR. Chest clear. RRR. gjmays
--- NOTE | 2019-06-17 10:36 | PRG ---
DATE OF SERVICE: 06/17/2019 SUBJECTIVE: Ms. Watters seems to be doing well over the weekend, continued to be dialyzed. OBJECTIVE DATA: VITAL SIGNS: Blood pressure is 131/73, heart rate 63, respirations 18, and temperature 97.7 degrees Fahrenheit. GENERAL: Alert and oriented woman, in no apparent distress, with elevated BMI. NECK: Supple. Tunneled catheter in place on the right IJ area. CHEST: Coarse. No crackles. HEART: Sounds are distant. No murmur or gallop. ABDOMEN: Benign. EXTREMITIES: Lower extremity without clubbing. 1+ bilateral edema. DATABASE: Telemetry strips revealed no recurrent atrial tachyarrhythmias since the initiation of the diltiazem. LABORATORY DATA: White cell count is 11.4, hemoglobin is 7.9, and platelet count is 269. Sodium 135, potassium 3.6, BUN is 57, and creatinine is 7.11. ASSESSMENT AND PLAN: Ms. Watters is a pleasant 64-year-old woman with history of end-stage renal disease, hypertension, and diastolic heart failure, who also presenting with atrial tachyarrhythmia runs. She seems to be responding well to calcium channel blockers. She had mild bradycardia overnight, , likely sleep apnea related. In response, the AV sherita blocking agents were cut back. Her Coreg was discontinued. At this point, I would continue monitoring for recurrent bradycardia versus supraventricular arrhythmias. If tachyarrhythmia return, we could consider increasing diltiazem versus instituting a lower dose of Coreg. For now, we will continue medical management, which she also prefers. I am happy to see her back as an outpatient. Thank you for allowing me to participate in the care of this patient. Job ID: [id number]
[2019-06-17] MEDS: EPOETIN ALFA-EPBX (ESRD) 4,000 UNIT/ML VIAL SC SCH (11:47)
[2019-06-17] MEDS: Carvedilol 6.25 MG TAB PO SCH (16:42)
[2019-06-17] MEDS: Acetaminophen/Codeine 30-300mg Tablet PO PRN (19:57)
[2019-06-17] MEDS: Atorvastatin Calcium 40 MG TAB PO SCH (21:03)
[2019-06-18 07:22] VITALS: BP 158/81; TEMP 99.1
[2019-06-18] MEDS: Aspirin 81 mg Enteric Coated Tablet PO SCH (08:48)
[2019-06-18] MEDS: Carvedilol 6.25 MG TAB PO SCH (08:48)
[2019-06-18] MEDS: Calcitriol 0.25 MCG CAP PO SCH (08:48)
[2019-06-18] MEDS: Sevelamer Carbonate 800 MG TAB PO SCH (08:48)
[2019-06-18] MEDS: Docusate 100 MG CAP PO SCH (08:49)
[2019-06-18] MEDS: Ferrous Sulfate 325 MG TAB PO SCH (08:49)
[2019-06-18] MEDS: NIFEdipine XL 60 MG TAB PO SCH (08:49)
[2019-06-18] MEDS: Isosorbide Dinitrate 5 MG TAB PO SCH (08:49)
[2019-06-18] MEDS: hydrALAZINE 25 MG TAB PO SCH (08:50)
[2019-06-18] MEDS: cloNIDine 0.1 MG TAB PO SCH (08:50)
[2019-06-18] MEDS ORDERED: EPOETIN ALFA-EPBX (ESRD) 4,000 UNIT/ML VIAL SC SCH (10:00)
--- NOTE | 2019-06-18 10:06 | PRG ---
DATE OF SERVICE: 06/18/2019 SUBJECTIVE: Ms. Watters is a 64-year-old black female with chronic renal failure/ESRD. She has been initiated on dialysis and doing well. No other complaints today. No chest pain or shortness of breath. OBJECTIVE: VITAL SIGNS: Blood pressure is 158/81, heart rate 78, respiratory rate 17, temperature 99.1, and pulse ox 97%. GENERAL EXAM: Noted to be awake, alert, comfortable, not in overt distress. SKIN: Adequate turgor. HEENT: She has slightly pale conjunctivae. Anicteric sclerae. NECK: No neck mass. No carotid bruits. No JVD. CHEST: No deformities. LUNGS: Clear breath sounds. No wheezing. No crackles. HEART: Normal sinus rhythm. No murmur. No gallops or rubs. ABDOMEN: Globular, soft, nontender. No masses. EXTREMITIES: No edema. No deformities. MEDICATIONS: Medications of June 18, 2019, reviewed. LABORATORY DATA: Laboratories of June 17, 2019; white count 11.4, hemoglobin 7.9. Sodium 135, potassium 3.6, chloride 96, carbon dioxide 29, BUN 57, creatinine 7.1, calcium 8.6. ASSESSMENT AND PLAN: 1. Congestive heart failure, clinically much improved with hemodialysis and fluid removal. 2. Chronic renal failure/end-stage renal disease stable, tolerating hemodialysis. Continue Sunday, , and Sunday dialysis. 3. Anemia. Continuing weekly Epogen for this patient. Adjust as needed. 4. Agree with planned discharge. We will follow up this patient in outpatient clinic. Job ID: [id number]
[2019-06-18 10:39] LABS: #Eosinphils 0.1 thou/uL (0.0-0.7); #Lymphocytes 1.3 thou/uL (1.20-3.40); #Monocytes 0.9 thou/uL (0.11-0.59); %Eosinophils 1.3 % (0.0-10.0); %Lymphocytes 11.4 % (21.0-51.0); %Monocytes 8.1 % (0.0-10.0); %Neutrophils 79.1 % (42.0-75.0); Hemoglobin 8.8 g/dL (12.0-16.0); Mean Corpuscular HGB CONC 32.6 g/dL (32.0-36.0); Mean Corpuscular Hemoglobin 27.9 pg (27.0-31.0); Mean Corpuscular Volume 85.7 fL (78.0-98.0); Mean Platelet Volume 6.4 fL (7.4-10.4); Platelet Count 298 thou/uL (130-400); RBC Distribution Width 14.2 % (11.5-14.5); Red Blood Cell (RBC) Count 3.16 mill/uL (4.20-5.40); White Blood Cell (WBC) Count 11.3 thou/uL (4.8-10.8)
--- NOTE | 2019-06-18 12:31 | PDOC.CPN ---
- Subjective Date: 06/18/19 Time: 08:00 Interval history: The pt seen and examined. No overnight events. No cardiac complaints. - Objective Allergies/Adverse Reactions: Allergies Allergy/AdvReac Type Severity Reaction Status Date / Time No Known Allergies Allergy Verified 12/04/17 11:53 Vital Signs & Weight: Vital Signs Temp Pulse Resp BP Pulse Ox 06/18/19 07:16 99.1 F 78 17 158/81 H 97 06/18/19 04:00 98.9 F 73 20 148/84 H 96 Weight 247 lb 3.2 oz - Physical Exam General: alert & oriented x3 Neck: supple neck Cardiac: regular rate and rhythm, S1/S2 Lungs: clear to auscultation, decreased breath sounds Neuro: cranial nerve 2-12 intact Skin: clear Musculoskeletal: decreased range of motion - Labs Result Diagrams: 06/18/19 10:20 06/17/19 04:12 Troponin/CKMB CK-MB (CK-2) 1.8 ng/mL (0-6.6) 06/08/19 19:40 Troponin I 0.140 ng/mL (< 0.028) H 06/09/19 01:29 - Telemetry Sinus rhythms and dysrhythmias: sinus rhythm - Assessment/Plan Assessment/Plan: 1. Acute on Chronic Diastolic HF - Stable with HD; On Coreg 12.5 mg BID; not on CASE/ARB due to hx of CKD 2. HTN urgency - well controlled with Coreg 25mg BID, Nifidipine 60mg qd, Isosobide dinitrate 10mg TID, Hydralazine 100mg TID, and Clonidine, which will be decreased from 0.3mg to 0.1mg BID for hx of hypotension and bradycardia; 3. CKD stage 4/5 s/p HD access on 06/11/2019; managed by Dr Loco 4. DM type 2 - managed by PCP 5. HLD - on Lipitor 6. Chronic Anemia - unchanged 7. Diverticulitis/Ulcerative colitis with colostomy - 8. BEBA with Cpap at HS - 9. Hx of CVA - CVA prevention education (ex. HTN management, medication adherence, regular exercise and weight management) given to the pt. 10. Obese - weight management education with diet and regular exercise given to the pt. 11. Hx of SVT - stable with Diltiazem 180mg qd and 12.5mg BID. MAR reviewed * Echo on 06/09/2019 with EF 55-60%, mild LVH, grade I dd, mild MR, AR, TR, and CO * From Cardiac standpoint, the pt is stable d/c home. The pt will f/u with Dr Camargo' office within 2-4 wks.
== END 2019-06-18 11:20 | disposition home or self-care (01) | DRG 264 ==
LOC: ERS 19:21 → CCU 22:48 → 2NO 06-11 10:24
PROVIDERS: ADMIT Specialist; ATTEND Specialist
PROC: 031C09F Bypass Left Radial Artery to Lower Arm Vein with Autologous Venous Tissue, Open Approach (ICD-10-PCS; principal; 2019-06-11)
PROC: 0JH63XZ Insertion of Tunneled Vascular Access Device into Chest Subcutaneous Tissue and Fascia, Percutaneous Approach (ICD-10-PCS; 2019-06-11)
PROC: 02HV33Z Insertion of Infusion Device into Superior Vena Cava, Percutaneous Approach (ICD-10-PCS; 2019-06-11)
PROC: B518YZA Fluoroscopy of Superior Vena Cava using Other Contrast, Guidance (ICD-10-PCS; 2019-06-11)
PROC: 5A1D70Z Performance of Urinary Filtration, Intermittent, Less than 6 Hours Per Day (ICD-10-PCS; 2019-06-11)
DX: I13.2 Hypertensive heart and chronic kidney disease with heart failure and with stage 5 chronic kidney disease, or end stage renal disease (principal); I50.33 Acute on chronic diastolic (congestive) heart failure; J96.00 Acute respiratory failure, unspecified whether with hypoxia or hypercapnia; N18.6 End stage renal disease; I47.1 Supraventricular tachycardia; Z68.42 Body mass index [BMI] 45.0-49.9, adult; E11.22 Type 2 diabetes mellitus with diabetic chronic kidney disease; E78.5 Hyperlipidemia, unspecified; G47.33 Obstructive sleep apnea (adult) (pediatric); I08.3 Combined rheumatic disorders of mitral, aortic and tricuspid valves; D63.1 Anemia in chronic kidney disease; E66.01 Morbid (severe) obesity due to excess calories; I16.0 Hypertensive urgency; E87.6 Hypokalemia; Z86.73 Personal history of transient ischemic attack (TIA), and cerebral infarction without residual deficits; Z79.899 Other long term (current) drug therapy; Z79.82 Long term (current) use of aspirin
CPT/HCPCS: 36415; 36416; 36430; 71045; 76700; 76770; 80048; 80053; 81003; 81015; 82553; 83036; 83605; 83735; 83880; 83970; 84100; 84484; 84550; 85007; 85025; 85027; 86580; 86704; 86706; 86803; 86850; 86900; 86901; 87340; 90935; 93005; 93306; 93798; 93970; 96361; 96365; 96375; C1752; C1769; G0257; G0365; J0360; J0670; J0690; J1644; J1940; J2001; J2250; J2405; J2704; J2720; J3010; J3490; J7050; P9016; Q5105; Q9967

== ENCOUNTER 2019-11-10 07:13 | Day surgery (SDC) | payer MEDICARE ==
[2019-11-07 12:44] VITALS: BMI 46.3
--- NOTE | 2019-11-10 09:47 | SPC ---
Left upper extremity dialysis fistulogram Sonographic guided vascular access HISTORY: Renal failure. Poorly maturing fistula. FINDINGS: After explaining the procedure and answering all questions, left upper extremity was preppe d and draped in usual sterile fashion. Sterile technique, buffered local anesthesia, sonographic guidance, and a 22-gauge needle were used to carefully access the left cephalic fistula at the level of the antecubital fossa. A 4 Greek dilator and sheath were placed for imaging. The cephalic vein along the left upper arm is widely patent with extremely brisk arterial flow and wa shout. The vein is extremely tortuous, even with a spiral apparent at the level of the distal humeral shaft. There are scattered small venous collaterals without significant compromise of flow. G ood Central venous flow to the superior vena cava. Reflux angiography shows the arterial anastomosis to be widely patent. There is an area of narrowing at the antecubital vein just below the level of the elbow. If there was any question of compromised arterial inflow, balloon intervention would have been undertaken. Given the extremely brisk flow thro ughout the fistula, however, decision was made not to disturb the [place] vein/valve at this location. Catheter was removed and hemostasis obtained using direct pressure. Patient tolerated the procedure w ell and was eventually dismissed in good condition. Fluoroscopy time 0.7 minutes. IMPRESSION: Left upper arm cephalic dialysis fistula is widely patent with brisk inflow and outflow. The cephalic vein, however, is extremely tortuous. Difficulty in access may be related to the tortuosity and the extensive surrounding subcutaneous tissue.
[2019-11-10] MEDS ORDERED: Heparin 1,000 UNITS/ML VIAL ONE (15:44)
--- NOTE | 2019-11-11 00:10 | HP ---
HISTORY OF PRESENT ILLNESS: Alissa Watters is a 64-year-old black female, morbidly obese, 220 pounds, 62 inches tall, colostomy status, status post June 11, 2019, left arm primary fistula, perforating branch antecubital vein to the proximal right radial artery outflow basilic and cephalic veins, is felt that she might need a transposition. The patient has not been successful in accessing her left arm fistula. Her left arm has become edematous. Dr. Meier did a fistulogram reporting some central problems and he dilated, the description was unclear. She then went to have another fistulogram with Dr. Alessio Early at [facility], her fistula was noted to be tortuous, corkscrew type configuration. Basilic vein was not visualized. The central circulation was normal. The patient reports to office today in a wheelchair. She is morbidly obese. Her left forearm is edematous. Upper arm less so. Plan at this time is transposition of fistula of the left upper arm using the cephalic vein most likely. She understands risks and benefits and consents. She was noted in her inflow to the cephalic vein just around the antecubital fossa to have a small narrowing. This could be contributing to some retrograde venous hypertension and forearm edema. We will assess this in the operating room. She understands risks and benefits and consents. Primary care, Dr. Calhoun, followed by Dr. Diaz. Of note is that her ultrasound vein mapping last year showed the veins in the right arm to be very small. She is not a candidate for another fistula. SOCIAL HISTORY: Tobacco, none. Alcohol, none. MEDICATIONS: 1. Aspirin. 2. Calcitriol. 3. Amlodipine. 4. Clonidine. 5. Ferrous sulfate. 6. Uloric acid. 7. Atorvastatin. 8. Hydralazine. 9. Carvedilol. PAST SURGICAL HISTORY: Upper and lower endoscopies, left colectomy, colostomy, tubal ligation, history of PICC line in the past. PAST MEDICAL HISTORY: Hypertension, diabetes mellitus, diverticulitis, previous colostomy from a colovesical fistula. Echocardiogram 55% to 60% ejection fraction noted. Diastolic dysfunction suggestive of mild aortic, tricuspid, pulmonic regurgitation, mild. PHYSICAL EXAMINATION: VITAL SIGNS: Weight 270 pounds, height 62 inches, blood pressure 143/87, pulse 102, temperature 97.5 degrees. LUNGS: Clear to auscultation. CARDIAC: Regular rate and rhythm without murmur or gallop. ABDOMEN: Soft, obese, nontender. Colostomy status. Obese. EXTREMITIES: Left upper extremity, good thrill and bruit. Very obese upper arm left, mild edema in left forearm. ASSESSMENT: Dysfunctional fistula, left arm and morbid obesity with poor access and a corkscrew type fistula. PLAN: Cephalic vein transposition fistula or other procedure as indicated based on operative findings. She understands risks, benefits, and consents. We will plan this as an outpatient under general or regional and TIVA. She dialyzes on Sunday, , Sunday at [address] Job ID: [id number]
== END 2019-11-10 09:00 | disposition home or self-care (01) ==
LOC: SPEC 07:13
PROVIDERS: ATTEND Specialist
PROC: B51W1ZZ Fluoroscopy of Dialysis Shunt/Fistula using Low Osmolar Contrast (ICD-10-PCS; principal; 2019-11-10)
DX: T82.590A Other mechanical complication of surgically created arteriovenous fistula, initial encounter (principal); I13.2 Hypertensive heart and chronic kidney disease with heart failure and with stage 5 chronic kidney disease, or end stage renal disease; E11.22 Type 2 diabetes mellitus with diabetic chronic kidney disease; N18.6 End stage renal disease; I50.9 Heart failure, unspecified; D63.1 Anemia in chronic kidney disease; E78.5 Hyperlipidemia, unspecified; G47.33 Obstructive sleep apnea (adult) (pediatric); E66.01 Morbid (severe) obesity due to excess calories; Z68.42 Body mass index [BMI] 45.0-49.9, adult; Z79.82 Long term (current) use of aspirin; Z79.899 Other long term (current) drug therapy; Z93.3 Colostomy status
CPT/HCPCS: 36901

== ENCOUNTER 2019-11-12 11:22 | Outpatient (CLI) | payer MEDICARE ==
--- NOTE | 2019-11-12 11:44 | RAD ---
EXAM: Chest 2 views: HISTORY: Central line placement COMPARISON: 06/03/2019 FINDINGS: There is an enlarged but stable cardiomediastinal silhouette. The dialysis catheter is unchanged in position. Atelectasis is seen in the right lung base. The bones are unremarkable. IMPRESSION: Right basilar atelectasis.
== END 2019-11-12 11:23 | disposition home or self-care (01) ==
LOC: BICRAD 11:22
PROVIDERS: ATTEND Nurse Practitioner Family
DX: R06.02 Shortness of breath (principal); J98.11 Atelectasis
CPT/HCPCS: 71046

== ENCOUNTER 2019-11-14 08:11 | Inpatient (IN) | payer MEDICARE ==
--- NOTE | 2019-11-14 08:50 | RAD ---
Exam: Chest one view: HISTORY: Shortness of breath dyspnea COMPARISON: 06/11/2019 FINDINGS: Prominent right hemidiaphragm elevation. Cardiomegaly. Right dual-lumen venous access catheter. Minim al parenchymal changes in the right lower lobe probably minimal subsegmental atelectasis or chronic change, minimally improved from 11/12/2019. No acute process in the left chest. IMPRESSION: Cardiomegaly. Prominent right hemidiaphragm elevation with some minimal pleural and parenchymal gregorio es in the right base. Atherosclerosis of the aorta with ectasia.
[2019-11-14 10:10] LABS: ALT (SGPT) 9 U/L (8-55); AST (SGOT) 16 U/L (5-34); Albumin 3.9 g/dL (3.4-4.8); Alkaline Phosphatase 91 U/L (40-110); Anion Gap 19 mmol/L (10-20); BUN (Urea Nitrogen) 31 mg/dL (9.8-20.1); Bilirubin, Total 0.4 mg/dL (0.2-1.2); Calc. Creatinine Clearance 0 mL/min (70-130); Calcium 9.6 mg/dL (7.8-10.44); Carbon Dioxide 18 mmol/L (23-31); Chloride 106 mmol/L (98-107); Estimated GFR-MDRD 7; Globulin 5.3 g/dL (2.4-3.5); Glucose 84 mg/dL (80-115); Potassium 4.3 mmol/L (3.5-5.1); Protein, Total 9.2 g/dL (6.0-8.3); Sodium 139 mmol/L (136-145)
[2019-11-14 11:51] LABS: #Eosinphils 0.2 thou/uL (0.0-0.7); #Lymphocytes 1.5 thou/uL (1.20-3.40); #Monocytes 0.6 thou/uL (0.11-0.59); #Neutrophils 5.4 thou/uL (1.40-6.50); %Basophils 0.2 % (0.0-1.0); %Eosinophils 2.1 % (0.0-10.0); %Lymphocytes 19.3 % (21.0-51.0); %Neutrophils 70.4 % (42.0-75.0); Hemoglobin 12.2 g/dL (12.0-16.0); Mean Corpuscular HGB CONC 30.1 g/dL (32.0-36.0); Mean Corpuscular Volume 92.8 fL (78.0-98.0); Mean Platelet Volume 7.2 fL (7.4-10.4); Platelet Count 210 thou/uL (130-400); Red Blood Cell (RBC) Count 4.38 mill/uL (4.20-5.40); White Blood Cell (WBC) Count 7.7 thou/uL (4.8-10.8)
[2019-11-14 12:22] LABS: CKMB 1.4 ng/mL (0-6.6)
[2019-11-14] MEDS ORDERED: Enoxaparin Sodium 100 MG/ML SYRINGE ONE (13:10)
[2019-11-14] MEDS ORDERED: Diltiazem 125 MG/25 ML ONE (13:10)
[2019-11-14] MEDS ORDERED: Aspirin Chewable 81 MG TAB ONE (13:10)
[2019-11-14 13:50] LABS: Troponin I 0.058 ng/mL (< 0.028)
[2019-11-14] MEDS ORDERED: cloNIDine 0.1 MG TAB ONE (14:37)
[2019-11-14] MEDS ORDERED: Dextrose 5% in Water 1,000 ML IV PRN (16:01)
[2019-11-14] MEDS ORDERED: Dextrose 50% Abboject 50 ML SYRINGE IVP PRN (16:01)
[2019-11-14] MEDS ORDERED: Insulin Regular 300 UNITS/3 ML VIAL SC PRN (16:01)
[2019-11-14 16:14] VITALS: BMI 40.1
--- NOTE | 2019-11-14 18:30 | HP ---
CHIEF COMPLAINT ON ADMISSION: New onset atrial fibrillation with RVR and dyspnea. HISTORY OF PRESENT ILLNESS: The patient is a 64-year-old female who states that for the last 2 weeks she has noted shortness of breath, it began to get progressively worse. She came today to the emergency room for further evaluation. There, her initial lab work seemed to be good despite her elevated BUN and creatinine, which is not considered abnormal for someone on dialysis 3 times a week. However, as she was observed in the emergency room, she began to have a tachy-veronica telemetry reading with heart rates going up to 140. Blood pressure elevated. She would respond to Cardizem IV, but then would go right back into atrial fibrillation with RVR. She denied chest pain. Her shortness of breath did not worsen and she did not become hypoxic. She is being placed into the hospital for further workup and treatment for her new onset atrial fibrillation and RVR. PAST MEDICAL HISTORY: The patient has end-stage renal disease and has just began dialysis in 2019. She has hypertension, diabetes mellitus, diverticulitis, previous colostomy from a colovesical fistula. She has had diastolic dysfunction. Her echocardiogram earlier this year showed an ejection fraction of 55% to 60%. She has also had a history of diverticulitis. Hyperuricemia, hyperlipidemia. Significant noncompliance with medical care. PAST SURGICAL HISTORY: Includes upper and lower endoscopies, left colectomy, colostomy, history of PICC line placement, tubal ligation, and most recently fistula placement for dialysis. SOCIAL HISTORY: She is . She does not smoke or drink alcoholic beverages. MEDICATIONS ON ADMISSION: 1. Aspirin. 2. Calcitriol. 3. Amlodipine 5 mg daily. 4. Clonidine 0.1 mg b.i.d. 5. Ferrous sulfate. 6. Uloric acid 40 mg daily. 7. Atorvastatin 20 mg daily. 8. Hydralazine 50 mg t.i.d. 9. Carvedilol 25 mg b.i.d. 10. She is not on current treatment for her hyperglycemia. REVIEW OF SYSTEMS: CONSTITUTIONAL: She is short-winded and feels weak with general malaise, but denies fever, chills, or cough. HEENT: Denies drainage or sores in her eyes, ears, nose, or throat. CHEST: Has shortness of breath, but no cough. CARDIOVASCULAR: Denies chest pain, but does have noted palpitations. GI: Denies nausea, vomiting, or diarrhea. : Denies dysuria or blood in urine or stool. MUSCULOSKELETAL: Has general pain in her left arm from the fistula site with resultant swollen arm. SKIN: Shows edematous changes in the left arm and heat from attempted fistula placement. NEUROLOGICAL: She denies headaches, blurred vision, or trouble with mentation. PHYSICAL EXAMINATION: VITAL SIGNS: At the time of admission, blood pressure is 168/109, pulse is 120, respirations 20, temperature 97.8, O2 saturation 95% on room air, and there is a zero on the pain scale. GENERAL: This is a morbidly obese female, alert, oriented, cooperative, in no acute distress. HEENT: Normocephalic, atraumatic. Pupils are equal, round, and reactive to light with arcus senilis bilaterally. TMs, nares, and pharynx are clear. NECK: Supple. Trachea midline. CHEST: Clear to auscultation. BREASTS: Deferred. HEART: Regular rate and rhythm without murmur. ABDOMEN: Soft, nontender without organomegaly. : Deferred. EXTREMITIES: Without clubbing or cyanosis. There is 1+ edema in the left upper arm. Lower extremities show no edema. Right arm shows no edema. SKIN: Shows [id number] changes to the left arm due to edema. NEUROLOGICAL: Cranial nerves are intact. Gait and cerebral function not tested. Sensory exam is grossly intact. Mental status is nonfocal. LABORATORY DATA: Lab work thus far shows WBC 7.7, hemoglobin 12.2, hematocrit 40.6 with platelets 210. Sodium 139, potassium 4.3, chloride 106, CO2 is 18, BUN 31, creatinine 7.14 with a GFR of 7, glucose 84. Liver functions unremarkable. Troponin I is minimally elevated at 0.062. BNP at 92. Chest x-ray shows an enlarged heart with general congestion. EKG shows atrial fibrillation with RVR with a ventricular response rate at about 140. ASSESSMENT: 1. New onset atrial fibrillation with rapid ventricular response. 2. End-stage renal disease on dialysis. 3. Hypertension. 4. Dyspnea. PLAN: Telemetry. Mago olvera. Dr. Camargo has been consulted from a cardiology standpoint. Dr. Loco has been asked to coordinate the dialysis and we will serially re-evaluate this patient and try to lower her rate with a Cardizem drip. Her diabetes has not required treatment in the last several months. Job ID: [id number]
[2019-11-14] MEDS: Atorvastatin Calcium 10 MG TAB PO SCH (19:56)
[2019-11-14] MEDS: Carvedilol 25 MG TAB PO SCH (19:56)
[2019-11-14] MEDS: cloNIDine 0.2 MG TAB PO SCH (19:57)
[2019-11-14] MEDS: hydrALAZINE 25 MG TAB PO SCH (19:57)
[2019-11-15] MEDS ORDERED: Diltiazem HCl SR 60 mg Capsule PO SCH (07:45)
[2019-11-15] MEDS ORDERED: LINZESS 145 MCG PO SCH (09:00)
[2019-11-15 10:54] LABS: Hemoglobin A1c 5.3 % (4.0-6.0)
[2019-11-15 11:05] LABS: #Basophils 0.1 thou/uL (0.0-0.2); #Eosinphils 0.1 thou/uL (0.0-0.7); #Lymphocytes 0.9 thou/uL (1.20-3.40); #Monocytes 0.2 thou/uL (0.11-0.59); #Neutrophils 2.8 thou/uL (1.40-6.50); %Basophils 2.2 % (0.0-1.0); %Eosinophils 3.6 % (0.0-10.0); %Lymphocytes 21.2 % (21.0-51.0); %Monocytes 3.7 % (0.0-10.0); %Neutrophils 69.4 % (42.0-75.0); Anisocytosis SLIGHT = 6-15 cells (100X) (0-5/hpf); Hemoglobin 11.4 g/dL (12.0-16.0); MDiff Complete? YES; Mean Corpuscular Hemoglobin 27.7 pg (27.0-31.0); Mean Corpuscular Volume 92.3 fL (78.0-98.0); Mean Platelet Volume 7.3 fL (7.4-10.4); Platelet Count 184 thou/uL (130-400); RBC Distribution Width 15.8 % (11.5-14.5); Red Blood Cell (RBC) Count 4.12 mill/uL (4.20-5.40)
[2019-11-15 11:09] LABS: Anion Gap 13 mmol/L (10-20); BUN (Urea Nitrogen) 32 mg/dL (9.8-20.1); Calc. Creatinine Clearance 13 mL/min (70-130); Calcium 8.8 mg/dL (7.8-10.44); Carbon Dioxide 26 mmol/L (23-31); Chloride 102 mmol/L (98-107); Estimated GFR-MDRD 7; Glucose 117 mg/dL (80-115); Potassium 4.2 mmol/L (3.5-5.1); Sodium 137 mmol/L (136-145)
[2019-11-15] MEDS ORDERED: Heparin 10,000 UNITS/ 10 ML VIAL ONE (12:10)
[2019-11-15] MEDS: Amlodipine 5 MG TAB PO SCH (14:19)
[2019-11-15] MEDS: Carvedilol 25 MG TAB PO SCH ×2 (14:19→21:19)
[2019-11-15] MEDS: cloNIDine 0.2 MG TAB PO SCH ×2 (14:20→21:19)
[2019-11-15] MEDS: Enoxaparin Sodium 100 MG/ML SYRINGE SC SCH (14:21)
[2019-11-15] MEDS: hydrALAZINE 25 MG TAB PO SCH ×3 (14:21→21:19)
[2019-11-15] MEDS: Diltiazem HCl SR 60 mg Capsule PO SCH ×2 (14:21→21:17)
--- NOTE | 2019-11-15 14:57 | CON ---
DATE OF CONSULTATION: HISTORY OF PRESENT ILLNESS: Ms. Watters is a 64-year-old black female with ESRD and was admitted for rapid atrial fibrillation and shortness of breath. This morning, she is feeling better. We are being consulted for her maintenance hemodialysis. I am currently dialyzing the patient with fluid removal about 3 L. She is tolerating said treatment. REVIEW OF SYSTEMS: Positive for mild shortness of breath. No chest pain. No nausea. No vomiting. No diarrhea. No constipation. No productive cough. No fever or chills. Appetite and energy level are fair. No gross hematuria. No dysuria. No urinary frequency. Occasional joint pains. Occasional chest pain. MEDICATIONS: 1. Amlodipine 10 mg daily. 2. Atorvastatin 10 mg tablet at bedtime. 3. Carvedilol 25 mg p.o. b.i.d. 4. Clonidine 0.2 mg p.o. b.i.d. 5. Diltiazem IV drip as directed, currently converted to diltiazem 120 mg b.i.d. 6. Lovenox 100 mg subcu daily. 7. Hydralazine 50 mg p.o. t.i.d. PAST MEDICAL HISTORY: 1. ESRD from hypertensive nephropathy. 2. Longstanding hypertension. 3. History of atrial fibrillation. 4. Hyperlipidemia. 5. Gout. 6. Type 2 diabetes mellitus. 7. Status post diverticulitis complicated with abscess and colovesicular fistula. 8. Status post C difficile colitis. PAST SURGICAL HISTORY: Status post colon resection with colostomy placement, status post upper and lower GI endoscopy, and status post colonoscopy. SOCIAL HISTORY: The patient lives in [place]. and she has 4 children. 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 No IV drug abuse. Status post blood transfusion. History of chronic NSAID intake. No alcohol. No smoking. ALLERGIES: NONE. TRAUMA: None. IMMUNIZATIONS: Up-to-date. HOSPITALIZATIONS: Please see past medical history. FAMILY HISTORY: No family history of ESRD. PHYSICAL EXAMINATION: VITAL SIGNS: Blood pressure is noted at 107/72, heart rate is now 83, respiratory rate 27, and O2 saturation 95%. GENERAL: The patient is awake, alert, comfortable, not in distress. SKIN: Adequate turgor. HEENT: She has a pinkish conjunctivae. Anicteric sclerae. NECK: No neck mass. No carotid bruits. No JVD. CHEST: No deformities. LUNGS: Clear breath sounds. No wheezing. No crackles. HEART: Normal sinus rhythm. No murmurs. No gallops. No rubs. ABDOMEN: Globular, soft, and nontender. No masses. EXTREMITIES: No edema. No deformities. LABORATORY DATA: Laboratories of November 15, 2019; white count 4, hemoglobin 11.4. Sodium 137, potassium 4.2, chloride 102, carbon dioxide 26, BUN 32, creatinine 6.77, glucose 117, and calcium 8.8. ASSESSMENT AND PLAN: 1. End-stage renal disease, stable. We will continue current hemodialysis regimen on Sunday, , and Sunday. Fluid removal only as tolerated by the patient. She is tolerating the said dialysis. Review of the last Kt/V suggests she is adequately dialyzed. 2. Chronic atrial fibrillation - heart rate is much improved with current antiarrhythmic drugs. 3. Hypertension, stable. Continue current antihypertensive regimen. Agree with current management. Job ID: [id number]
[2019-11-15] MEDS ORDERED: Acetaminophen 325 MG TAB PO PRN (15:28)
[2019-11-15] MEDS ORDERED: traMADol HCl 50 MG TAB PO PRN (19:23)
[2019-11-15] MEDS ORDERED: Digoxin 0.5 MG/2 ML AMP SLOW IVP SCH (19:30)
[2019-11-15] MEDS: Atorvastatin Calcium 10 MG TAB PO SCH (19:37)
--- NOTE | 2019-11-15 21:33 | CON ---
DATE OF CONSULTATION: 11/15/2019 SERVICE: Pulmonary Medicine. REASON FOR CONSULTATION: [facility] patient. HISTORY OF PRESENT ILLNESS: The patient is a 64-year-old female with past medical history significant for recent start on hemodialysis. This is roughly 4 months ago. She had a significant amount of fluid off when she started feeling like she was doing better. Then she started having progressive dyspnea with exertion, and palpitations. She had dialysis today. After this, she continued to have increasing difficulties with her dyspnea with exertion and presented to the emergency department, where she was discovered to have elements of tachycardia and intermittent bradycardia. She was given rate control medication. Her heart rate settled down a little bit. She was tucked in the ICU. Initially, she was put on a little bit of oxygen, but currently she is on room air. She has not had any fevers or chills, sputum production, nausea, vomiting, or diarrhea recently. Her appetite has been off for about a week. She did not have any dysuria, frequency, or hot red swollen joints, or rashes. PAST MEDICAL HISTORY: 1. End-stage renal disease. 2. Hypertension. 3. Dyslipidemia. 4. Type 2 diabetes mellitus. 5. Chronic diastolic heart failure. 6. History of diverticulitis. PAST SURGICAL HISTORY: 1. Diverting colostomy following colovesical fistula. 2. Left AV shunt. 3. Right sided tunneled IJ dialysis catheter placement. 4. History of PICC line. 5. Tubal ligation. SOCIAL HISTORY: Negative for alcohol, tobacco, or illicit drug use. She has no exposure to chemicals, dust, asbestos, or tuberculosis. FAMILY HISTORY: Noncontributory. ALLERGIES: NO KNOWN DRUG ALLERGIES. MEDICATIONS: List of her inpatient medications were reviewed. No specific updates were made at this time. REVIEW OF SYSTEMS: General, head, ears, eyes, nose, throat, cardiovascular, respiratory, GI, , musculoskeletal, neurologic, and skin is negative except as mentioned in the HPI. PHYSICAL EXAMINATION: VITAL SIGNS: Afebrile, pulse 123, blood pressure 114/67, respirations 22, saturation 98%, currently on room air. GENERAL: The patient is awake and alert, in no apparent distress. LUNGS: Wonderful air entry. No prolonged expiratory phase or wheezing present. HEART: Normal rate regular. ABDOMEN: Soft, nontender nondistended. Bowel sounds are positive. MUSCULOSKELETAL: No cyanosis or clubbing. No pitting in the bilateral lower extremities. NEUROLOGIC: Grossly nonfocal. LABORATORY DATA: WBC 4.0, hemoglobin 11.4, platelets 184,000. Creatinine 6.77. Basic metabolic profile is otherwise unremarkable. IMAGIN. Chest x-ray demonstrates no acute cardiopulmonary abnormality. 2. Elevated right-sided hemidiaphragm is present. 3. Cardiac silhouette is generous. ASSESSMENT: 1. Atrial fibrillation with rapid ventricular response. 2. End-stage renal disease, on dialysis Tuesdays, , Saturdays. 3. Elevated right hemidiaphragm. DISCUSSION AND PLAN: The patient is doing fine from a respiratory standpoint. We will work on rate control. She remains on room air and is not in any significant respiratory distress. We will mobilize the patient by getting her into a chair 3 times daily and increase as tolerated. At this point, she has no further requirements for inpatient Pulmonary Critical Care opinion. I will follow intermittently during this hospital stay, if she stays in this location. 70 minutes have been devoted to this patient in various activities. I personally reviewed all imaging studies and laboratory data noted within this document. For fifty percent of this time, I was interacting with the patient at the bedside or coordinating care with the care team. For the remainder of the time I was immediately available to the patient in the hospital unit. Job ID: [id number] [facility]
[2019-11-16] MEDS: traMADol HCl 50 MG TAB PO PRN ×2 (02:26→20:01)
[2019-11-16] MEDS: Diltiazem HCl SR 60 mg Capsule PO SCH ×2 (09:38→20:02)
[2019-11-16] MEDS: Carvedilol 25 MG TAB PO SCH ×2 (09:38→20:02)
[2019-11-16] MEDS: Amlodipine 5 MG TAB PO SCH (09:39)
[2019-11-16] MEDS: hydrALAZINE 25 MG TAB PO SCH ×3 (09:40→20:03)
[2019-11-16] MEDS: cloNIDine 0.2 MG TAB PO SCH ×2 (09:40→20:03)
[2019-11-16] MEDS: Enoxaparin Sodium 100 MG/ML SYRINGE SC SCH (09:40)
--- NOTE | 2019-11-16 11:41 | PRG ---
DATE OF SERVICE: 11/16/2019 SUBJECTIVE: Ms. Watters is a 64-year-old black female with ESRD, admitted for rapid atrial fibrillation as well as mild shortness of breath. She underwent hemodialysis yesterday and tolerated said treatment. Fluid removal was done. She is much improved today. Denies any chest pain or shortness of breath. OBJECTIVE: VITAL SIGNS: Blood pressure 117/86, heart rate 74, respiratory rate 22, and O2 saturation 92%. GENERAL: Awake, alert, and comfortable, not in distress. SKIN: Adequate turgor. HEENT: Pinkish conjunctivae. Anicteric sclerae. NECK: No neck mass. No carotid bruits. No JVD. CHEST: No deformities. LUNGS: Clear breath sounds. HEART: Normal sinus rhythm. No murmur. No gallops. No rubs. ABDOMEN: Globular, soft, and nontender. No masses. EXTREMITIES: Trace edema. MEDICATIONS: Medications of November 16, 2019 reviewed. LABORATORY DATA: Laboratories of November 15, 2019, white count 4 and hemoglobin 11.4. Sodium 137, potassium 4.2, chloride 102, carbon dioxide 26, BUN 32, creatinine 6.77, glucose 117, and calcium 8.8. CEA 3.81. November 16, 2019, glucose 106. ASSESSMENT AND PLAN: 1. End-stage renal disease, stable, tolerating current hemodialysis regimen. Continue Sunday, , and Sunday dialysis. No indication for an emergent hemodialysis today. 2. Rapid atrial fibrillation, well-controlled heart rate with the current antiarrhythmic medications. Continue current management. Overall, agree with current management. Job ID: [id number]
--- NOTE | 2019-11-16 14:14 | CON ---
DATE OF CONSULTATION: HISTORY OF PRESENT ILLNESS: Alissa Watters is a 64-year-old black female, who has been followed by Dr. Camargo. On last admission in May 2019, she was having intermittent episodes of supraventricular tachycardia. She was placed on carvedilol and Cardizem. However, at the time of discharge, she was only sent home on nifedipine 60. She started outpatient dialysis after that admission. She states that since she has stopped taking all of her medications. Over the last 2 weeks, she has noted increased exertional dyspnea. In the emergency room, she did have recurrence of the episodes of tachycardia with heart rates of 140-150 per minute. She was started on intravenous Cardizem. PAST MEDICAL HISTORY: Left colectomy with colostomy, history of PICC line placement, tubal ligation, fistula placement for dialysis. MEDICATIONS: At home: 1. Norvasc 10 mg daily. 2. Aspirin 81 q.a.m. 3. Tums one tablet daily. 4. Diltiazem 180 daily. 5. Glyburide 5 mg daily. 6. Hydralazine 100 mg b.i.d. 7. Isosorbide 10 daily. 8. Sertraline 50 daily. However, it is unclear from talking with her, she actually takes her medications. ALLERGIES: NONE. SOCIAL HISTORY: She does not smoke or drink. PHYSICAL EXAMINATION: VITAL SIGNS: Blood pressure 117/87, pulse 74. HEENT: PERRL. NECK: Supple. CHEST: Clear. CARDIAC: S1 and S2 normal without any S3, S4, or murmurs. ABDOMEN: Obese. Normal bowel sounds. No tenderness. EXTREMITIES: Revealed no clubbing, cyanosis, or edema. NEUROLOGIC: Grossly intact. SKIN: Warm and dry. LABORATORY DATA: EKG initially revealed normal sinus rhythm with possible left ventricular hypertrophy by voltage criteria. Repeat EKG when she was in her tachycardia revealed supraventricular tachycardia with rate of 140-150 per minute, probably atrial tachycardia, nonspecific ST and T-wave changes. Hemoglobin 9.4, hematocrit 38.1, white count 4000, sodium 137, potassium 4.2, chloride 102, carbon dioxide 26, BUN 32, creatinine 6.77. Troponin I 0.062. She has had chronically elevated troponin I's. IMPRESSION: 1. Paroxysmal atrial tachycardia. It is unclear what medications she is taking at home, but from her description, she states she does not take any medicines. 2. End-stage renal disease, on dialysis. 3. Hypertension. PLAN: The patient has been restarted on carvedilol. Her blood pressures continue to be watched. It seems like whenever she is taking her medications properly that she does not have the atrial tachycardia. Job ID: [id number]
[2019-11-16] MEDS: Atorvastatin Calcium 10 MG TAB PO SCH (20:02)
[2019-11-17 04:36] LABS: Anion Gap 17 mmol/L (10-20); BUN (Urea Nitrogen) 43 mg/dL (9.8-20.1); Calc. Creatinine Clearance 10 mL/min (70-130); Calcium 9.2 mg/dL (7.8-10.44); Carbon Dioxide 24 mmol/L (23-31); Chloride 99 mmol/L (98-107); Estimated GFR-MDRD 5; Glucose 82 mg/dL (80-115); Potassium 4.7 mmol/L (3.5-5.1); Sodium 135 mmol/L (136-145)
[2019-11-17] MEDS: Amlodipine 5 MG TAB PO SCH (08:44)
[2019-11-17] MEDS: hydrALAZINE 25 MG TAB PO SCH (08:45)
[2019-11-17] MEDS: cloNIDine 0.2 MG TAB PO SCH (08:45)
[2019-11-17] MEDS: Enoxaparin Sodium 100 MG/ML SYRINGE SC SCH (08:51)
--- NOTE | 2019-11-17 09:41 | PRG ---
DATE OF SERVICE: 11/17/2019 SUBJECTIVE: Ms. Watters is a 64-year-old black female, followed up by the [facility] for her hemodialysis. She underwent dialysis on Sunday. She voices no new complaints. She denies any chest pain or shortness of breath or palpitation. She was initially admitted for rapid atrial fibrillation and antiarrhythmic medication been initiated. She is feeling better. No other complaints today. OBJECTIVE: VITAL SIGNS: Blood pressure 116/75, heart rate 54, respiratory rate 24, and O2 saturation is 92%. GENERAL: The patient is awake, sitting, and comfortable, not in distress. SKIN: Adequate turgor. HEENT: Pinkish conjunctivae. Anicteric sclerae. NECK: No neck mass. No carotid bruits. No JVD. CHEST: No deformities. LUNGS: Clear breath sounds. No wheezing. No crackles. HEART: Bradycardic. No murmur. No gallops. No rubs. ABDOMEN: Globular, soft, and nontender. No masses. EXTREMITIES: No edema. No deformities. MEDICATIONS: Medications of November 17, 2019, was reviewed. LABORATORY DATA: Laboratories of November 15, 2019, white count 4 and hemoglobin 11.4. November 17, 2019; sodium 135, potassium 4.7, chloride 99, carbon dioxide 24, BUN 43, creatinine 9.01, glucose 82, and calcium 9.2. ASSESSMENT AND PLAN: 1. End-stage renal disease, stable, tolerating current hemodialysis regimen. Fluid removal was done and the patient tolerated these. Please note, her shortness of breath is much improved. 2. Rapid atrial fibrillation/supraventricular tachycardia - currently on antiarrhythmic medications. Cardiology is following. Please note, recommendation was to restart carvedilol. 3. Anemia - hemoglobin was noted 11.4 - no indication for any Epogen therapy. Agree with current management. Job ID: [id number]
[2019-11-17] MEDS: Carvedilol 25 MG TAB PO SCH (10:14)
[2019-11-17] MEDS: Carvedilol 6.25 MG TAB PO SCH ×2 (10:43→20:17)
--- NOTE | 2019-11-17 10:43 | PDOC.CPN ---
- Subjective Date: 11/17/19 Time: 08:00 Interval history: The pt seen and examined. No overnight events. No cardiac complaints. - Objective Allergies/Adverse Reactions: Allergies Allergy/AdvReac Type Severity Reaction Status Date / Time No Known Allergies Allergy Verified 12/04/17 11:53 Visit Medications: Current Medications Acetaminophen (Tylenol) 650 mg PO Q4H PRN PRN Reason: Headache/Fever or Pain Last Admin: 11/15/19 15:51 Dose: 650 mg Atorvastatin Calcium (Lipitor) 10 mg PO HS MICKIE Last Admin: 11/16/19 20:02 Dose: 10 mg Carvedilol (Coreg) 12.5 mg PO BID MICKIE Dextrose/Water (Dextrose 50%) 25 gm IVP PRN PRN PRN Reason: HYPOGLYCEMIA PROTOCOL Diltiazem HCl (Cardizem Sr) [address] [facility] Last Admin: 11/16/19 20:02 Dose: 120 mg Enoxaparin Sodium (Lovenox) [address] [facility] Last Admin: 11/17/19 08:51 Dose: 100 mg Glucagon (Glucagon) 1 mg IM PRN PRN PRN Reason: HYPOGLYCEMIA PROTOCOL Diltiazem HCl 125 mg/Miscellaneous Medication 1 each/ Sodium Chloride 125 mls @ 0 mls/hr IVPB INF MICKIE; Protocol Dextrose/Water (D5w) 1,000 mls @ 0 mls/hr IV INF PRN PRN Reason: HYPOGLYCEMIA PROTOCOL Insulin Human Regular (Humulin R) 0 units SC .MILD SLIDING PRN; Protocol PRN Reason: MILD SLIDING SCALE Linzess 145mcg Patient's Home Medication 1 each PO QAM MICKIE Sodium Chloride (Flush - Normal Saline) 10 ml IVF Q12HR MICKIE Last Admin: 11/17/19 08:52 Dose: 10 ml Sodium Chloride (Flush - Normal Saline) 10 ml IVF PRN PRN PRN Reason: Saline Flush Tramadol HCl (Ultram) 50 mg PO Q6H PRN PRN Reason: Pain Last Admin: 11/16/19 20:01 Dose: 50 mg Vital Signs & Weight: Vital Signs Temp 11/17/19 08:00 97.1 F L 11/17/19 03:28 98.0 F 11/16/19 23:35 97.8 F Weight 219 lb 12.814 oz - Physical Exam Neck: supple neck Cardiac: S1/S2 Lungs: decreased breath sounds Neuro: cranial nerve 2-12 intact - Labs Result Diagrams: 11/15/19 10:36 11/17/19 03:31 Troponin/CKMB CK-MB (CK-2) 1.4 ng/mL (0-6.6) 11/14/19 11:24 Troponin I 0.058 ng/mL (< 0.028) H 11/14/19 13:12 - Telemetry Sinus rhythms and dysrhythmias: sinus rhythm - Assessment/Plan Assessment/Plan: 1. Atrial tachycardia - remains in SB-SR; Coreg was decreased to 12.5mg BID; on Diltiazem 120mg BID; 2. Acute on Chronic Diastolic HF - stable with RA; on HD; On coreg; Not on CASE/ ARB due to hx of CKD 3. ESRD with HD - managed by Dr Loco 4. HTN - stable with current med 5. DM type 2 6. HLD - 7. Chronic anemia - stable 8. Diverticulitis/Ulcerative colitis with colostomy 9. BEBA with Cpap at HS 10. Hx of CVA 11. Obese 12. Non-compliance of med - medication adherence education given to the pt MAR reviewed * Echo in 05/2019 with EF 55-60%, grade I dd, mild LVH, mild MR, AR, TR, and NC Pt. seen and eval. by me. I agree with the A/P by the PUBLIC WORKS MANAGER. Chest clear. RRR. No significant edema. Continue present management.
[2019-11-17] MEDS: Diltiazem HCl SR 60 mg Capsule PO SCH ×2 (12:35→21:05)
[2019-11-17] MEDS: Atorvastatin Calcium 10 MG TAB PO SCH (20:17)
[2019-11-17] MEDS: traMADol HCl 50 MG TAB PO PRN (20:17)
[2019-11-18 06:27] LABS: Anion Gap 20 mmol/L (10-20); BUN (Urea Nitrogen) 53 mg/dL (9.8-20.1); Calc. Creatinine Clearance 8 mL/min (70-130); Calcium 9.2 mg/dL (7.8-10.44); Carbon Dioxide 21 mmol/L (23-31); Chloride 99 mmol/L (98-107); Estimated GFR-MDRD 4; Glucose 104 mg/dL (80-115); Potassium 5.5 mmol/L (3.5-5.1); Sodium 134 mmol/L (136-145)
[2019-11-18] MEDS ORDERED: traMADol HCl 50 MG TAB PO PRN (08:34)
[2019-11-18] MEDS ORDERED: Heparin 10,000 UNITS/ 10 ML VIAL ONE (11:55)
[2019-11-18] MEDS: Carvedilol 6.25 MG TAB PO SCH ×2 (13:59→19:40)
[2019-11-18] MEDS: Diltiazem HCl SR 60 mg Capsule PO SCH ×2 (13:59→19:41)
[2019-11-18] MEDS: Enoxaparin Sodium 100 MG/ML SYRINGE SC SCH (14:00)
--- NOTE | 2019-11-18 15:43 | PDOC.CPN ---
- Subjective Date: 11/18/19 Time: 08:00 Interval history: The pt seen and examined. No overnight events. No cardiac complaints. - Objective Allergies/Adverse Reactions: Allergies Allergy/AdvReac Type Severity Reaction Status Date / Time No Known Allergies Allergy Verified 12/04/17 11:53 Visit Medications: Current Medications Acetaminophen (Tylenol) 650 mg PO Q4H PRN PRN Reason: Headache/Fever or Pain Last Admin: 11/15/19 15:51 Dose: 650 mg Atorvastatin Calcium (Lipitor) 10 mg PO HS [facility] Last Admin: 11/17/19 20:17 Dose: 10 mg Carvedilol (Coreg) 12.5 mg PO BID [facility] Last Admin: 11/18/19 13:59 Dose: 12.5 mg Dextrose/Water (Dextrose 50%) 25 gm IVP PRN PRN PRN Reason: HYPOGLYCEMIA PROTOCOL Diltiazem HCl (Cardizem Sr) 120 mg PO BID [facility] Last Admin: 11/18/19 13:59 Dose: 120 mg Enoxaparin Sodium (Lovenox) 100 mg SC DAILY [facility] Last Admin: 11/18/19 14:00 Dose: 100 mg Glucagon (Glucagon) 1 mg IM PRN PRN PRN Reason: HYPOGLYCEMIA PROTOCOL Diltiazem HCl 125 mg/Miscellaneous Medication 1 each/ Sodium Chloride 125 mls @ 0 mls/hr IVPB INF MICKIE; Protocol Dextrose/Water (D5w) 1,000 mls @ 0 mls/hr IV INF PRN PRN Reason: HYPOGLYCEMIA PROTOCOL Insulin Human Regular (Humulin R) 0 units SC .MILD SLIDING PRN; Protocol PRN Reason: MILD SLIDING SCALE Linzess 145mcg Patient's Home Medication 1 each PO QAM MICKIE Sodium Chloride (Flush - Normal Saline) 10 ml IVF Q12HR [facility] Last Admin: 11/18/19 14:00 Dose: 10 ml Sodium Chloride (Flush - Normal Saline) 10 ml IVF PRN PRN PRN Reason: Saline Flush Tramadol HCl (Ultram) 50 mg PO Q12H PRN PRN Reason: Pain Vital Signs & Weight: Vital Signs Temp Pulse Resp BP Pulse Ox 11/18/19 13:55 98.3 F 77 16 133/88 96 11/18/19 08:06 97.7 F 51 L 20 133/85 94 L 11/18/19 06:15 51 L 94 L 11/18/19 03:48 97.4 F L 59 L 16 122/81 91 L Weight 219 lb 12.814 oz - Physical Exam General: alert & oriented x3 Cardiac: regular rhythm Lungs: decreased breath sounds Neuro: cranial nerve 2-12 intact Extremities: no edema - Labs Result Diagrams: 11/15/19 10:36 11/18/19 05:15 Troponin/CKMB CK-MB (CK-2) 1.4 ng/mL (0-6.6) 11/14/19 11:24 Troponin I 0.058 ng/mL (< 0.028) H 11/14/19 13:12 - Assessment/Plan Assessment/Plan: 1. Atrial tachycardia - well controlled HR with Coreg 12.5mg BID; on Diltiazem 120mg BID; 2. Acute on Chronic Diastolic HF - stable with RA; on HD; On coreg; Not on CASE/ ARB due to hx of CKD 3. ESRD with HD - managed by Dr Loco 4. HTN - stable with current med 5. DM type 2 6. HLD - 7. Chronic anemia - stable 8. Diverticulitis/Ulcerative colitis with colostomy 9. BEBA with Cpap at HS 10. Hx of CVA 11. Obese 12. Non-compliance of med - medication adherence education given to the pt MAR reviewed * Echo in 05/2019 with EF 55-60%, grade I dd, mild LVH, mild MR, AR, TR, and LA * From Cardiac standpoint, the pt is stable to discharge. pt. seen and eval. by me. I agree with the A/P by the PHARMACY MESSENGER. She is comfortable lying flat. Chest clear. RRR. gjm
--- NOTE | 2019-11-18 16:57 | PRG ---
DATE OF SERVICE: 11/18/2019 SUBJECTIVE: Ms. Watters is a 64-year-old black female with ESRD. She underwent hemodialysis today without any difficulty. Fluid removal was tolerated by the patient. No complaints of chest pain or shortness of breath. OBJECTIVE: VITAL SIGNS: Blood pressure 133/88, heart rate 77, respiratory rate 16, temperature 98.3, pulse ox 96%. GENERAL: Noted to be awake, alert, comfortable, not in overt distress. SKIN: Adequate turgor. HEENT: She has pinkish conjunctivae. Anicteric sclerae. NECK: No neck mass. No carotid bruits. No JVD. CHEST: No deformities. LUNGS: Clear breath sounds. HEART: Normal sinus rhythm. No murmur. No gallops. No rubs. ABDOMEN: Globular, soft, and nontender. No masses. EXTREMITIES: No edema. No deformities. MEDICATIONS: Medications of November 18, 2019, were reviewed. LABORATORY DATA: Laboratories of November 15, 2019; white count 4, hemoglobin 11.4. November 18, 2019; sodium 134, potassium 5.5, chloride 99, carbon dioxide 21, BUN 53, creatinine 10.7, glucose 104, calcium 9.2. ASSESSMENT AND PLAN: 1. End-stage renal disease, stable, tolerating current hemodialysis regimen. Fluid removal was done, and the patient tolerated this. Continue 3 times a week hemodialysis. 2. Mild hyperkalemia. Hemodialysis was done. 3. Borderline anemia. We will simply continue to observe. Agree with planned discharge with this patient. Job ID: [id number]
[2019-11-18] MEDS: Atorvastatin Calcium 10 MG TAB PO SCH (19:40)
[2019-11-18 19:46] VITALS: BP 128/91
[2019-11-19 03:33] VITALS: TEMP 97.7
== END 2019-11-18 20:25 | disposition home or self-care (01) | DRG 308 ==
LOC: ERS 08:11 → ERHOLD 13:06 → IMCU/EMU 15:48 → T4-A 11-17 22:17
PROVIDERS: ADMIT Specialist; ATTEND Specialist
DX: I47.1 Supraventricular tachycardia (principal); N18.6 End stage renal disease; I50.33 Acute on chronic diastolic (congestive) heart failure; I13.2 Hypertensive heart and chronic kidney disease with heart failure and with stage 5 chronic kidney disease, or end stage renal disease; Z68.41 Body mass index [BMI] 40.0-44.9, adult; K51.90 Ulcerative colitis, unspecified, without complications; I48.20 Chronic atrial fibrillation, unspecified; E78.5 Hyperlipidemia, unspecified; E11.22 Type 2 diabetes mellitus with diabetic chronic kidney disease; M10.9 Gout, unspecified; D64.9 Anemia, unspecified; G47.33 Obstructive sleep apnea (adult) (pediatric); E66.9 Obesity, unspecified; E87.5 Hyperkalemia; Z86.73 Personal history of transient ischemic attack (TIA), and cerebral infarction without residual deficits; Z90.49 Acquired absence of other specified parts of digestive tract; Z93.3 Colostomy status; Z99.2 Dependence on renal dialysis; Z98.51 Tubal ligation status; Z91.14 Patient's other noncompliance with medication regimen
CPT/HCPCS: 36415; 36416; 71045; 71046; 80048; 80053; 82378; 82553; 83036; 83880; 84484; 85025; 90935; 93005; 96365; 96366; 96372; 96376; G0257; J1160; J1644; J1650

== ENCOUNTER 2019-12-08 06:36 | Day surgery (SDC) | payer MEDICARE ==
--- NOTE | 2019-11-11 00:10 | HP ---
HISTORY OF PRESENT ILLNESS: Alissa Watters is a 64-year-old black female, morbidly obese, 220 pounds, 62 inches tall, colostomy status, status post June 11, 2019, left arm primary fistula, perforating branch antecubital vein to the proximal right radial artery outflow basilic and cephalic veins, is felt that she might need a transposition. The patient has not been successful in accessing her left arm fistula. Her left arm has become edematous. Dr. Meier did a fistulogram reporting some central problems and he dilated, the description was unclear. She then went to have another fistulogram with Dr. Alessio Early at [facility], her fistula was noted to be tortuous, corkscrew type configuration. Basilic vein was not visualized. The central circulation was normal. The patient reports to office today in a wheelchair. She is morbidly obese. Her left forearm is edematous. Upper arm less so. Plan at this time is transposition of fistula of the left upper arm using the cephalic vein most likely. She understands risks and benefits and consents. She was noted in her inflow to the cephalic vein just around the antecubital fossa to have a small narrowing. This could be contributing to some retrograde venous hypertension and forearm edema. We will assess this in the operating room. She understands risks and benefits and consents. Primary care, Dr. Calhoun, followed by Dr. Diaz. Of note is that her ultrasound vein mapping last year showed the veins in the right arm to be very small. She is not a candidate for another fistula. SOCIAL HISTORY: Tobacco, none. Alcohol, none. MEDICATIONS: 1. Aspirin. 2. Calcitriol. 3. Amlodipine. 4. Clonidine. 5. Ferrous sulfate. 6. Uloric acid. 7. Atorvastatin. 8. Hydralazine. 9. Carvedilol. PAST SURGICAL HISTORY: Upper and lower endoscopies, left colectomy, colostomy, tubal ligation, history of PICC line in the past. PAST MEDICAL HISTORY: Hypertension, diabetes mellitus, diverticulitis, previous colostomy from a colovesical fistula. Echocardiogram 55% to 60% ejection fraction noted. Diastolic dysfunction suggestive of mild aortic, tricuspid, pulmonic regurgitation, mild. PHYSICAL EXAMINATION: VITAL SIGNS: Weight 270 pounds, height 62 inches, blood pressure 143/87, pulse 102, temperature 97.5 degrees. LUNGS: Clear to auscultation. CARDIAC: Regular rate and rhythm without murmur or gallop. ABDOMEN: Soft, obese, nontender. Colostomy status. Obese. EXTREMITIES: Left upper extremity, good thrill and bruit. Very obese upper arm left, mild edema in left forearm. ASSESSMENT: Dysfunctional fistula, left arm and morbid obesity with poor access and a corkscrew type fistula. PLAN: Cephalic vein transposition fistula or other procedure as indicated based on operative findings. She understands risks, benefits, and consents. We will plan this as an outpatient under general or regional and TIVA. She dialyzes on Sunday, , Sunday at [address] Job ID: [id number]
[2019-12-05 12:41] VITALS: BMI 38.7
[2019-12-08 07:46] LABS: #Eosinphils 0.2 thou/uL (0.0-0.7); #Lymphocytes 1.3 thou/uL (1.20-3.40); #Monocytes 0.7 thou/uL (0.11-0.59); %Basophils 0.3 % (0.0-1.0); %Eosinophils 2.1 % (0.0-10.0); %Lymphocytes 12.3 % (21.0-51.0); %Monocytes 6.5 % (0.0-10.0); %Neutrophils 78.7 % (42.0-75.0); Hemoglobin 10.9 g/dL (12.0-16.0); Mean Corpuscular HGB CONC 31.6 g/dL (32.0-36.0); Mean Corpuscular Hemoglobin 28.7 pg (27.0-31.0); Mean Corpuscular Volume 90.5 fL (78.0-98.0); Mean Platelet Volume 6.5 fL (7.4-10.4); Platelet Count 199 thou/uL (130-400); RBC Distribution Width 15.2 % (11.5-14.5); Red Blood Cell (RBC) Count 3.81 mill/uL (4.20-5.40); White Blood Cell (WBC) Count 10.2 thou/uL (4.8-10.8)
[2019-12-08 08:06] LABS: Anion Gap 16 mmol/L (10-20); BUN (Urea Nitrogen) 40 mg/dL (9.8-20.1); Calc. Creatinine Clearance 11 mL/min (70-130); Calcium 9.4 mg/dL (7.8-10.44); Carbon Dioxide 26 mmol/L (23-31); Chloride 101 mmol/L (98-107); Estimated GFR-MDRD 6; Glucose 137 mg/dL (80-115); Potassium 4.1 mmol/L (3.5-5.1); Sodium 139 mmol/L (136-145)
--- NOTE | 2019-12-08 08:21 | RAD ---
Chest AP view INDICATION: Preprocedure evaluation COMPARISON: November 14, 2019 FINDINGS: Lungs: There is increased airspace opacity in the right lower lobe suspicious for an area of subsegm ental volume loss. The left lung is clear. Cardiac silhouette: Moderate cardiomegaly is stable. Right IJ dialysis catheter is unchanged. Pulmonary vasculature: Normal Pleural spaces: No pleural effusion or pneumothorax is demonstrated. Upper abdomen: No abnormality seen. Osseous structures: No acute osseous abnormality. Additional findings: None. IMPRESSION: Increased airspace opacity within the right lung base may reflect an area of subsegmental volume loss . A repeat evaluation with improved aeration may be helpful to document resolution. Stable moderate cardiomegaly and right IJ dialysis catheter.
[2019-12-08] MEDS ORDERED: PHENYLEPHRINE-NS 100 MCG/ML 10 ML SYRINGE ONE ×2 (08:29→09:42)
[2019-12-08] MEDS ORDERED: Fentanyl 100 MCG/2 ML VIAL ONE ×2 (08:29→13:30)
[2019-12-08] MEDS ORDERED: Ketamine 50 MG/ML (10ML VIAL) ONE (08:30)
[2019-12-08] MEDS ORDERED: Lidocaine 1% w/Epinephrine 1:100K 20 ML VIAL ONE (08:38)
[2019-12-08] MEDS ORDERED: Bupivacaine 0.25% HCL 30 ML VIAL ONE (08:38)
[2019-12-08] MEDS ORDERED: Heparin 5,000 UNITS/ML VIAL ONE (08:38)
[2019-12-08] MEDS ORDERED: EPHEDRINE 25 MG/5 ML SYRINGE ONE (09:42)
[2019-12-08] MEDS ORDERED: Lidocaine 1% PF 5 ML VIAL ONE (09:42)
[2019-12-08] MEDS ORDERED: Glycopyrrolate 0.2 MG/ML 5 ML SYRINGE ONE (09:42)
[2019-12-08] MEDS ORDERED: PROPOFOL 200 MG/20 ML VIAL ONE (09:42)
[2019-12-08] MEDS ORDERED: Succinylcholine Chloride 20 MG/ML 10 ml SYRINGE FS ONE (09:42)
[2019-12-08] MEDS ORDERED: Ondansetron PF 4 MG/2 ML Vial ONE (09:42)
[2019-12-08] MEDS ORDERED: Dexamethasone 20 MG/5 ML VIAL ONE (09:42)
[2019-12-08] MEDS ORDERED: Ondansetron HCl/PF 4 MG/2 ML Vial IVP PRN (10:09)
[2019-12-08] MEDS ORDERED: Protamine Sulfate 50 MG/5 ML VIAL ONE (10:34)
--- NOTE | 2019-12-08 14:43 | OP ---
DATE OF PROCEDURE: 12/08/2019 PREOPERATIVE DIAGNOSES: 1. End-stage renal disease. 2. Morbid obesity. 3. Unable to access her left cephalic vein fistula due to tortuosity and obesity. POSTOPERATIVE DIAGNOSES: 1. End-stage renal disease. 2. Morbid obesity. 3. Unable to access her left cephalic vein fistula due to tortuosity and obesity. PROCEDURE PERFORMED: Left arm upper cephalic vein transposition fistula. ANESTHESIA: General and local with 0.25% Marcaine 60 mL mixed with 1% Xylocaine with epinephrine 30 mL. Note, the patient is excessively morbidly obese and fistula has a corkscrew formation, I had to perform anastomosis because of detorsing the vein, relieving adherent tissue, and narrowed area had to undergo a venoplasty to relieve the narrowing. Of note, also I had to cut down on the tunnel site because of obstruction, relieving that and placing 6-0 Prolene sutures at the anastomosis site. DESCRIPTION OF PROCEDURE: The patient was taken to the operating room, where under general anesthesia in supine position, upper arm left was prepared with ChloraPrep and draped in routine fashion. Incision was made from the proximal volar forearm up to the deltopectoral groove through skin and subcutaneous tissue, dissecting the basilic vein. The branches were divided between clips and 4-0 silk ties. The vein mobilized. There was one area in the mid vein that was narrowed, and as I dissected it free and repaired it, had narrowing and also has some tortuosity and relieving this, I had to revise it. I initially repaired it and a tunneler was used to create a new tunnel laterally with a 12 mm Sonya-Wick tunneler. Once tunnel was made, the patient was given 6000 units of heparin intravenously. Vein was clamped proximally and distally and divided, and venoplasty performed, relieving the narrowing using continuous suture of 6-0 Prolene for end-to-end anastomosis in the mid vein. I then marked the vein in optimal position to avoid kinking, and flushed it with heparinized saline solution and it flowed well. I then connected it to the Sonya-Wick tunneler with 3-0 Monocryl and brought it through the tunnel and flushed it. This seemed to flush well. Once completed the end-to-end anastomosis to the vein just at the antecubital fossa, the vessel clamps released and there was good flow in the fistula, although there was inadequate flow in the axilla. I then evaluated the fistula in the tunnel and an area where the prominent pulsations seem to dissipate. I made an incision longitudinally in the tunnel laterally and exposed the vein and this happened to be at the site of the anastomosis. It seemed to have torsed. I relieved some constriction in the tunnel and then placed some interrupted sutures of 6-0 Prolene for hemostasis at the previously made mid-vein anastomosis. At this point, it had good flow in the axilla. The patient was then given 50 mg of protamine intravenously by Anesthesia. The harvest bed identified, inspected and good hemostasis noted and obtained with cautery, clips, and silk ties. Once hemostasis was noted, Avitene placed in the harvest bed. Subcutaneous tissue was approximated with 3-0 Monocryl, skin with rodney, and sterile dressings applied. Job ID: [id number]
[2019-12-08] MEDS ORDERED: Morphine 2 MG/ML SYRINGE ONE (15:02)
[2019-12-08] MEDS ORDERED: HYDROcodone/Acetaminophen 5/325 mg Tablet ONE (15:08)
[2019-12-08] MEDS ORDERED: Heparin 10,000 UNITS/ 10 ML VIAL ONE (15:55)
== END 2019-12-08 16:20 | disposition home or self-care (01) ==
LOC: SDC 06:36
PROVIDERS: ATTEND Specialist
PROC: 05SF0ZZ Reposition Left Cephalic Vein, Open Approach (ICD-10-PCS; principal; 2019-12-08)
DX: I12.0 Hypertensive chronic kidney disease with stage 5 chronic kidney disease or end stage renal disease (principal); E11.22 Type 2 diabetes mellitus with diabetic chronic kidney disease; N18.6 End stage renal disease; T82.898A Other specified complication of vascular prosthetic devices, implants and grafts, initial encounter; E66.01 Morbid (severe) obesity due to excess calories; Z68.38 Body mass index [BMI] 38.0-38.9, adult; Z79.82 Long term (current) use of aspirin; Z79.899 Other long term (current) drug therapy; Z90.49 Acquired absence of other specified parts of digestive tract; Z93.3 Colostomy status
CPT/HCPCS: 71045; 80048; 85025; J0690; J1100; J1644; J2001; J2270; J2405; J2704; J2720; J3010; S0020

== ENCOUNTER 2020-02-25 16:37 | Inpatient (IN) | payer MEDICARE, OTHER ==
[2020-02-25] MEDS ORDERED: Acetaminophen 500 MG TAB ONE (17:20)
[2020-02-25 17:34] LABS: Hemoglobin 12.2 g/dL (12.0-16.0); Mean Corpuscular HGB CONC 30.6 g/dL (32.0-36.0); Mean Corpuscular Hemoglobin 28.4 pg (27.0-31.0); Mean Corpuscular Volume 92.5 fL (78.0-98.0); Mean Platelet Volume 7.7 fL (7.4-10.4); Platelet Count 181 thou/uL (130-400); RBC Distribution Width 16.2 % (11.5-14.5); Red Blood Cell (RBC) Count 4.29 mill/uL (4.20-5.40); White Blood Cell (WBC) Count 16.6 thou/uL (4.8-10.8)
[2020-02-25] MEDS ORDERED: cefTRIAXone\\ROCEPHIN 1 GM VIAL ONE (17:52)
[2020-02-25 17:55] LABS: Band 45 % (5-11); Hypochromia SLIGHT = 6-15 cells (100X) (0-5/hpf); MDiff Complete? YES; Monocytes 4 % (0-10); Neutrophil 49 % (42-75); Platelet Morphology Comment Appears Adequate; Polychromasia SLIGHT = 2-3 cells (100X) (0-2/hpf); Reactive Lymphocytes 2 % (0-10); Reflex for Review?? YES; Target Cells SLIGHT = 2-5 cells (100X) (0-1/hpf); Tear Drops SLIGHT = 2-5 cells (100X) (0-1/hpf)
[2020-02-25 18:17] LABS: ALT (SGPT) 20 U/L (8-55); AST (SGOT) 28 U/L (5-34); Alkaline Phosphatase 154 U/L (40-110); Anion Gap 18 mmol/L (10-20); BUN (Urea Nitrogen) 27 mg/dL (9.8-20.1); Bilirubin, Total 0.7 mg/dL (0.2-1.2); Calc. Creatinine Clearance 0 mL/min (70-130); Carbon Dioxide 27 mmol/L (23-31); Chloride 97 mmol/L (98-107); Estimated GFR-MDRD 10; Globulin 5.7 g/dL (2.4-3.5); Glucose 116 mg/dL (80-115); Potassium 4.2 mmol/L (3.5-5.1); Protein, Total 9.7 g/dL (6.0-8.3); Sodium 138 mmol/L (136-145)
[2020-02-25] MEDS ORDERED: Azithromycin 500 MG VIAL ONE (18:28)
--- NOTE | 2020-02-25 18:56 | RAD ---
CHEST ONE VIEW: 02/25/20 INDICATION: History of dialysis and dyspnea. COMPARISON: Prior exam dated 12/08/19. FINDINGS: There is moderate cardiomegaly. There is a right IJ dialysis catheter. The lungs are clear. No pleura l effusions evident. No acute osseous abnormality is evident. IMPRESSION: 1. Stable cardiomegaly. 2. No definite air space consolidation, pleural effusion or pneumothorax is evident. POS: BH
[2020-02-25 19:16] LABS: CKMB 1.4 ng/mL (0-6.6)
[2020-02-25 21:23] VITALS: BMI 38.5
[2020-02-25] MEDS ORDERED: Acetaminophen 500 MG TAB PO PRN (21:43)
[2020-02-25 22:03] LABS: Troponin I 0.468 ng/mL (< 0.028)
[2020-02-25] MEDS ORDERED: Ondansetron PF 4 MG/2 ML Vial SLOW IVP PRN (22:27)
[2020-02-25 23:18] LABS: Bacteria/HPF Rare-Few HPF (None Seen); Bilirubin Negative (Negative); Blood, Urine Negative (Negative); Clarity Clear (Clear); Glucose, Urine (Dipstick) Normal (Negative); Leukocyte 25 Leu/uL (Negative); Nitrite Negative (Negative); Protein, Urine (Dipstick) 300 mg/dL (Neg-Trace); RBC/HPF 0-3 HPF (0-3); Squamous Epithelial 0-3 HPF (0-3); Urobilinogen Normal mg/dL (Less than 2)
[2020-02-26 01:11] LABS: Critical Call Chem Troponin I RESULT DECREASING; Troponin I 0.389 ng/mL (< 0.028)
[2020-02-26 04:34] LABS: Anion Gap 16 mmol/L (10-20); BUN (Urea Nitrogen) 30 mg/dL (9.8-20.1); Calc. Creatinine Clearance 14 mL/min (70-130); Calcium 8.6 mg/dL (7.8-10.44); Carbon Dioxide 25 mmol/L (23-31); Chloride 100 mmol/L (98-107); Estimated GFR-MDRD 8; Glucose 98 mg/dL (80-115); Potassium 3.9 mmol/L (3.5-5.1); Sodium 137 mmol/L (136-145)
[2020-02-26 04:39] LABS: Hemoglobin 9.8 g/dL (12.0-16.0); Mean Corpuscular HGB CONC 29.9 g/dL (32.0-36.0); Mean Corpuscular Hemoglobin 27.7 pg (27.0-31.0); Mean Corpuscular Volume 92.5 fL (78.0-98.0); Mean Platelet Volume 7.4 fL (7.4-10.4); Platelet Count 175 thou/uL (130-400); RBC Distribution Width 16.3 % (11.5-14.5); Red Blood Cell (RBC) Count 3.53 mill/uL (4.20-5.40); White Blood Cell (WBC) Count 17.7 thou/uL (4.8-10.8)
[2020-02-26 05:07] LABS: #Eosinphils 0.1 thou/uL (0.0-0.7); #Lymphocytes 1.5 thou/uL (1.20-3.40); #Monocytes 1.5 thou/uL (0.11-0.59); #Neutrophils 14.6 thou/uL (1.40-6.50); %Eosinophils 0.4 % (0.0-10.0); %Lymphocytes 8.7 % (21.0-51.0); %Monocytes 8.6 % (0.0-10.0); %Neutrophils 82.3 % (42.0-75.0); Anisocytosis SLIGHT = 6-15 cells (100X) (0-5/hpf); MDiff Complete? YES
--- NOTE | 2020-02-26 08:31 | CON ---
DATE OF CONSULTATION: 02/26/2020 CONSULTING PHYSICIAN: Dr. Sabas Calhoun. REASON FOR CONSULTATION: CCU admission. HISTORY OF THE PRESENT ILLNESS: Samaria Watters is a 64-year-old female, who presented to the emergency room last night from dialysis. I am told that at one point she had a temperature of 102. She was placed in a rule out COVID protocol, although she denies any exposure to the COVID. She is currently receiving dialysis 3 times a week. She has a fistula in her left upper arm, but also has a tunneled dialysis catheter in her right IJ region. She also recently had some type of left upper arm/breast drainage catheter put in by Dr. Benavides and she has a bulb drain, that is currently used at that site. She says she feels better now and she is anxious to go home. PAST MEDICAL HISTORY: 1. End-stage renal disease, requiring hemodialysis. 2. Diastolic heart failure. 3. Hyperuricemia. 4. Hyperlipidemia. 5. Diabetes mellitus. 6. Hypertension. 7. Diverticulitis. PAST SURGICAL HISTORY: As mentioned above, recent left upper arm surgery, left upper arm dialysis fistula, and right IJ tunneled dialysis catheter. She also has had multiple upper and lower endoscopies, left colectomy, colostomy, history of a PICC line placement, tubal ligation. SOCIAL HISTORY: She is a nonsmoker. Does not consume any alcoholic beverages. ALLERGIES: NONE. MEDICATIONS: Prior to admission; 1. Sevelamer carbonate 800 mg daily. 2. Isosorbide 10 mg daily. 3. Diltiazem 120 mg b.i.d. 4. Coreg 12.5 mg b.i.d. 5. Atorvastatin 10 mg daily. 6. Aspirin 81 mg daily. 7. Tylenol 1000 mg every 6 hours as needed. Current inpatient medications, basically the same. Of note, in the emergency room, she received azithromycin and ceftriaxone. I think she may be receiving some type of antibiotic at the dialysis center, although I am not sure what. REVIEW OF SYSTEMS: Denies nausea, vomiting, hematemesis, melena, hematochezia, hematuria, or dysuria. PHYSICAL EXAMINATION: VITAL SIGNS: Temperature 97.8, pulse 63, blood pressure 127/84, O2 saturation 99%. GENERAL: She is pleasant, awake, no distress. HEENT: Pupils are reactive. Sclerae are anicteric. Oropharynx is clear. NECK: No adenopathy or JVD. CHEST: She has the tunneled dialysis catheter present on the right side. She has a left upper arm drain in place. She has a palpable left upper arm fistula. Her lungs are clear to auscultation without wheezing or rhonchi. CARDIOVASCULAR: Regular without audible murmur. ABDOMEN: Soft and nontender to palpation. EXTREMITIES: No clubbing, cyanosis, or edema. LABORATORY DATA: White blood count 17.7, hematocrit 32.7, and platelet count 175. Sodium 137, potassium 3.9, chloride 100, CO2 of 25, BUN 30, creatinine 6.0, and glucose 98. Troponin 0.389. ASSESSMENT: 1. Presumed septicemia, given fever. I would favor this being secondary to either infection of her dialysis catheter or from this abscess, this has previously been seen by Dr. Benavides. I do not think she has the COVID-19 infection based on lack of hypoxemia, normal chest x-ray, etc. 2. End-stage renal disease, requiring dialysis. 3. Hypertension. 4. Diabetes. RECOMMENDATIONS: I would consult with the patient's senior qualitative researcher and surgeon about what antibiotic she may be getting at the dialysis center. Likely, she will need to continue on vancomycin or something that will cover Staph and Strep. She does not require ICU care. Hopefully, the COVID test will come back negative this afternoon. Job ID: [id number]
[2020-02-26] MEDS ORDERED: Acetaminophen 500 MG TAB PO PRN (08:40)
[2020-02-26] MEDS ORDERED: Sodium Chloride 0.9% 1,000 ML IV SCH (08:45)
[2020-02-26] MEDS: Isosorbide Dinitrate 5 MG TAB PO SCH (09:29)
[2020-02-26] MEDS: Sevelamer Carbonate 800 MG TAB PO SCH (09:29)
[2020-02-26] MEDS: Carvedilol 6.25 MG TAB PO SCH ×2 (09:29→21:36)
[2020-02-26] MEDS: Aspirin 81 mg Enteric Coated Tablet PO SCH (09:29)
--- NOTE | 2020-02-26 10:28 | HP ---
CHIEF COMPLAINT ON ADMISSION: Sepsis, rule out COVID. HISTORY OF PRESENT ILLNESS: The patient is a 64-year-old female, dialysis patient, who was in her usual state of health at dialysis when after 3-1/2 hours of dialysis, she developed shortness of breath, at which time the patient's dialysis was quickly turned off. They left her dialysis tubing in place and sent her immediately over to [place], where she arrived tachypneic in the mid 30s, O2 saturation was 100% on room air. She was tachycardic at 125, blood pressure 140/109 on arrival. Initial temperature was normal, but by the time the ER physician completed her evaluation, it had risen to 102. Sepsis activation was then performed. Cultures taken. COVID-19 screening prophylaxis performed. Chest x-ray showed no acute infiltrates. Historian had not had any history of recent exposure or cough. She had significant anxiety and dyspnea with minimal effort. Her condition was made worse by lying flat and she was unaware of having any fever at the time of arrival. PAST MEDICAL HISTORY: Significant for congestive heart failure in the past, end-stage renal disease and on dialysis days of Sunday, , Sunday. She has had diabetes in the past, but this has abated since she has had significant weight loss. She has a history of gastrointestinal disease, GERD, diverticulitis, hypertension with noncompliance. She had a colovesical fistula in the past requiring colostomy. She has had diastolic dysfunction CHF, diverticulitis, hyperuricemia, hyperlipidemia have been noted in the past. PAST SURGICAL HISTORY: Her past surgical exposure includes most recent I and D with drainage of a left upper chest wall abscess per Dr. Benavides, left colectomy with colostomy, history of PICC line placements, tubal ligation, fistula placement for dialysis, and drainage of left upper chest wall abscess with placement of drain. SOCIAL HISTORY: She is . Does not smoke or drink alcoholic beverages. 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 MEDICATIONS: Her medications currently have been diminished due to significant weight loss, taking aspirin 81 mg a day, calcitriol daily. She has been taken off amlodipine and Klonopin. She takes ferrous sulfate, Uloric 40 mg daily, atorvastatin 20 mg daily, and she is not currently on any hyperglycemic treatment. REVIEW OF SYSTEMS: GENERAL: At the time of admission, she generally felt weak and short winded yesterday prior to arrival, but otherwise had been in her usual state of health. Denying fever, cough, or exposure to individuals who had such. HEENT: Denied drainage or pain in eyes, ears, nose, or throat. CHEST: Denied cough or shortness of breath until arrival in the ER on admission. CARDIOVASCULAR: Denied palpitations or chest pain. GI: Denied nausea, vomiting, or diarrhea. : Denied blood in urine or stool or painful urination. MUSCULOSKELETAL: She has generally been weak, but no acute pain in any joints or muscle groups. SKIN: She has had the aforementioned abscess in the left upper chest wall, that was drained a week ago by Dr. Benavides. NEUROLOGICAL: Denied headache, blurred vision, or trouble with mentation. PHYSICAL EXAMINATION: VITAL SIGNS: At the time of admission, vital signs showed a temperature to 102, pulse 124, respirations 34, O2 saturation 93% on room air. GENERAL: This is an obese female, alert, oriented, and cooperative. HEENT: Normocephalic, atraumatic. Pupils are equal, round, and reactive to light. Extraocular muscles intact. TMs, nares, and pharynx are clear. NECK: Supple. Trachea in midline. No appreciable adenopathy. CHEST: Clear to auscultation bilaterally. There is an indurated abscess in the left upper wall axillary area with a drainage tube in place. It is tender to palpation. Has no obvious heat. It is quite large. HEART: Regular rate and rhythm without murmur. ABDOMEN: Soft, nontender, unable to appreciate organomegaly. BREASTS: Deferred. : Deferred. EXTREMITIES: Without clubbing or cyanosis. There is 1+ edema. Range of motions are baseline adequate for this patient. SKIN: Only the aforementioned left upper chest wall abscess previously noted. NEUROLOGICAL: Cranial nerves are intact. Sensory exam is intact. Unable to test gait or cerebellar function at this time. Mental status is at baseline. LABORATORY DATA: Lab work on admission showed WBCs that fell from 16.6 to 17.7, hemoglobin went from 12.2 to 9.8, hematocrit 39.7 down to 32.7, platelets stable. Differential has 45 bands on arrival. Sodium 137, potassium 3.9, chloride 100, CO2 of 25, BUN 30, creatinine 6.04 with a GFR 8, glucose 98. Troponins noted to be elevated at 0.35, 0.46, and 0.38 (the patient has long history of elevated troponins, felt to be due to renal disease, and in this case, stress reaction as well). BNP elevated at 549. DIAGNOSTIC DATA: Chest x-ray shows no acute disease with mild heart enlargement. ASSESSMENT: 1. Sepsis probably due to left chest wall abscess. 2. End-stage renal disease, on dialysis. 3. Hypertension with history of noncompliance. 4. Diabetic, now diet controlled due to significant weight loss. PLAN: Cultures have been taken. IV antibiotics begun. We will add vancomycin for Staph coverage. She is under COVID precautions until this returns negative. Dr. Reyes will see the patient in ICU consultation, Dr. Loco for dialysis orders, and we will ask Dr. Benavides to see the patient concerning possible reopening of her abscess for further surgical clearance and drainage. We will continue her usual medicines and serially re-evaluate her using antipyretics as needed. Job ID: [id number] [facility]
[2020-02-26 10:50] LABS: Vancomycin, Random 6.5 ug/mL (See Comment)
[2020-02-26] MEDS ORDERED: Vancomycin HCl 500 MG in Sodium Chloride 0.9% 100 ML IVPB SCH (11:00)
[2020-02-26] MEDS ORDERED: HOLD VANCOMYCIN FOR LEVEL >20 FS SCH (11:00)
[2020-02-26] MEDS ORDERED: Vancomycin HCl 1.25 GM in Sodium Chloride 0.9% 250 ML 250 ML IVPB SCH (11:00)
[2020-02-26] MEDS ORDERED: Vancomycin 1 GM in Premix Bag 1 BAG IVPB SCH ×2 (11:00→12:00)
[2020-02-26] MEDS ORDERED: Vancomycin HCl 750 MG in Sodium Chloride 0.9% 250 ML 250 ML IVPB SCH (11:00)
[2020-02-26 11:53] LABS: SARS-CoV-2 MS2 Positive; SARS-CoV-2 N Gene Negative; SARS-CoV-2 S Gene Negative; SARS-CoV-2 orf1ab Negative
[2020-02-26] MEDS: cefTRIAXone\\ROCEPHIN 1 GM in Sodium Chloride 0.9% 100 ML IVPB SCH (17:57)
[2020-02-26] MEDS ORDERED: Azithromycin 500 MG in Sodium Chloride 0.9% 250 ML 250 ML IVPB SCH (20:00)
[2020-02-26] MEDS ORDERED: Atorvastatin Calcium 10 MG TAB PO SCH (21:00)
[2020-02-27 05:44] LABS: #Eosinphils 0.4 thou/uL (0.0-0.7); #Lymphocytes 1.2 thou/uL (1.20-3.40); #Monocytes 1.1 thou/uL (0.11-0.59); #Neutrophils 9.6 thou/uL (1.40-6.50); %Basophils 0.3 % (0.0-1.0); %Eosinophils 2.9 % (0.0-10.0); %Lymphocytes 9.9 % (21.0-51.0); %Monocytes 9.2 % (0.0-10.0); %Neutrophils 77.7 % (42.0-75.0); Hemoglobin 9.9 g/dL (12.0-16.0); Mean Corpuscular HGB CONC 28.6 g/dL (32.0-36.0); Mean Corpuscular Hemoglobin 26.8 pg (27.0-31.0); Mean Corpuscular Volume 93.9 fL (78.0-98.0); Mean Platelet Volume 7.5 fL (7.4-10.4); Platelet Count 198 thou/uL (130-400); RBC Distribution Width 16.2 % (11.5-14.5); White Blood Cell (WBC) Count 12.4 thou/uL (4.8-10.8)
[2020-02-27 05:58] LABS: Anion Gap 16 mmol/L (10-20); BUN (Urea Nitrogen) 52 mg/dL (9.8-20.1); Calc. Creatinine Clearance 11 mL/min (70-130); Calcium 8.8 mg/dL (7.8-10.44); Carbon Dioxide 24 mmol/L (23-31); Chloride 100 mmol/L (98-107); Estimated GFR-MDRD 6; Glucose 121 mg/dL (80-115); Sodium 136 mmol/L (136-145)
[2020-02-27] MEDS: Aspirin 81 mg Enteric Coated Tablet PO SCH (07:53)
[2020-02-27] MEDS: Sevelamer Carbonate 800 MG TAB PO SCH (07:53)
[2020-02-27] MEDS: Carvedilol 6.25 MG TAB PO SCH (07:53)
[2020-02-27] MEDS: Isosorbide Dinitrate 5 MG TAB PO SCH (07:55)
--- NOTE | 2020-02-27 08:19 | PQF ---
CLINICAL DOCUMENTATION IMPROVEMENT CLARIFICATION FORM: ICD-10 Updated PLEASE DO AN ADDENDUM TO THE PROGRESS NOTE WITH ANY DOCUMENTATION UPDATES OR ADDITIONS AND CARRY THROUGH TO DC SUMMARY. THANK YOU. DATE: 02/27/20 ATTN: DR. MEEHAN Please exercise your independent, professional judgment in responding to the clarification form. Clinical indicators are provided on the bottom of this form for your review Please check appropriate box(s): [ ] Acute Respiratory Failure: [ ] with Hypoxia[ ] with Hypercapnia [ ] Acute On Chronic Respiratory Failure: [ ] with Hypoxia [ ] with Hypercapnia [ ] ARDS (Acute Respiratory Distress Syndrome) [ ] Respiratory Insufficiency [ ] Hypoxia [ x ] Other diagnosis __sepsis [ ] Unable to determine In addition, please specify: Present on Admission (POA): [ x ] Yes [ ] No [ ] Unable to determine For continuity of documentation, please document condition throughout progress notes and discharge summary. Thank You. CLINICAL INDICATORS - SIGNS / SYMPTOMS / LABS / RESULTS AND LOCATION IN MR ER NOTE: "SHORTNESS OF BREATH, TACHYPNEA 30'S, TACHYCARDIA 125" "RALES AND RHONCHI TO LEFT UPPER TO RIGHT MIDDLE LOBE, ABSENT BREATH SOUNDS BILATERAL LOWER LOBES." RISKS: ESRD WITH FLUID OVERLOAD (ER NOTE) SEPSIS (H&P) COVID TESTING (ER) TREATMENT: DUONEBS (ER) BIPAP (ER) SUPPLEMENTAL OXYGEN VIA NASAL CANNULA CHEST XRAY 02/24 PULMONARY CONSULT Acute Respiratory Failure: ABG pH < 7.35 or > 7.45; Decreased oxygen saturation (<90% room air or < 95% on oxygen); PCO2 > 50 mm Hg; PO2 < 60 mm Hg; Labored or rapid respirations ARDS: Dx Criteria [[place] ARDS]: Respiratory symptoms within one week of a known clinical insult (e.g. shock, infection, surgery, trauma) Bilateral opacities in CXR/Chest CT not due to CHF or fluid (This form is maintained as a part of the permanent medical record) 2014 [employer]. All Rights Reserved [email or web address]
[2020-02-27 08:21] VITALS: BP 151/101; TEMP 98.1
[2020-02-27] MEDS ORDERED: Lidocaine 1% w/Epinephrine 1:100K 20 ML VIAL ONE (08:41)
--- NOTE | 2020-02-27 09:32 | CON ---
DATE OF CONSULTATION: 02/27/2020 HISTORY OF PRESENT ILLNESS: Ms. Watters is a 64-year-old black female with ESRD and admitted for fever as well as hypertension. She was ruled out for COVID. Blood culture has been done, which showed gram-negative charles. Please note that previous blood cultures also showed gram-positive cocci, which the patient has been receiving IV vancomycin. She is now on broader spectrum antibiotics. This morning, she is feeling better. Surgery has evaluated this patient. The plan if the AV fistula will work, there is a possibility of pulling out the dialysis catheter. No other complaints today. The patient denies any chest pain or shortness of breath. We are following up this patient for her management of her ESRD and maintenance hemodialysis. REVIEW OF SYSTEMS: No chest pain. No shortness of breath. No nausea. No vomiting. Appetite and energy level are fair. Mentation is improved. No abdominal pain. No gross hematuria. No dysuria. No urinary frequency. MEDICATIONS: On February 27, 2020: 1. Ecotrin 81 mg tablet once a day. 2. Lipitor 10 mg q.h.s. 3. Coreg 12.5 mg p.o. b.i.d. 4. Ceftriaxone 1 g IV daily. 5. Diltiazem CD 120 mg p.o. b.i.d. 6. Isordil 10 mg daily. 7. Status post vancomycin. 8. Zofran 4 mg IV daily. 9. Renvela 800 mg one tablet t.i.d. with meals. PAST MEDICAL HISTORY: ESRD from hypertensive nephropathy, longstanding hypertension, history of atrial fibrillation, hyperlipidemia, gout, type 2 diabetes mellitus, status post diverticulitis complicated with abscess, colovesical fistula, status post C diff colitis. PAST SURGICAL HISTORY: Status post colonoscopy, status post colon resection with colostomy placement, status post upper and lower GI endoscopy. 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 The patient lives in [place]. No IV drug abuse. Status post blood transfusion. History of chronic NSAID intake. No alcohol. No smoking. ALLERGIES: NONE. TRAUMA: None. IMMUNIZATION: Up-to-date. HOSPITALIZATIONS: Please see past medical history. FAMILY HISTORY: No family history of ESRD. PHYSICAL EXAMINATION: VITAL SIGNS: Blood pressure is noted at 151/101, heart rate 63, respiratory rate 18, temperature 98.1, and pulse ox 97%. GENERAL: The patient is awake, alert, comfortable, obese. SKIN: Adequate turgor. HEENT: She has pinkish conjunctivae. Anicteric sclerae. NECK: No neck mass. No carotid bruits. No JVD. CHEST: No deformities. LUNGS: Clear breath sounds. No wheezing. No crackles. HEART: Normal sinus rhythm. No murmur. No gallops. No rubs. ABDOMEN: Shows left-sided colostomy, soft, nontender. No masses. EXTREMITIES: No edema. No deformities. LABORATORY DATA: On February 27, 2020; white count 12.4, hemoglobin 9.9. Sodium 136, potassium 4, chloride 100, carbon dioxide 24, BUN 52, creatinine 7.64, glucose 121, calcium 8.8. ASSESSMENT AND PLAN: 1. Bacteremia, fever-the patient grew Pseudomonas, currently on IV ceftriaxone as well as an addition of IV vancomycin. 2. End-stage renal disease, stable. We will continue current hemodialysis regimen. As previously mentioned, fluid removal only as tolerated by the patient. As previously mentioned, possible removal of dialysis catheter will be made by Dr. Benavides. We are using her AV fistula and is functioning well. 3. Hypertension. Continue current blood pressure medications. Job ID: [id number]
--- NOTE | 2020-02-27 10:00 | PRG ---
DATE OF SERVICE: 02/27/2020 SUBJECTIVE: The patient is doing reasonably well. She did have a culture come back with Pseudomonas from the blood. OBJECTIVE: VITAL SIGNS: Her temperature is 98.1, pulse 57, respirations 18, blood pressure 137/88, and O2 saturation 97% on 2 L. HEENT: Unremarkable. NECK: No JVD. LUNGS: Clear. CARDIAC: S1 and S2. Regular. ABDOMEN: Soft. ASSESSMENT: 1. Pseudomonas bacteremia. 2. End-stage renal disease, requiring dialysis. PLAN: She is being dialyzed through the fistula today. I told her dialysis tunnel catheter will be removed. Antibiotics will be handled by Dr. Calhoun and Dr. Delgado. No further Pulmonary recommendations. We will sign off. Job ID: [id number]
[2020-02-27 14:30] LABS: Vancomycin, Random 14.7 ug/mL (See Comment)
[2020-02-27] MEDS: cefTRIAXone\\ROCEPHIN 1 GM in Sodium Chloride 0.9% 100 ML IVPB SCH (17:19)
--- NOTE | 2020-02-28 00:16 | CON ---
DATE OF CONSULTATION: HISTORY OF PRESENT ILLNESS: Alissa Watters is a 64-year-old female, morbidly obese, 5 feet 2 inches, 210 pounds, 38 BMI with end-stage renal disease, undergoing placement of a hemodialysis catheter, right IJ, 06/11/2019, along with a left arm fistula, perforating branch antecubital vein to proximal right radial artery outflow basilic and cephalic veins. Due to her morbid obesity, it was anticipated that she would probably need a transposition and it was uncertain as to her outflow during the time of surgery and she was felt to probably need a fistulogram. The patient did undergo this fistulogram and as they could not access her fistula because of her obesity, she underwent a cephalic vein transposition fistula, 12/08/2019. She did well postoperatively except for developing a seroma near the shoulder area. Several aspirations performed every week in the office until last week I placed a seroma catheter in the office. This drained copious amounts initially, but the drainage volume has decreased tremendously and her discomfort in her left breast and shoulder has resolved. She, however, reported with fever to 102 degrees and tachypneic and tachycardic. Blood cultures at the dialysis center were positive for GPC, and in the hospital one of two blood cultures positive for Pseudomonas. Dr. Loco has seen her and she is being given vancomycin and cephalosporin. The patient now is afebrile. Her seroma catheter is only putting out 10 to 15 mL per day. It is not infectious looking. It was serous. The patient now is ready to go home and she feels much better. I am certain that the source of her bacteremia is her dialysis catheter. We have contacted her dialysis physician last week and asked him to begin accessing her fistula and they have been able to do that. Today, they dialyzed her using her fistula exclusively, not using her catheter. The plan is to remove her dialysis catheter and Dr. Loco has arranged as outpatient, antibiotic regimen to treat her bacteremia. She is ready for discharge today. The nurses and myself have made efforts over the last hour and a half to contact Dr. Sabas Calhoun without response. PLAN: Plan is to discharge her home tonight. She will follow up with me next week regarding her seroma and removal of seroma catheter. She will keep track of her drainage. Job ID: [id number]
--- NOTE | 2020-02-28 06:42 | OP ---
DATE OF PROCEDURE: 02/27/2020 PREOPERATIVE DIAGNOSES: Senescent hemodialysis catheter right internal jugular cuffed tunneled with bacteremia, gram-positive cocci at dialysis center, Pseudomonas in the hospital. POSTOPERATIVE DIAGNOSES: Senescent hemodialysis catheter right internal jugular cuffed tunneled with bacteremia, gram-positive cocci at dialysis center, Pseudomonas in the hospital. Noting cuff not adherent. PROCEDURE PERFORMED: Removal of right internal jugular cuffed tunneled hemodialysis catheter at bedside. ANESTHESIA: None required. DESCRIPTION OF PROCEDURE: At the patient's bedside, her sutures were removed. Dialysis catheter gently tugged and the cuff was not adherent. The catheter and cuff removed. Pressure held to hemostatic. The patient tolerated the procedure well. Dressing applied. Job ID: [id number]
--- NOTE | 2020-02-28 15:00 | EKG ---
Test Reason : Blood Pressure : / mmHG Vent. Rate : 126 BPM Atrial Rate : 129 BPM P-R Int : 000 ms QRS Dur : 090 ms QT Int : 318 ms P-R-T Axes : 000 002 -13 degrees QTc Int : 460 ms Sinus tachycardia with 1st degree AV block Inferior infarct , age undetermined Cannot rule out Anterior infarct , age undetermined Abnormal ECG Confirmed by JESSICA RAO, THU Davidson ([id number]), change agent MARAI TERESA BYRD ([id number]) on 02/28/2020 3:00:38 PM Referred By: Confirmed By:THU LOPEZ MD
--- NOTE | 2020-03-01 02:23 | DIS ---
DATE OF ADMISSION: 02/25/2020 DATE OF DISCHARGE: 02/27/2020 CHIEF COMPLAINT ON ADMISSION: Sepsis, rule out COVID. The patient was initially placed in an isolation bed, and COVID precautions were utilized. Cultures have been taken. IV antibiotics continued. Supportive care given and Dr. Loco was consulted to take care of her dialysis orders. We added vancomycin to her antibiotic coverage. Over the next 24 hours, the patient did quite well and felt much better. Her COVID status came back negative and felt that her blood cultures did come back positive for Pseudomonas or probably from an internal jugular catheter that have been used for dialysis. AV fistula was not able to be utilized without difficulty. Over the next 24 hours, her white count dropped down to 12.4, hemoglobin 9.9, hematocrit 36.8. Electrolytes corrected. Her chest stayed clear with auscultation and examination and the numbers for her end-stage renal disease improved with dialysis. Her blood pressure did well in the hospital, and she did not require IV insulin supplementation for her diabetes. Finally, on 02/27/2020, she had done well, had no complaints, had been afebrile. Dr. Benavides saw the patient in consultation and removed the IJ catheter and felt that she was able to be discharged home since her antibiotics begun from hospitalization to be continued by Dr. Loco at dialysis. The patient was agreeable to this and so the patient was able to be discharged home in stable condition. Her discharge medications will be done at dialysis, and she will continue her dialysis schedule Sunday, , Sunday. DIAGNOSES AT DISCHARGE: 1. Sepsis from Pseudomonas source, probably the internal jugular catheter. 2. End-stage renal disease. 3. Hypertension. 4. Odr-nooiohs-miipnhhsq diabetes-diet controlled. She will continue her routine medicines that she has been on at home. She will follow up with Dr. Calhoun in 1 week. The time required to review the chart, examine the patient, answer her questions ,reconcile her medication and dictate the discharge came to 30 minutes. Job ID: [id number] MTDD
== END 2020-02-27 18:13 | disposition home or self-care (01) | DRG 314 ==
LOC: ERS 16:37 → CCU 20:43 → T4-B 02-26 14:52
PROVIDERS: ADMIT Specialist; ATTEND Specialist
PROC: 8E0ZXY6 Isolation (ICD-10-PCS; 2020-02-25)
PROC: 5A1D70Z Performance of Urinary Filtration, Intermittent, Less than 6 Hours Per Day (ICD-10-PCS; principal; 2020-02-26)
PROC: 05PY33Z Removal of Infusion Device from Upper Vein, Percutaneous Approach (ICD-10-PCS; 2020-02-27)
DX: T80.211A Bloodstream infection due to central venous catheter, initial encounter (principal); A41.52 Sepsis due to Pseudomonas; N18.6 End stage renal disease; L02.213 Cutaneous abscess of chest wall; I13.2 Hypertensive heart and chronic kidney disease with heart failure and with stage 5 chronic kidney disease, or end stage renal disease; I50.32 Chronic diastolic (congestive) heart failure; Z20.828 Contact with and (suspected) exposure to other viral communicable diseases; K21.9 Gastro-esophageal reflux disease without esophagitis; E78.5 Hyperlipidemia, unspecified; E11.22 Type 2 diabetes mellitus with diabetic chronic kidney disease; Z90.49 Acquired absence of other specified parts of digestive tract; Z99.2 Dependence on renal dialysis; Z79.82 Long term (current) use of aspirin; Z98.51 Tubal ligation status; Z93.3 Colostomy status
CPT/HCPCS: 36415; 36416; 71045; 80048; 80053; 80202; 81001; 82553; 83605; 83880; 84484; 85025; 85060; 87040; 87077; 87086; 87186; 87635; 87804; 90935; 93005; 94660; 96365; 96367; 99292; G0257; J0456; J0696; J3370; J3490; U0003

== ENCOUNTER 2020-03-17 08:44 | Outpatient (CLI) | payer MEDICARE ==
--- NOTE | 2020-03-17 09:35 | MMO ---
Left Breast MAMMO Unilat Diag DDI LT+GERARD. CLINICAL HISTORY: Patient is 64 years old and is seen for additional evaluation requested from prior study. The patient has no family history of breast cancer. The patient has no personal history of cancer. VIEWS: The views performed were: left mediolateral oblique spot compression with tomosynthesis; left mediolateral; left mediolateral with tomosynthesis; and left mediolateral spot compression with tomosynthesis. FILMS COMPARED: The present examination has been compared to prior imaging studies performed at [facility] on 03/11/2020 and 03/17/2020. This study has been interpreted with the assistance of computer-aided detection. MAMMOGRAM FINDINGS: The breast is heterogeneously dense, which could obscure a lesion on mammography. Finding 1: There is an area of axillary adenopathy seen on the left side. Finding 2: There is an area of skin thickening seen in the left breast. IMPRESSION: FINDING 1: AREA OF AXILLARY ADENOPATHY IN THE LEFT BREAST IS HIGHLY SUGGESTIVE OF MALIGNANCY. BIOPSY IS RECOMMENDED. FINDING 2: AREA OF SKIN THICKENING IN THE LEFT BREAST IS HIGHLY SUGGESTIVE OF MALIGNANCY. BIOPSY IS RECOMMENDED. THE RESULTS OF THIS EXAM WERE SENT TO THE PATIENT. ACR BI-RADS Category 5 - Highly suggestive of malignancy - appropriate action should be taken MAMMOGRAPHY NOTE: 1. A negative mammogram report should not delay a biopsy if a dominant of clinically suspicious mass is present. 2. Approximately 10% to 15% of breast cancers are not detected by mammography. 3. Adenosis and dense breasts may obscure an underlying neoplasm. Reported by: ANTONIETA AC MD Electonically Signed: [id number]
--- NOTE | 2020-03-17 09:35 | ULT ---
EXAM: US Breast Limited Lt PROVIDED CLINICAL HISTORY: Abnormal mammogram COMPARISON: Diagnostic mammogram 03/17/2020 Screening mammogram 03/11/2020 FINDINGS: Limited sonographic interrogation was performed of the left axillary tail and left axilla in the jennifer on of mammographic concern. Multiple circumscribed hypoechoic masses, rounded to oval and morphology are demonstrated in this region. The largest measures at least 4 cm in greatest dimension. IMPRESSION: Multiple hypoechoic masses in the left axillary tail and left axilla, presumably reflecting enlarged, abnormal lymph nodes. Given the concurrent left breast skin thickening, inflammatory carcinoma with lymphadenopathy should be considered. Tissue sampling is recommended. BI-RADS 5 -- highly suggestive of malignancy
== END 2020-03-17 08:45 | disposition home or self-care (01) ==
LOC: BICMAMMO 08:44
PROVIDERS: ATTEND Specialist
DX: N63.22 Unspecified lump in the left breast, upper inner quadrant (principal); N64.89 Other specified disorders of breast
CPT/HCPCS: 76642; 77065; G0279

== ENCOUNTER → 2020-04-22 | Day surgery (SDC) | payer MEDICARE ==
--- NOTE | 2020-04-22 13:41 | ULT ---
Exam: Ultrasound guided biopsy of an enlarged left axillary lymph node HISTORY: Left axillary lymphadenopathy COMPARISON: 03/17/2020 FINDINGS: Successful ultrasound-guided biopsy. A total of three 20-gauge Franseen fine-needle aspiration/biopsy was performed. The first 2 samples were placed directly in formalin. A third sample placed directly in RPMI No immediate or postprocedural TECHNIQUE: Consent obtained. Foot ulcer guided biopsy of a left axillary lymph node. Given the locati on of the lymph node and overall body habitus, a fine needle aspiration utilizing a Franseen needle was performed. Brain CT needle to allow core samples to be aspirated. Patient left axilla was prepped and draped in a sterile fashion. 1% lidocaine, buffered with sodium bicarbonate was used for local anesthesia. Under sonographic guidance, 20-gauge Franseen needles advanced into the lymph node. With aspiration, multiple passes were made during each attempt. Samples were placed directly in formalin and or RPMI. Patient tolerated the procedure well. No immediate or postprocedure IMPRESSION: Successful fine-needle aspiration/biopsy utilizing a 20-gauge Franseen needle
== END ==
LOC: BICULT 12:33
PROVIDERS: ATTEND Specialist
PROC: 07B60ZX Excision of Left Axillary Lymphatic, Open Approach, Diagnostic (ICD-10-PCS; principal; 2020-04-22)
DX: R59.0 Localized enlarged lymph nodes (principal)
CPT/HCPCS: 38505; 88184; 88305

== ENCOUNTER 2020-05-13 07:13 | Day surgery (SDC) | payer MEDICARE ==
[2020-05-12 12:52] VITALS: BMI 40.2
[2020-05-13] MEDS ORDERED: Sodium Bicarbonate 2.5 MEQ/5 ML VIAL ONE (07:35)
[2020-05-13 09:08] VITALS: BP 145/104; TEMP 98
--- NOTE | 2020-05-13 09:36 | SPC ---
Dialysis fistulogram left upper extremity Sonographic guided vascular access left upper extremity HISTORY: Renal failure. Elevated venous pressures. Prolonged bleeding. Fluoroscopy time 0.8 minutes. FINDINGS: After expanding the procedure and answering all questions, left upper extremity was prepped and draped in usual sterile fashion. Sterile technique, buffered local anesthesia, sonographic guidance, and a 22-gauge needle were used to carefully access the left arm cephalic dialysis fistula just below the antecubital fossa. Sonogram was used to visualize the arterial anastomosis which was widely patent. A 4 German micropuncture sheath was placed for imaging. There is very brisk arterial flow throughout the very tortuous cephalic dialysis fistula. Multiple sm all pseudoaneurysms are present at the level of dialysis access. Minimal collateral/branch veins. Arterial anastomosis was partially excluded from the image by is obviously widely patent given the go od arterial inflow and reflux into the arterial structures of the forearm. There is brisk venous outflow. A small amount of reflux into the left subclavian vein and smaller int rathoracic veins without collateralization. Superior vena cava is patent. Sheath was removed and hemostasis obtained using direct pressure. Patient tolerated the procedure wel l and was dismissed in good condition. IMPRESSION : Left upper arm cephalic dialysis fistula is widely patent with good fistula flow. The cephalic vein r emains extremely tortuous. Multiple small pseudoaneurysms along the area of dialysis access. No evidence of stenosis, occlusion, or thrombus.
== END 2020-05-13 08:40 | disposition home or self-care (01) ==
LOC: SPEC 07:13
PROVIDERS: ATTEND Specialist
PROC: B30 Imaging, Upper Arteries, Plain Radiography (ICD-10-PCS; principal; 2020-05-13)
DX: I13.0 Hypertensive heart and chronic kidney disease with heart failure and stage 1 through stage 4 chronic kidney disease, or unspecified chronic kidney disease (principal); E11.22 Type 2 diabetes mellitus with diabetic chronic kidney disease; N18.6 End stage renal disease; I50.9 Heart failure, unspecified; G47.33 Obstructive sleep apnea (adult) (pediatric); Z79.82 Long term (current) use of aspirin; Z79.899 Other long term (current) drug therapy; Z99.2 Dependence on renal dialysis
CPT/HCPCS: 36901; 76937

== ENCOUNTER 2021-09-13 09:40 | Outpatient (CLI) | payer MEDICARE | END 2021-09-13 09:41 | disposition home or self-care (01) | LOC: BICMAMMO 09:40 | PROVIDERS: ATTEND Specialist | DX: Z12.31 Encounter for screening mammogram for malignant neoplasm of breast (principal) | CPT/HCPCS: 77063; 77067 ==

== ENCOUNTER 2021-12-06 02:22 | Emergency (ER) | payer MEDICARE ==
[2021-12-06 04:05] LABS: #Eosinphils 0.2 thou/uL (0.0-0.7); #Lymphocytes 1.1 thou/uL (1.20-3.40); #Monocytes 0.5 thou/uL (0.11-0.59); #Neutrophils 5.1 thou/uL (1.40-6.50); %Eosinophils 3.4 % (0.0-10.0); %Lymphocytes 15.8 % (21.0-51.0); %Monocytes 7.5 % (0.0-10.0); %Neutrophils 73.3 % (42.0-75.0); Hemoglobin 10.3 g/dL (12.0-16.0); Mean Corpuscular HGB CONC 30.5 g/dL (32.0-36.0); Mean Corpuscular Hemoglobin 29.8 pg (27.0-31.0); Mean Corpuscular Volume 97.7 fL (78.0-98.0); Mean Platelet Volume 6.9 fL (7.4-10.4); Platelet Count 231 thou/uL (130-400); RBC Distribution Width 15.1 % (11.5-14.5); Red Blood Cell (RBC) Count 3.47 mill/uL (4.20-5.40); White Blood Cell (WBC) Count 6.9 thou/uL (4.8-10.8)
[2021-12-06 04:14] LABS: ALT (SGPT) Less than 7 U/L (8-55); AST (SGOT) 10 U/L (5-34); Albumin 3.4 g/dL (3.4-4.8); Alkaline Phosphatase 85 U/L (40-110); Anion Gap 19 mmol/L (10-20); BUN (Urea Nitrogen) 61 mg/dL (9.8-20.1); Bilirubin, Total 0.5 mg/dL (0.2-1.2); Calc. Creatinine Clearance 0 mL/min (70-130); Calcium 7.8 mg/dL (7.8-10.44); Carbon Dioxide 22 mmol/L (23-31); Chloride 102 mmol/L (98-107); Globulin 4.7 g/dL (2.4-3.5); Glucose 77 mg/dL (80-115); Protein, Total 8.1 g/dL (5.8-8.1); Sodium 138 mmol/L (136-145)
[2021-12-06 04:15] LABS: PTT 40.2 sec (22.9-36.1)
[2021-12-06 04:16] LABS: INR-International Normal Ratio 1.4; Prothrombin Time 17.4 sec (12.0-14.7)
== END 2021-12-06 04:45 | disposition home or self-care (01) ==
LOC: ERS 02:22
DX: K94.01 Colostomy hemorrhage (principal); R53.1 Weakness; I50.9 Heart failure, unspecified; I13.2 Hypertensive heart and chronic kidney disease with heart failure and with stage 5 chronic kidney disease, or end stage renal disease; N18.6 End stage renal disease
CPT/HCPCS: 74177; 80053; 85025; 85610; 85730; 86850; 86900; 86901; 93005

== ENCOUNTER 2022-02-07 11:06 | Inpatient (IN) | payer MEDICARE ==
[2022-02-07 13:06] LABS: ALT (SGPT) 10 U/L (8-55); AST (SGOT) 15 U/L (5-34); Albumin 3.9 g/dL (3.4-4.8); Alkaline Phosphatase 100 U/L (40-110); Anion Gap 17 mmol/L (10-20); BUN (Urea Nitrogen) 31 mg/dL (9.8-20.1); Bilirubin, Total 0.4 mg/dL (0.2-1.2); CK (CPK) 43 U/L (29-168); Calc. Creatinine Clearance 0 mL/min (70-130); Carbon Dioxide 26 mmol/L (23-31); Chloride 104 mmol/L (98-107); Globulin 4.9 g/dL (2.4-3.5); Glucose 90 mg/dL (80-115); Potassium 4.1 mmol/L (3.5-5.1); Protein, Total 8.8 g/dL (5.8-8.1); Sodium 143 mmol/L (136-145)
[2022-02-07 13:30] LABS: CKMB 0.6 ng/mL (0-6.6)
[2022-02-07 13:50] LABS: #Eosinphils 0.4 thou/uL (0.0-0.7); #Lymphocytes 1.3 thou/uL (1.20-3.40); #Monocytes 0.5 thou/uL (0.11-0.59); #Neutrophils 4.1 thou/uL (1.40-6.50); %Basophils 0.2 % (0.0-1.0); %Eosinophils 6.2 % (0.0-10.0); %Lymphocytes 19.8 % (21.0-51.0); %Monocytes 8.4 % (0.0-10.0); %Neutrophils 65.4 % (42.0-75.0); Hemoglobin 13.1 g/dL (12.0-16.0); Mean Corpuscular HGB CONC 30.2 g/dL (32.0-36.0); Mean Corpuscular Hemoglobin 29.2 pg (27.0-31.0); Mean Corpuscular Volume 96.4 fL (78.0-98.0); Mean Platelet Volume 7.2 fL (7.4-10.4); Platelet Count 205 thou/uL (130-400); RBC Distribution Width 16.5 % (11.5-14.5); Red Blood Cell (RBC) Count 4.49 mill/uL (4.20-5.40); White Blood Cell (WBC) Count 6.3 thou/uL (4.8-10.8)
[2022-02-07] MEDS ORDERED: Nitroglycerin 2% Ointment 1 INCH/1 GM Packet ONE (14:44)
[2022-02-07 16:46] LABS: Troponin I 0.059 ng/mL (< 0.028)
[2022-02-07 17:13] VITALS: BMI 37.2
[2022-02-07 18:56] LABS: Troponin I 0.057 ng/mL (< 0.028)
[2022-02-07] MEDS: busPIRone HCl 5 MG TAB PO SCH (20:14)
[2022-02-07] MEDS: Atorvastatin Calcium 10 MG TAB PO SCH (20:14)
[2022-02-08 05:10] LABS: #Eosinphils 0.4 thou/uL (0.0-0.7); #Lymphocytes 1.2 thou/uL (1.20-3.40); #Monocytes 0.6 thou/uL (0.11-0.59); %Basophils 0.3 % (0.0-1.0); %Eosinophils 6.7 % (0.0-10.0); %Lymphocytes 18.9 % (21.0-51.0); %Monocytes 9.8 % (0.0-10.0); %Neutrophils 64.3 % (42.0-75.0); Hemoglobin 11.6 g/dL (12.0-16.0); Mean Corpuscular HGB CONC 31.2 g/dL (32.0-36.0); Mean Corpuscular Hemoglobin 30.1 pg (27.0-31.0); Mean Corpuscular Volume 96.3 fL (78.0-98.0); Mean Platelet Volume 6.6 fL (7.4-10.4); Platelet Count 209 thou/uL (130-400); Red Blood Cell (RBC) Count 3.87 mill/uL (4.20-5.40); White Blood Cell (WBC) Count 6.3 thou/uL (4.8-10.8)
[2022-02-08 05:20] LABS: Hemoglobin A1c 5.1 % (4.0-6.0)
[2022-02-08 05:31] LABS: Anion Gap 18 mmol/L (10-20); BUN (Urea Nitrogen) 40 mg/dL (9.8-20.1); Calc. Creatinine Clearance 9 mL/min (70-130); Calcium 8.4 mg/dL (7.8-10.44); Carbon Dioxide 24 mmol/L (23-31); Cardiac Risk 2.4 (Less than 4.5); Chloride 104 mmol/L (98-107); Cholesterol 117 mg/dl (< 200 Desired); Glucose 86 mg/dL (80-115); HDL Cholesterol 48 mg/dL (>60 Neg Risk); LDL Cholesterol, Calculated 59 mg/dL; Magnesium 1.9 mg/dL (1.6-2.6); Potassium 4.4 mmol/L (3.5-5.1); Sodium 142 mmol/L (136-145); Triglycerides 51 mg/dL (Less than 150)
[2022-02-08] MEDS ORDERED: Iopamidol 370 76% 100 ML VIAL ONE (09:02)
[2022-02-08 09:30] LABS: Phosphorus 6.1 mg/dL (2.3-4.7)
[2022-02-08] MEDS: busPIRone HCl 5 MG TAB PO SCH ×2 (11:34→20:42)
[2022-02-08] MEDS: Carvedilol 6.25 MG TAB PO SCH ×2 (11:34→16:59)
[2022-02-08 12:14] LABS: SARS-CoV-2 PCR by NAA Not Detected (NotDetected)
[2022-02-08] MEDS: Aspirin Chewable 81 MG TAB PO SCH (14:51)
[2022-02-08] MEDS: Cinacalcet HCl 30 MG TAB PO SCH (14:52)
[2022-02-08] MEDS: NIFEdipine XL 30 MG TAB PO SCH (14:52)
[2022-02-08] MEDS: Febuxostat 40 MG TAB PO SCH (14:52)
[2022-02-08] MEDS ORDERED: Adenosine 6 MG/2 ML VIAL ONE ×3 (17:38→18:05)
[2022-02-08] MEDS ORDERED: Diltiazem HCl 125 MG, Admixture Fee 1 EACH in Sodium Chloride 0.9% 100 ML IVPB SCH (18:15)
[2022-02-08] MEDS ORDERED: Adenosine 6 MG/2 ML VIAL IVP SCH (18:15)
[2022-02-08] MEDS: Apixaban 5 MG TAB PO SCH (20:42)
[2022-02-08] MEDS: Atorvastatin Calcium 10 MG TAB PO SCH (20:43)
[2022-02-08] MEDS: Sodium Chloride 0.9% 1,000 ML IV SCH (21:08)
[2022-02-08] MEDS ORDERED: Sodium Chloride 0.9% 500 ML IV SCH (23:45)
[2022-02-09] MEDS: Sodium Chloride 0.9% 1,000 ML IV SCH (00:01)
[2022-02-09] MEDS: Cinacalcet HCl 30 MG TAB PO SCH (09:29)
[2022-02-09] MEDS: Aspirin Chewable 81 MG TAB PO SCH (09:29)
[2022-02-09] MEDS: NIFEdipine XL 30 MG TAB PO SCH (09:30)
[2022-02-09] MEDS: Apixaban 5 MG TAB PO SCH ×2 (09:30→20:42)
[2022-02-09] MEDS: busPIRone HCl 5 MG TAB PO SCH ×2 (09:30→20:45)
[2022-02-09] MEDS: Febuxostat 40 MG TAB PO SCH (09:31)
[2022-02-09] MEDS: Carvedilol 6.25 MG TAB PO SCH ×2 (09:31→18:19)
[2022-02-09] MEDS: Atorvastatin Calcium 10 MG TAB PO SCH (20:42)
[2022-02-09] MEDS: Diltiazem HCl SR 60 mg Capsule PO SCH (20:42)
[2022-02-10 08:50] LABS: HBSAg Index 0.31 S/CO (0-0.99); Hep B Surf Ag Non-Reactive S/CO (NonReactive)
[2022-02-10 09:56] LABS: Hep B Surf AB Reactive (NonReactive)
[2022-02-10] MEDS: Sevelamer Carbonate 800 MG TAB PO SCH ×3 (12:12→16:33)
[2022-02-10] MEDS: Carvedilol 6.25 MG TAB PO SCH ×2 (12:34→16:30)
[2022-02-10] MEDS: busPIRone HCl 5 MG TAB PO SCH ×2 (12:35→20:27)
[2022-02-10] MEDS: Diltiazem HCl SR 60 mg Capsule PO SCH ×2 (12:35→20:27)
[2022-02-10] MEDS: Febuxostat 40 MG TAB PO SCH (12:35)
[2022-02-10] MEDS: Apixaban 2.5 MG TAB PO SCH ×2 (12:35→20:27)
[2022-02-10] MEDS: Aspirin Chewable 81 MG TAB PO SCH (12:35)
[2022-02-10] MEDS: Cinacalcet HCl 30 MG TAB PO SCH (12:35)
[2022-02-10] MEDS: Atorvastatin Calcium 10 MG TAB PO SCH (20:27)
[2022-02-11] MEDS: Febuxostat 40 MG TAB PO SCH (09:09)
[2022-02-11] MEDS: Aspirin Chewable 81 MG TAB PO SCH (09:09)
[2022-02-11] MEDS: Apixaban 2.5 MG TAB PO SCH ×2 (09:10→21:52)
[2022-02-11] MEDS: Sevelamer Carbonate 800 MG TAB PO SCH ×3 (09:10→16:25)
[2022-02-11] MEDS: Carvedilol 6.25 MG TAB PO SCH ×2 (09:10→16:25)
[2022-02-11] MEDS: Cinacalcet HCl 30 MG TAB PO SCH (09:10)
[2022-02-11] MEDS: busPIRone HCl 5 MG TAB PO SCH ×2 (09:10→21:52)
[2022-02-11] MEDS: Diltiazem HCl SR 60 mg Capsule PO SCH ×2 (09:10→21:52)
[2022-02-11] MEDS: Atorvastatin Calcium 10 MG TAB PO SCH (21:52)
[2022-02-12 04:41] LABS: #Eosinphils 0.4 thou/uL (0.0-0.7); #Lymphocytes 0.9 thou/uL (1.20-3.40); #Monocytes 0.6 thou/uL (0.11-0.59); #Neutrophils 2.7 thou/uL (1.40-6.50); %Basophils 0.4 % (0.0-1.0); %Eosinophils 7.7 % (0.0-10.0); %Lymphocytes 19.8 % (21.0-51.0); %Monocytes 13.8 % (0.0-10.0); %Neutrophils 58.3 % (42.0-75.0); Hemoglobin 11.1 g/dL (12.0-16.0); Mean Corpuscular HGB CONC 30.5 g/dL (32.0-36.0); Mean Corpuscular Hemoglobin 29.4 pg (27.0-31.0); Mean Corpuscular Volume 96.6 fL (78.0-98.0); Mean Platelet Volume 6.7 fL (7.4-10.4); Platelet Count 188 thou/uL (130-400); RBC Distribution Width 15.9 % (11.5-14.5); Red Blood Cell (RBC) Count 3.79 mill/uL (4.20-5.40); White Blood Cell (WBC) Count 4.7 thou/uL (4.8-10.8)
[2022-02-12 05:03] LABS: Anion Gap 13 mmol/L (10-20); BUN (Urea Nitrogen) 38 mg/dL (9.8-20.1); Calc. Creatinine Clearance 11 mL/min (70-130); Calcium 7.7 mg/dL (7.8-10.44); Carbon Dioxide 31 mmol/L (23-31); Chloride 98 mmol/L (98-107); Glucose 95 mg/dL (80-115); Potassium 3.9 mmol/L (3.5-5.1); Sodium 138 mmol/L (136-145)
[2022-02-12] MEDS: Sevelamer Carbonate 800 MG TAB PO SCH ×3 (08:46→17:59)
[2022-02-12] MEDS: Diltiazem HCl SR 60 mg Capsule PO SCH ×2 (08:46→21:19)
[2022-02-12] MEDS: Febuxostat 40 MG TAB PO SCH (08:46)
[2022-02-12] MEDS: busPIRone HCl 5 MG TAB PO SCH ×2 (08:46→21:19)
[2022-02-12] MEDS: Cinacalcet HCl 30 MG TAB PO SCH (08:46)
[2022-02-12] MEDS: Carvedilol 6.25 MG TAB PO SCH ×2 (08:46→17:59)
[2022-02-12] MEDS: Aspirin Chewable 81 MG TAB PO SCH (08:46)
[2022-02-12] MEDS: Apixaban 2.5 MG TAB PO SCH ×2 (08:46→21:19)
[2022-02-12] MEDS ORDERED: Milk Of Magnesia 30 ML UDCUP PO PRN (14:31)
[2022-02-12] MEDS: Atorvastatin Calcium 10 MG TAB PO SCH (21:19)
[2022-02-13 04:53] LABS: #Eosinphils 0.3 thou/uL (0.0-0.7); #Lymphocytes 0.8 thou/uL (1.20-3.40); #Monocytes 0.6 thou/uL (0.11-0.59); #Neutrophils 3.1 thou/uL (1.40-6.50); %Basophils 0.1 % (0.0-1.0); %Eosinophils 6.8 % (0.0-10.0); %Monocytes 11.5 % (0.0-10.0); %Neutrophils 64.6 % (42.0-75.0); Hemoglobin 11.6 g/dL (12.0-16.0); Mean Corpuscular HGB CONC 30.9 g/dL (32.0-36.0); Mean Corpuscular Hemoglobin 29.5 pg (27.0-31.0); Mean Corpuscular Volume 95.5 fL (78.0-98.0); Platelet Count 190 thou/uL (130-400); RBC Distribution Width 15.7 % (11.5-14.5); Red Blood Cell (RBC) Count 3.92 mill/uL (4.20-5.40); White Blood Cell (WBC) Count 4.9 thou/uL (4.8-10.8)
[2022-02-13 05:16] LABS: Anion Gap 17 mmol/L (10-20); BUN (Urea Nitrogen) 46 mg/dL (9.8-20.1); Calc. Creatinine Clearance 9 mL/min (70-130); Calcium 7.6 mg/dL (7.8-10.44); Carbon Dioxide 26 mmol/L (23-31); Chloride 100 mmol/L (98-107); Glucose 86 mg/dL (80-115); Potassium 4.3 mmol/L (3.5-5.1); Sodium 139 mmol/L (136-145)
[2022-02-13] MEDS: Carvedilol 6.25 MG TAB PO SCH ×2 (08:05→16:48)
[2022-02-13] MEDS: Apixaban 2.5 MG TAB PO SCH ×2 (08:05→20:55)
[2022-02-13] MEDS: Sevelamer Carbonate 800 MG TAB PO SCH ×3 (08:05→16:48)
[2022-02-13] MEDS: busPIRone HCl 5 MG TAB PO SCH ×2 (08:06→20:54)
[2022-02-13] MEDS: Diltiazem HCl SR 60 mg Capsule PO SCH ×2 (08:06→20:54)
[2022-02-13] MEDS: Aspirin Chewable 81 MG TAB PO SCH (08:06)
[2022-02-13] MEDS: Cinacalcet HCl 30 MG TAB PO SCH (08:06)
[2022-02-13] MEDS: Febuxostat 40 MG TAB PO SCH (14:23)
[2022-02-13] MEDS: Atorvastatin Calcium 10 MG TAB PO SCH (20:55)
[2022-02-14 04:49] LABS: #Eosinphils 0.3 thou/uL (0.0-0.7); #Monocytes 0.7 thou/uL (0.11-0.59); #Neutrophils 3.4 thou/uL (1.40-6.50); %Basophils 0.2 % (0.0-1.0); %Eosinophils 5.2 % (0.0-10.0); %Lymphocytes 18.3 % (21.0-51.0); %Monocytes 13.4 % (0.0-10.0); %Neutrophils 62.9 % (42.0-75.0); Hemoglobin 11.5 g/dL (12.0-16.0); Mean Corpuscular HGB CONC 31.5 g/dL (32.0-36.0); Mean Corpuscular Hemoglobin 30.2 pg (27.0-31.0); Mean Corpuscular Volume 95.9 fL (78.0-98.0); Mean Platelet Volume 6.8 fL (7.4-10.4); Platelet Count 187 thou/uL (130-400); RBC Distribution Width 15.4 % (11.5-14.5); Red Blood Cell (RBC) Count 3.82 mill/uL (4.20-5.40); White Blood Cell (WBC) Count 5.5 thou/uL (4.8-10.8)
[2022-02-14 05:13] LABS: Anion Gap 14 mmol/L (10-20); BUN (Urea Nitrogen) 32 mg/dL (9.8-20.1); Calc. Creatinine Clearance 13 mL/min (70-130); Carbon Dioxide 29 mmol/L (23-31); Chloride 99 mmol/L (98-107); Glucose 126 mg/dL (80-115); Potassium 4.5 mmol/L (3.5-5.1); Sodium 137 mmol/L (136-145)
[2022-02-14 07:54] VITALS: TEMP 98.3
[2022-02-14] MEDS: Carvedilol 6.25 MG TAB PO SCH (08:29)
[2022-02-14] MEDS: Aspirin Chewable 81 MG TAB PO SCH (08:30)
[2022-02-14] MEDS: Febuxostat 40 MG TAB PO SCH (08:30)
[2022-02-14] MEDS: Apixaban 2.5 MG TAB PO SCH (08:30)
[2022-02-14] MEDS: Cinacalcet HCl 30 MG TAB PO SCH (08:30)
[2022-02-14] MEDS: Diltiazem HCl SR 60 mg Capsule PO SCH (08:30)
[2022-02-14] MEDS: busPIRone HCl 5 MG TAB PO SCH (08:30)
[2022-02-14] MEDS: Sevelamer Carbonate 800 MG TAB PO SCH ×2 (08:30→11:23)
[2022-02-14 11:25] VITALS: BP 125/77
== END 2022-02-14 12:15 | disposition home or self-care (01) | DRG 308 ==
LOC: ERS 11:06 → 2NO 15:10 → OBSVTOIN 02-09 12:15
PROVIDERS: ADMIT Specialist; ATTEND Specialist
PROC: 5A1D70Z Performance of Urinary Filtration, Intermittent, Less than 6 Hours Per Day (ICD-10-PCS; principal; 2022-02-08)
DX: I47.1 Supraventricular tachycardia (principal); N18.6 End stage renal disease; I50.32 Chronic diastolic (congestive) heart failure; I13.2 Hypertensive heart and chronic kidney disease with heart failure and with stage 5 chronic kidney disease, or end stage renal disease; N25.81 Secondary hyperparathyroidism of renal origin; Z20.822 Contact with and (suspected) exposure to COVID-19; K21.9 Gastro-esophageal reflux disease without esophagitis; E78.5 Hyperlipidemia, unspecified; F41.1 Generalized anxiety disorder; E66.01 Morbid (severe) obesity due to excess calories; E11.22 Type 2 diabetes mellitus with diabetic chronic kidney disease; I25.10 Atherosclerotic heart disease of native coronary artery without angina pectoris; E83.39 Other disorders of phosphorus metabolism; G47.33 Obstructive sleep apnea (adult) (pediatric); Z93.3 Colostomy status; Z98.51 Tubal ligation status; Z79.899 Other long term (current) drug therapy; Z68.38 Body mass index [BMI] 38.0-38.9, adult; Z99.2 Dependence on renal dialysis; Z79.82 Long term (current) use of aspirin; Z86.73 Personal history of transient ischemic attack (TIA), and cerebral infarction without residual deficits; Z90.49 Acquired absence of other specified parts of digestive tract
CPT/HCPCS: 36415; 70470; 71045; 80048; 80053; 80061; 82533; 82550; 82553; 83036; 83519; 83735; 83880; 83970; 84100; 84443; 84484; 85025; 86706; 87340; 90935; 93005; 93010; 93306; 94760; G0257; G0378; J0153; J3490; J7050; Q9967; U0003; U0005

== ENCOUNTER 2022-03-08 09:42 | Inpatient (IN) | payer MEDICARE ==
[2022-03-08 10:20] LABS: #Monocytes 0.8 thou/uL (0.11-0.59); #Neutrophils 6.1 thou/uL (1.40-6.50); %Basophils 0.1 % (0.0-1.0); %Eosinophils 0.5 % (0.0-10.0); %Lymphocytes 12.7 % (21.0-51.0); %Monocytes 9.6 % (0.0-10.0); %Neutrophils 77.1 % (42.0-75.0); Hemoglobin 12.2 g/dL (12.0-16.0); Mean Corpuscular HGB CONC 30.3 g/dL (32.0-36.0); Mean Corpuscular Hemoglobin 28.6 pg (27.0-31.0); Mean Corpuscular Volume 94.3 fL (78.0-98.0); Mean Platelet Volume 6.8 fL (7.4-10.4); Platelet Count 213 thou/uL (130-400); RBC Distribution Width 14.8 % (11.5-14.5); Red Blood Cell (RBC) Count 4.26 mill/uL (4.20-5.40); White Blood Cell (WBC) Count 7.9 thou/uL (4.8-10.8)
[2022-03-08 10:59] LABS: CKMB 0.8 ng/mL (0-6.6)
[2022-03-08 11:00] LABS: ALT (SGPT) 8 U/L (8-55); AST (SGOT) 16 U/L (5-34); Albumin 3.9 g/dL (3.4-4.8); Alkaline Phosphatase 81 U/L (40-110); Anion Gap 21 mmol/L (10-20); BUN (Urea Nitrogen) 18 mg/dL (9.8-20.1); Bilirubin, Total 0.8 mg/dL (0.2-1.2); CK (CPK) 43 U/L (29-168); Calc. Creatinine Clearance 0 mL/min (70-130); Calcium 8.9 mg/dL (7.8-10.44); Carbon Dioxide 22 mmol/L (23-31); Chloride 99 mmol/L (98-107); Globulin 5.2 g/dL (2.4-3.5); Glucose 72 mg/dL (80-115); Magnesium 1.8 mg/dL (1.6-2.6); Potassium 3.8 mmol/L (3.5-5.1); Protein, Total 9.1 g/dL (5.8-8.1); Sodium 138 mmol/L (136-145)
[2022-03-08 14:05] LABS: Troponin I 0.088 ng/mL (< 0.028)
[2022-03-08 15:23] VITALS: BMI 38.1
[2022-03-08 17:06] LABS: Troponin I 0.093 ng/mL (< 0.028)
[2022-03-08] MEDS: Dronedarone HCl 400 MG TAB PO SCH (17:47)
[2022-03-08 21:14] LABS: SARS-CoV-2 PCR by NAA Not Detected (NotDetected)
[2022-03-08] MEDS: Diltiazem HCl SR 60 mg Capsule PO SCH (21:22)
[2022-03-09 05:41] LABS: #Eosinphils 0.2 thou/uL (0.0-0.7); #Lymphocytes 1.3 thou/uL (1.20-3.40); #Monocytes 0.8 thou/uL (0.11-0.59); #Neutrophils 5.3 thou/uL (1.40-6.50); %Basophils 0.4 % (0.0-1.0); %Eosinophils 2.3 % (0.0-10.0); %Lymphocytes 16.5 % (21.0-51.0); %Monocytes 10.3 % (0.0-10.0); %Neutrophils 70.4 % (42.0-75.0); Hemoglobin 11.3 g/dL (12.0-16.0); Mean Corpuscular HGB CONC 29.9 g/dL (32.0-36.0); Mean Corpuscular Hemoglobin 28.3 pg (27.0-31.0); Mean Corpuscular Volume 94.6 fL (78.0-98.0); Mean Platelet Volume 6.7 fL (7.4-10.4); Platelet Count 222 thou/uL (130-400); RBC Distribution Width 15.1 % (11.5-14.5); Red Blood Cell (RBC) Count 4.01 mill/uL (4.20-5.40); White Blood Cell (WBC) Count 7.5 thou/uL (4.8-10.8)
[2022-03-09 05:55] LABS: Anion Gap 17 mmol/L (10-20); BUN (Urea Nitrogen) 31 mg/dL (9.8-20.1); Calc. Creatinine Clearance 14 mL/min (70-130); Calcium 9.2 mg/dL (7.8-10.44); Carbon Dioxide 26 mmol/L (23-31); Chloride 99 mmol/L (98-107); Glucose 93 mg/dL (80-115); Potassium 5.3 mmol/L (3.5-5.1); Sodium 137 mmol/L (136-145)
[2022-03-09] MEDS ORDERED: Apixaban 5 MG TAB PO SCH ×2 (09:00)
[2022-03-09] MEDS: Dronedarone HCl 400 MG TAB PO SCH ×2 (09:19→16:23)
[2022-03-09] MEDS: busPIRone HCl 10 MG TAB PO SCH ×2 (09:19→21:54)
[2022-03-09] MEDS: Apixaban 2.5 MG TAB PO SCH ×2 (09:19→21:54)
[2022-03-09] MEDS: Diltiazem HCl SR 60 mg Capsule PO SCH ×2 (09:29→21:54)
[2022-03-09] MEDS: Febuxostat 40 MG TAB PO SCH (10:18)
[2022-03-09] MEDS: Atorvastatin Calcium 40 MG TAB PO SCH (21:54)
[2022-03-10] MEDS: Febuxostat 40 MG TAB PO SCH (08:46)
[2022-03-10] MEDS: Diltiazem HCl SR 60 mg Capsule PO SCH ×2 (08:46→20:09)
[2022-03-10] MEDS: busPIRone HCl 10 MG TAB PO SCH ×2 (08:47→20:09)
[2022-03-10] MEDS: Dronedarone HCl 400 MG TAB PO SCH ×2 (08:47→18:40)
[2022-03-10] MEDS: Apixaban 2.5 MG TAB PO SCH ×2 (08:47→20:09)
[2022-03-10 16:38] LABS: #Eosinphils 0.2 thou/uL (0.0-0.7); #Lymphocytes 0.8 thou/uL (1.20-3.40); #Monocytes 0.7 thou/uL (0.11-0.59); #Neutrophils 4.1 thou/uL (1.40-6.50); %Basophils 0.2 % (0.0-1.0); %Eosinophils 3.9 % (0.0-10.0); %Lymphocytes 13.7 % (21.0-51.0); %Monocytes 11.8 % (0.0-10.0); %Neutrophils 70.5 % (42.0-75.0); Hemoglobin 12.2 g/dL (12.0-16.0); Mean Corpuscular HGB CONC 30.7 g/dL (32.0-36.0); Mean Corpuscular Hemoglobin 29.2 pg (27.0-31.0); Mean Corpuscular Volume 95.2 fL (78.0-98.0); Mean Platelet Volume 6.8 fL (7.4-10.4); Platelet Count 218 thou/uL (130-400); RBC Distribution Width 15.1 % (11.5-14.5); Red Blood Cell (RBC) Count 4.19 mill/uL (4.20-5.40); White Blood Cell (WBC) Count 5.8 thou/uL (4.8-10.8)
[2022-03-10 16:58] LABS: Hemoglobin A1c 5.8 % (4.0-6.0)
[2022-03-10 17:01] LABS: Anion Gap 14 mmol/L (10-20); BUN (Urea Nitrogen) 20 mg/dL (9.8-20.1); Calc. Creatinine Clearance 18 mL/min (70-130); Carbon Dioxide 30 mmol/L (23-31); Cardiac Risk 2.1 (Less than 4.5); Chloride 98 mmol/L (98-107); Cholesterol 132 mg/dl (< 200 Desired); Glucose 198 mg/dL (80-115); HDL Cholesterol 62 mg/dL (>60 Neg Risk); LDL Cholesterol, Calculated 61 mg/dL; Potassium 3.4 mmol/L (3.5-5.1); Sodium 139 mmol/L (136-145); Triglycerides 46 mg/dL (Less than 150); Uric Acid Less than 2.0 mg/dL (2.6-6.0)
[2022-03-10] MEDS: Atorvastatin Calcium 40 MG TAB PO SCH (20:09)
[2022-03-11 04:47] LABS: #Eosinphils 0.4 thou/uL (0.0-0.7); #Lymphocytes 0.9 thou/uL (1.20-3.40); #Monocytes 0.7 thou/uL (0.11-0.59); %Basophils 0.5 % (0.0-1.0); %Eosinophils 6.5 % (0.0-10.0); %Lymphocytes 15.5 % (21.0-51.0); %Neutrophils 66.5 % (42.0-75.0); Hemoglobin 12.2 g/dL (12.0-16.0); Mean Corpuscular HGB CONC 30.8 g/dL (32.0-36.0); Mean Corpuscular Hemoglobin 29.4 pg (27.0-31.0); Mean Corpuscular Volume 95.6 fL (78.0-98.0); Mean Platelet Volume 6.6 fL (7.4-10.4); Platelet Count 229 thou/uL (130-400); RBC Distribution Width 15.2 % (11.5-14.5); Red Blood Cell (RBC) Count 4.16 mill/uL (4.20-5.40)
[2022-03-11 05:05] LABS: Anion Gap 15 mmol/L (10-20); BUN (Urea Nitrogen) 26 mg/dL (9.8-20.1); Calc. Creatinine Clearance 15 mL/min (70-130); Calcium 8.8 mg/dL (7.8-10.44); Carbon Dioxide 28 mmol/L (23-31); Chloride 98 mmol/L (98-107); Glucose 96 mg/dL (80-115); Potassium 3.8 mmol/L (3.5-5.1); Sodium 137 mmol/L (136-145)
[2022-03-11] MEDS: Apixaban 2.5 MG TAB PO SCH ×2 (08:43→20:14)
[2022-03-11] MEDS: busPIRone HCl 10 MG TAB PO SCH ×2 (08:43→20:14)
[2022-03-11] MEDS: Diltiazem HCl SR 60 mg Capsule PO SCH ×2 (08:43→20:14)
[2022-03-11] MEDS: Dronedarone HCl 400 MG TAB PO SCH ×2 (08:43→17:03)
[2022-03-11] MEDS: Febuxostat 40 MG TAB PO SCH (08:48)
[2022-03-11] MEDS: Atorvastatin Calcium 40 MG TAB PO SCH (20:14)
[2022-03-12 05:32] LABS: Anion Gap 19 mmol/L (10-20); BUN (Urea Nitrogen) 40 mg/dL (9.8-20.1); Calc. Creatinine Clearance 11 mL/min (70-130); Carbon Dioxide 25 mmol/L (23-31); Chloride 98 mmol/L (98-107); Glucose 88 mg/dL (80-115); Potassium 4.3 mmol/L (3.5-5.1); Sodium 138 mmol/L (136-145)
[2022-03-12] MEDS: busPIRone HCl 10 MG TAB PO SCH ×2 (09:22→20:47)
[2022-03-12] MEDS: Febuxostat 40 MG TAB PO SCH (09:22)
[2022-03-12] MEDS: Diltiazem HCl SR 60 mg Capsule PO SCH ×2 (09:22→20:47)
[2022-03-12] MEDS: Apixaban 2.5 MG TAB PO SCH ×2 (09:23→20:47)
[2022-03-12] MEDS: Dronedarone HCl 400 MG TAB PO SCH ×2 (09:23→16:33)
[2022-03-12] MEDS: Atorvastatin Calcium 40 MG TAB PO SCH (20:47)
[2022-03-13] MEDS: Dronedarone HCl 400 MG TAB PO SCH ×2 (08:42→16:47)
[2022-03-13] MEDS: busPIRone HCl 10 MG TAB PO SCH ×2 (08:43→21:48)
[2022-03-13] MEDS: Febuxostat 40 MG TAB PO SCH (14:03)
[2022-03-13] MEDS: Diltiazem HCl SR 60 mg Capsule PO SCH ×2 (14:03→21:52)
[2022-03-13] MEDS: Apixaban 2.5 MG TAB PO SCH ×2 (14:03→21:48)
[2022-03-13] MEDS: Atorvastatin Calcium 40 MG TAB PO SCH (21:48)
[2022-03-14] MEDS: Dronedarone HCl 400 MG TAB PO SCH (09:18)
[2022-03-14] MEDS: Apixaban 2.5 MG TAB PO SCH (09:18)
[2022-03-14] MEDS: busPIRone HCl 10 MG TAB PO SCH (09:18)
[2022-03-14] MEDS: Diltiazem HCl SR 60 mg Capsule PO SCH (09:18)
[2022-03-14] MEDS: Febuxostat 40 MG TAB PO SCH (09:18)
[2022-03-14 11:57] VITALS: BP 143/74; TEMP 97.5
== END 2022-03-14 17:35 | disposition home health service (06) | DRG 308 ==
LOC: ERS 09:42 → 2SW 13:10 → OBSVTOIN 03-10 10:24
PROVIDERS: ADMIT Specialist; ATTEND Specialist
PROC: 5A1D70Z Performance of Urinary Filtration, Intermittent, Less than 6 Hours Per Day (ICD-10-PCS; principal; 2022-03-10)
DX: I48.20 Chronic atrial fibrillation, unspecified (principal); N18.6 End stage renal disease; Z20.822 Contact with and (suspected) exposure to COVID-19; I50.32 Chronic diastolic (congestive) heart failure; I13.2 Hypertensive heart and chronic kidney disease with heart failure and with stage 5 chronic kidney disease, or end stage renal disease; I47.1 Supraventricular tachycardia; K21.9 Gastro-esophageal reflux disease without esophagitis; E78.5 Hyperlipidemia, unspecified; F41.1 Generalized anxiety disorder; G47.33 Obstructive sleep apnea (adult) (pediatric); E11.9 Type 2 diabetes mellitus without complications; E66.01 Morbid (severe) obesity due to excess calories; D63.1 Anemia in chronic kidney disease; E87.5 Hyperkalemia; Z99.2 Dependence on renal dialysis; Z86.73 Personal history of transient ischemic attack (TIA), and cerebral infarction without residual deficits; Z93.3 Colostomy status; Z98.51 Tubal ligation status; Z79.899 Other long term (current) drug therapy; Z79.82 Long term (current) use of aspirin; Z79.01 Long term (current) use of anticoagulants; Z91.14 Patient's other noncompliance with medication regimen; Z68.38 Body mass index [BMI] 38.0-38.9, adult
CPT/HCPCS: 36415; 71045; 80048; 80053; 80061; 82550; 82553; 83036; 83735; 84443; 84484; 84550; 85025; 90935; 93005; 96374; G0257; G0378; U0003; U0005

== ENCOUNTER 2022-03-27 08:27 | Emergency (ER) | payer MEDICARE | END 2022-03-27 09:33 | disposition home or self-care (01) | LOC: ERS 08:27 | DX: R00.1 Bradycardia, unspecified (principal); I13.2 Hypertensive heart and chronic kidney disease with heart failure and with stage 5 chronic kidney disease, or end stage renal disease; I50.9 Heart failure, unspecified; N18.6 End stage renal disease; Z86.73 Personal history of transient ischemic attack (TIA), and cerebral infarction without residual deficits | CPT/HCPCS: 93005 ==

== ENCOUNTER 2022-04-03 10:04 | Inpatient (IN) | payer MEDICARE ==
[2022-04-03 11:03] LABS: #Eosinphils 0.2 thou/uL (0.0-0.7); #Lymphocytes 0.8 thou/uL (1.20-3.40); #Monocytes 0.4 thou/uL (0.11-0.59); #Neutrophils 3.2 thou/uL (1.40-6.50); %Eosinophils 3.8 % (0.0-10.0); %Lymphocytes 17.8 % (21.0-51.0); %Monocytes 8.7 % (0.0-10.0); %Neutrophils 69.8 % (42.0-75.0); Hemoglobin 11.6 g/dL (12.0-16.0); Mean Corpuscular HGB CONC 29.3 g/dL (32.0-36.0); Mean Corpuscular Hemoglobin 27.9 pg (27.0-31.0); Mean Corpuscular Volume 95.2 fL (78.0-98.0); Platelet Count 165 thou/uL (130-400); RBC Distribution Width 15.4 % (11.5-14.5); Red Blood Cell (RBC) Count 4.17 mill/uL (4.20-5.40); White Blood Cell (WBC) Count 4.5 thou/uL (4.8-10.8)
[2022-04-03 11:27] LABS: Hypochromia SLIGHT = 6-15 cells (100X) (0-5/hpf); MDiff Complete? YES; Platelet Morphology Comment Appears Adequate
[2022-04-03 11:41] LABS: ALT (SGPT) 11 U/L (8-55); AST (SGOT) 23 U/L (5-34); Albumin 3.6 g/dL (3.4-4.8); Alkaline Phosphatase 89 U/L (40-110); Anion Gap 18 mmol/L (10-20); BUN (Urea Nitrogen) 25 mg/dL (9.8-20.1); Bilirubin, Total 0.5 mg/dL (0.2-1.2); CK (CPK) 41 U/L (29-168); Calc. Creatinine Clearance 0 mL/min (70-130); Carbon Dioxide 24 mmol/L (23-31); Chloride 101 mmol/L (98-107); Globulin 5.1 g/dL (2.4-3.5); Glucose 86 mg/dL (80-115); Lipase 114 U/L (8-78); Potassium 4.3 mmol/L (3.5-5.1); Protein, Total 8.7 g/dL (5.8-8.1); Sodium 139 mmol/L (136-145)
[2022-04-03] MEDS ORDERED: Aspirin Chewable 81 MG TAB ONE (12:18)
[2022-04-03 15:57] LABS: CKMB 0.9 ng/mL (0-6.6)
[2022-04-03] MEDS ORDERED: Ondansetron PF 4 MG/2 ML Vial IVP PRN ×2 (16:00→18:40)
[2022-04-03] MEDS ORDERED: Ondansetron ODT 4 MG TAB SL PRN (16:00)
[2022-04-03 16:04] VITALS: BMI 39.0
[2022-04-03] MEDS ORDERED: ALPRAZolam 1 MG TAB PO PRN (18:39)
[2022-04-03] MEDS ORDERED: Acetaminophen 325 MG TAB PO PRN (18:40)
[2022-04-03] MEDS: Atorvastatin Calcium 40 MG TAB PO SCH (20:49)
[2022-04-03] MEDS: busPIRone HCl 10 MG TAB PO SCH (20:49)
[2022-04-03] MEDS: Apixaban 2.5 MG TAB PO SCH (20:50)
[2022-04-03] MEDS: Dronedarone HCl 400 MG TAB PO SCH (20:50)
[2022-04-03] MEDS: Metoclopramide HCl 10 MG TAB PO SCH (20:50)
[2022-04-03] MEDS: Melatonin 3 MG TAB PO SCH (20:50)
[2022-04-04 04:28] LABS: #Eosinphils 0.3 thou/uL (0.0-0.7); #Lymphocytes 0.9 thou/uL (1.20-3.40); #Monocytes 0.6 thou/uL (0.11-0.59); #Neutrophils 3.8 thou/uL (1.40-6.50); %Basophils 0.4 % (0.0-1.0); %Eosinophils 5.1 % (0.0-10.0); %Lymphocytes 16.2 % (21.0-51.0); %Monocytes 11.4 % (0.0-10.0); %Neutrophils 66.9 % (42.0-75.0); Hemoglobin 11.1 g/dL (12.0-16.0); Mean Corpuscular HGB CONC 31.1 g/dL (32.0-36.0); Mean Corpuscular Hemoglobin 29.1 pg (27.0-31.0); Mean Corpuscular Volume 93.6 fL (78.0-98.0); Mean Platelet Volume 6.7 fL (7.4-10.4); Platelet Count 167 thou/uL (130-400); RBC Distribution Width 15.2 % (11.5-14.5); Red Blood Cell (RBC) Count 3.82 mill/uL (4.20-5.40); White Blood Cell (WBC) Count 5.7 thou/uL (4.8-10.8)
[2022-04-04 04:34] LABS: Hemoglobin A1c 5.6 % (4.0-6.0)
[2022-04-04 05:46] LABS: Albumin 3.4 g/dL (3.4-4.8); Alkaline Phosphatase 82 U/L (40-110); Anion Gap 14 mmol/L (10-20); BUN (Urea Nitrogen) 35 mg/dL (9.8-20.1); Bilirubin, Total 0.5 mg/dL (0.2-1.2); Calc. Creatinine Clearance 12 mL/min (70-130); Calcium 9.7 mg/dL (7.8-10.44); Carbon Dioxide 28 mmol/L (23-31); Chloride 101 mmol/L (98-107); Glucose 86 mg/dL (80-115); Sodium 139 mmol/L (136-145)
[2022-04-04 05:47] LABS: ALT (SGPT) 8 U/L (8-55); AST (SGOT) 13 U/L (5-34); Bilirubin, Direct 0.2 mg/dL (0.1-0.3)
[2022-04-04] MEDS: Aspirin 325 MG TAB PO SCH (10:24)
[2022-04-04] MEDS: busPIRone HCl 10 MG TAB PO SCH ×2 (10:24→20:27)
[2022-04-04] MEDS: Sevelamer Carbonate 800 MG TAB PO SCH ×3 (10:24→17:42)
[2022-04-04] MEDS: Cinacalcet HCl 30 MG TAB PO SCH (10:24)
[2022-04-04] MEDS: Apixaban 2.5 MG TAB PO SCH ×2 (10:25→21:47)
[2022-04-04] MEDS: Metoclopramide HCl 10 MG TAB PO SCH ×4 (10:25→20:27)
[2022-04-04] MEDS: Febuxostat 40 MG TAB PO SCH (10:25)
[2022-04-04] MEDS: Dronedarone HCl 400 MG TAB PO SCH ×2 (10:26→20:27)
[2022-04-04] MEDS: Carvedilol 6.25 MG TAB PO SCH ×2 (11:03→17:42)
[2022-04-04] MEDS: Melatonin 3 MG TAB PO SCH ×2 (20:27→23:12)
[2022-04-04] MEDS: Atorvastatin Calcium 40 MG TAB PO SCH (20:27)
[2022-04-05 04:54] LABS: #Eosinphils 0.3 thou/uL (0.0-0.7); #Lymphocytes 0.9 thou/uL (1.20-3.40); #Monocytes 0.6 thou/uL (0.11-0.59); #Neutrophils 3.2 thou/uL (1.40-6.50); %Eosinophils 6.6 % (0.0-10.0); %Lymphocytes 17.6 % (21.0-51.0); %Monocytes 12.6 % (0.0-10.0); %Neutrophils 63.3 % (42.0-75.0); Hemoglobin 10.7 g/dL (12.0-16.0); Mean Corpuscular HGB CONC 31.2 g/dL (32.0-36.0); Mean Corpuscular Hemoglobin 29.2 pg (27.0-31.0); Mean Corpuscular Volume 93.7 fL (78.0-98.0); Mean Platelet Volume 7.3 fL (7.4-10.4); Platelet Count 166 thou/uL (130-400); RBC Distribution Width 15.1 % (11.5-14.5); Red Blood Cell (RBC) Count 3.66 mill/uL (4.20-5.40)
[2022-04-05 05:13] LABS: Anion Gap 16 mmol/L (10-20); BUN (Urea Nitrogen) 47 mg/dL (9.8-20.1); Calc. Creatinine Clearance 10 mL/min (70-130); Calcium 9.4 mg/dL (7.8-10.44); Carbon Dioxide 24 mmol/L (23-31); Chloride 103 mmol/L (98-107); Glucose 80 mg/dL (80-115); Potassium 4.2 mmol/L (3.5-5.1); Sodium 139 mmol/L (136-145)
[2022-04-05] MEDS ORDERED: Epoetin (ESRD) 10,000 UNITS/ML VIAL SC SCH (08:00)
[2022-04-05] MEDS: Carvedilol 6.25 MG TAB PO SCH ×2 (10:25→17:27)
[2022-04-05] MEDS: Metoclopramide HCl 10 MG TAB PO SCH ×4 (10:25→22:30)
[2022-04-05] MEDS: Sevelamer Carbonate 800 MG TAB PO SCH ×3 (10:25→17:27)
[2022-04-05] MEDS: busPIRone HCl 10 MG TAB PO SCH ×2 (12:33→22:29)
[2022-04-05] MEDS: Dronedarone HCl 400 MG TAB PO SCH ×2 (12:33→22:31)
[2022-04-05] MEDS: Cinacalcet HCl 30 MG TAB PO SCH (12:33)
[2022-04-05] MEDS: Aspirin 325 MG TAB PO SCH (12:33)
[2022-04-05] MEDS: Febuxostat 40 MG TAB PO SCH (12:34)
[2022-04-05] MEDS: Melatonin 3 MG TAB PO SCH (22:30)
[2022-04-05] MEDS: Atorvastatin Calcium 40 MG TAB PO SCH (22:31)
[2022-04-06 04:16] LABS: #Eosinphils 0.4 thou/uL (0.0-0.7); #Lymphocytes 0.9 thou/uL (1.20-3.40); #Monocytes 0.7 thou/uL (0.11-0.59); #Neutrophils 3.4 thou/uL (1.40-6.50); %Basophils 0.5 % (0.0-1.0); %Eosinophils 6.5 % (0.0-10.0); %Lymphocytes 16.6 % (21.0-51.0); %Monocytes 13.4 % (0.0-10.0); Hemoglobin 10.8 g/dL (12.0-16.0); Mean Corpuscular HGB CONC 30.5 g/dL (32.0-36.0); Mean Corpuscular Hemoglobin 28.9 pg (27.0-31.0); Mean Corpuscular Volume 94.8 fL (78.0-98.0); Mean Platelet Volume 7.3 fL (7.4-10.4); Platelet Count 177 thou/uL (130-400); RBC Distribution Width 15.3 % (11.5-14.5); Red Blood Cell (RBC) Count 3.72 mill/uL (4.20-5.40); White Blood Cell (WBC) Count 5.4 thou/uL (4.8-10.8)
[2022-04-06 04:38] LABS: Anion Gap 13 mmol/L (10-20); BUN (Urea Nitrogen) 32 mg/dL (9.8-20.1); Calc. Creatinine Clearance 13 mL/min (70-130); Calcium 9.3 mg/dL (7.8-10.44); Carbon Dioxide 30 mmol/L (23-31); Chloride 99 mmol/L (98-107); Glucose 90 mg/dL (80-115); Potassium 4.3 mmol/L (3.5-5.1); Sodium 138 mmol/L (136-145)
[2022-04-06] MEDS: Aspirin 325 MG TAB PO SCH (08:05)
[2022-04-06] MEDS: Dronedarone HCl 400 MG TAB PO SCH (08:06)
[2022-04-06] MEDS: Metoclopramide HCl 10 MG TAB PO SCH ×3 (08:06→18:25)
[2022-04-06] MEDS: Carvedilol 6.25 MG TAB PO SCH ×2 (08:06→18:25)
[2022-04-06] MEDS: busPIRone HCl 10 MG TAB PO SCH (08:07)
[2022-04-06] MEDS: Cinacalcet HCl 30 MG TAB PO SCH (08:12)
[2022-04-06] MEDS: Sevelamer Carbonate 800 MG TAB PO SCH ×3 (08:12→18:25)
[2022-04-06] MEDS: Febuxostat 40 MG TAB PO SCH (10:53)
[2022-04-06 17:32] VITALS: BP 141/83; TEMP 97.7
== END 2022-04-06 18:20 | disposition home or self-care (01) | DRG 308 ==
LOC: ERS 10:04 → ERHOLD 11:59 → 2NO 15:37
PROVIDERS: ADMIT Specialist; ATTEND Specialist
PROC: 5A1D70Z Performance of Urinary Filtration, Intermittent, Less than 6 Hours Per Day (ICD-10-PCS; principal; 2022-04-05)
DX: I49.5 Sick sinus syndrome (principal); N18.6 End stage renal disease; I13.2 Hypertensive heart and chronic kidney disease with heart failure and with stage 5 chronic kidney disease, or end stage renal disease; I50.32 Chronic diastolic (congestive) heart failure; Z20.822 Contact with and (suspected) exposure to COVID-19; I95.3 Hypotension of hemodialysis; I48.91 Unspecified atrial fibrillation; E11.22 Type 2 diabetes mellitus with diabetic chronic kidney disease; K21.9 Gastro-esophageal reflux disease without esophagitis; E78.5 Hyperlipidemia, unspecified; F41.9 Anxiety disorder, unspecified; G47.33 Obstructive sleep apnea (adult) (pediatric); D63.1 Anemia in chronic kidney disease; Z86.73 Personal history of transient ischemic attack (TIA), and cerebral infarction without residual deficits; Z99.2 Dependence on renal dialysis; Z98.51 Tubal ligation status; Z93.3 Colostomy status; Z79.899 Other long term (current) drug therapy; Z79.01 Long term (current) use of anticoagulants; Z98.890 Other specified postprocedural states
CPT/HCPCS: 36415; 71045; 71046; 80048; 80053; 80076; 82550; 82553; 83036; 83690; 83880; 84443; 84484; 85025; 93005; 93306; Q4081; U0003; U0005

== ENCOUNTER 2022-04-14 14:56 | Outpatient (CLI) | payer MEDICARE | END 2022-04-14 14:57 | disposition home or self-care (01) | LOC: LABBT 14:56 | PROVIDERS: ATTEND Internal Medicine Cardiovascular Disease | DX: K94.00 Colostomy complication, unspecified (principal); Z20.822 Contact with and (suspected) exposure to COVID-19 | CPT/HCPCS: 87811 ==

== ENCOUNTER 2022-04-19 09:59 | Day surgery (SDC) | payer MEDICARE ==
[2022-04-14 10:40] VITALS: BMI 40.2
[2022-04-19 10:39] LABS: Hemoglobin 11.3 g/dL (12.0-16.0); Mean Corpuscular Hemoglobin 28.6 pg (27.0-31.0); Mean Corpuscular Volume 95.4 fL (78.0-98.0); Mean Platelet Volume 7.4 fL (7.4-10.4); Platelet Count 167 thou/uL (130-400); Red Blood Cell (RBC) Count 3.96 mill/uL (4.20-5.40); White Blood Cell (WBC) Count 5.7 thou/uL (4.8-10.8)
[2022-04-19 10:49] LABS: INR-International Normal Ratio 1.1; Prothrombin Time 13.8 sec (12.0-14.7)
[2022-04-19 10:50] LABS: PTT 29.1 sec (22.9-36.1)
[2022-04-19 10:57] LABS: Anion Gap 18 mmol/L (10-20); BUN (Urea Nitrogen) 40 mg/dL (9.8-20.1); Calc. Creatinine Clearance 10 mL/min (70-130); Calcium 9.9 mg/dL (7.8-10.44); Carbon Dioxide 23 mmol/L (23-31); Chloride 103 mmol/L (98-107); Estimated GFR 5; Glucose 70 mg/dL (80-115); Potassium 4.3 mmol/L (3.5-5.1); Sodium 140 mmol/L (136-145)
[2022-04-19] MEDS ORDERED: Lidocaine 1% (PF) 30 ML VIAL ONE (11:13)
[2022-04-19] MEDS ORDERED: Protamine Sulfate 50 MG/5 ML VIAL ONE (11:13)
[2022-04-19] MEDS ORDERED: Heparin 10,000 UNITS/ 10 ML VIAL ONE (11:13)
[2022-04-19] MEDS ORDERED: Fentanyl 100 MCG/2 ML VIAL ONE (11:29)
[2022-04-19] MEDS ORDERED: SUGAMMADEX SODIUM 200 MG/2 ML VIAL ONE (12:23)
[2022-04-19] MEDS ORDERED: Isoproterenol 0.2 MG/1 ML AMP ONE (12:24)
[2022-04-19] MEDS ORDERED: Carvedilol 6.25 MG TAB ONE (16:48)
== END 2022-04-19 19:50 | disposition home or self-care (01) ==
LOC: SDC 09:59
PROVIDERS: ATTEND Internal Medicine Cardiovascular Disease
PROC: B244ZZ3 Ultrasonography of Right Heart, Intravascular (ICD-10-PCS; principal; 2022-04-19)
PROC: 02583ZZ Destruction of Conduction Mechanism, Percutaneous Approach (ICD-10-PCS; 2022-04-19)
PROC: 02K83ZZ Map Conduction Mechanism, Percutaneous Approach (ICD-10-PCS; 2022-04-19)
PROC: 4A023FZ Measurement of Cardiac Rhythm, Percutaneous Approach (ICD-10-PCS; 2022-04-19)
PROC: 4A0234Z Measurement of Cardiac Electrical Activity, Percutaneous Approach (ICD-10-PCS; 2022-04-19)
DX: I47.1 Supraventricular tachycardia (principal); I13.2 Hypertensive heart and chronic kidney disease with heart failure and with stage 5 chronic kidney disease, or end stage renal disease; E11.22 Type 2 diabetes mellitus with diabetic chronic kidney disease; N18.6 End stage renal disease; I50.32 Chronic diastolic (congestive) heart failure; K21.9 Gastro-esophageal reflux disease without esophagitis; E78.5 Hyperlipidemia, unspecified; G47.33 Obstructive sleep apnea (adult) (pediatric); Z79.01 Long term (current) use of anticoagulants; Z79.82 Long term (current) use of aspirin; Z79.899 Other long term (current) drug therapy; Z99.2 Dependence on renal dialysis
CPT/HCPCS: 36415; 36416; 80048; 85027; 85347; 85610; 85730; 93005; 93462; 93613; 93621; 93623; 93653; 93662; C1732; C1759; C1884; J1644; J2001; J2720; J3010

== ENCOUNTER 2022-05-01 17:46 | Inpatient (IN) | payer MEDICARE ==
[2022-05-01] MEDS ORDERED: Atropine Sulfate 1 mg/10 ml Syringe ONE (18:14)
[2022-05-01 18:41] LABS: #Eosinphils 0.4 thou/uL (0.0-0.7); #Lymphocytes 0.9 thou/uL (1.20-3.40); #Monocytes 0.6 thou/uL (0.11-0.59); #Neutrophils 4.3 thou/uL (1.40-6.50); %Lymphocytes 14.1 % (21.0-51.0); %Monocytes 9.4 % (0.0-10.0); %Neutrophils 69.5 % (42.0-75.0); Hemoglobin 10.6 g/dL (12.0-16.0); Mean Corpuscular HGB CONC 30.9 g/dL (32.0-36.0); Mean Corpuscular Hemoglobin 29.1 pg (27.0-31.0); Mean Corpuscular Volume 94.3 fL (78.0-98.0); Mean Platelet Volume 6.7 fL (7.4-10.4); Platelet Count 219 thou/uL (130-400); RBC Distribution Width 15.1 % (11.5-14.5); Red Blood Cell (RBC) Count 3.64 mill/uL (4.20-5.40); White Blood Cell (WBC) Count 6.1 thou/uL (4.8-10.8)
[2022-05-01 19:04] LABS: ALT (SGPT) 16 U/L (8-55); AST (SGOT) 21 U/L (5-34); Albumin 3.7 g/dL (3.4-4.8); Alkaline Phosphatase 87 U/L (40-110); Anion Gap 15 mmol/L (10-20); BUN (Urea Nitrogen) 16 mg/dL (9.8-20.1); Bilirubin, Total 0.4 mg/dL (0.2-1.2); Calc. Creatinine Clearance 0 mL/min (70-130); Calcium 10.1 mg/dL (7.8-10.44); Carbon Dioxide 30 mmol/L (23-31); Chloride 101 mmol/L (98-107); Estimated GFR 7; Glucose 100 mg/dL (80-115); Potassium 4.3 mmol/L (3.5-5.1); Protein, Total 8.7 g/dL (5.8-8.1); Sodium 142 mmol/L (136-145)
[2022-05-01 19:25] LABS: CKMB 1.2 ng/mL (0-6.6)
[2022-05-01] MEDS ORDERED: DOPamine 400 MG/D5W 250 ML 250 ML ONE (19:52)
[2022-05-01] MEDS ORDERED: Nitroglycerin 2% Ointment 1 INCH/1 GM Packet ONE (20:37)
[2022-05-01 21:36] LABS: SARS-CoV-2 NAA Rapid Test Not Detected (NotDetected)
[2022-05-01 23:11] LABS: Troponin I 0.171 ng/mL (< 0.028)
[2022-05-01] MEDS ORDERED: DOPamine 400 MG/D5W 250 ML 250 ML IVPB SCH (23:45)
[2022-05-02 02:44] LABS: Troponin I 0.148 ng/mL (< 0.028)
[2022-05-02] MEDS ORDERED: Sevelamer Carbonate 800 MG TAB PO SCH (09:00)
[2022-05-02] MEDS ORDERED: DOPamine 400 MG/D5W 250 ML 250 ML IVPB SCH (09:00)
[2022-05-02] MEDS: Sevelamer Carbonate 800 MG TAB PO SCH ×2 (12:23→23:37)
[2022-05-02] MEDS: busPIRone HCl 10 MG TAB PO SCH ×2 (12:23→23:41)
[2022-05-02] MEDS: Cinacalcet HCl 30 MG TAB PO SCH (12:24)
[2022-05-02 17:55] LABS: Digoxin 1.61 ng/mL (0.8-2.0)
[2022-05-02] MEDS ORDERED: DOPamine 400 MG/D5W 250 ML 250 ML ONE (18:51)
[2022-05-02] MEDS ORDERED: cloNIDine 0.1 MG TAB PO PRN (22:40)
[2022-05-02] MEDS: Atorvastatin Calcium 10 MG TAB PO SCH (23:41)
[2022-05-02] MEDS: Sodium Chloride 0.9% 1,000 ML IV SCH (23:46)
[2022-05-03] MEDS: Sodium Chloride 0.9% 1,000 ML IV SCH (06:22)
[2022-05-03 06:52] LABS: Anion Gap 18 mmol/L (10-20); BUN (Urea Nitrogen) 32 mg/dL (9.8-20.1); Calc. Creatinine Clearance 0 mL/min (70-130); Carbon Dioxide 24 mmol/L (23-31); Chloride 101 mmol/L (98-107); Cholesterol 97 mg/dl (< 200 Desired); Estimated GFR 5; Glucose 102 mg/dL (80-115); HDL Cholesterol 48 mg/dL (>60 Neg Risk); LDL Cholesterol, Calculated 34 mg/dL; Potassium 4.6 mmol/L (3.5-5.1); Sodium 138 mmol/L (136-145); Triglycerides 73 mg/dL (Less than 150)
[2022-05-03 07:21] LABS: #Eosinphils 0.4 thou/uL (0.0-0.7); #Lymphocytes 0.7 thou/uL (1.20-3.40); #Monocytes 0.5 thou/uL (0.11-0.59); #Neutrophils 4.6 thou/uL (1.40-6.50); %Basophils 0.2 % (0.0-1.0); %Eosinophils 5.7 % (0.0-10.0); %Lymphocytes 11.3 % (21.0-51.0); %Monocytes 8.4 % (0.0-10.0); %Neutrophils 74.3 % (42.0-75.0); Hemoglobin 10.5 g/dL (12.0-16.0); Mean Corpuscular HGB CONC 30.6 g/dL (32.0-36.0); Mean Corpuscular Volume 94.8 fL (78.0-98.0); Mean Platelet Volume 6.8 fL (7.4-10.4); Platelet Count 202 thou/uL (130-400); RBC Distribution Width 15.3 % (11.5-14.5); Red Blood Cell (RBC) Count 3.62 mill/uL (4.20-5.40); White Blood Cell (WBC) Count 6.2 thou/uL (4.8-10.8)
[2022-05-03] MEDS ORDERED: Epoetin (ESRD) 20,000 UNITS/ML SC SCH (09:15)
[2022-05-03] MEDS: Cinacalcet HCl 30 MG TAB PO SCH (09:29)
[2022-05-03] MEDS: busPIRone HCl 10 MG TAB PO SCH ×2 (09:29→20:49)
[2022-05-03] MEDS: Sevelamer Carbonate 800 MG TAB PO SCH ×3 (10:09→18:51)
[2022-05-03] MEDS: Epoetin (ESRD) 10,000 UNITS/ML VIAL SC SCH (14:08)
[2022-05-03] MEDS: Atorvastatin Calcium 10 MG TAB PO SCH (20:49)
[2022-05-03] MEDS ORDERED: Heparin 5,000 UNITS/ML VIAL SC SCH (21:00)
[2022-05-04 06:18] LABS: #Eosinphils 0.4 thou/uL (0.0-0.7); #Lymphocytes 0.8 thou/uL (1.20-3.40); #Monocytes 0.7 thou/uL (0.11-0.59); #Neutrophils 5.4 thou/uL (1.40-6.50); %Basophils 0.2 % (0.0-1.0); %Eosinophils 5.1 % (0.0-10.0); %Lymphocytes 10.8 % (21.0-51.0); %Monocytes 9.3 % (0.0-10.0); %Neutrophils 74.6 % (42.0-75.0); Hemoglobin 10.5 g/dL (12.0-16.0); Mean Corpuscular HGB CONC 30.6 g/dL (32.0-36.0); Mean Corpuscular Hemoglobin 28.9 pg (27.0-31.0); Mean Corpuscular Volume 94.5 fL (78.0-98.0); Mean Platelet Volume 6.7 fL (7.4-10.4); Platelet Count 192 thou/uL (130-400); RBC Distribution Width 15.5 % (11.5-14.5); Red Blood Cell (RBC) Count 3.65 mill/uL (4.20-5.40); White Blood Cell (WBC) Count 7.2 thou/uL (4.8-10.8)
[2022-05-04 06:45] LABS: Anion Gap 17 mmol/L (10-20); BUN (Urea Nitrogen) 22 mg/dL (9.8-20.1); Calc. Creatinine Clearance 12 mL/min (70-130); Calcium 9.1 mg/dL (7.8-10.44); Carbon Dioxide 22 mmol/L (23-31); Chloride 102 mmol/L (98-107); Estimated GFR 6; Glucose 81 mg/dL (80-115); Potassium 4.1 mmol/L (3.5-5.1); Sodium 137 mmol/L (136-145)
[2022-05-04] MEDS: Sevelamer Carbonate 800 MG TAB PO SCH ×3 (07:50→18:29)
[2022-05-04] MEDS: Cinacalcet HCl 30 MG TAB PO SCH (07:51)
[2022-05-04] MEDS: Sodium Chloride 0.9% 1,000 ML IV SCH (07:51)
[2022-05-04] MEDS: busPIRone HCl 10 MG TAB PO SCH ×2 (07:51→22:26)
[2022-05-04] MEDS ORDERED: Iopamidol 370 76% 50 ML VIAL FS ONE (08:00)
[2022-05-04] MEDS ORDERED: Lidocaine 1% (PF) 30 ML VIAL ONE ×2 (10:03→12:14)
[2022-05-04] MEDS ORDERED: Gentamicin 80 MG/100 ML BAG ONE (10:03)
[2022-05-04] MEDS ORDERED: CEFAZOLIN 1 GM VIAL ONE (10:03)
[2022-05-04] MEDS ORDERED: Midazolam HCl 2 mg/2 ml Vial ONE (11:42)
[2022-05-04] MEDS ORDERED: fentaNYL Citrate/PF 100 MCG/2 ML SYRINGE ONE (11:42)
[2022-05-04] MEDS ORDERED: Propofol 500 MG/50 ML VIAL ONE (12:01)
[2022-05-04] MEDS ORDERED: Heparin 10,000 UNITS/ 10 ML VIAL ONE (12:14)
[2022-05-04] MEDS: Atorvastatin Calcium 10 MG TAB PO SCH (22:26)
[2022-05-04] MEDS: ALPRAZolam 0.5 MG TAB PO PRN (22:26)
[2022-05-05] MEDS ORDERED: ALPRAZolam 1 MG TAB PO PRN (08:00)
[2022-05-05] MEDS ORDERED: Milk Of Magnesia 30 ML UDCUP PO PRN (08:03)
[2022-05-05] MEDS: busPIRone HCl 10 MG TAB PO SCH ×2 (09:17→21:01)
[2022-05-05] MEDS: Febuxostat 40 MG TAB PO SCH (09:17)
[2022-05-05] MEDS: Sevelamer Carbonate 800 MG TAB PO SCH ×3 (09:17→21:01)
[2022-05-05] MEDS: Sodium Chloride 0.9% 1,000 ML IV SCH (09:21)
[2022-05-05] MEDS ORDERED: Piperacillin/Tazobactam 2.25 GM in Sodium Chloride 0.9% 100 ML IVPB SCH (10:30)
[2022-05-05] MEDS ORDERED: Piperacillin/Tazobactam 3.375 GM in Sodium Chloride 0.9% 100 ML IVPB SCH (12:00)
[2022-05-05] MEDS ORDERED: MELATONIN 5 MG SL SCH (21:00)
[2022-05-05] MEDS: Melatonin 3 MG TAB PO SCH (21:01)
[2022-05-05] MEDS: ALPRAZolam 0.5 MG TAB PO PRN (21:01)
[2022-05-05] MEDS: Atorvastatin Calcium 10 MG TAB PO SCH (21:02)
[2022-05-05] MEDS: Apixaban 5 MG TAB PO SCH (21:02)
[2022-05-06] MEDS: Piperacillin/Tazobactam 3.375 GM in Sodium Chloride 0.9% 100 ML IVPB SCH ×2 (00:42→13:22)
[2022-05-06] MEDS: Dronedarone HCl 400 MG TAB PO SCH ×2 (10:10→17:09)
[2022-05-06] MEDS: busPIRone HCl 10 MG TAB PO SCH ×2 (10:10→22:05)
[2022-05-06] MEDS: Sevelamer Carbonate 800 MG TAB PO SCH ×3 (10:10→17:09)
[2022-05-06] MEDS: Febuxostat 40 MG TAB PO SCH (10:11)
[2022-05-06] MEDS: Apixaban 5 MG TAB PO SCH ×2 (10:11→22:05)
[2022-05-06] MEDS: ALPRAZolam 0.5 MG TAB PO PRN (17:56)
[2022-05-06] MEDS: Melatonin 3 MG TAB PO SCH (22:05)
[2022-05-06] MEDS: Atorvastatin Calcium 10 MG TAB PO SCH (22:06)
[2022-05-07] MEDS: Sevelamer Carbonate 800 MG TAB PO SCH ×3 (10:11→16:49)
[2022-05-07] MEDS: busPIRone HCl 10 MG TAB PO SCH ×2 (10:11→21:36)
[2022-05-07] MEDS: Apixaban 5 MG TAB PO SCH ×2 (10:11→21:36)
[2022-05-07] MEDS: Febuxostat 40 MG TAB PO SCH (10:12)
[2022-05-07] MEDS: Dronedarone HCl 400 MG TAB PO SCH ×2 (10:12→16:49)
[2022-05-07] MEDS: Acetaminophen 500 MG TAB PO PRN (16:48)
[2022-05-07] MEDS: Atorvastatin Calcium 10 MG TAB PO SCH (21:36)
[2022-05-07] MEDS: Melatonin 3 MG TAB PO SCH (21:36)
[2022-05-07] MEDS: ALPRAZolam 0.5 MG TAB PO PRN (21:38)
[2022-05-08 04:47] LABS: #Eosinphils 0.4 thou/uL (0.0-0.7); #Lymphocytes 0.9 thou/uL (1.20-3.40); #Monocytes 0.8 thou/uL (0.11-0.59); #Neutrophils 4.1 thou/uL (1.40-6.50); %Basophils 0.5 % (0.0-1.0); %Monocytes 12.2 % (0.0-10.0); %Neutrophils 66.3 % (42.0-75.0); Hemoglobin 10.4 g/dL (12.0-16.0); Mean Corpuscular HGB CONC 30.7 g/dL (32.0-36.0); Mean Corpuscular Volume 97.7 fL (78.0-98.0); Mean Platelet Volume 6.8 fL (7.4-10.4); Platelet Count 192 thou/uL (130-400); Red Blood Cell (RBC) Count 3.47 mill/uL (4.20-5.40); White Blood Cell (WBC) Count 6.2 thou/uL (4.8-10.8)
[2022-05-08 05:06] LABS: Anion Gap 17 mmol/L (10-20); BUN (Urea Nitrogen) 40 mg/dL (9.8-20.1); Calc. Creatinine Clearance 9 mL/min (70-130); Calcium 9.3 mg/dL (7.8-10.44); Carbon Dioxide 26 mmol/L (23-31); Chloride 102 mmol/L (98-107); Estimated GFR 4; Glucose 97 mg/dL (80-115); Potassium 4.3 mmol/L (3.5-5.1); Sodium 141 mmol/L (136-145)
[2022-05-08] MEDS: Apixaban 5 MG TAB PO SCH ×2 (08:18→22:32)
[2022-05-08] MEDS: Dronedarone HCl 400 MG TAB PO SCH ×2 (08:18→17:13)
[2022-05-08] MEDS: busPIRone HCl 10 MG TAB PO SCH ×2 (08:18→22:32)
[2022-05-08] MEDS: Sevelamer Carbonate 800 MG TAB PO SCH ×3 (10:29→17:13)
[2022-05-08] MEDS: Acetaminophen 500 MG TAB PO PRN ×2 (11:40→22:32)
[2022-05-08] MEDS: Febuxostat 40 MG TAB PO SCH (13:06)
[2022-05-08] MEDS: ALPRAZolam 0.5 MG TAB PO PRN (22:32)
[2022-05-08] MEDS: Atorvastatin Calcium 10 MG TAB PO SCH (22:32)
[2022-05-08] MEDS: Melatonin 3 MG TAB PO SCH (22:32)
[2022-05-09 04:37] LABS: #Eosinphils 0.3 thou/uL (0.0-0.7); #Lymphocytes 0.9 thou/uL (1.20-3.40); #Monocytes 0.8 thou/uL (0.11-0.59); #Neutrophils 4.2 thou/uL (1.40-6.50); %Monocytes 12.8 % (0.0-10.0); %Neutrophils 67.1 % (42.0-75.0); Hemoglobin 10.1 g/dL (12.0-16.0); Mean Corpuscular HGB CONC 30.8 g/dL (32.0-36.0); Mean Corpuscular Hemoglobin 29.6 pg (27.0-31.0); Mean Corpuscular Volume 95.9 fL (78.0-98.0); Mean Platelet Volume 6.8 fL (7.4-10.4); Platelet Count 194 thou/uL (130-400); Red Blood Cell (RBC) Count 3.43 mill/uL (4.20-5.40); White Blood Cell (WBC) Count 6.2 thou/uL (4.8-10.8)
[2022-05-09 04:55] LABS: Anion Gap 13 mmol/L (10-20); BUN (Urea Nitrogen) 25 mg/dL (9.8-20.1); Calc. Creatinine Clearance 12 mL/min (70-130); Calcium 9.3 mg/dL (7.8-10.44); Carbon Dioxide 30 mmol/L (23-31); Chloride 100 mmol/L (98-107); Estimated GFR 6; Glucose 93 mg/dL (80-115); Potassium 4.1 mmol/L (3.5-5.1); Sodium 139 mmol/L (136-145)
[2022-05-09] MEDS: Apixaban 2.5 MG TAB PO SCH ×2 (09:54→20:50)
[2022-05-09] MEDS: Dronedarone HCl 400 MG TAB PO SCH ×2 (09:54→17:12)
[2022-05-09] MEDS: Sevelamer Carbonate 800 MG TAB PO SCH ×3 (09:54→17:12)
[2022-05-09] MEDS: busPIRone HCl 10 MG TAB PO SCH ×2 (09:55→21:49)
[2022-05-09] MEDS: Febuxostat 40 MG TAB PO SCH (09:55)
[2022-05-09] MEDS: Melatonin 3 MG TAB PO SCH (20:49)
[2022-05-09] MEDS: Atorvastatin Calcium 10 MG TAB PO SCH (20:50)
[2022-05-09] MEDS: ALPRAZolam 0.5 MG TAB PO PRN (21:50)
[2022-05-10 04:42] LABS: #Eosinphils 0.3 thou/uL (0.0-0.7); #Lymphocytes 0.8 thou/uL (1.20-3.40); #Monocytes 0.7 thou/uL (0.11-0.59); #Neutrophils 4.2 thou/uL (1.40-6.50); %Basophils 0.1 % (0.0-1.0); %Eosinophils 5.5 % (0.0-10.0); %Monocytes 11.7 % (0.0-10.0); %Neutrophils 69.7 % (42.0-75.0); Hemoglobin 10.4 g/dL (12.0-16.0); Mean Corpuscular HGB CONC 31.1 g/dL (32.0-36.0); Mean Corpuscular Hemoglobin 29.3 pg (27.0-31.0); Mean Corpuscular Volume 94.2 fL (78.0-98.0); Mean Platelet Volume 6.8 fL (7.4-10.4); Platelet Count 199 thou/uL (130-400); RBC Distribution Width 15.8 % (11.5-14.5); Red Blood Cell (RBC) Count 3.56 mill/uL (4.20-5.40)
[2022-05-10 05:02] LABS: Anion Gap 15 mmol/L (10-20); BUN (Urea Nitrogen) 35 mg/dL (9.8-20.1); Calc. Creatinine Clearance 9 mL/min (70-130); Calcium 10.1 mg/dL (7.8-10.44); Carbon Dioxide 27 mmol/L (23-31); Chloride 101 mmol/L (98-107); Estimated GFR 5; Glucose 86 mg/dL (80-115); Potassium 4.3 mmol/L (3.5-5.1); Sodium 139 mmol/L (136-145)
[2022-05-10] MEDS: Febuxostat 40 MG TAB PO SCH (09:22)
[2022-05-10] MEDS: Dronedarone HCl 400 MG TAB PO SCH ×2 (09:22→17:45)
[2022-05-10] MEDS: Sevelamer Carbonate 800 MG TAB PO SCH ×3 (09:22→17:45)
[2022-05-10] MEDS: Apixaban 2.5 MG TAB PO SCH ×2 (09:22→20:27)
[2022-05-10] MEDS: busPIRone HCl 10 MG TAB PO SCH ×2 (09:22→20:27)
[2022-05-10 12:56] VITALS: BMI 36.0
[2022-05-10] MEDS: Acetaminophen 500 MG TAB PO PRN ×2 (14:07→20:28)
[2022-05-10] MEDS: Epoetin (ESRD) 10,000 UNITS/ML VIAL SC SCH (14:32)
[2022-05-10] MEDS: Atorvastatin Calcium 10 MG TAB PO SCH (20:27)
[2022-05-10] MEDS: Melatonin 3 MG TAB PO SCH (20:27)
[2022-05-10] MEDS: ALPRAZolam 0.5 MG TAB PO PRN (20:29)
[2022-05-11] MEDS: Apixaban 2.5 MG TAB PO SCH ×2 (09:54→20:58)
[2022-05-11] MEDS: Sevelamer Carbonate 800 MG TAB PO SCH ×3 (09:54→17:49)
[2022-05-11] MEDS: Dronedarone HCl 400 MG TAB PO SCH ×2 (09:54→17:49)
[2022-05-11] MEDS: busPIRone HCl 10 MG TAB PO SCH ×2 (09:54→20:58)
[2022-05-11] MEDS: Febuxostat 40 MG TAB PO SCH (09:57)
[2022-05-11] MEDS: Atorvastatin Calcium 10 MG TAB PO SCH (20:58)
[2022-05-11] MEDS: Melatonin 3 MG TAB PO SCH (20:58)
[2022-05-11] MEDS: Acetaminophen 500 MG TAB PO PRN (20:59)
[2022-05-11] MEDS: ALPRAZolam 0.5 MG TAB PO PRN (20:59)
[2022-05-12 03:12] VITALS: BP 134/81; TEMP 97.8
[2022-05-12] MEDS: busPIRone HCl 10 MG TAB PO SCH (12:39)
[2022-05-12] MEDS: Febuxostat 40 MG TAB PO SCH (12:39)
[2022-05-12] MEDS: Sevelamer Carbonate 800 MG TAB PO SCH ×3 (12:40→17:59)
[2022-05-12] MEDS: Dronedarone HCl 400 MG TAB PO SCH ×2 (12:40→17:59)
[2022-05-12] MEDS: Apixaban 2.5 MG TAB PO SCH (12:40)
== END 2022-05-12 19:31 | DRG 242 ==
LOC: ERS 17:46 → ERHOLD 22:02 → IMCU/EMU 05-02 18:58 → 2NO 05-06 11:42
PROVIDERS: ADMIT Specialist; ATTEND Family Medicine
PROC: 5A1D70Z Performance of Urinary Filtration, Intermittent, Less than 6 Hours Per Day (ICD-10-PCS; 2022-05-01)
PROC: 0JH604Z Insertion of Pacemaker, Single Chamber into Chest Subcutaneous Tissue and Fascia, Open Approach (ICD-10-PCS; principal; 2022-05-04)
PROC: 02HK0JZ Insertion of Pacemaker Lead into Right Ventricle, Open Approach (ICD-10-PCS; 2022-05-04)
DX: I49.5 Sick sinus syndrome (principal); N18.6 End stage renal disease; J96.01 Acute respiratory failure with hypoxia; I50.32 Chronic diastolic (congestive) heart failure; I13.2 Hypertensive heart and chronic kidney disease with heart failure and with stage 5 chronic kidney disease, or end stage renal disease; I47.2 Ventricular tachycardia; Z20.822 Contact with and (suspected) exposure to COVID-19; I44.0 Atrioventricular block, first degree; E11.22 Type 2 diabetes mellitus with diabetic chronic kidney disease; K21.9 Gastro-esophageal reflux disease without esophagitis; E78.5 Hyperlipidemia, unspecified; G47.33 Obstructive sleep apnea (adult) (pediatric); F41.1 Generalized anxiety disorder; H54.7 Unspecified visual loss; D63.1 Anemia in chronic kidney disease; G47.00 Insomnia, unspecified; I48.91 Unspecified atrial fibrillation; M10.9 Gout, unspecified; Z93.3 Colostomy status; Z79.82 Long term (current) use of aspirin; Z99.2 Dependence on renal dialysis; Z79.899 Other long term (current) drug therapy; Z79.01 Long term (current) use of anticoagulants
CPT/HCPCS: 36415; 36416; 70450; 71045; 71250; 80048; 80053; 80061; 80162; 82553; 83880; 84484; 85025; 90935; 93005; 94660; 96374; 96375; C1760; C1769; G0257; J0461; J0690; J1265; J1580; J1644; J2001; J2250; J2543; J2704; J3490; J7050; Q4081; Q9967; U0003; U0005